=== PATIENT | male | born 1955 | race Caucasian/White ===

== ENCOUNTER 2018-10-27 16:39 | Observation (INO) | payer MEDICARE, MEDICAID ==
[~2018-10-27] VITALS: Ht 170.2 cm; Wt 85.4 kg
[~2018-10-27 16:39] MED LIST: AMLO10TA5 PO; AMLO25TA PO; AMLO5TAB6 PO; APRESOLINE PO; ASPI-1 PO; ASPI-222 PO; ASPI-286 PO; ASPI1TAB6 PO; ASPI325T PO; ASPI81TA24 PO; ASPI81TA85 PO; ATOR40TA75 PO; ATOR80TA59 PO; BABY81CH PO; BENZ-18 PO; CARD180C4 PO; CATA0.1D TD; CEPH2CAP OR; CLAR1CHW2 PO; COLA100C5 PO; COUM1TAB17 PO; COZA50TA PO; DEPA1TAB3 PO; DEPA500T PO; DEPA500T2 PO; DRIS50003 PO; FURO40TA2 PO; GABA-1171 PO; GABA-843 PO; GABA300C2 PO; GEMF600T5 PO; GLIP5TAB2 OR; HYDR-3911 PO; IMDU30TA PO; INSUH10VL SC; INSULADS SC; INSULANT SC; ISOS30TA4 PO; JANUVIA; LIPI1TAB2 OR; LIPI20TA PO; LOPI600T PO; LOPR1TAB6 PD; LOPR1TAB6 PO; LOPR50TA OR; LORA-243 PO; LOSA50TA88 PO; LOVE0.6I2 SC; MED REC COMPLETE; METO-346 PO; METO1TAB63 PO; METO50TA7 PO; NEUR300C PO; NEXI40CA PO; NICO14DI3 TD; NICO21DI3 TD; NORV2TAB OR; NORV5TAB PO; NOVO1INJ2 SC; NOVOINJ3 SC; NOVOLOG100 MG/ML SC; OMEP20CA3 PO; ONDA4TAB5 PO; ONDA8TAB7 SL; PANT40TA3 PO; PARO20TA3 PO; PAXI20TA29 PO; PHEN2SUP PO; PLAV1TAB2 PO; PLAV75TA2 PO; PROT1TAB2 PO; REGL10TA6 PO; SENO8.6T10 PO; SENO8.6T5 PO; TESS100C PO; VITA100T PO; VITA250T50 PO; norco PO
[2018-10-27] MEDS ORDERED: MONT10TA2 PO (16:57)
[2018-10-27] MEDS ORDERED: RANI150T14 PO (16:57)
[2018-10-27] MEDS ORDERED: LORA-437 PO (16:57)
[2018-10-27] MEDS ORDERED: BASA100I SC (16:57)
[2018-10-27] MEDS ORDERED: LISI-538 PO (16:57)
[2018-10-27] MEDS ORDERED: NS 1,000 ML IV ONE (17:45)
[2018-10-27] MEDS ORDERED: ONDANSETRON 4MG/2ML VIAL (J2405) IV ONE (17:45)
--- NOTE | 2018-10-27 18:11 | REP ---
CT Head without contrast HISTORY: Altered mental status COMPARISON: 04/15/2016 An area of decreased attenuation is present in the inferior right cerebellum. This represents an old infarction. Areas of decreased attenuation are present in the thalami , left basal ganglia and left centrum semiovale. These represent old lacunar infarctions. Areas of decreased attenuation are present in the periventricular white matter. This represents small-vessel ischemic disease. There is no intraparenchymal hemorrhage, acute infarct, mass or midline shift. The ventricular system and cortical sulci are dilated consistent with mild volume loss. There is no extra cerebral collection. There is no fracture. The visualized sinuses are clear. IMPRESSION: 1. Old right cerebellar infarction. 2. Old bilateral thalamic , left basal ganglia and left centrum semiovale lacunar infarctions. 3. Small vessel ischemic disease. 4. Mild volume loss. Electronically Signed by Lc Mackey MD 10/27/2018 06:02 P
[2018-10-27 18:19] LABS: BASO # 0.1 10^3/uL (0.0-0.2); BASO % 1.5 % (0.0-1.0); EOS # 0.2 10^3/uL (0.0-0.50); EOS % 3.1 % (0.0-3.0); HEMATOCRIT 42.1 % (42.0-52.0); HEMOGLOBIN 13.3 g/dl (13.5-17.5); LYMPH # 1.8 10^3/uL (1.5-4.5); LYMPH % 24.6 % (24.0-44.0); MEAN CORPUSCULAR HEMOGLOBIN 29.2 pg (27.0-33.0); MEAN CORPUSCULAR HGB CONC 31.6 g/dl (32.0-36.5); MEAN CORPUSCULAR VOLUME 92.5 fl (80.0-96.0); MONO # 0.6 10^3/uL (0.0-0.8); MONO % 8.2 % (0.0-5.0); NEUTROPHILS # 4.6 10^3/uL (1.8-7.7); NEUTROPHILS % 62.2 % (36.0-66.0); PLATELET COUNT, AUTOMATED 276 10^3/uL (150-450); RED BLOOD COUNT 4.55 10^6/uL (4.30-6.10); WHITE BLOOD COUNT 7.3 10^3/uL (4.0-10.0)
--- NOTE | 2018-10-27 18:25 | REP ---
ABDOMEN, FLAT UPRIGHT PA CHEST, THREE VIEWS: HISTORY: Abdominal pain. COMPARISON: 06/20/2014 A small amount of air is present in the intestine. There are no air fluid levels or dilated loops of intestine. There is no pneumoperitoneum. A stent is present in the region of the left common iliac artery. The lungs are clear. IMPRESSION:Nonspecific bowel gas pattern. Electronically Signed by Lc Mackey MD 10/27/2018 06:27 P
[2018-10-27 18:38] LABS: ALBUMIN 2.6 GM/DL (3.2-5.2); ALT/SGPT 14 U/L (12-78); BILIRUBIN,DIRECT < 0.1 MG/DL (0.0-0.2); BILIRUBIN,TOTAL 0.3 MG/DL (0.2-1.0); BLOOD UREA NITROGEN 32 MG/DL (7-18); CALCIUM LEVEL 8.5 MG/DL (8.8-10.2); CARBON DIOXIDE LEVEL 26 MEQ/L (21-32); CHLORIDE LEVEL 111 MEQ/L (98-107); CPK CREATINE PHOSPHOKINASE 124 U/L (39-308); CREATININE FOR GFR 2.49 MG/DL (0.70-1.30); GLOMERULAR FILTRATION RATE 28.2 (>49); GLUCOSE, FASTING 103 MG/DL (70-100); LIPASE 122 U/L (73-393); MB/CK RELATIVE INDEX 2.58 (< OR =4); SODIUM LEVEL 145 MEQ/L (136-145); TOTAL PROTEIN 6.5 GM/DL (6.4-8.2); TROPONIN I < 0.02 NG/ML (< 0.10)
[2018-10-27] MEDS: hydrALAZINE INJ 20 MG/ML VIAL IV PRN ×2 (19:38→19:44)
[2018-10-27] MEDS ORDERED: METOCLOPRAMIDE INJ 10MG/2ML VIAL (J2765) IV ONE (20:00)
[2018-10-27] MEDS ORDERED: MAALOX 30 ML SUSP *UDC PO PRN (20:00)
[2018-10-27] MEDS ORDERED: MOM 30ML SUSPENSION UDC PO PRN (20:00)
[2018-10-27] MEDS: D5W/0.45% SODIUM CHLORIDE 1,000 ML IV SCH (20:00)
[2018-10-27] MEDS ORDERED: ACETAMINOPHEN TAB 650MG DOSE (2X325MG) PO PRN (20:00)
--- NOTE | 2018-10-27 20:04 | HPEPDOC ---
General Date of Admission Chief Complaint The patient is a 63-year-old male admitted with a reason for visit of N/V. Source: Patient, RN/, Old records History of Present Illness Mr. Higgins is a 63 years old man with hx/o diabetic gastroparesis who was brought to Er with c/o nausea, vomiting and diarrhea. Pt is not a good historian. But he told me he vomited this morning, and has not vomited since, but has been nauseous. He was reportedly weaker than his baseline. Denies abdominal pain, fever, chills, chest pain, dizziness, syncope or urinary symptoms. In ER his BP was 217/93, which improved to 190/81 with medication. He was also given Zofran for nausea. Cr 2.49 seems around his baseline (1.97-2.56). Head CT showed old infarcts and chronic ischemic changes, but no acute findings. Home Medications Scheduled Amlodipine Besylate (Amlodipine Besylate) 10 Mg Tab, 5 MG PO DAILY, (Reported) Aspirin (Aspirin EC) 325 Mg Tab, 325 MG PO DAILY, (Reported) Atorvastatin Calcium (Atorvastatin Calcium) 80 Mg Tab, 80 MG PO QHS, (Reported) Clopidogrel Bisulfate (Plavix) 75 Mg Tab, 75 MG PO DAILY, (Reported) Cyanocobalamin (Vitamin B-12) (Vitamin B-12) 250 Mcg Tab, 250 MCG PO DAILY, (Reported) Ergocalciferol (Vitamin D2) (Drisdol) 50,000 Unit Cap, 50,000 UNIT PO QWEEK, (Reported) WEDNESDAY Gabapentin (Gabapentin) 100 Mg Cap, 100 MG PO BID, (Reported) Gemfibrozil (Gemfibrozil) 600 Mg Tab, 600 MG PO QHS, (Reported) Isosorbide Mononitrate (Isosorbide Mononitrate ER) 30 Mg Tab, 30 MG PO DAILY, (Reported) Metoprolol Tartrate (Metoprolol Tartrate) 12.5 Mg Halftab, 12.5 MG PO BID, (Reported) Paroxetine HCl (Paroxetine HCl) 20 Mg Tab, 10 MG PO QHS, (Reported) Scheduled PRN Metoclopramide HCl (Reglan) 10 Mg Tab, 10 MG PO AC PRN for HEARTBURN, (Reported) Miscellaneous Medications Insulin Glargine,Hum.rec.anlog (Jerson [place] U-100) 100 Unit/1 Ml Insuln.pen, (Reported) Lisinopril (Lisinopril) 20 Mg Tablet, (Reported) Loratadine (Loratadine) 10 Mg Tablet, (Reported) Montelukast Sodium (Montelukast Sodium) 10 Mg Tablet, (Reported) Ranitidine HCl (Ranitidine HCl) 150 Mg Tablet, (Reported) Allergies Coded Allergies: piperacillin (Verified Allergy, Intermediate, hives/swelling, 10/27/18) tazobactam (Verified Allergy, Intermediate, hives/swelling, 10/27/18) Past Medical History Medical History 1. 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 Hypertension. 3. History of coronary artery disease. 4. Myocardial infarction. 5. Ischemic stroke. 6. Depression. 7. Gastroesophageal reflux disease (GERD). 8. CKD 4 Surgical History Cardiac Stents Family History Significant Family History: No pertinent family hx Social History * Smoker: former Smoker Alcohol: Denies Drugs: denies A-FIB/CHADSVASC A-FIB History Current/History of A-Fib/PAF?: No Review of Systems Constitutional: Reports: Weakness, Fatigue; Denies: Chills, Fever Eyes: Denies: Pain ENT: Denies: Head Aches Skin: Denies: Rash, Lesions Pulmonary: Denies: Dyspnea Cardiovascular: Denies: Chest Pain, Edema Gastrointestinal: Reports: Nausea, Vomiting; Denies: Abdominal Pain Genitourinary: Denies: Dysuria Musculoskeletal: Denies: Neck Pain, Back Pain Neurological: Reports: Weakness; Denies: Numbness, Change in speech Psych: Reports: Mood Normal; Denies: Anxiety Physical Examination General Exam: Positive: Alert, Cooperative, No Acute Distress Eye Exam: Positive: PERRLA ENT Exam: Positive: Atraumatic Neck Exam: Positive: Supple; Negative: JVD Chest Exam: Positive: Clear to auscultation, Normal air movement Heart Exam: Positive: Rate Normal, Regular Rhythm Abdomen Exam: Positive: Normal bowel sounds, Soft; Negative: Tenderness Extremity Exam: Positive: Normal pulses; Negative: Edema Skin Exam: Positive: Nl turgor and temperature; Negative: Rash, Breakdown Neuro Exam: Positive: Normal Speech, Strength at 5/5 X4 ext, Normal Tone Psych Exam: Positive: Mental status NL, Mood NL Vital Signs Vital Signs Date Time Temp Pulse Resp B/P (MAP) Pulse Ox O2 Delivery O2 Flow Rate FiO2 10/27/18 19:44 190/81 10/27/18 19:30 76 18 98 Room Air 10/27/18 18:40 96.9 Laboratory Data Labs 24H Laboratory Tests 2 10/27/18 17:34: Immature Granulocyte % (Auto) 0.4, White Blood Count 7.3, Red Blood Count 4.55, Hemoglobin 13.3L, Hematocrit 42.1, Mean Corpuscular Volume 92.5, Mean Corpuscular Hemoglobin 29.2, Mean Corpuscular Hemoglobin Concent 31.6L, Red Cell Distribution Width 13.6, Platelet Count 276, Neutrophils (%) (Auto) 62.2, Lymphocytes (%) (Auto) 24.6, Monocytes (%) (Auto) 8.2H, Eosinophils (%) (Auto) 3.1H, Basophils (%) (Auto) 1.5H, Neutrophils # (Auto) 4.6, Lymphocytes # (Auto) 1.8, Monocytes # (Auto) 0.6, Eosinophils # (Auto) 0.2, Basophils # (Auto) 0.1, Nucleated Red Blood Cells % (auto) 0.0, Anion Gap 8, Glomerular Filtration Rate 28.2L, Calcium Level 8.5L, Aspartate Amino Transf (AST/SGOT) 20, Alanine Aminotransferase (ALT/SGPT) 14, Alkaline Phosphatase 182H, Total Bilirubin 0.3, Direct Bilirubin < 0.1, Total Creatine Kinase 124, Creatine Kinase MB 3.0, Creatine Kinase MB Relative Index 2.58, Troponin I < 0.02, Total Protein 6.5, Albumin 2.6L, Albumin/Globulin Ratio 0.67L, Lipase 122 10/27/18 18:07: POC Glucose (Misc Panel) 101, POC Sodium (Misc Panel) 146H, POC Potassium (Misc Panel) 4.0, POC Chloride (Misc Panel) 109, POC Total CO2 (Misc Panel) 25.0, POC Blood Urea Nitrogen (Misc Panel 29H, POC Ionized Calcium (Misc Panel) 4.7, POC Creatinine (Misc Panel) 2.4H, POC Hematocrit (Misc Panel) 41.0 CBC/BMP Laboratory Tests 10/27/18 17:34 Red Blood Count 4.55, Mean Corpuscular Volume 92.5, Mean Corpuscular Hemoglobin 29.2, Mean Corpuscular Hemoglobin Concent 31.6 L, Red Cell Distribution Width 13.6, Neutrophils (%) (Auto) 62.2, Lymphocytes (%) (Auto) 24.6, Monocytes (%) (Auto) 8.2 H, Eosinophils (%) (Auto) 3.1 H, Basophils (%) (Auto) 1.5 H, Neutrophils # (Auto) 4.6, Lymphocytes # (Auto) 1.8, Monocytes # (Auto) 0.6, Eosinophils # (Auto) 0.2, Basophils # (Auto) 0.1 Assessment/Plan Nausea, Vomiting, Diarrhea, CKD 4 - DD: Gastroenteritis +/- Gastroparesis - Keep in Observation; Sending GI panel - IV fluid, Reglan before meals - Monitor renal fx - PT, OT and manager transition consults for worsening weakness, possible need for home services. Elevated BP - Likely triggered by acute illness; may have missed regular meds - Continue home meds; monitor BP - No indication for aggressive BP management Plan / VTE VTE Prophylaxis Ordered?: No VTE Exclusion Mechanical Proph: Low Risk for VTE VTE Exclusion Pharmacological: At Low Risk for VTE Plan Anticipated Discharge: Home With Services DANIEL GUNN MD October 27, 2018 20:04
[2018-10-27] MEDS ORDERED: PATIENT COMMENT (20:18)
[2018-10-27] MEDS ORDERED: GABA-1171 PO (20:28)
[2018-10-27] MEDS ORDERED: AMLO5TAB6 PO (20:28)
[2018-10-27] MEDS ORDERED: METO1TAB87 PO (20:31)
[2018-10-27] MEDS ORDERED: PARO5TAB PO (20:31)
--- NOTE | 2018-10-27 23:22 | ECGEPIP ---
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 04/15/16 Electronically Signed On 10-27-2018 23:21:51 EDT by Newton Medeiros
[2018-10-28 06:00] VITALS: BP 180/58
[2018-10-28 06:38] LABS: HEMATOCRIT 35.7 % (42.0-52.0); HEMOGLOBIN 11.5 g/dl (13.5-17.5); MEAN CORPUSCULAR HEMOGLOBIN 29.9 pg (27.0-33.0); MEAN CORPUSCULAR HGB CONC 32.2 g/dl (32.0-36.5); MEAN CORPUSCULAR VOLUME 92.7 fl (80.0-96.0); PLATELET COUNT, AUTOMATED 216 10^3/uL (150-450); RED BLOOD COUNT 3.85 10^6/uL (4.30-6.10); WHITE BLOOD COUNT 5.5 10^3/uL (4.0-10.0)
[2018-10-28 06:55] LABS: ALBUMIN 2.1 GM/DL (3.2-5.2); BILIRUBIN,TOTAL 0.2 MG/DL (0.2-1.0); CALCIUM LEVEL 8.6 MG/DL (8.8-10.2); CREATININE FOR GFR 2.39 MG/DL (0.70-1.30); GLOMERULAR FILTRATION RATE 29.6 (>49); POTASSIUM SERUM 3.6 MEQ/L (3.5-5.1); TOTAL PROTEIN 5.4 GM/DL (6.4-8.2)
[2018-10-28] MEDS: METOCLOPRAMIDE 5 MG TAB PO SCH ×2 (07:53→11:13)
[2018-10-28] MEDS ORDERED: LORATADINE 10 MG TAB PO PRN (08:00)
[2018-10-28] MEDS: D5W/0.45% SODIUM CHLORIDE 1,000 ML IV SCH (08:26)
[2018-10-28 08:29] VITALS: BP 180/58
[2018-10-28] MEDS ORDERED: CLOPIDOGREL 75 MG TAB PO SCH (09:00)
[2018-10-28] MEDS ORDERED: LISINOPRIL 20 MG TAB PO SCH (09:00)
[2018-10-28] MEDS ORDERED: ASPIRIN ENTERIC 325 MG TAB PO SCH (09:00)
[2018-10-28] MEDS ORDERED: METOPROLOL TART 12.5 MG PER 1/2 TAB PO SCH (09:00)
[2018-10-28] MEDS ORDERED: amLODIPine 5 MG TAB PO SCH (09:00)
--- NOTE | 2018-10-28 10:53 | DS.PDOC ---
Discharge Summary General Date of Admission October 27, 2018 at 19:48 Date of Discharge 10/28/18 Attending Physician: SINGH REINOSO MD Discharge Summary PROCEDURES PERFORMED DURING STAY: [None]. ADMITTING DIAGNOSES: 1. Persistent nausea/vomiting likely 2/2 gastroparesis. 2. Diabetes mellitus. 3. Hypertension crisis 4. CKD 4 5. hx AR 6. hx CVA DISCHARGE DIAGNOSES: 1. Persistent nausea/vomiting likely 2/2 gastroparesis. 2. Diabetes mellitus. 3. Hypertension crisis 4. CKD 4 5. hx AR 6. hx CVA COMPLICATIONS/CHIEF COMPLAINT: Diabetic Gastroparesis. HISTORY OF PRESENT ILLNESS: "Mr. Higgins is a 63 years old man with hx/o diabetic gastroparesis who was brought to Er with c/o nausea, vomiting and diarrhea. Pt is not a good historian. But he told me he vomited this morning, and has not vomited since, but has been nauseous. He was reportedly weaker than his baseline. Denies abdomi nal pain, fever, chills, chest pain, dizziness, syncope or urinary symptoms. In ER his BP was 217/93, which improved to 190/81 with medication. He was also given Zofran for nausea. Cr 2.49 seems around his baseline (1.97-2.56). Head CT showed old infarcts and chronic ischemic changes, but no acute findings." HOSPITAL COURSE: Patient was admitted with persistent nausea and vomiting and had improved with supportive care overnight. Symptoms reportedly does occur from time to time as he does have history of gastroparesis. He stated that his nausea has completely resolved, reported no abdominal pain and ate all his breakfast this morning with out any difficulty. He states that he feels well and would like to go home today. We'll discharge patient home to follow up up with PMD. Admission H &P reported diarrhea but patient states he doesn't have any diarrhea, just the nausea and vomiting. Denies any symptoms at this time. GI appeared to have been ordered but not completed likely as he has not had a bowel movement last night. DISCHARGE MEDICATIONS: Please see below. ALLERGIES: Please see below. PHYSICAL EXAMINATION ON DISCHARGE: VITAL SIGNS: Please see below. General: No acute distress, Alert Eyes: Normal sclera, EOMI, BOB HENT: Atraumatic, neck supple, moist mucous membranes Cardiovascular: Normal rate, normal rhythm. No murmurs appreciated. Pulmonary: Clear to auscultation b/l, no wheezing GI: Soft, nontender, nondistended Skin: Warm and dry Neuro: CN grossly intact. No focal deficits. Strengths equal b/l. Psych: oriented x 3 LABORATORY DATA: Please see below. IMAGING: Abdominal XR- A small amount of air is present in the intestine. There are no air fluid levels or dilated loops of intestine. There is no pneumoperitoneum. A stent is present in the region of the left common iliac artery. The lungs are clear. IMPRESSION:Nonspecific bowel gas pattern. Head CT- IMPRESSION: 1. Old right cerebellar infarction. 2. Old bilateral thalamic , left basal ganglia and left centrum semiovale lacunar infarctions. 3. Small vessel ischemic disease. 4. Mild volume loss. ACTIVITY: [As tolerated]. DIET: Diabetic diet DISCHARGE PLAN: f/u with PCP within 1 week DISPOSITION: Home. DISCHARGE INSTRUCTIONS: f/u with PCP within 1 week ITEMS TO FOLLOWUP ON ON OUTPATIENT: 1. None DISCHARGE CONDITION: [Stable]. TIME SPENT ON DISCHARGE: Greater than 30 minutes. Vital Signs/I&Os Vital Signs Date Time Temp Pulse Resp B/P (MAP) Pulse Ox O2 Delivery O2 Flow Rate FiO2 10/28/18 08:29 180/58 10/28/18 06:00 97.2 68 20 96 10/27/18 20:40 Room Air I&O- Last 24 Hours up to 6 AM 10/28/18 06:00 Intake Total 1480 ml Output Total 500 ml Balance 980 ml Laboratory Data Labs 24H Laboratory Tests 2 10/27/18 17:34: Immature Granulocyte % (Auto) 0.4, White Blood Count 7.3, Red Blood Count 4.55, Hemoglobin 13.3L, Hematocrit 42.1, Mean Corpuscular Volume 92.5, Mean Corpuscular Hemoglobin 29.2, Mean Corpuscular Hemoglobin Concent 31.6L, Red Cell Distribution Width 13.6, Platelet Count 276, Neutrophils (%) (Auto) 62.2, Lymphocytes (%) (Auto) 24.6, Monocytes (%) (Auto) 8.2H, Eosinophils (%) (Auto) 3.1H, Basophils (%) (Auto) 1.5H, Neutrophils # (Auto) 4.6, Lymphocytes # (Auto) 1.8, Monocytes # (Auto) 0.6, Eosinophils # (Auto) 0.2, Basophils # (Auto) 0.1, Nucleated Red Blood Cells % (auto) 0.0, Anion Gap 8, Glomerular Filtration Rate 28.2L, Calcium Level 8.5L, Aspartate Amino Transf (AST/SGOT) 20, Alanine Aminotransferase (ALT/SGPT) 14, Alkaline Phosphatase 182H, Total Bilirubin 0.3, Direct Bilirubin < 0.1, Total Creatine Kinase 124, Creatine Kinase MB 3.0, Creatine Kinase MB Relative Index 2.58, Troponin I < 0.02, Total Protein 6.5, Albumin 2.6L, Albumin/Globulin Ratio 0.67L, Lipase 122 10/27/18 18:07: POC Glucose (Misc Panel) 101, POC Sodium (Misc Panel) 146H, POC Potassium (Misc Panel) 4.0, POC Chloride (Misc Panel) 109, POC Total CO2 (Misc Panel) 25.0, POC Blood Urea Nitrogen (Misc Panel 29H, POC Ionized Calcium (Misc Panel) 4.7, POC Creatinine (Misc Panel) 2.4H, POC Hematocrit (Misc Panel) 41.0 10/28/18 05:50: Nucleated Red Blood Cells % (auto) 0.0, Anion Gap 7L, Glomerular Filtration Rate 29.6L, Calcium Level 8.6L, Aspartate Amino Transf (AST/SGOT) 16, Alanine Aminotransferase (ALT/SGPT) 10L, Alkaline Phosphatase 125H, Total Bilirubin 0.2, Total Protein 5.4L, Albumin 2.1L, Albumin/Globulin Ratio 0.64L, Blood Urea Nitrogen 27H, Creatinine 2.39H, Sodium Level 145, Potassium Level 3.6, Chloride Level 113H, Carbon Dioxide Level 25 CBC/BMP Laboratory Tests 10/27/18 17:34 Red Blood Count 4.55, Mean Corpuscular Volume 92.5, Mean Corpuscular Hemoglobin 29.2, Mean Corpuscular Hemoglobin Concent 31.6 L, Red Cell Distribution Width 13.6, Neutrophils (%) (Auto) 62.2, Lymphocytes (%) (Auto) 24.6, Monocytes (%) (Auto) 8.2 H, Eosinophils (%) (Auto) 3.1 H, Basophils (%) (Auto) 1.5 H, Neutrop hils # (Auto) 4.6, Lymphocytes # (Auto) 1.8, Monocytes # (Auto) 0.6, Eosinophils # (Auto) 0.2, Basophils # (Auto) 0.1 10/28/18 05:50 Red Blood Count 3.85 L, Mean Corpuscular Volume 92.7, Mean Corpuscular Hemoglobin 29.9, Mean Corpuscular Hemoglobin Concent 32.2, Red Cell Distribution Width 13.6, Calcium Level 8.6 L, Aspartate Amino Transf (AST/SGOT) 16, Alanine Aminotransferase (ALT/SGPT) 10 L, Alkaline Phosphatase 125 H, Total Bilirubin 0.2, Total Protein 5.4 L, Albumin 2.1 L Discharge Medications Scheduled Amlodipine Besylate (Amlodipine Besylate) 5 Mg Tablet, 5 MG PO DAILY, (Reported) Aspirin (Aspirin EC) 325 Mg Tab, 325 MG PO DAILY, (Reported) Atorvastatin Calcium (Atorvastatin Calcium) 80 Mg Tab, 80 MG PO QHS, (Reported) Clopidogrel Bisulfate (Plavix) 75 Mg Tab, 75 MG PO DAILY, (Reported) Cyanocobalamin (Vitamin B-12) (Vitamin B-12) 250 Mcg Tab, 250 MCG PO DAILY, (Reported) Ergocalciferol (Vitamin D2) (Drisdol) 50,000 Unit Cap, 50,000 UNIT PO QWEEK, (Reported) WEDNESDAY Gabapentin (Gabapentin) 100 Mg Cap, 100 MG PO QAM, (Reported) Gabapentin (Gabapentin) 100 Mg Capsule, 200 MG PO QHS, (Reported) Gemfibrozil (Gemfibrozil) 600 Mg Tab, 600 MG PO QHS, (Reported) Insulin Glargine,Hum.rec.anlog (Basaglar Kwikpen U-100) 100 Unit/1 Ml Insuln.pen, 30 UNITS SC QHS, (Reported) Lisinopril (Lisinopril) 20 Mg Tablet, 20 MG PO DAILY, (Reported) Metoprolol Tartrate (Metoprolol Tartrate) 25 Mg Tablet, 12.5 MG PO BID, (Reported) Montelukast Sodium (Montelukast Sodium) 10 Mg Tablet, 10 MG PO QHS, (Reported) Paroxetine (Paroxetine HCl) 10 Mg Tablet, 10 MG PO DAILY, (Reported) Ranitidine HCl (Ranitidine HCl) 150 Mg Tablet, 150 MG PO BID, (Reported) Scheduled PRN Loratadine (Loratadine) 10 Mg Tablet, 5 MG PO BID PRN for ALLERGIES, (Reported) Metoclopramide HCl (Reglan) 10 Mg Tab, 10 MG PO AC PRN for HEARTBURN, (Reported) Miscellaneous Medications [Patient Comment] , (Reported) DISCUSSED MEDICATIONS OVER PHONE WITH SISTER Penny HOFFMAN Allergies Coded Allergies: piperacillin (Verified Allergy, Intermediate, hives/swelling, 10/27/18) tazobactam (Verified Allergy, Intermediate, hives/swelling, 10/27/18) SINGH REINOSO MD October 28, 2018 10:53
[2018-10-28 11:44] VITALS: BP 150/90
[2018-10-28] MEDS ORDERED: GEMFIBROZIL 600 MG TAB PO SCH (21:00)
[2018-10-28] MEDS ORDERED: GABAPENTIN 100 MG CAP PO SCH (21:00)
[2018-10-28] MEDS ORDERED: ATORVASTATIN 20 MG TAB PO SCH (21:00)
[2018-10-28] MEDS ORDERED: MONTELUKAST 10 MG TAB PO SCH (21:00)
== END 2018-10-28 12:45 | disposition home or self-care (01) ==
LOC: M ED 16:39 → EDBD 16:39 → M ED INP 19:48 → M MS5PR 20:50
PROVIDERS: ADMIT Internal Medicine; ATTEND Internal Medicine
DX: R11.2 Nausea with vomiting, unspecified (principal); Z87.19 Personal history of other diseases of the digestive system; E11.43 Type 2 diabetes mellitus with diabetic autonomic (poly)neuropathy; I16.9 Hypertensive crisis, unspecified; N18.4 Chronic kidney disease, stage 4 (severe); E11.22 Type 2 diabetes mellitus with diabetic chronic kidney disease; I25.2 Old myocardial infarction; Z86.73 Personal history of transient ischemic attack (TIA), and cerebral infarction without residual deficits; R53.1 Weakness; F32.9 Major depressive disorder, single episode, unspecified; K21.9 Gastro-esophageal reflux disease without esophagitis; I25.10 Atherosclerotic heart disease of native coronary artery without angina pectoris; Z79.899 Other long term (current) drug therapy; Z95.5 Presence of coronary angioplasty implant and graft; Z87.891 Personal history of nicotine dependence; Z79.82 Long term (current) use of aspirin; Z79.02 Long term (current) use of antithrombotics/antiplatelets; Z79.4 Long term (current) use of insulin; Z88.1 Allergy status to other antibiotic agents
CPT/HCPCS: 36415; 70450; 74021; 80047; 80048; 80053; 80076; 82550; 82553; 83690; 84484; 85025; 85027; 93005; 93041; 96361; 96374; 96375; 97161; 97530; 99285; G0378; J2405; J2765

== ENCOUNTER → 2019-03-17 | Outpatient (CLI) | payer MEDICARE, MEDICAID ==
[~2019-03-17] MED LIST changes: -ASPI-222 PO; +ASPI-527 PO; +BASA100I SC; +LISI-538 PO; +LORA-437 PO; +METO1TAB87 PO; +MONT10TA2 PO; +PARO5TAB PO; +PATIENT COMMENT; +RANI150T14 PO
--- NOTE | 2019-03-17 15:30 | REP ---
MRI brain without contrast: History: Lack of coordination. Comparison brain MRI study is from August 14, 2015. Technique: Axial and sagittal imaging planes are utilized for T1 and T2-weighted scans. Sequences include spin-echo, fast spin echo, FLAIR, and diffusion weighted sequences. MRI findings: The bony calvarium appears intact. Craniocervical junction and upper cervical cord are unremarkable. No intraorbital abnormality is seen. There is no MR evidence of significant paranasal sinus disease. There are old infarcts in the right inferior cerebellum, the left basal ganglia, and the periventricular white matter of the frontal lobes bilaterally. Diffusion weighted scans show no evidence of restricted diffusion to suggest an acute ischemia. There is no evidence of intracranial hemorrhage. Mild microvascular changes are seen in the periventricular white matter as before. No mass, extra-axial fluid collection or midline shift is seen. Impression: Old right cerebellar infarction and old periventricular white matter and left basal ganglia lacunar infarcts. Generalized volume loss and small vessel changes. No acute intracranial abnormality. Electronically Signed by Raul Moreno MD 03/17/2019 04:01 P
--- NOTE | 2019-03-17 15:37 | REP ---
MR angiography of the brain without contrast: History: Lack of coordination. Comparison study April 02, 2015. Technique: 3-D [id number] MR angiography of the brain is acquired in the usual fashion and maximal intensity projection images were generated in rotational format about the vertical and horizontal axes. In addition, source axial T1-weighted images are viewed in cine mode. MR angiographic findings: There is absence of flow signal in the right distal vertebral artery consistent with occlusion. This was previously observed. There is evidence of focal narrowing in the distal vertebral artery on the left, which it is unchanged from MRA angiography of the carotids dated September 16, 2014, approximately 75% narrowing. There is 50% focal narrowing in the basilar artery on today's MRI study. This appears to be new. Posterior cerebral and superior cerebellar vessels are unremarkable. The distal internal carotid arteries are essentially unremarkable. Anterior and middle cerebral arteries are intact. 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 High-grade focal stenosis in the distal vertebral artery on the left also chronic and interval development of a focal 50% narrowing of the basilar artery. Electronically Signed by Raul Moreno MD 03/17/2019 04:01 P
--- NOTE | 2019-03-17 16:10 | REP ---
MR angiography of the carotids without contrast: History: Lack of coordination. MR angiographic findings: There is no flow signal in the right vertebral artery consistent with its occlusion from its origin. The left vertebral artery is fairly large and widely patent. Great vessel origins are unremarkable. The common carotid arteries appear intact. There is no significant ICA stenosis on either side. There is mild plaquing of the proximal ICA on the left. Impression: Absence of flow signal consistent with occlusion of the right vertebral artery. Mild plaquing in the proximal ICA on the left. No high-grade stenosis in either carotid. Electronically Signed by Raul Moreno MD 03/17/2019 04:18 P
== END ==
LOC: M RAD 10:54
PROVIDERS: ATTEND Nurse Practitioner Family
DX: I66.01 Occlusion and stenosis of right middle cerebral artery (principal)

== ENCOUNTER 2020-01-23 21:50 | Inpatient (IN) | payer MEDICARE, MEDICAID ==
[~2020-01-23 21:50] MED LIST changes: -AMLO10TA5 PO; +AMLO1TAB24 PO; +AMLO1TAB25 PO; -AMLO5TAB6 PO; -ASPI81TA85 PO; +ASPI81TA86 PO; -MONT10TA2 PO; +MONT10TA4 PO; +ONDA-83 PO; -ONDA4TAB5 PO; +ONDA8TAB10 SL; -ONDA8TAB7 SL; +PANT40TA29 PO; -PANT40TA3 PO
[2020-01-24] MEDS ORDERED: LABETALOL 100MG/20ML VIAL As Ordered ONE ×2 (01:48→12:11)
[2020-01-24] MEDS ORDERED: FAMOTIDINE 20 MG TAB ONE (09:53)
[2020-01-24] MEDS ORDERED: HumaLOG INSULIN (NovoLOG) PER UNIT ONE (09:53)
[2020-01-24] MEDS ORDERED: MONTELUKAST 10 MG TAB ONE (09:53)
[2020-01-24] MEDS ORDERED: METOPROLOL TART 12.5 MG PER 1/2 TAB ONE ×2 (09:53→20:39)
[2020-01-24] MEDS ORDERED: amLODIPine 5 MG TAB ONE (09:53)
[2020-01-24] MEDS ORDERED: LEVEMIR (INSULIN DETEMIR) 1 UNITS/0.01ML ONE ×2 (09:53→20:39)
[2020-01-24] MEDS ORDERED: ASPIRIN 325 MG TAB ONE (09:53)
[2020-01-24] MEDS ORDERED: GABAPENTIN 100 MG CAP ONE (09:53)
[2020-01-24] MEDS ORDERED: FAMOTIDINE 20 MG TAB As Ordered ONE (09:53)
[2020-01-24] MEDS ORDERED: ASPIRIN 325 MG TAB As Ordered ONE (09:54)
[2020-01-24] MEDS ORDERED: MONTELUKAST 10 MG TAB As Ordered ONE (09:54)
[2020-01-24] MEDS ORDERED: GABAPENTIN 100 MG CAP As Ordered ONE (09:54)
[2020-01-24] MEDS ORDERED: amLODIPine 5 MG TAB As Ordered ONE (09:55)
[2020-01-24] MEDS ORDERED: METOPROLOL TART 12.5 MG PER 1/2 TAB As Ordered ONE ×2 (09:55→20:39)
[2020-01-24] MEDS ORDERED: HumaLOG INSULIN (NovoLOG) PER UNIT As Ordered ONE (09:55)
[2020-01-24] MEDS ORDERED: LEVEMIR (INSULIN DETEMIR) 1 UNITS/0.01ML As Ordered ONE ×2 (09:56→20:41)
[2020-01-24] MEDS ORDERED: LABETALOL 100MG/20ML VIAL ONE (12:11)
[2020-01-25] MEDS ORDERED: FAMOTIDINE 20 MG TAB As Ordered ONE (09:50)
[2020-01-25] MEDS ORDERED: GABAPENTIN 100 MG CAP As Ordered ONE (09:50)
[2020-01-25] MEDS ORDERED: FAMOTIDINE 20 MG TAB ONE (09:50)
[2020-01-25] MEDS ORDERED: ASPIRIN 325 MG TAB ONE (09:50)
[2020-01-25] MEDS ORDERED: GABAPENTIN 100 MG CAP ONE (09:50)
[2020-01-25] MEDS ORDERED: MONTELUKAST 10 MG TAB ONE (09:50)
[2020-01-25] MEDS ORDERED: amLODIPine 5 MG TAB ONE ×2 (09:51→12:55)
[2020-01-25] MEDS ORDERED: amLODIPine 5 MG TAB As Ordered ONE ×2 (09:51→12:56)
[2020-01-25] MEDS ORDERED: ASPIRIN 325 MG TAB As Ordered ONE (09:51)
[2020-01-25] MEDS ORDERED: METOPROLOL TART 12.5 MG PER 1/2 TAB ONE ×2 (09:51→12:55)
[2020-01-25] MEDS ORDERED: LEVEMIR (INSULIN DETEMIR) 1 UNITS/0.01ML ONE (09:51)
[2020-01-25] MEDS ORDERED: MONTELUKAST 10 MG TAB As Ordered ONE (09:51)
[2020-01-25] MEDS ORDERED: METOPROLOL TART 12.5 MG PER 1/2 TAB As Ordered ONE ×2 (09:51→12:56)
[2020-01-25] MEDS ORDERED: LEVEMIR (INSULIN DETEMIR) 1 UNITS/0.01ML As Ordered ONE (09:53)
[2020-01-25] MEDS ORDERED: HumaLOG INSULIN (NovoLOG) PER UNIT As Ordered ONE (12:55)
[2020-01-25] MEDS ORDERED: HumaLOG INSULIN (NovoLOG) PER UNIT ONE (12:55)
[2020-03-17 01:01] LABS: HEMATOCRIT 36.7 % (42.0-52.0); HEMOGLOBIN 11.7 g/dl (13.5-17.5); MEAN CORPUSCULAR HEMOGLOBIN 29.6 pg (27.0-33.0); MEAN CORPUSCULAR HGB CONC 31.9 g/dl (32.0-36.5); MEAN CORPUSCULAR VOLUME 92.9 fl (80.0-96.0); PLATELET COUNT, AUTOMATED 209 10^3/uL (150-450); RED BLOOD COUNT 3.95 10^6/uL (4.30-6.10); WHITE BLOOD COUNT 5.6 10^3/uL (4.0-10.0)
[2020-03-17 01:01] LABS: HEMATOCRIT 35.1 % (42.0-52.0); HEMOGLOBIN 11.1 g/dl (13.5-17.5); MEAN CORPUSCULAR HGB CONC 31.6 g/dl (32.0-36.5); MEAN CORPUSCULAR VOLUME 94.9 fl (80.0-96.0); PLATELET COUNT, AUTOMATED 180 10^3/uL (150-450); WHITE BLOOD COUNT 5.6 10^3/uL (4.0-10.0)
[2020-03-17 16:42] LABS: HEMATOCRIT 36.6 % (42.0-52.0); HEMOGLOBIN 11.8 g/dl (13.5-17.5); MEAN CORPUSCULAR HGB CONC 32.2 g/dl (32.0-36.5); MEAN CORPUSCULAR VOLUME 93.1 fl (80.0-96.0); PLATELET COUNT, AUTOMATED 209 10^3/uL (150-450); RED BLOOD COUNT 3.93 10^6/uL (4.30-6.10); WHITE BLOOD COUNT 6.1 10^3/uL (4.0-10.0)
[2020-04-17 09:49] LABS: CALCIUM LEVEL 8.7 MG/DL (8.8-10.2); CREATININE FOR GFR 3.59 MG/DL (0.70-1.30); GLOMERULAR FILTRATION RATE 18.4 (>49); POTASSIUM SERUM 4.5 MEQ/L (3.5-5.1)
[2020-04-17 09:54] LABS: CREATININE,RANDOM URINE 54.5 MG/DL
[2020-04-17 09:56] LABS: ALBUMIN 2.8 GM/DL (3.2-5.2); ALT/SGPT 7 U/L (12-78); BILIRUBIN,TOTAL 0.3 MG/DL (0.2-1.0); BLOOD UREA NITROGEN 35 MG/DL (7-18); CALCIUM LEVEL 8.8 MG/DL (8.8-10.2); CARBON DIOXIDE LEVEL 24 MEQ/L (21-32); CHLORIDE LEVEL 110 MEQ/L (98-107); GLOMERULAR FILTRATION RATE 18.3 (>49); GLUCOSE, FASTING 207 MG/DL (70-100); PHOSPHORUS LEVEL 4.4 MG/DL (2.5-4.9); POTASSIUM SERUM 4.6 MEQ/L (3.5-5.1); SODIUM LEVEL 142 MEQ/L (136-145); TOTAL PROTEIN 6.1 GM/DL (6.4-8.2); TROPONIN I < 0.02 NG/ML (< 0.10)
[2020-04-17 18:11] LABS: CALCIUM LEVEL 8.9 MG/DL (8.8-10.2); CREATININE FOR GFR 3.5 MG/DL (0.70-1.30); GLOMERULAR FILTRATION RATE 18.9 (>49); PHOSPHORUS LEVEL 4.4 MG/DL (2.5-4.9); POTASSIUM SERUM 4.3 MEQ/L (3.5-5.1)
== END 2020-01-25 17:40 | disposition home or self-care (01) | DRG 300 ==
LOC: M ED 21:50 → M PCU 21:51
PROVIDERS: ADMIT Internal Medicine; ATTEND Internal Medicine
DX: I71.4 Abdominal aortic aneurysm, without rupture (principal); N17.9 Acute kidney failure, unspecified; E11.51 Type 2 diabetes mellitus with diabetic peripheral angiopathy without gangrene; F17.200 Nicotine dependence, unspecified, uncomplicated; N18.9 Chronic kidney disease, unspecified; J45.909 Unspecified asthma, uncomplicated; I12.9 Hypertensive chronic kidney disease with stage 1 through stage 4 chronic kidney disease, or unspecified chronic kidney disease; Z79.82 Long term (current) use of aspirin; Z79.899 Other long term (current) drug therapy; Z79.4 Long term (current) use of insulin; Z88.8 Allergy status to other drugs, medicaments and biological substances; Z91.041 Radiographic dye allergy status

== ENCOUNTER 2020-07-29 10:35 | Inpatient (IN) | payer MEDICARE, MEDICAID ==
[~2020-07-29] VITALS: Ht 170.2 cm; Wt 82.6 kg
[~2020-07-29 10:35] MED LIST changes: +ASPIRIN ENTERIC 325 MG TAB PO SCH; +FAMOTIDINE 20 MG TAB PO SCH; +FUROSEMIDE 20 MG TAB PO SCH; +GABA-282 PO; -GABA-843 PO; +ISOS1TAB35 PO; -ISOS30TA4 PO; -LISI-538 PO; +LISI20TA33 PO; -LORA-437 PO; +LORA-931 PO; +MONT10TA10 PO; -MONT10TA4 PO; +gemfibroziL 600 MG TAB PO SCH
--- NOTE | 2020-07-29 11:14 | REP ---
INDICATION: trauma COMPARISON: 10/27/2018 TECHNIQUE: Axial noncontrast images from the skull base to the thoracic inlet with coronal reformations. This CT examination was performed using the following dose reduction techniques: Automated exposure control, adjustment of mA and/or kv according to the patient's size, and use of iterative reconstruction technique. FINDINGS: Atrophy with periventricular leukomalacia and microvascular ischemic changes are appreciated. Small lacunar infarcts and prior right cerebellar infarct again noted. The ventricles and sulci are symmetric. Moses-white differentiation is maintained. There is no evidence for acute intracranial hemorrhage, mass/mass effect, pathology or infarction. No extra-axial fluid collection. Calvarium is intact. Paranasal sinuses and mastoid air cells are clear. IMPRESSION: Atrophy and microvascular ischemic changes. Old right cerebellar infarct again noted. No acute intracranial hemorrhage, infarction, or trauma/injury. <Electronically signed by Arik Celis > 07/29/20 [id number]
--- NOTE | 2020-07-29 11:17 | REP ---
INDICATION: trauma COMPARISON: 04/15/2016 TECHNIQUE: Axial noncontrast images from the skull base to the thoracic inlet with coronal and sagittal re-formations This CT examination was performed using the following dose reduction techniques: Automated exposure control, adjustment of mA and/or kv according to the patient's size, and use of iterative reconstruction technique. FINDINGS: Advanced multilevel degenerative changes include osteophytosis, endplate sclerosis, disc space narrowing and facet arthropathy. There is no evidence for acute fracture/compression injury or subluxation. Spinal canal appears patent. Posterior elements and spinous processes appear intact. Paravertebral soft tissues are within normal limits. IMPRESSION: Advanced multilevel degenerative spondylosis. No evidence for acute pathology or trauma/injury. <Electronically signed by Arik Celis > 07/29/20 [id number]
--- NOTE | 2020-07-29 11:41 | REP ---
INDICATION: gen weakness. COMPARISON: October 27, 2018.. TECHNIQUE: AP semi-erect portable chest radiograph. FINDINGS: The lungs are well inflated and clear. The pleural angles are sharp. Heart size is normal. The aorta is calcific. Monitoring electrodes are seen. Pulmonary vasculature is not increased. No significant bony abnormality. IMPRESSION: No active cardiopulmonary disease. <Electronically signed by Guanakito Moreno > 07/29/20 [id number]
[2020-07-29 11:51] LABS: BASO # 0.1 10^3/uL (0.0-0.2); BASO % 1.7 % (0.0-1.0); EOS # 0.2 10^3/uL (0.0-0.5); EOS % 2.5 % (0.0-3.0); HEMATOCRIT 35.2 % (42.0-52.0); HEMOGLOBIN 11.4 g/dl (13.5-17.5); LYMPH # 1.1 10^3/uL (1.5-5.0); LYMPH % 17.3 % (24.0-44.0); MEAN CORPUSCULAR HEMOGLOBIN 29.5 pg (27.0-33.0); MEAN CORPUSCULAR HGB CONC 32.4 g/dl (32.0-36.5); MEAN CORPUSCULAR VOLUME 91.2 fl (80.0-96.0); MONO # 0.5 10^3/uL (0.0-0.8); MONO % 7.8 % (2.0-8.0); NEUTROPHILS # 4.5 10^3/uL (1.5-8.5); NEUTROPHILS % 70.4 % (36.0-66.0); PLATELET COUNT, AUTOMATED 196 10^3/uL (150-450); RED BLOOD COUNT 3.86 10^6/uL (4.30-6.10); WHITE BLOOD COUNT 6.4 10^3/uL (4.0-10.0)
[2020-07-29] MEDS ORDERED: FAMO40TA3 PO (12:00)
[2020-07-29] MEDS ORDERED: CIPR500S PO (12:00)
[2020-07-29] MEDS ORDERED: FURO20TA2 PO (12:00)
[2020-07-29] MEDS ORDERED: CALC1CAP31 PO (12:00)
[2020-07-29] MEDS ORDERED: DOXA1TAB41 PO (12:00)
[2020-07-29] MEDS ORDERED: METR-265 PO (12:00)
[2020-07-29] MEDS ORDERED: PANT40TA29 PO (12:00)
[2020-07-29] MEDS ORDERED: DEXI30CA2 PO (12:00)
[2020-07-29 12:10] LABS: ALBUMIN 2.6 GM/DL (3.2-5.2); ALT/SGPT 23 U/L (12-78); BILIRUBIN,DIRECT 0.1 MG/DL (0.0-0.2); BILIRUBIN,TOTAL 0.3 MG/DL (0.2-1.0); BLOOD UREA NITROGEN 30 MG/DL (7-18); CARBON DIOXIDE LEVEL 26 MEQ/L (21-32); CHLORIDE LEVEL 106 MEQ/L (98-107); CK-MB VALUE MASS 4.6 NG/ML (<3.6); CPK CREATINE PHOSPHOKINASE 692 U/L (39-308); GLOMERULAR FILTRATION RATE 16.7 (>49); GLUCOSE, FASTING 190 MG/DL (70-100); LIPASE 91 U/L (73-393); MB/CK RELATIVE INDEX 0.66 (< OR =4); POTASSIUM SERUM 3.6 MEQ/L (3.5-5.1); SODIUM LEVEL 141 MEQ/L (136-145); TOTAL PROTEIN 5.7 GM/DL (6.4-8.2); TROPONIN I < 0.02 NG/ML (< 0.10)
--- OUTSIDE RECORDS SUMMARY | 2020-07-29 12:28 | CCD ---
Full Chart - [facility] Created on: 07/27/2020 Agustin Higgins Jr External Reference #: [id number] : 1955 Sex: Male Author Author [facility] Organization [facility] Address [address] [place] [address] Phone Care Team Providers Care Name Plate Stamper Name Role Phone Yamilet ANDERSON, Alan Garcia Unavailable [phone] Jhonatan JOHNSTON, Armando Unavailable [phone] [place] Unavailable [phone] Evangelina JOHNSTON, Homar Unavailable [phone] [facility] Unavailable [phone] [facility] Unavailable [phone] [facility] Unavailable [phone] [facility] Unavailable [phone] Post DPM, Arik Unavailable [phone] [facility] Met[facility] Disease, Gloria [facility] Unavailable [phone] Jonathan JOHNSTON, Jalyn Unavailable [phone] Reason for Referral No Reason for Referral Recorded Problems Includes: Active, inactive, and resolved Problems All Visits Onset Date - Time Resolved Date - Time Provider Co ndition Status Fatty Liver 02/14/2020 - 12:00AM Veronika Malcolm RN Act del Note: Unstable - US 0, Abdominal aortic aneurysm, without rupture 01/25/2020 - 12:00AM Veronika Malcolm RN Active Note: Stable - Hosptial repo rt CT scan Cyst of spleen 01/24/2020 - 12:00AM Veronika Malcolm RN A ctive Note: Stable - As seen on MR I 01/24/2020 Other idiopathic peripheral autonomic neuropathy 11/15/2019 - 12 :00AM Veronika Malcolm RN Active Note: Stable - EMG05/26/2019 : very mild multi motor peripheral neuropathy of bilateral extremities. 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 follow up Dr. 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 10/20/2017 - 12:00AM Alan ANDERSON Active Note: stent placement st marcel s 10/20/2017 Cellulitis of right lower limb 10/20/2017 - 12:00AM Alie ANDERSON Active Note: 10/16/17- Crista perry MD Pain in right lower leg 10/19/2017 - 12:00AM Alan ANDERSON Active Note: [facility]- p atient sent to ED Chronic Cutaneous Ulcers Heel and Midfoot Right Limite d To Breakdown of Skin 09/20/2017 - 12:00AM Alan ANDERSON Active Note: per wound clinic repor t dated 09-10-17 Chronic Cutaneous Ulcers Ankle Right with Fat Layer Ex posed 09/20/2017 - 12:00AM Alan ANDERSON Active Note: per wound clinic repor t dated 09-10-17 Diabetes Mellitus Type 2 with Ulcer 09/20/2017 - 12:00AM Alan ANDERSON Active Note: none healing right ank le and heal per wound clinic report dated 09-10-17 Vitamin Deficiency 09/07/2017 - 12:00AM Alan ANDERSON Active Note: per nephrology--Vitami n D deficiency- continue supplement Coronary angioplasty status 09/11/2016 - 12:00AM Alan ANDERSON Active Note: 09/11/16 [place] [facility] ent[facility] asymptomatic, last stress test revealved mild ischemia w/ normal LV [id number] no change from above Peripheral Arterial Disease 02/13/2016 - 12:00AM Marianne Saul DO Active Note: 02/04/16- Dr Israel Thyroid Disorders 01/15/2016 - 12:00AM Alan ANDERSON Active Peripheral vascular disease, unspecified 09/05/2015 - 12:00AM Alan ANDERSON Active Note: 09/05/15 Dr Hutchinson wi th4 episodes of Claudication. followed by Dr Israel09/20/17 Dr. Jd Presley- vascular- Pt has right ankle ulceration measuring 2.5 x 1 x 0.5 cm. The ptient will follow up for a right lower extremity angiogram. The patient agrees with plan and has no further questions.10/01/17- M Adi Presley MDrecent Right lower extremity angioplasty Anemia 07/26/2015 - 12:00AM Alan ANDERSON A ctive Note: 08/2015 Neprho- stable as baseline Dr Hutchinson 09/05/15 Followed by Nephrology - unchanged Diabetic Retinopathy Prolif High Risk with Clinically Significant Macular Edema 04/05/2015 - 12:00AM Alan ANDERSON Active Note: Unchanged - 11/03/16--d iabetic eye exam Nicotine Dependence 01/10/2015 - 12:00AM Alan ANDERSON Active Note: Unchanged Osteoarthritis 10/25/2014 - 12:00AM Alan ANDERSON Active Note: 10/2014 Shoulder Xray- degenerative changes C5-6 Chronic Kidney Disease (Nkf Classification) 10/22/2014 - 12: 00AM Unknown - Unknown Alan ANDERSON Resolved Note: Unchanged Gastroparesis 10/12/2014 - 12:00AM Alan ANDERSON Active Note: 09/2014 GI - continue w ith reglan and monitor 05/2015 [facility] admission- ulcer Pure Hypercholesterolemia 05/17/2014 - 12:00AM Alan ANDERSON Active Ischemic Heart Disease 05/17/2014 - 12:00AM Alan ANDERSON Active Note: [place] [facility] 05/17/14ur[place] tly asymptomatic , last stress test revealed mild ischemia with normal LV function, Acute Dermatitis Due to Solar Radiation 12/20/2013 - 12:00AM Alan ANDERSON Active Note: 12/20/13 Dermatology- justin th looks like photo allergic, of medications that could cause the most recent addition is deneric depakote, or metoprolol or atorvastatin, but has been on these manager intermediate and this occured in spring, starting protopic ointment, sx's likely drug reaction or kidney disease from DM. Chronic Kidney Disease Stage 3 11/23/2013 - 12:00AM Jose M Malcolm RN Active Note: 11/22/13 Nephro - proba sue due to diabetic nephropathy, vasculitis work up has been negative per Rheum, renal Us also unremarkable, start lostartan potassium.05/08/14 [facility] ER admission-acute kidney injury superimposed on chronic kidney disease is resolved, back to baseline.08/2015 Nephro- stable at baseline, continue with current regimen09/05/15 Dr Hutchinson - Followed by Nephrology . Unchanged 09/07/17 [facility]- stable at baseline10/19/17 US renal- increasing creatinine--Right kidney measures 12.6 cm. there is a 1.7 cm exophyticc right lower pole cyst. there is no post void residual. Kidneys appear somewhat large. US 01/24/2020: Right kidney measures 12.1 x 5.6 x 5.9cm Simple cyst in lower pole measures 2.3cm Proteinuria 09/04/2013 - 12:00AM Alan ANDERSON A ctive Note: See labs dated 08/29/13 11/22/13 Nephro-moderate in severity and probably related to diabetic nephropathy08/2014 Urology-hematuria with proteinuria, creatinine 1.3, normal CT scan, likely nephritis, order UA C & S and schedule cystoscopy Classical Migraine Without Intractable Migraine 01/16/2013 - 12: 00AM Alan ANDERSON Active Note: Unchanged - 05/08/14 [facility] admission-dx by Dr Burk, depakote ER 500mg bid.07/21/14 CT brain-no acute intracranial abnormality, chronic right cerebellar infarct, small chronic left conde radiata white matter infarct. Coronary Artery Disease Left Main 01/16/2013 - 12:00AM [place] Nurse Active Note: Unchanged - see operat del reports general surgery dated 05/29/[address] Armando Israel. Preoperative dx severe disabling left legt claudication. Postoperative dx: Severe disabling left leg claudication. Procedures 1)aortogram with left leg angiogram. 2) left iliac stent times 2(7mm x 37mm, 7mm x 27mm express)11/16/13 [facility]- currently asymptomatic, last stress test revealed mild ischemia with normal LV function.07/19/14 Vascular- 1.8cm left iliac aneurysm and 1.6cm right iliac aneurysm, will monitor and return in 6 mths recheck US04/2015 [facility]- currently asymptomatic 09/05/15 Dr Hutchinson Unchanged. With HX of CVA . His recent study didn't indicate any lesions that require surgical intervention, he will continue to be monitored with serial studies . Followed by vascular09/05/15 Dr Hutchinson unchanged. Currently asynptomatic , last stress test revealed mild ischemia with normal LV function return in 1 wk 09/24/16- Homar RamirezTabitha portion was normal. hemodynamic response to stress test is normal. Angina with stress absent . Arrhythmias during stress absent. Perfusion study is abnormal ;as noted above , showing infarction . Wall motion study shows normal conrtactility . Gated PET rest LVEF calculated at 57% . gated post vasodialation /stress LVEF calculated at 58%. Study is considered abnormal . Estimated risk for cardiac event following this scan low . This is felt to be mildly abnormal terst. Study appears unchanged from prior examination. 03/10/18- Dr HutchinsonCurrently asymptomatic , last stress test revealed mild ischemia with normal LV function. Most recent showed no change from prior study , will continue medical therapy 06/02/18--no change see above.10/20/18 Dr. Hutchinson --no change Laryngopharyngeal Reflux 01/16/2013 - 12:00AM Alan ANDERSON Active Note: Unchanged Nicotine Dependence in Remission 01/16/2013 - 12:00AM Unknown - Unknown Alan ANDERSON Resolved Note: Unchanged Routine History and Physical 01/09/2013 - 12:00AM Unknown - Unkn own Alan ANDERSON Resolved Stroke - Ischemic 12/30/2011 - 12:00AM Alan ANDERSON Active Note: SEE 12/2011 HOSPITAL SIT-- OCCLUSION OF THE RIGHT CEREBRAL ARTERY refuses neurology referral, did see cardiology-- no residual symptoms-- on anticoagulation, plavix11/16/13 [facility] currently asymptomatic, did not follow with neuro, no neuro complaints12/2014 WAS USING PLAVIX AND ASPIRIN AND COUMADIN AFTER LAST HOSPITAL STAY, SO TAKEN OFF ALL BUT ASPIRIN AND MEDS RECONCILED AGAIN IN DETAIL-- MAY CONSIDER OFF COMPLETELY IF FALLS OR DOING MORE HARM THAN GOOD-- 04/2015 [facility]- acute lacunar infarct left cerebral pednuncle, plavix and aspirin and follw up with neuro08/2015 [facility] admission- MRI brain showed small right thalamic ischemic stroke09/05/15 Dr Hutchinson . Acute lacurna infarct of L cerebral Peduncle , now on plavix and aspirin - Followed by Neurology. Possible TIA August 2015 ALCOHOL ABUSE - CONTINUOUS 11/20/2010 - 12:00AM Alan ANDERSON Active Note: Improved - won't speci fy how much he drinks, states it is down to 2 or less episodes weekly, was nightly before-- in remission 12/2014 dependent Tobacco Use Disorder 11/20/2010 - 12:00AM Alie ANDERSON Inactive Note: Poorly-Controlled - MO NITOR RISKS, REFUSES QUIT OPTIONS, "DON'T WANT TO TALK ABOUT THAT" Developmental Reading Disorder Unspecified 11/20/2010 - 12:00AM Alan ANDERSON Active Note: Illiterate. Diabetes Mellitus Diabetic Peripheral Neuropathy 11/20/2010 - 12 :00AM Alan ANDERSON Active Note: Stable - gabapentin wa s effective but pt noncompliant and stopped on own-- advised optimal control of DM107/2014 [facility] admission08/2015 Nephro- need better control, new sliding scale provider09/05/15 Dr hutchinson unchanged. Currently basal insulin 09/07/17 [facility] -Insulin as per PCP Gerd 11/20/2010 - 12:00AM Alan ANDERSON A ctive Note: Well-Controlled - WATC H FOOD TRIGGERS, HEAD OF BED ELEVATED-- STOPPED OMEPRAZOLE ON HIS OWN, FELT HE DIDNT NEED IT-- Hyperlipidemia 11/20/2010 - 12:00AM lAan ANDERSON Active Note: LDL GOAL 70 OR LESS WI TH DM HX, ON 03/10/18 Dr Hutchinsonapproriately treated with statin Hypertension (Systemic) 11/20/2010 - 12:00AM Camille mckenzie Active Note: SEE [facility] VISIT 02/2012, 10/2012 HISTORY OF STENT / ANGIOPLASTY best he has felt with decrease in smoking 10/2012--sees cardiology every 6 months now--09/05/15BP well controlled on current regimen. No change at this time 09/07/17 Nephrology- bp high in office, family notes has been well controlled at other physician visits, does not monitor at home03/10/18- Dr Dorantes pressure well-controlled on current regime . No cahnge recommended .06/02/18 no change see above. Old Myocardial Infarction 11/20/2010 - 12:00AM Alan ANDERSON Active Note: 2000. Shortness of Breath 11/20/2010 - 12:00AM Unknown - Unknown Alan ANDERSON Resolved Note: Hx of. Unspecified Angina Pectoris Nec 11/20/2010 - 12:00AM Nabil ANDERSON Active Note: HAS NITRO ON HAND, FOL LOWS WITH [place]HEART Unspecified Hearing Loss 11/20/2010 - 12:00AM Alan ANDERSON Active Note: Left 03-14-12 audiolog y report-presence of conductive component and mixed hearing loss , evaluation with ENT recommended, candidate for hearing aids, hearing re-eval 3 months or soon if changes-was referred to ENT by audiology Open Wound of Lip Uncomplicated 07/17/2009 - 12:00AM Nabil ANDERSON Active Note: SEE VISIT 07/17/09--. Plan of Treatment Pending Tests Order Diagnosis Results Due Ordering Provi vivian Lab CLOSTRIDIUM DIFF AMPLIFICATION 12/15/19 Alan ANDERSON Lab H Pylori AG,Stool 12/15/19 Alan ANDERSON Lab OVA AND PARASITES 12/15/19 Alan ANDERSON Lab STOOL CULTURE 12/15/19 Alan ANDERSON Lab STOOL FOR WBC/LACTOFERRIN QUAL 12/15/19 Alan ANDERSON Lab VITAMIN B12 04/12/20 Alan ANDERSON Lab CBC w/ Auto Diff 04/12/20 Alan Mae Lab COMPREHENSIVE METABOLIC PANEL 04/12/20 Alan ANDERSON Lab IRON 04/12/20 Alan ANDERSON Lab FERRITIN 04/12/20 Alan ANDERSON Lab FOLATE 04/12/20 Alan ANDERSON Lab GLYCOSYLATED HGBA1C 04/12/20 Alan ANDERSON Lab IRON TIBC 04/12/20 Alan ANDERSON Lab LIPID PANEL 04/12/20 Alan ANDERSON Lab OCCULT BLOOD 04/12/20 Alan MMilad Woodard PA Lab RETICULOCYTE % (AUTO) 04/12/20 Alan Nabil Stinson Yamilet PA Lab TSH 04/12/20 Alan NabilMilad Woodard PA Lab AMYLASE 07/26/20 Yady Dale N P Lab BASIC METABOLIC PANEL 07/26/20 Yady Dale CABINET INST[employer]ER Lab CBC w/ Auto Diff 07/26/20 Yady cain CABINET INST[employer]ER Lab LIPASE 07/26/20 Yady Dale N P Lab H Pylori AG,Stool 07/26/20 Yady vinsone CABINET INSTALLER Lab OVA AND PARASITES 07/26/20 Yady Cain ebe CABINET INSTALLER Lab STOOL CULTURE 07/26/20 Yady Dale CABINET INST[employer]ER Lab STOOL FOR WBC/LACTOFERRIN QUAL 07/26/20 Yady Dale CABINET INST[employer]ER Referrals To Diagnosis Cardiology Hypertension Unspeci fied Essential Note: Addie appt for reeval, /US carot ids if we can here in staples-- hx stroke, DM Vascular Peripheral Vascular Disease Unspecified Note: Please schedule patient with PROVI VIVIAN, PT WOULD LIKE VASCULAR OF [facility] FOR VASCULAR OCCULSION SHOWED ON CT WHEN PT WAS HOSPITALIZED, PLEASE SEND HOSPITAL REPORT WITH REFERRAL, THANKS. TANGELA US Proteinuria Note: Please schedule patient for Renal US d/t proteinuria- see recent lab results. Thank you. Ophthalmology Dm Without Complicat ion Type II or Unspecified Type Not Stat Note: dr emery office today for right sided vision changes, hx diabetes, cellulitis both eyes last month Podiatry Dm Without Complicat ion Type II or Unspecified Type Not Stat Note: dr vieira for right foot sore, [facility]x [facility] PLEASE CALL SISTER SHANTAL WITH APPT [phone] Rheumatology Systemic Lupus Eryth ematosus Note: Please schedule patient with provi vivian due to acute lupus markers from dermatology consult, they are recommending him have further eval for these markers. thanks.KSLPN GI Note: poli GI for eval possible intest inal blockage, urgent appt please-- hospital notes labs imaging requested from [facility] -- pending-- can send with it-- US; MRI Note: bilateral lower leg swelling pain, doppler US to eval bilateral [place] or [place] please call sister shantal with appt [phone]//MRI same place and time for abdomen pelvis eval 8 weeks nausea, vomiting, elevated lipase thin slice through pancreas 3 hospital admission since thanks Urology Proteinuria Note: Please schedule patient with provi vivian for non specific infalmmation . [facility] [place] [facility] CT abdomen, pelvis , WITHOUT contrast for eval pancreatitis, chronic renal disease so unable to do with contrast see Cr under labs-- [place] please, pt will not tolerate MRI GI Acute Pancreatitis Note: Please schedule patient with provi vivian for pancreatitis and ongoing abd pain, thanks. Vascular Cerebral Artery Occl usion Unspecified With Cerebral Infarcti Note: Please schedule patient with Dr Diana vargas for re-ferred as pt hasnt been seen since 2012, for vacular occulsion, thanks MRI Referral Note: right upper ext and shoulder MRI t o eval weakness, lump humerus [place]-- please call sister at [phone] Ortho Unspecified Derangem ent of Joint of Shoulder Region Note: Please schedule patient with provi vivian for ongoing right shoulder and arm pain. 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 bmurphy [facility] Nephrology Chronic kidney disea se, stage 3 (moderate) Note: Please schedule patient with provi vivian back to dr swartz please for hematuria and CKD -- [place], please call bianka rep Shantal with appt, her # is on the form, TY Home Health Type 2 diabetes kayla itus with hyperglycemia Note: Please schedule patient with provi vivian Home Health Type 2 diabetes kayla itus with oth circulatory complications Note: Please schedule patient with provi derabsolutely! pt is homebound and in need of help for meds, diabetes, foot care, etc-- please do referral Vascular Type 2 diabetes kayla itus with other skin ulcer Note: Please schedule patient with provi vivian [facility] Dr Presley please-- eval for arterial insuff-- Nephrology Chronic kidney disea se, unspecified Note: Please schedule patient with provi vivian dr murphy for CKD< diabetes-- Podiatry Type 2 diabetes kayla itus with other skin ulcer Note: Please schedule patient with provi vivian dr vieira, right ankle ulcer-- with eschar-- SOONER APPT PLEASE-- pt diabetic--if far out please task me Physical Therapy Unspecified abnormal ities of gait and mobility Note: Please schedule patient with Nucen tia for strengthening and equipment eval Home Health Other abnormalities of gait and mobility Note: Please schedule patient with provi vivian- home health- SN and PT. thank you. amy kenny GI Iron deficiency anem ia, unspecified Note: Please schedule patient with provi vivian ? slow motility, seeing dr hardin for colonoscopy, EGD but then will need f.u after CT Referral Imaging [place] Acute peptic ulce r, site unsp, w/o hemorrhage or perforation Note: Please schedule patient for test C T abdomen, pelvis without contrast for eval abdominal pain, generalized,vomiting, diarrhea, dark stools UNABLE TO DO CONTRAST DUE TO RENAL FUNCTION< CKD General Surgery Min Tomlin Jr, MD Acute peptic ulcer, site unsp, w/o hemorrhage or perforation Note: Please schedule patient with provi vivian Dr Hardin last saw him 2015 -- hx peptic ulcer, now with dark tarry stools, and vomiting "darker" -- vertigo, with vomiting every morning --r/o GI bleed-- needs sooner appt Vascular Jd Presley Abdominal aortic ane urysm, without rupture Note: Please schedule patient with provi vivian- [facility]- Dr. Centeno- see CT report GI Cj Ceballos MD Diabetes due to unde rlying condition w ketoacidosis w/o coma Note: Please schedule patient with provi vivian [facility] please for [facility] f.u diabetes, gastroparesis nausea, abdominal pain please call daughter in law kelly with appt [phone] GI Diarrhea, unspecifie d Note: Please schedule patient with [facility] gastro for frequent vomiting and diarrhea Neurology Matilde Reyes Repeated falls Note: Please schedule patient with provi vivian for recurrent falls GI Unspecified abdomina l pain Note: Please schedule patient with provi vivian for continued abdominal discomfort- n/v Future Appointments Date Time Location Provider Telephonic Encounter 08/06/2020 1:30PM [facility] Alan ANDERSON Future Tests Order Diagnosis Results Due Ordering Provid er [id number] - *Revisit Acute Acute Follow-up Telehea lth Unspecified abdominal pain 07/26/20 Yady Dale CABINET INST[employer]ER Findings Encounter Date Ordered return to the clinic if condition worsens or n ew symptoms arise Acute L3 with Yady Dale NP 07/26/2020 Ordered Clinical summary transmitted to referring provider electronically or receiving provider electronically through [facility] with Alan ANDERSON 04/10/2020 Ordered Transition in care, clinical sum alan [facility] ANDERSON 04/10/2020 Ordered Clinical summary transmitted to referring provider electronically or receiving provider electronically through [facility] Acute Follow- up Telephonic with Alan ANDERSON 03/12/2020 Ordered Transition in care, clinical sum alan provided electronically through [facility] Acute Follow-up Telephonic with Alan ANDERSON 03/12/2020 Ordered Clinical summary transmitted to referring provider electronically or receiving provider electronically through [facility] Hospital Follow-up with Alan ANDERSON 02/07/2020 Ordered Transition in care, clinical sum alan provided electronically through [facility] Follow-up with Alan ANDERSON 02/07/2020 Ordered Clinical summary transmitted to referring provider electronically with reasonable certainty of receipt or receiving provider electronically through [facility] Telephonic Encounter with Alan ANDERSON 0 Ordered Transition in care, clinical sum alan provided [facility] Tele[facility]onic Encounter with Alan ANDERSON 0 Ordered Clinical summary transmitted to referring provider electronically with reasonable certainty of receipt or receiving provider electronically through [facility] Telephonic Encounter with Alan ANDERSON 0 Ordered Transition in care, clinical sum alan provided electronically through [facility] Telephonic Encounter with Alan ANDERSON 0 Ordered Clinical summary transmitted to referring provider electronically or receiving provider electronically through [facility] Chronic Disease Follow-up with Alan ANDERSON 04/25/2019 Ordered Transition in care, clinical sum alan provided electronically through [facility] Chronic Disease Follow-up with Alan ANDERSON 04/25/2019 Ordered Clinical summary transmitted to referring provider electronically or receiving provider electronically [facility] Chronic Disease Follow-up with Alan ANDERSON 01/02/2019 Ordered Transition in care, clinical sum alan provided electronically through [facility] Chronic Disease Follow-up with Alan ANDERSON 01/02/2019 Ordered Clinical summary transmitted to referring provider electronically or receiving provider electronically [facility] with Alan ANDERSON 11/21/2018 Ordered Transition in care, clinical sum alan provided electronically through [facility] with Alan ANDERSON 11/21/2018 Ordered Clinical summary transmitted to referring provider electronically or receiving provider electronically through [facility] Follow-up with Alan ANDERSON 11/14/2018 Ordered Transition in care, clinical sum alan provided electronically through [facility] Follow-up with Alan ANDERSON 11/14/2018 Ordered Clinical summary transmitted to referring provider electronically or receiving provider electronically through [facility] Chronic Disease Follow-up with Alan ANDERSON 09/12/2018 Ordered Transition in care, clinical sum alan provided [facility] Chronic Disease Follow-up with Alan ANDERSON 09/12/2018 Ordered Clinical summary transmitted to referring provider electronically or receiving [facility] FOLLOW UP RECHECK with Alan ANDERSON 07/14/2018 Ordered Transition in care, clinical sum [facility]an [facility] FOLLOW UP RECHECK with Alan ANDERSON 07/14/2018 Ordered Clinical summary transmitted to referring provider electronically or receiving provider [facility] RECHECK with Alan ANDERSON 05/27/2018 Ordered Transition in care, clinical sum alan [facility] RECHECK with Alan ANDERSON 05/27/2018 Ordered Clinical summary transmitted to referring provider electronically or receiving provider [facility] Chronic Disease Follow-up with Alan ANDERSON 04/27/2018 Ordered Transition in care, clinical sum alan [facility] Chronic Disease Follow-up with Alan ANDERSON 04/27/2018 Ordered Clinical summary transmitted to referring provider electronically or receiving provider electronically through [employer] RECHECK with Alan ANDERSON 12/22/2017 Ordered Transition in care, clinical sum alan provided electronically through [employer] RECHECK with Alan ANDERSON 12/22/2017 Ordered Clinical summary transmitted to referring provider electronically or receiving provider electronically through [employer] Chronic Disease Follow-up with Alan ANDERSON 11/23/2017 Ordered Transition in care, clinical sum alan provided electronically through [employer] Chronic Disease Follow-up with Alan ANDERSON 11/23/2017 Ordered Clinical summary transmitted to referring provider electronically or receiving provider electronically through [employer] Walk-In with Alan ANDERSON 11/09/2017 Ordered Transition in care, clinical sum alan provided electronically through [employer] Walk-In with Alan ANDERSON 11/09/2017 Instructions for patient Walk-In with Alan ANDERSON Ordered Clinical summary transmitted to referring provider electronically or receiving provider electronically through [employer] Walk-In with Alan ANDERSON 08/24/2017 Ordered follow-up visit HE HAS A RECHEC K HERE IN 6 WEEKS BUT HE WAS ALSO REFERRED TO WOUND CARE AND ADVISED IF WORSENING TO GET TO THE ER TO WHICH HE AND SISTER SHANTAL, HIS HEALTH CARE PROXY-- AGREE-COVERAGE WITH [employer] ORDERED Walk-In with Alan ANDERSON 08/24/2017 Ordered return to the clinic if condition worsens or n ew symptoms arise Walk-In with Alan ANDERSON 08/24/2017 Instructions for patient Walk-In with Jorgito Saul DO 07/29/2017 Ordered Clinical summary transmitted to referring provider electronically or receiving provider electronically through [employer] Walk-In with Jorgito Saul DO 07/29/2017 Ordered follow-up visit Walk-In with Jorgito Saul DO 07/29/2017 Ordered return to the clinic if condition worsens or n ew symptoms arise Walk-In with Jorgito Saul DO 07/29/2017 Ordered Clinical summary transmitted to referring provider electronically or receiving provider electronically through [employer] Chronic Disease Follow-up with Alan ANDERSON 07/20/2017 Ordered Transition in care, clinical sum alan provided electronically through [facility] Chronic Disease Follow-up with Alan ANDERSON 07/20/2017 Ordered Transition in care, sera phillips provided electronically through [facility] Chronic Disease Follow-up with Alan ANDERSON 02/03/2017 Ordered Transition in care, srea phillips provided electronically through [facility] Chronic Disease Follow-up with Alan ANDERSON 10/28/2016 Ordered disposition - Patient or careta berry was instructed in use of tylenol and/or motrin as needed for pain or fever, and mucinex if tolerated. Fluids, rest was advised. Also, the patient is to return or call for appointment if there is persistence of fever for more than 48 hours, pain or other new significant symptoms M Same Day with Alan ANDERSON 11/25/2015 Ordered return to the clinic if condition worsens or n ew symptoms arise M Same Day with Alan ANDERSON 11/25/2015 Ordered follow-up visit recheck one month, sooner if quest or problems Hospital Follow-up with Alan ANDERSON 08/26/2015 Ordered return to the clinic if condition worsens or n ew symptoms arise Hospital Follow-up with Alan ANDERSON 08/26/2015 Ordered disposition - tylenol and/or mo xiang as needed for pain or fever, and warm salt water gargles if tolerated. Change toothbrush in 2-3 days. Finish all antibiotics as ordered to prevent complications of strep. Also, the patient is to return or call for appointment if there is persistence of fever for more than 48 hours, pain or other new significant symptoms Pre Op with Alan ANDERSON 08/13/2015 Ordered fluids Pre Op with Alan ANDERSON 6 Ordered follow-up visit Pre Op with Alan ANDERSON 08/12 Ordered return to the clinic if condition worsens or n ew symptoms arise Pre Op with Alan ANDERSON 08/13/2015 Ordered soft diet Pre Op with Alan ANDERSON 6 Ordered follow-up visit 6-8 weeks, sooner if quest or problems Chronic Disease Follow-up with Alan ANDERSON 07/09/2015 Ordered return to the clinic if condition worsens or n ew symptoms arise Chronic Disease Follow-up with Alan ANDERSON 07/09/2015 Ordered follow-up visit 2-3 months, sooner if quest o r problems Chronic Disease Follow-up with Alan ANDERSON 05/15/2015 Ordered return to the clinic if condition worsens or n ew symptoms arise Chronic Disease Follow-up with Alan ANDERSON 05/15/2015 Ordered follow-up visit 2-3 months, sooner if quest o r problems Hospital Follow-up with Alan ANDERSON 04/08/2015 Ordered return to the clinic if condition worsens or n ew symptoms arise Hospital Follow-up with Alan ANDERSON 04/08/2015 Ordered follow-up visit 2-3 months, sooner if quest o r problems Chronic Disease Follow-up with Alan ANDERSON 02/22/2015 Ordered return to the clinic if condition worsens or n ew symptoms arise Chronic Disease Follow-up with Alan ANDERSON 02/22/2015 Ordered follow-up visit sept, sooner if quest or prob lems Medication Follow-up with Alan ANDERSON 01/10/2015 Ordered return to the clinic if condition worsens or n ew symptoms arise Medication Follow-up with Alan ANDERSON 01/10/2015 Ordered Clinical summary provided to patient Walk-In with Alie ANDERSON 01/04/2015 Ordered follow-up visit one week, with cardiology and nephrology as ordered-- please call sooner if quest or problems Walk-In with Alan ANDERSON 01/04/2015 Ordered return to the clinic if condition worsens or n ew symptoms arise Walk-In with Alan ANDERSON 01/04/2015 Ordered follow-up visit 3 months chroni c review, with cardiology and nephrology as ordered-- please call sooner if quest or problems Chronic Disease Follow-up with Alan ANDERSON 12/05/2014 Ordered return to the clinic if condition worsens or n ew symptoms arise Chronic Disease Follow-up with Alan ANDERSON 12/05/2014 Ordered follow-up visit 3 months chroni c review, with cardiology and nephrology as ordered-- please call sooner if quest or problems FOLLOW UP RECHECK with Alan ANDERSON 10/19/2014 Ordered return to the clinic if condition worsens or n ew symptoms arise FOLLOW UP RECHECK with Alan ANDERSON 10/19/2014 Ordered go to the emergency room if condition worsens Hospital Follow-up with Alan ANDERSON 09/25/2014 Ordered return to the clinic if condition worsens or n ew symptoms arise Hospital Follow-up with Alan ANDERSON 09/25/2014 Ordered disposition - tylenol and/or mo xiang as needed for pain or fever, and warm salt water gargles if tolerated. Also, the patient is to return or call for appointment if there is persistence of fever for more than 48 hours, pain or other new significant symptoms FOLLOW UP RECHECK with Alan ANDERSON 09/07/2014 Ordered fluids FOLLOW UP RECHECK with Alan Ramos 09/07/2014 Ordered go to the emergency room if condition worsens FOLLOW UP RECHECK with Alan ANDERSON 09/07/2014 Ordered return to the clinic if condition worsens or n ew symptoms arise FOLLOW UP RECHECK with Alan ANDERSON 09/07/2014 Ordered soft diet FOLLOW UP RECHECK with Alan Ramos 09/07/2014 Ordered Clinical summary provided to patient Hospital Follow-up with Alan ANDERSON 08/10/2014 Ordered disposition - F/U SCHEDULED- - CALL IF QUEST OR PROBLEMS BEFORE NEXT APPT, to the ER if worse-- pt and sister agree-- will call with sugars this week Hospital Follow-up with Alan ANDERSON 08/10/2014 Ordered follow-up visit 3-4 weeks, sooner if needed H ospital Follow-up with Alan ANDERSON 08/10/2014 Ordered return to the clinic if condition worsens or n ew symptoms arise Hospital Follow-up with Alan ANDERSON 08/10/2014 Ordered soft diet Hospital Follow-up with Alan ANDERSON 08/10/2014 Ordered a urine culture Walk-In with Alan ANDERSON 06/14 Ordered Clinical summary provided to patient Walk-In with Alie ANDERSON 06/29/2014 Ordered disposition - TYLENOL NEEDED TODAY AND TOMORROW Finish all antibiotics. Also, the patient is to return or call for appointment if there is persistence of fever for more than 48 hours, pain or other new significant symptoms. F/U SCHEDULED-- CALL IF QUEST OR PROBLEMS BEFORE NEXT APPT Walk-In with Alan ANDERSON 06/29/2014 Ordered fluids Walk-In with Alan ANDERSON 06/29/19 15 Ordered return to the clinic if condition worsens or n ew symptoms arise Walk-In with Alan ANDERSON 06/29/2014 Ordered soft diet Walk-In with Alan ANDERSON 06/29/19 15 Ordered a urine culture Hospital Follow-up with Alan ANDERSON 06/26/2014 Ordered Clinical summary provided to patient Hospital Follow-up with Alan ANDERSON 06/26/2014 Ordered disposition - TYLENOL NEEDED TODAY AND TOMORROW Finish all antibiotics. Also, the patient is to return or call for appointment if there is persistence of fever for more than 48 hours, pain or other new significant symptoms. F/U SCHEDULED-- CALL IF QUEST OR PROBLEMS BEFORE NEXT APPT Hospital Follow-up with Alan ANDERSON 06/26/2014 Ordered fluids Hospital Follow-up with Alan ANDERSON 06/26/2014 Ordered return to the clinic if condition worsens or n ew symptoms arise Hospital Follow-up with Alan ANDERSON 06/26/2014 Ordered soft diet Hospital Follow-up with Alan ANDERSON 06/26/2014 Ordered follow-up visit 3 months, sooner if recurrent symptoms or problems Diabetes Follow-up with Alan ANDERSON 04/18/2014 Ordered return to the clinic if condition worsens or n ew symptoms arise Diabetes Follow-up with Alan ANDERSON 04/18/2014 Ordered a urine culture Walk-In with Alan ANDERSON 08/2013 Ordered follow-up visit Walk-In with Alan ANDERSON 08/2013 Ordered return to the clinic if condition worsens or n ew symptoms arise Walk-In with Alan ANDERSON 03/16/2014 Ordered follow-up visit 3-4 months, sooner if recurre nt symptoms or problems Diabetes Follow-up with Alan ANDERSON 02/20/2014 Ordered return to the clinic if condition worsens or n ew symptoms arise Diabetes Follow-up with Alan ANDERSON 02/20/2014 Ordered follow-up visit 3-4 months, sooner if recurre nt symptoms or problems AHR with Alan ANDERSON 01/10/2014 Ordered return to the clinic if condition worsens or n ew symptoms arise AHR with Alan ANDERSON 01/10/2014 Ordered follow-up visit Diabetes Follow-up with Alan ANDERSON 10/10/2013 Ordered follow-up visit AHR December , advi sed to call sooner if questions or problems and please do labs this week Diabetes Follow-up with Alan ANDERSON 10/10/2013 Ordered return to the clinic if condition worsens or n ew symptoms arise Diabetes Follow-up with Alan ANDERSON 10/10/2013 Ordered follow-up visit has chronic rec heck scheduled for next month, advised to call sooner if questions or problems and please do labs this week Hospital Follow-up with Alan ANDERSON 08/30/2013 Ordered return to the clinic if condition worsens or n ew symptoms arise Hospital Follow-up with Alan ANDERSON 08/30/2013 Ordered follow-up visit 3 months DM and chronic review patient agrees and will let us know Diabetes Follow-up with Aaln ANDERSON 07/12/2013 Ordered return to the clinic if condition worsens or n ew symptoms arise Diabetes Follow-up with Alan ANDERSON 07/12/2013 Ordered follow-up visit [facility],, patient agrees and will let us know Diabetes Follow-up with Alan ANDERSON 04/11/2013 Ordered return to the clinic if condition worsens or n ew symptoms arise Diabetes Follow-up with Alan ANDERSON 04/11/2013 Ordered follow-up visit three months, D M review, sooner if questions or problems Diabetes Follow-up with Alan ANDERSON 01/09/2013 Ordered return to the clinic if condition worsens or n ew symptoms arise Diabetes Follow-up with Alan ANDERSON 01/09/2013 Continue current medication except where otherwise no ellis Diabetes Follow-up with Alan ANEDRSON 10/10/2012 Medical regimen review Diabetes Follow-up with Alan ANDERSON 10/10/2012 Ordered follow-up visit three months, sooner if quest or problems Diabetes Follow-up with Alan ANDERSON 10/10/2012 Ordered return to the clinic if condition worsens or n ew symptoms arise Diabetes Follow-up with Alan ANDERSON 10/10/2012 Patient education about pain management as appropriat e Diabetes Follow-up with Alan ANDERSON 10/10/2012 Ordered diabetic diet M 20 Minutes with Alan ANDERSON 0 06/20/2012 Ordered insulin preparations M 20 Minutes with Alan ANDERSON 06/20/2012 Ordered follow-up visit 6-8 weeks with myself and with our perioperative educator as scheduled-- sooner if quest or problems M 20 Minutes with Alan ANDERSON 02/24/2012 Ordered return to the clinic if condition worsens or n ew symptoms arise M 20 Minutes with Alan ANDERSON 02/24/2012 Ordered follow-up visit 6-8 weeks, sooner if quest or problems 30 minutes with Alan ANDERSON 12/30/2011 Ordered return to the clinic if condition worsens or n ew symptoms arise 30 minutes with Alan ANDERSON 12/30/2011 Ordered follow-up visit in 6 weeks [facility] if quest orproblems flu shot next visit consider colonoscopy referral 30 minutes with Alan ANDERSON 12/08/2010 Ordered return to the clinic if condition worsens or n ew symptoms arise 30 minutes with Alan ANDERSON 12/08/2010 Requested consultation with a specialist CONTINUE WITH CARDIOLOGY, [facility] ORDERED 30 minutes with Alan ANDERSON 12/08/2010 Ordered elevation of extremity M Acute with Alan ANDERSON 07/19/2009 Ordered follow-up visit with pcp on [facility] home for suture removal and shoulder care-- pt agrees M Acute with Alan ANDERSON 07/19/2009 Ordered heat therapy M Acute with Alan ANDERSON 010 Ordered ice M Acute with Alan ANDERSON 07/19/19 10 Ordered physical therapy if cont -- M Acute with Alan ANDERSON 07/19/2009 Ordered reduced physical activity M Acute with Alan ANDERSON 07/19/2009 Ordered return to the clinic if conditio n worsens or new symptoms arise s/s infection discussed- - M Acute with Alan ANDERSON 07/19/2009 Assessments Includes: Assessments for all patient encounters Findings Encounter Date Abdominal pain Acute L3 with Yady Dale NP 1 Nicotine dependence Acute L3 with Yady Dale NP 1 Allergic rhinitis AHR with Alan ANDERSON 04/10/2020 Anemia hx, no active bleeding or bruisi ng, refuses further workup but did has seen vascular and cardio this year immz reviewed, flu andpneumo ordered 45 minutes face to face time with pt and sister >50% counseling, coordination of care aware of risks and options for cessation-- AHR with Alan ANDERSON 04/10/2020 Blood in the stool none since last visit, follows nia hardin AHR with Alan ANDERSON 04/10/2020 Chronic kidney disease, stage 3 AHR with Alan ANDERSON 04/10/2020 Chronic kidney disease, stage 3 requested recent labs from ortho AHR with Alan ANDERSON 04/10/2020 Diabetes mellitus AHR with Alan ANDERSON 04/10/2020 Diabetes mellitus sister now lives acro ss the [place] in [place], ALAN who was here last visitmeds reviewed, doing much better with calcitriol not vomiting in am and checking sugars with talking meter-- taking meds daily with pill packs from [employer]-- reviewed-- AHR with Alan ANDERSON 04/10/2020 Diabetes mellitus with foot ulcer right foot resolved, feet are calloused today, refuses podiatry AHR with Alan ANEDRSON 04/10/2020 Diabetic peripheral neuropathy AHR with Alan ANDERSON 1 Hypertension goal <140/80-- continue cu rrent meds per cardiology with DM, history and risk factors-- meds UTD with pt and daughter in law, refills needed reviewed AHR with Alan ANDERSON 04/10/2020 Ischemic stroke continue to follow with neuro-- currently on aspirin and plavix for anticoagulation-- was removed off plavix from ER then had another stroke - within a week-- - imperative as long as anticoagulation is tolerated that he takes daily-MAY NEED TO HOLD PLAVIX IF BLEEDING HE DENIES BRBPR STATES DARKER STOOLS speech and weakness has improved, declines any further therapy at this poiont AHR with Alan ANDERSON 04/10/2020 Left main coronary artery disease AHR with Alan Ramos 04/10/2020 Lumbago hydrocodone dosing, risks discussed, take spa ringly-- AHR with Alan ANDERSON 04/10/2020 Nicotine dependence 1/2 ppd, aware of r isks, educated on this and options for cessation today, 5 min counseling not ready to quit -- AHR with Alan ANDERSON 04/10/2020 Allergic rhinitis Acute Follow-up Telephonic with Alan ANDERSON 03/12/2020 Anemia hx, no active bleeding or bruisi ng, AGREED TO NEPHRO FINALLY-- LABS REQUESTED-- 43 minutes TELEPHONE TIME >50% counseling, coordination of care aware of risks and options for cessation-- Acute Follow-up Telephonic with Alan ANDERSON 03/12/2020 Blood in the stool none per pt this vis it, 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 SO NEEDS TO NOT BINGE AND EAT SMALLER MEALS TO HELP DIGESTION BUT WAS FOUND TO NEED CALCITRIOL SINCE LAST VISIT AT NEPHRO AND RESOLVED NAUSEA-- Acute Follow-up Telephonic with Alan ANDERSON 03/12/2020 Chronic kidney disease, stage 3 Acute Follow-up Teleph onic with Alan ANDERSON 03/12/2020 Diabetes mellitus has been from house t o house, SHANTAL sister, to SON's now with his cosme SONIDO who is also his radio personality and her mom ALAN who was here last visit-- this visit is his daughter and states sonido is asking for CT and Labs for his medical record-- -- he is skipping meals again and then binging at night-- nelly was eating a lot of cheese then couldn't because it was making him sick--was doing pedialyte pops in am which were helpful for a bit now not again so using GOGURT which he likes but he ate them all and ran out-- watching hypoglycemia -and will do his pill minders as daughter in law robin does his meds-- long discussion on residential risks and that he cannot be on insulin if he is not checking his sugars--has new meter but not trying-- would like tania but if just got bmeter can't get new one -- no humalog as it was prescribed by nephro despite him not eating and he was having lows in the 50's-- he states he was doing well until about a week or two ago when nausea, vomiting and cough started--importance of taking meds as ordered Acute Follow-up Telephonic with Alan ANDERSON 03/12/2020 Diabetes mellitus with foot ulcer right foot resolved, feet are calloused today, refuses podiatry Acute Follow-up Telephonic with Alan ANDERSON 03/12/2020 Diabetic peripheral neuropathy Acute Follow-up Telepho john with Alan ANDERSON 03/12/2020 Disturbance of gait will watch since ju st before hospital visit we had to lower metoprolol-- Acute Follow-up Telephonic with Alan ANDERSON Hypertension goal <140/80-- continue cu rrent meds per cardiology with DM, history and risk factors-- meds UTD with pt and daughter in law, refills needed reviewed Acute Follow-up Telephonic with Alan ANDERSON Hypothyroidism Acute Follow-up Telephonic with Alan ANDERSON 03/12/2020 Ischemic stroke continue to follow with neuro-- currently on aspirin and plavix for anticoagulation-- was removed off plavix from ER then had another stroke - within a week-- - imperative as long as anticoagulation is tolerated that he takes daily-MAY NEED TO HOLD PLAVIX IF BLEEDING HE DENIES BRBPR STATES DARKER STOOLS NOW speech and weakness has improved, declines any further therapy at this poiont Acute Follow-up Telephonic with Alan ANDERSON Left main coronary artery disease Acute Follow-up Tele phonic with Alan ANDERSON 03/12/2020 Lumbago hydrocodone dosing, risks discussed, take spa ringly-- Acute Follow-up Telephonic with Alan ANDERSON 03/12/2020 Nausea Acute Follow-up Telephonic with Alan ANDERSON 03/12/2020 Nicotine dependence 1/2 ppd, aware of r isks, educated on this and options for cessation today, 5 min counseling not ready to quit -- quit for 3 months last visit but then restarted Acute Follow-up Telephonic with Alan ANDERSON 03/12/2020 Allergic rhinitis Hospital Follow-up with Alan ANDERSON 02/07/2020 Anemia hx, no active bleeding or bruisi ng, refuses further workup but did has seen vascular and cardio this year I would like him to see nephro-- he has upcoming appt-- will monitor-- 45 minutes face to face time with pt and daughter in law >50% counseling, coordination of care aware of risks and options for cessation-- Hospital Follow-up with Alan ANDERSON 02/07/2020 Blood in the stool none per pt this vis it, 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 SO NEEDS TO NOT BINGE AND EAT SMALLER MEALS TO HELP DIGESTION Hospital Follow-up with Alan ANDERSON 02/07/2020 Chronic kidney disease, stage 3 Hospital Follow-up with Alan ANDERSON 02/07/2020 Diabetes mellitus has been from house t o house, SHANTAL sister, to SON's now with his cosme HEAD who is also his radio personality and her mom ALAN who was here last visit-- this visit is his daughter and states sonido is asking for CT and Labs for his medical record-- -- he is skipping meals again and then binging at night-- nelly was eating a lot of cheese then couldn't because it was making him sick--was doing pedialyte pops in am which were helpful for a bit now not again so using GOGURT which he likes but he ate them all and ran out-- watching hypoglycemia -and will do his pill minders as daughter in law crystal does his meds-- long discussion on manager intermediate risks and that he cannot be on insulin if he is not checking his sugars--has new meter but not trying-- would like tania but if just got bmeter can't get new one -- no humalog as it was prescribed by nephro despite him not eating and he was having lows in the 50's-- he states he was doing well until about a week or two ago when nausea, vomiting and cough started--importance of taking meds as ordered Hospital Follow-up with Alan ANDERSON 02/07/2020 Diabetes mellitus with foot ulcer right foot resolved, feet are calloused today, refuses podiatry Hospital Follow-up with Alan ANDERSON 02/07/2020 Diabetic peripheral neuropathy Hospital Follow-up with Alan ANDERSON 02/07/2020 Disturbance of gait will watch since st before hospital visit we had to lower metoprolol-- Hospital Follow-up with Alan ANDERSON 02/07/2020 Hypertension goal <140/80-- continue cu rrent meds per cardiology with DM, history and risk factors-- meds UTD with pt and daughter in law, refills needed reviewed Hospital Follow-up with Alan ANDERSON 02/07/2020 Hypothyroidism Hospital Follow-up with Alan ANDERSON 02/07/2020 Ischemic stroke continue to follow with neuro-- currently on aspirin and plavix for anticoagulation-- was removed off plavix from ER then had another stroke - within a week-- - imperative as long as anticoagulation is tolerated that he takes daily-MAY NEED TO HOLD PLAVIX IF BLEEDING HE DENIES BRBPR STATES DARKER STOOLS NOW AND SINGH WITH VOMIT< WILL CHECK OCCULT-- BEFORE HOLDING THIS OR ASPIRIN- speech and weakness has improved, declines any further therapy at this [facility] Follow-up with Alan ANDERSON 02/07/2020 Left main coronary artery disease Hospital Follow-up with Alie ANDERSON 02/07/2020 Lumbago hydrocodone dosing, risks discussed, take spa ringly-- Hospital Follow- up with Alan ANDERSON 02/07/2020 Nicotine dependence 1/2 ppd, aware of r isks, educated on this and options for cessation today, 5 min counseling not ready to quit -- quit for 3 months last visit but then restarted Hospital Follow-up with Alan ANDERSON 02/07/2020 Allergic rhinitis Telephonic Encounter with Alan ANDERSON 01/09/2020 Anemia hx, no active bleeding or bruisi ng, refuses further workup but did has seen vascular and cardio this year I would like him to see nephro-- he has upcoming appt-- will monitor-- 45 minutes face to face time with pt and daughter in law >50% counseling, coordination of care aware of risks and options for cessation-- Telephonic Encounter with Alan ANDERSON 0 Blood in the stool no vomiting since la st visit but still needs fu with GI due to intermittent nausea-- BUT ALSO HAS A 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 SO NEEDS TO NOT BINGE AND EAT SMALLER MEALS TO HELP DIGESTION Telephonic Encounter with Alan ANDERSON 01/09/2020 Chronic kidney disease, stage 3 requested recent labs from ortho Telephonic Encounter with Alan ANDERSON 01/09/2020 Diabetes mellitus has been from house t o house, SHANTAL sister, to SON's now with his [employer] who is also his radio personality and her mom ALAN who was here last visit-- doing better not missing meals-- less nausea - watching hypoglycemia -and will do his pill minders-- long discussion on manager intermediate risks and that he cannot be on insulin if he is not checking his sugars--he will get help from sister-- Telephonic Encounter with Alan ANDERSON 0 Diabetes mellitus with foot ulcer right foot resolved, feet are calloused today, refuses podiatry Telephonic Encounter with Alan ANDERSON 0 Disturbance of gait will watch since st before hospital visit we had to lower metoprolol-- Telephonic Encounter with Alan ANDERSON 0 Fatigue improved per pt, feeling well today -- Teleph onic Encounter with Alan ANDERSON 01/09/2020 Hypertension goal <140/80-- continue cu rrent meds per cardiology with DM, history and risk factors-- meds UTD with pt refills needed reviewed Telephonic Encounter with Alan ANDERSON 01/09/2020 Ischemic stroke continue to follow with neuro-- currently on aspirin and plavix for anticoagulation-- was removed off plavix from ER then had another stroke - within a week-- - imperative as long as anticoagulation is tolerated that he takes daily-MAY NEED TO HOLD PLAVIX IF BLEEDING HE DENIES BRBPR STATES DARKER STOOLS NOW AND SINGH WITH VOMIT< WILL CHECK OCCULT-- BEFORE HOLDING THIS OR ASPIRIN- speech and weakness has improved, declines any further therapy at this poiont encouraged caling his GI doc as well famotidine called in -- Telephonic Encounter with Alan ANDERSON 01/09/2020 Left main coronary artery disease Telephonic Encounter with Alan ANDERSON 01/09/2020 Lumbago hydrocodone dosing, risks discussed, take spa ringly-- Telephonic Encounter with Alan ANDERSON 01/09/2020 Nicotine dependence 1/2 ppd, aware of r isks, educated on this and options for cessation today, 5 min counseling not ready to quit -- actually quit for a month then started again-- Telephonic Encounter with Alan ANDERSON 0 Allergic rhinitis Telephonic Encounter with Alan ANDERSON 09/29/2019 Anemia hx, no active bleeding or bruisi ng, refuses further workup but did has seen vascular and cardio this year I would like him to see nephro-- he has upcoming appt-- will monitor-- 45 minutes face to face time with pt and daughter in law >50% counseling, coordination of care aware of risks and options for cessation-- Telephonic Encounter with Alan ANDERSON 0 Blood in the stool no vomiting since st visit but still needs fu with GI due to intermittent nausea-- BUT ALSO HAS A 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 SO NEEDS TO NOT BINGE AND EAT SMALLER MEALS TO HELP DIGESTION Telephonic Encounter with Alan ANDERSON 09/29/2019 Chronic kidney disease, stage 3 requested recent labs from ortho Telephonic Encounter with Alan ANDERSON 09/29/2019 Diabetes mellitus has been from [facility], SHANTAL sister, to SON's now with his cosme HEAD who is also his radio personality and her mom ALAN who was here last visit-- doing better not missing meals-- less nausea - watching hypoglycemia -and will do his pill minders as daughter in law crystal does his meds-- long discussion on manager intermediate risks and that he cannot be on insulin if he is not checking his sugars--he will get help from sister-- Telephonic Encounter with Alan ANDERSON 09/29/2019 Diabetes mellitus with foot ulcer right foot resolved, feet are calloused today, refuses podiatry Telephonic Encounter with Alan ANDERSON 0 Disturbance of gait will watch since before hospital visit we had to lower metoprolol-- Telephonic Encounter with Alan ANDERSON 0 Fatigue improved per pt, feeling well today -- Teleph onic Encounter with Alan ANDERSON 09/29/2019 Hypertension goal <140/80-- continue cu rrent meds per cardiology with DM, history and risk factors-- meds UTD with pt refills needed reviewed Telephonic Encounter with Alan ANDERSON 09/29/2019 Ischemic stroke continue to follow with neuro-- currently on aspirin and plavix for anticoagulation-- was removed off plavix from ER then had another stroke - within a week-- - imperative as long as anticoagulation is tolerated that he takes daily-MAY NEED TO HOLD PLAVIX IF BLEEDING HE DENIES BRBPR STATES DARKER STOOLS NOW AND SINGH WITH VOMIT< WILL CHECK OCCULT-- BEFORE HOLDING THIS OR ASPIRIN- speech and weakness has improved, declines any further therapy at this poiont Telephonic Encounter with Alan ANDERSON 0 Left main coronary artery disease Telephonic Encounter with Alan ANDERSON 09/29/2019 Lumbago hydrocodone dosing, risks discussed, take spa ringly-- Telephonic Encounter with Alan ANDERSON 09/29/2019 Nicotine dependence 1/2 ppd, aware of r isks, educated on this and options for cessation today, 5 min counseling not ready to quit -- actually quit for a month then started again-- Telephonic Encounter with Alan ANDERSON 0 Allergic rhinitis Chronic Disease Follow-up with Alan ANDERSON 04/25/2019 Anemia hx, no active bleeding or bruisi ng, refuses further workup but did has seen vascular and cardio this year I would like him to see nephro-- he has upcoming appt-- will monitor-- 45 minutes face to face time with pt and daughter in law >50% counseling, coordination of care aware of risks and options for cessation-- Chronic Disease Follow-up with Alan ANDERSON 04/14 Blood in the stool ? with DARK TARRY ST OOLS AND VOMITING POSSIBLY COFFEE GROUND EMESIS__last visit-- NEEDS TO GO BACK TO HIS SCOPE SURGEON DR HARDIN< ?? REFERRAL SENT LAST WEEK WILL RESEND< CHECK ON _not sure on that appt, he has dr ceballos for january 10-- _ TO THE ER IF WORSE BEFORE< REFUSES TODAY ADVISED COULD BE ULCER< BLEED BUT ALSO HAS A HISTORY OF LOW 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 DUE TO LONG TE RM DM SO NEEDS TO NOT BINGE AND EAT SMALLER MEALS TO HELP DIGESTION Chronic Disease Follow-up with Alan ANDERSON 04/25/2019 Chronic kidney disease, stage 3 requested recent labs from [facility] Chronic Disease Follow-up with Alan ANDERSON 04/25/2019 Diabetes mellitus has been from house t o house, SHANTAL sister, to SON's now with his [employer] SONIDO who is also his radio personality and her mom ALAN who was here last visit-- this visit is his daughter and states sonido is asking for CT and Labs for his medical record-- -- he is skipping meals again and then binging at night-- nelly was eating a lot of cheese then couldn't because it was making him sick--was doing pedialyte pops in am which were helpful for a bit now not again so using GOGURT which he likes but he ate them all and ran out-- watching hypoglycemia -and will do his pill minders as daughter in law robin does his meds-- long discussion on manager intermediate risks and that he cannot be on insulin if he is not checking his sugars--has new meter but not trying-- would like tania but if just got bmeter can't get new one -- no humalog as it was prescribed by nephro despite him not eating and he was having lows in the 50's-- he states he was doing well until about a week or two ago when nausea, vomiting and cough started-- Chronic Disease Follow-up with Alan ANDERSON 04/14 Diabetes mellitus with foot ulcer right foot resolved, feet are calloused today, refuses podiatry Chronic Disease Follow-up with Alan ANDERSON 04/25/2019 Disturbance of gait will watch since ju st before hospital visit we had to lower metoprolol-- Chronic Disease Follow-up with Alan ANDERSON 04/14 Fatigue improved from last visit per pt and sister John brian Disease Follow-up with Alan ANDERSON 04/25/2019 Hypertension goal <140/80-- continue cu rrent meds per cardiology with DM, history and risk factors-- meds UTD with pt and daughter in law, refills needed reviewed Chronic Disease Follow-up with Alan ANDERSON 04/14 Ischemic stroke continue to follow with neuro-- currently on aspirin and plavix for anticoagulation-- was removed off plavix from ER then had another stroke - within a week-- - imperative as long as anticoagulation is tolerated that he takes daily-MAY NEED TO HOLD PLAVIX IF BLEEDING HE DENIES BRBPR STATES DARKER STOOLS NOW AND SINGH WITH VOMIT< WILL CHECK OCCULT-- BEFORE HOLDING THIS OR ASPIRIN- speech and weakness has improved, declines any further therapy at this poiont Chronic Disease Follow-up with Alan ANDERSON 04/14 Left main coronary artery disease Chronic Disease Foll ow-up with Alan ANDERSON 04/25/2019 Lumbago hydrocodone dosing, risks discussed, take spa ringly-- Chronic Disease Follow-up with Alan ANDERSON 04/25/2019 Nicotine dependence 1/2 ppd, aware of r isks, educated on this and options for cessation today, 5 min counseling not ready to quit -- Chronic Disease Follow-up with Alan ANDERSON 04/25/2019 Pneumonia Chronic Disease Follow-up with Alan ANDERSON 04/25/2019 Allergic rhinitis Chronic Disease Follow-up with Alan ANDERSON 01/02/2019 Anemia hx, no active bleeding or bruisi ng, refuses further workup but did has seen vascular and cardio this year I would like him to see nephro-- he has upcoming appt-- will monitor-- 47 minutes face to face time with pt and sister >50% counseling, coordination of care aware of risks and options for cessation-- Chronic Disease Follow-up with Alan ANDERSON 12/13 Blood in the stool ? with DARK TARRY ST OOLS AND VOMITING POSSIBLY COFFEE GROUND EMESIS__last visit-- NEEDS TO GO BACK TO HIS SCOPE SURGEON DR HARDIN< ?? REFERRAL SENT LAST WEEK WILL RESEND< CHECK ON _not sure on that appt, he has dr ceballos for january 10-- _ TO THE ER IF WORSE BEFORE< REFUSES TODAY ADVISED COULD BE ULCER< BLEED BUT ALSO HAS A HISTORY OF LOW 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 DUE TO LONG TE RM DM SO NEEDS TO NOT BINGE AND EAT SMALLER MEALS TO HELP DIGESTION Chronic Disease Follow-up with Alan ANDERSON 01/02/2019 Chronic kidney disease, stage 3 requested recent labs from ortho Chronic Disease Follow-up with Alan ANDERSON 01/02/2019 Diabetes mellitus has been from house t o house, SHANTAL sister, to SON's now with his cosme [employer] who is also his radio personality and her mom ALAN who was here last visit-- this visit is his daughter and states sonido is asking for CT and Labs for his medical record-- -- he is skipping meals again and then binging at night-- picky was eating a lot of cheese then couldn't because it was making him sick--was doing pedialyte pops in am which were helpful for a bit now not again so using GOGURT which he likes but he ate them all and ran out-- watching hypoglycemia -and will do his pill minders as daughter in law robin does his meds-- long discussion on residential risks and that he cannot be on insulin if he is not checking his sugars--has new meter but not trying-- would like tania but if just got bmeter can't get new one -- no humalog as it was prescribed by nephro despite him not eating and he was having lows in the 50's Chronic Disease Follow-up with Alan ANDERSON 01/02/2019 Diabetes mellitus with foot ulcer right foot resolved, feet are calloused today, refuses podiatry Chronic Disease Follow-up with Alan ANDERSON 01/02/2019 Disturbance of gait will watch since ju st before hospital visit we had to lower metoprolol-- Chronic Disease Follow-up with Alan ANDERSON 12/13 Fatigue improved from last visit per pt and sister John brian Disease Follow-up with Alan ANDERSON 01/02/2019 Hypertension goal <140/80-- continue cu rrent meds per cardiology with DM, history and risk factors-- meds UTD Chronic Disease Follow-up with Alan ANDERSON 01/02/2019 Ischemic stroke continue to follow with neuro-- currently on aspirin and plavix for anticoagulation-- was removed off plavix from ER then had another stroke - within a week-- - imperative as long as anticoagulation is tolerated that he takes daily-MAY NEED TO HOLD PLAVIX IF BLEEDING HE DENIES BRBPR STATES DARKER STOOLS NOW AND SINGH WITH VOMIT< WILL CHECK OCCULT-- BEFORE HOLDING THIS OR ASPIRIN- speech and weakness has improved, declines any further therapy at this poiont Chronic Disease Follow-up with Alan ANDERSON 12/13 Left main coronary artery disease Chronic Disease Foll ow-up with Alan ANDERSON 01/02/2019 Lumbago hydrocodone dosing, risks discu ssed, take sparingly-- istop requested from nurse Cinthia Stone lPn- Chronic Disease Follow-up with Alan ANDERSON 01/02/2019 Nicotine dependence 1/2 ppd, aware of r isks, educated on this and options for cessation today, 5 min counseling not ready to quit -- yaya with aneurysm Chronic Disease Follow-up with Alan ANDERSON 01/02/2019 Allergic rhinitis AHR with Alan ANDERSON 11/21/2018 Anemia hx, no active bleeding or bruisi ng, refuses further workup but did has seen vascular and cardio this year I would like him to see nephro-- he has upcoming appt-- will monitor-- 50 minutes face to face time with pt and sister >50% counseling, coordination of care aware of risks and options for cessation-- AHR with Alan ANDERSON 11/21/2018 Blood in the stool ? 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 SO NEEDS TO NOT BINGE AND EAT SMALLER MEALS TO HELP DIGESTION AHR with Alan ANDERSON 11/21/2018 Chronic kidney disease, stage 3 requested recent labs from ortho AHR with Alan ANDERSON 11/21/2018 Diabetes mellitus has been from house t o house, SHANTAL sister, to SON's now with his cosme SONIDO who is also his radio personality and her mom ALAN is here with him today at appt-- he is skipping meals again and then binging at night-- picky was eating a lot of cheese then couldn't because it was making him sick--was doing pedialyte pops in am which were helpful for a bit now not again so using GOGURT which he likes but also new so maybe he has lactose intolerance? -- ALAN THINKS DAUGHTER IN LAW CRYTAL WILL BRING HIM TO APPTS BUT AT LAST VISIT SHE WAS WORKING AND SAID SHE COULDNT AFTER THIS watching hypoglycemia -and will do his pill minders as daughter in law crystal does his meds-- long discussion on manager intermediate risks and that he cannot be on insulin if he is not checking his sugars--FINALLY AGREES TO TRYING A TALKING METER DUE TO SIGHT LOW VISION AND ILLITERACY he also saw Veronika Malcolm RN today, our perioperative educator, career development engineer, who discussed plan of care and will f.u with sugars -- no humalog as it was prescribed by nephro despite him not eating and he was having lows in the 50's AHR with Alan ANDERSON 11/21/2018 Diabetes mellitus with foot ulcer right foot resolved, feet are calloused today, refuses podiatry AHR with Alan ANDERSON 11/21/2018 Disturbance of gait will watch since ju st before hospital visit we had to lower metoprolol-- AHR with Alan ANDERSON 11/21/2018 Fatigue improved from last visit per pt and sister AHR with Alan ANDERSON 11/21/2018 Hypertension goal <140/80-- continue cu rrent meds per cardiology with DM, history and risk factors-- meds UTD AHR with Alan ANDERSON 11/21/2018 Ischemic stroke continue to follow with neuro-- currently on aspirin and plavix for anticoagulation-- was removed off plavix from ER then had another stroke - within a week-- - imperative as long as anticoagulation is tolerated that he takes daily-MAY NEED TO HOLD PLAVIX IF BLEEDING HE DENIES BRBPR STATES DARKER STOOLS NOW AND SINGH WITH VOMIT< WILL CHECK OCCULT-- BEFORE HOLDING THIS OR ASPIRIN- speech and weakness has improved, declines any further therapy at this poiont AHR with Alan ANDERSON 11/21/2018 Left main coronary artery disease AHR with Alan Ramos 11/21/2018 Lumbago hydrocodone dosing, risks discu ssed, take sparingly-- istop requested from nurse Cinthia Stone lPn- AHR with Alan ANDERSON 11/21/2018 Nicotine dependence 1/2 ppd, aware of r isks, educated on this and options for cessation today, 7 min counseling not ready to quit -- son will help with this AHR with Alan ANDERSON 11/21/2018 Allergic rhinitis Hospital Follow-up with Alan ANDERSON 11/14/2018 Anemia hx, no active bleeding or bruisi ng, refuses further workup but did has seen vascular and cardio this year I would like him to see nephro-- he has upcoming appt-- will monitor-- 50 minutes face to face time with pt and sister >50% counseling, coordination of care aware of risks and options for cessation-- Hospital Follow-up with Alan ANDERSON 11/14/2018 Chronic kidney disease, stage 3 requested recent labs from ortho Hospital Follow-up with Alan ANDERSON 11/14/2018 Diabetes mellitus Hospital Follow-up with Alan ANDERSON 11/14/2018 Diabetes mellitus taking his lantus and improved when he lived with Shantal and she made him eat, but now living with sister alan who now understands that he is skipping meals and she will monitor-- pedialyte helps with breakfast and he is eating much more-- -- sister Joellen make sure he makes specialist appts and takes meds as prescribed much improved but watching hypoglycemia -and will do his pill minders as daughter in law robin does his meds-- long discussion on residential risks and that he cannot be on insulin if he is not checking his sugars-- he also saw Veronika Malcolm RN today, our perioperative educator, career development engineer, who discussed plan of care and will f.u with sugars -- no humalog as it was prescribed by nephro despite him not eating and he was having lows in the 50's Hospital Follow-up with Alan ANDERSON 11/14/2018 Diabetes mellitus with foot ulcer right foot resolved, feet are calloused today, refuses podiatry Hospital Follow-up with Alan ANDERSON 11/14/2018 Disturbance of gait will watch since before hospital visit we had to lower metoprolol-- Hospital Follow-up with Alan ANDERSON 11/14/2018 Fatigue improved from last visit per pt and sister Uriah adamson Follow-up with Alan ANDERSON 11/14/2018 Hypertension goal <140/80-- continue cu rrent meds per cardiology with DM, history and risk factors-- meds [facility] [[email or web address] Hospital Follow-up with Alan ANDERSON 11/14/2018 Ischemic stroke continue to follow with neuro-- currently on aspirin and plavix for anticoagulation-- was removed off plavix from ER then had another stroke - within a week-- - imperative as long as anticoagulation is tolerated that he takes daily-- speech and weakness has improved, declines any further therapy at this [facility] Follow-up with Alan ANDERSON 11/14/2018 Left main coronary artery disease Hospital Follow-up with Alie ANDERSON 11/14/2018 Lumbago hydrocodone dosing, risks discu ssed, take sparingly-- istop requested from nurse Cinthia Stone lPn- Hospital Follow-up with Alan ANDERSON 11/14/2018 Nicotine dependence 1/2 ppd, aware of r isks, educated on this and options for cessation today, 7 min counseling not ready to quit -- son will help with this Hospital Follow-up with Alan ANDERSON 11/14/2018 Allergic rhinitis Chronic Disease Follow-up with Alan ANDERSON 09/12/2018 Anemia hx, no active bleeding or bruisi ng, refuses further workup but did has seen vascular and cardio this year I would like him to see nephro-- he has upcoming appt-- will monitor-- 50 minutes face to face time with pt and sister >50% counseling, coordination of care aware of risks and options for cessation-- Chronic Disease Follow-up with Alan ANDERSON 06/2018 Chronic kidney disease, stage 3 requested recent labs from ortho Chronic Disease Follow-up with Alan ANDERSON 09/12/2018 Diabetes mellitus taking his lantus and improved when he lived with Shantal and she made him eat, but now living with sister alan who now understands that he is skipping meals and she will monitor-- pedialyte helps with breakfast and he is eating much more-- -- sister Joellen make sure he makes specialist appts and takes meds as prescribed much improved but watching hypoglycemia -and will do his pill minders as daughter in law robin does his meds-- long discussion on residential risks and that he cannot be on insulin if he is not checking his sugars-- he also saw Veronika Malcolm RN today, our perioperative educator, career development engineer, who discussed plan of care and will f.u with sugars -- no humalog as it was prescribed by nephro despite him not eating and he was having lows in the 50's Chronic Disease Follow-up with Alan ANDERSON 09/12/2018 Diabetes mellitus with foot ulcer right foot resolved, feet are calloused today, refuses podiatry Chronic Disease Follow-up with Alan ANDERSON 09/12/2018 Disturbance of gait will watch since ju st before hospital visit we had to lower metoprolol-- Chronic Disease Follow-up with Alan ANDERSON 06/2018 Fatigue improved from last visit per pt and sister Ch ronic Disease Follow-up with Alan ANDERSON 09/12/2018 Hypertension goal <140/80-- continue cu rrent meds per cardiology with DM, history and risk factors-- meds UTD Chronic Disease Follow-up with Alan ANDERSON 09/12/2018 Ischemic stroke continue to follow with neuro-- currently on aspirin and plavix for anticoagulation-- was removed off plavix from ER then had another stroke - within a week-- - imperative as long as anticoagulation is tolerated that he takes daily-- speech and weakness has improved, declines any further therapy at this poiont Chronic Disease Follow-up with Alan ANDERSON 06/2018 Left main coronary artery disease Chronic Disease Foll ow-up with Alan ANDERSON 09/12/2018 Lumbago hydrocodone dosing, risks discu ssed, take sparingly-- istop requested from nurse Cinthia Stone lPn- Chronic Disease Follow-up with Alan ANDERSON 09/12/2018 Nicotine dependence 1/2 ppd, aware of r isks, educated on this and options for cessation today, 7 min counseling not ready to quit -- son will help with this Chronic Disease Follow-up with Alan ANDERSON 09/12/2018 Allergic rhinitis FOLLOW UP RECHECK with Alan Ramos 07/14/2018 Anemia hx, no active bleeding or bruisi ng, refuses further workup but did has seen vascular and cardio this year I would like him to see nephro-- he has upcoming appt-- will monitor-- 48 minutes face to face time with pt and sister >50% counseling, coordination of care aware of risks and options for cessation-- FOLLOW UP RECHECK with Alan ANDERSON 07/14/2018 Chronic kidney disease, stage 3 requested recent labs from ortho FOLLOW UP RECHECK with Alan ANDERSON 07/14/2018 Diabetes mellitus taking his lantus and improved when he lived with Shantal and she made him eat, but now living with sister alan who now understands that he is skipping meals and she will monitor-- pedialyte helps with breakfast and he is eating much more-- -- sister Joellen make sure he makes specialist appts and takes meds as prescribed much improved but watching hypoglycemia -and will do his pill minders but he will be moving back in with his son and son's girlfriend robin temporarily-- long discussion on manager intermediate risks and that he cannot be on insulin if he is not checking his sugars-- he also saw Veronika Malcolm RN today, our perioperative educator, career development engineer, who discussed plan of care and will f.u with sugars -- no humalog until he calls her with log next week since he is having lows in the 50's this was prescribed by dr swartz-- FOLLOW UP RECHECK with Alan ANDERSON 07/14/2018 Diabetes mellitus with foot ulcer right foot resolved, feet are calloused today, refuses podiatry FOLLOW UP RECHECK with Alan ANDERSON 07/14/2018 Disturbance of gait will watch since st before hospital visit we had to lower metoprolol-- FOLLOW UP RECHECK with Alan ANDERSON 07/14/2018 Fatigue improved from last visit per pt and sister FO LLOW UP RECHECK with Alan ANDERSON 07/14/2018 Hypertension goal <140/80-- continue cu rrent meds per cardiology with DM, history and risk factors-- meds UTD FOLLOW UP RECHECK with Alan ANDERSON 07/14/2018 Ischemic stroke continue to follow with neuro-- currently on aspirin and plavix for anticoagulation-- was removed off plavix from ER then had another stroke - within a week-- - imperative as long as anticoagulation is tolerated that he takes daily-- speech and weakness has improved, declines any further therapy at this poiont FOLLOW UP RECHECK with Alan ANDERSON 07/14/2018 Left main coronary artery disease FOLLOW UP RECHECK with Cesar ANDERSON 07/14/2018 Lumbago hydrocodone dosing, risks discu ssed, take sparingly-- istop requested from nurse Cinthia Stone lPn- FOLLOW UP RECHECK with Alan ANDERSON 07/14/2018 Nicotine dependence 1/2 ppd, aware of r isks, educated on this and options for cessation today, 7 min counseling FOLLOW UP RECHECK with Alan ANDERSON 07/14/2018 Allergic rhinitis RECHECK with Alan ANDERSON 05/27/20 18 Anemia hx, no active bleeding or bruisi ng, refuses further workup but did has seen vascular and cardio this year I would like him to see nephro-- he has upcoming appt-- will monitor-- 48 minutes face to face time with pt and sister >50% counseling, coordination of care aware of risks and options for cessation-- RECHECK with Alan ANDERSON 05/27/2018 Chronic kidney disease, stage 3 requested recent labs from ortho RECHECK with Alan ANDERSON 05/27/2018 Diabetes mellitus taking his lantus and improved when he lived with Shantal and she made him eat, but now living with sister alan who now understands that he is skipping meals and she will monitor-- pedialyte helps with breakfast and he is eating much more-- -- sister Joellen make sure he makes specialist appts and takes meds as prescribed much improved but watching hypoglycemia -and will do his pill minders but he will be moving back in with his son and son's girlfriend robin temporarily-- long discussion on residential risks and that he cannot be on insulin if he is not checking his sugars-- he also saw Vernoika Malcolm RN today, our perioperative educator, career development engineer, who discussed plan of care and will f.u with sugars in a couple of weeks-- RECHECK with Alan ANDERSON 05/27/2018 Diabetes mellitus with foot ulcer right foot wound vac off now-- please have f.u ortho notessent here-- RECHECK with Alan ANDERSON 05/27/2018 Disturbance of gait will watch since ju st before hospital visit we had to lower metoprolol-- RECHECK with Alan ANDERSON 05/27/2018 Fatigue improved from last visit per pt and sister RE CHECK with Alan ANDERSON 05/27/2018 Hypertension goal <140/80-- continue cu rrent meds per cardiology with DM, history and risk factors-- meds UTD RECHECK with Alan ANDERSON 05/27/2018 Ischemic stroke continue to follow with neuro-- currently on aspirin and plavix for anticoagulation-- was removed off plavix from ER then had another stroke - within a week-- - imperative as long as anticoagulation is tolerated that he takes daily-- speech and weakness has improved, declines any further therapy at this poiont RECHECK with Alan ANDERSON 05/27/2018 Left main coronary artery disease RECHECK with Alan ANDERSON 05/27/2018 Lumbago hydrocodone dosing, risks discu ssed, take sparingly-- istop requested from nurse Cinthia Stone lPn- RECHECK with Alan ANDERSON 05/27/2018 Nicotine dependence 1/2 ppd, aware of r isks, educated on this and options for cessation today, 10 min counseling RECHECK with Alan ANDERSON 05/27/2018 Allergic rhinitis Chronic Disease Follow-up with Alan ANDERSON 04/27/2018 Anemia hx, no active bleeding or bruisi ng, refuses further workup but did has seen vascular and cardio this year I would like him to see nephro-- he has upcoming appt-- will monitor-- 50 minutes face to face time with pt and sister >50% counseling, coordination of care aware of risks and options for cessation-- Chronic Disease Follow-up with Alan ANDERSON 04/14 Chronic kidney disease, stage 3 requested recent labs from ortho Chronic Disease Follow-up with Alan ANDERSON 04/27/2018 Diabetes mellitus taking his lantus and improved when he lived with Shantal and she made him eat, but now living with sister alan who now understands that he is skipping meals and she will monitor-- -- sister Joellen make sure he makes specialist appts and takes meds as prescribed much improved but watching hypoglycemia -- long discussion on residential risks and that he cannot be on insulin if he is not checking his sugars-- he also saw Veronika Malcolm RN today, our perioperative educator, career development engineer, who discussed plan of care and will f.u with sugars in a couple of weeks-- Chronic Disease Follow-up with Alan ANDERSON 04/27/2018 Diabetes mellitus with foot ulcer right foot wound vac off now-- please have f.u ortho notessent here-- Chronic Disease Follow-up with Alan ANDERSON 04/27/2018 Disturbance of gait will watch since ju st before hospital visit we had to lower metoprolol-- Chronic Disease Follow-up with Alan ANDERSON 04/14 Fatigue improved from last visit per pt and sister John cisnerosic Disease Follow-up with Alan ANDERSON 04/27/2018 Hypertension goal <140/80-- continue cu rrent meds per cardiology with DM, history and risk factors-- meds UTD Chronic Disease Follow-up with Alna ANDERSON 04/27/2018 Ischemic stroke continue to follow with neuro-- currently on aspirin and plavix for anticoagulation-- was removed off plavix from ER then had another stroke - within a week-- - imperative as long as anticoagulation is tolerated that he takes daily-- speech and weakness has improved, declines any further therapy at this poiont Chronic Disease Follow-up with Alan ANDERSON 04/14 Left main coronary artery disease Chronic Disease Foll ow-up with Alan ANDERSON 04/27/2018 Lumbago hydrocodone dosing, risks discu ssed, take sparingly-- istop requested from nurse Cinthia Stone lPn- Chronic Disease Follow-up with Alan ANDERSON 04/27/2018 Nicotine dependence 1/2 ppd, aware of r isks, educated on this and options for cessation today, 10 min counseling Chronic Disease Follow-up with Alan ANDERSON 04/27/2018 Allergic rhinitis RECHECK with Alan ANDERSON 12/23/19 18 Anemia hx, no active bleeding or bruisi ng, refuses further workup but did has seen vascular and cardio this year I would like him to see nephro-- he has upcoming appt-- will monitor-- 47 minutes face to face time with pt and sister >50% counseling, coordination of care aware of risks and options for cessation-- RECHECK with Alan ANDERSON 12/22/2017 Chronic kidney disease, stage 3 requested recent labs from ortho RECHECK with Alan ANDERSON 12/22/2017 Diabetes mellitus taking his lantus and improved so will monitor a1c now that he is getting meds back -- sister Shantal and Joellen make sure he makes specialist appts and takes meds as prescribed much improved but watching hypoglycemia and making sure he gets meals long discussion on treatment of hypoglycemia today RECHECK with Alan ANDERSON 12/22/2017 Diabetes mellitus with foot ulcer right foot wound vac off now-- please have f.u ortho notessent here-- RECHECK with Alan ANDERSON 12/22/2017 Disturbance of gait will watch since ju st before hospital visit we had to lower metoprolol-- RECHECK with Alan ANDERSON 12/22/2017 Fatigue improved from last visit per pt and sister RE CHECK with Alan ANDERSON 12/22/2017 Hypertension goal <140/80-- continue cu rrent meds per cardiology with DM, history and risk factors-- meds UTD RECHECK with Alan ANDERSON 12/22/2017 Ischemic stroke continue to follow with neuro-- currently on aspirin and plavix for anticoagulation-- was removed off plavix from ER then had another stroke - within a week-- - imperative as long as anticoagulation is tolerated that he takes daily-- speech and weakness has improved, declines any further therapy at this poiont RECHECK with Alan ANDERSON 12/22/2017 Left main coronary artery disease RECHECK with Alan ANDERSON 12/22/2017 Nicotine dependence 1/2 ppd, aware of r isks, educated on this and options for cessation today, 10 min counseling RECHECK with Alan ANDERSON 12/22/2017 Sinusitis RECHECK with Alan ANDERSON 12/23/19 18 Allergic rhinitis Chronic Disease Follow-up with Alan ANDERSON 11/23/2017 Anemia hx, no active bleeding or bruisi ng, refuses further workup but did has seen vascular and cardio this year I would like him to see nephro-- he has upcoming appt-- will monitor-- 44 minutes face to face time with pt and sister >50% counseling, coordination of care aware of risks and options for cessation-- Chronic Disease Follow-up with Alan ANDERSON 11/12 Chronic kidney disease, stage 3 requested recent labs from ortho Chronic Disease Follow-up with lAan ANDERSON 11/23/2017 Diabetes mellitus taking his lantus and improved so will monitor a1c now that he is getting meds back -- sister Shantal and Joellen make sure he makes specialist appts and takes meds as prescribed much improved but watching hypoglycemia and making sure he gets meals Chronic Disease Follow-up with Alan ANDERSON 11/23/2017 Diabetes mellitus with foot ulcer right foot wound vac off now-- please have f.u ortho notessent here-- Chronic Disease Follow-up with Alan ANDERSON 11/23/2017 Disturbance of gait will watch since st before hospital visit we had to lower metoprolol-- Chronic Disease Follow-up with Alan ANDERSON 11/12 Fatigue improved from last visit per pt and sister John ronic Disease Follow-up with Alan ANDERSON 11/23/2017 Hypertension goal <140/80-- continue cu rrent meds per cardiology with DM, history and risk factors-- meds UTD Chronic Disease Follow-up with Alan ANDERSON 11/23/2017 Ischemic stroke continue to follow with neuro-- currently on aspirin and plavix for anticoagulation-- was removed off plavix from ER then had another stroke - within a week-- - imperative as long as anticoagulation is tolerated that he takes daily-- speech and weakness has improved, declines any further therapy at this poiont Chronic Disease Follow-up with Alan ANDERSON 11/12 Left main coronary artery disease Chronic Disease Foll ow-up with Alan ANDERSON 11/23/2017 Nicotine dependence 1/2 ppd, aware of r isks, educated on this and options for cessation today, 10 min counseling Chronic Disease Follow-up with Alan ANDERSON 11/23/2017 Allergic rhinitis Walk-In with Alan ANDERSON 11/10/19 18 Anemia hx, no active bleeding or bruisi ng, refuses further workup but did has seen vascular and cardio this year I would like him to see nephro-- he has upcoming appt-- will monitor-- 50 minutes face to face time with pt and sister >50% counseling, coordination of care aware of risks and options for cessation-- Walk-In with Alan ANDERSON 11/09/2017 Chronic kidney disease, stage 3 Walk-In with Alan ANDRESON 11/09/2017 Diabetes mellitus taking his lantus and improved so will monitor a1c now that he is getting meds back -- sister Shantal and Joellen make sure he makes specialist appts and takes meds as prescribed Walk-In with Alan ANDERSON 11/09/2017 Diabetes mellitus with foot ulcer right foot Walk-In with Nabil ANDERSON 11/09/2017 Disturbance of gait will watch since ju st before hospital visit we had to lower metoprolol-- Walk-In with Alan ANDERSON 11/09/2017 Fatigue his sister notes that with anti biotic change he has been yaya tired-- last labs from ID reviewed today from wednesday, see scanned, and improving-- she will call there if continues this week-- he did not tolerate clarithromycin-- Walk-In with Alan ANDERSON 11/09/2017 Hypertension goal <140/80-- continue cu rrent meds per cardiology with DM, history and risk factors-- meds UTD Walk-In with Alan ANDERSON 11/09/2017 Ischemic stroke continue to follow with neuro-- currently on aspirin and plavix for anticoagulation-- was removed off plavix from ER then had another stroke - within a week-- - imperative as long as anticoagulation is tolerated that he takes daily-- speech and weakness has improved, declines any further therapy at this poiont Walk-In with Alan ANDERSON 11/09/2017 Left main coronary artery disease Walk-In with Alan ANDERSON 11/09/2017 Nicotine dependence 1/2 ppd, aware of r isks, educated on this and options for cessation today, 10 min counseling Walk-In with Alan ANDERSON 11/09/2017 Chest pain RESOLVED FROM JUL-- Walk-In with Alan ANDERSON 08/24/2017 Chronic kidney disease (NKF classification) Walk-In with Eduarda maldonado Radha ANDERSON 08/24/2017 Coronary artery disease Walk-In with Alan ANDERSON 08/12 Depression improved, no suicidal ideati on-- asking for refills of paroxetine if due 48 minutes face to face time spent with pt and sister >50% counseling, coordination of care Walk-In with Alan ANDERSON 08/24/2017 Nicotine dependence 10 minutes spent on education, options for cessation and risks-of continued smoking- pt will consider for next visit Walk-In with Alan ANDERSON 08/24/2017 Sprained ribs RESOLVED Walk-In with Alan ANDERSON 08/12 Type 2 diabetes mellitus with ulcer rig ht lateral ankle THE PATIENT HAS A MOBILITY LIMITATION THAT SIGNIFICANTLY IMPAIRS HIS/HER ABILITY TO PARTICIPATE IN ONE OR MORE MOBILITY RELATED ACTIVITIES OF DAILY LIVING IN THE HOME ie toileting, feeding dressing, grooming, bathingA MOBILITY LIMITATION IS ONE THAT :PREVENTS THE BENEFICIARY FROM ACCOMPLISHING THE MOBILITY RELATED ADL OR PLACES THE PATIENT AT INCREASED RISK OF MORBIDITY OR MORTALITY SECONDARY TO ATTEMPTS TO PERFORM THE MOBILITY RELATED ADL PREVENTS THE PATIENT FROM COMPLETING THE MOBILITY RELATED ADL WITH IN A REASONABLE AMOUNT OF TIME AND THE PT IS ABLE TO SAFELY USE THE WALKER ANDTHE FUNCTIONAL MOBILITY DEFICIT CAN BE SUFFICIENTLY RESOLVED WITH THE USE OF A WALKERIF ALL THE CRITERIA ARE NOT MET THE WALKER WILL BE DENIED NOT REASONABLE AND NECESSARY Walk-In with Alan ANDERSON 08/24/2017 Acute bronchitis Walk-In with Jorgito Saul DO 07/15 Chest pain Walk-In with Jorgito Saul DO 07/15 Sprained ribs Walk-In with Jorgito Saul DO 07/15 Allergic rhinitis Chronic Disease Follow-up with Alan ANDERSON 07/20/2017 Anemia hx, no active bleeding or bruisi ng, refuses further workup but did has seen vascular and cardio this year 47 minutes face to face time with pt and sister >50% counseling, coordination of care Chronic Disease Follow-up with Alan ANDERSON 07/20/2017 Chronic kidney disease (NKF classification) Chronic Di sease Follow-up with Alan ANDERSON 07/20/2017 Diabetes mellitus taking his lantus and improved so will monitor a1c now that he is getting meds back -- sister Shantal will make sure he makes specialist appts and takes meds as prescribed Chronic Disease Follow-up with Alan ANDERSON 07/20/2017 Disturbance of gait likely orthostatic, improved since metoprolol was lower last visit until the past week or two, now symptoms again, labs ordered Chronic Disease Follow-up with Alan ANDERSON 07/20/2017 Hypertension goal <140/90-- continue cu rrent meds per cardiology with DM, history and risk factors-- meds UTD Chronic Disease Follow-up with Alan ANDERSON 07/20/2017 Ischemic stroke continue to follow with neuro-- currently on aspirin and plavix for anticoagulation-- was removed off plavix from ER then had another stroke - within a week-- - imperative as long as anticoagulation is tolerated that he takes daily-- speech and weakness has improved, declines any further therapy at this poiont Chronic Disease Follow-up with Alan ANDERSON 11/2017 Left main coronary artery disease Chronic Disease Foll ow-up with Alan ANDERSON 07/20/2017 Nicotine dependence 1/2 ppd, aware of r isks, educated on this and options for cessation today, 10 min counseling Chronic Disease Follow-up with Alan ANDERSON 07/20/2017 Stroke syndrome on aspirin, plavix and statin-- does better now that help with meds, s/s reviewed-- weakness and speech have actually improved-- Chronic Disease Follow-up with Alan ANDERSON 07/20/2017 Allergic rhinitis Chronic Disease Follow-up with Alan ANDERSON 02/03/2017 Anemia hx, no active bleeding or bruisi ng, refuses further workup but did has seen vascular and cardio this year 47 minutes face to face time with pt and sister >50% counseling, coordination of care Chronic Disease Follow-up with Alan ANDERSON 02/03/2017 Chronic kidney disease (NKF classification) Chronic Di sease Follow-up with Alan ANDERSON 02/03/2017 Diabetes mellitus taking his lantus and improved so will monitor a1c now that he is getting meds back -- sister Shantal will make sure he makes specialist appts and takes meds as prescribed Chronic Disease Follow-up with Alan ANDERSON 02/03/2017 Disturbance of gait likely orthostatic, improved since metoprolol was lower last visit until the past week or two, now symptoms again, labs ordered Chronic Disease Follow-up with Alan ANDERSON 02/03/2017 Hypertension goal <140/90-- continue cu rrent meds per cardiology with DM, history and risk factors-- meds UTD Chronic Disease Follow-up with Alan ANDERSON 02/03/2017 Ischemic stroke continue to follow with neuro-- currently on aspirin and plavix for anticoagulation-- was removed off plavix from ER then had another stroke - within a week-- - imperative as long as anticoagulation is tolerated that he takes daily-- speech and weakness has improved, declines any further therapy at this poiont Chronic Disease Follow-up with Alan ANDERSON 01/13 Left main coronary artery disease Chronic Disease Foll ow-up with Alan ANDERSON 02/03/2017 Nicotine dependence 1/2 ppd, aware of r isks, educated on this and options for cessation today, 10 min counseling Chronic Disease Follow-up with Alan ANDERSON 02/03/2017 Stroke syndrome on aspirin, plavix and statin-- does better now that help with meds, s/s reviewed-- weakness and speech have actually improved-- Chronic Disease Follow-up with Alan ANDERSON 02/03/2017 Chronic kidney disease, stage 3 Medication Order with Alan ANDERSON 11/06/2016 Allergic rhinitis Chronic Disease Follow-up with Alan ANDERSON 10/28/2016 Anemia hx, no active bleeding or bruisi ng, refuses further workup but did has seen vascular and cardio this year 47 minutes face to face time with pt and sister >50% counseling, coordination of care Chronic Disease Follow-up with Alan ANDERSON 10/28/2016 Chronic kidney disease (NKF classification) Chronic Di sease Follow-up with Alan ANDERSON 10/28/2016 Diabetes mellitus taking his lantus and improved so will monitor a1c now that he is getting meds back -- sister Shantal will make sure he makes specialist appts and takes meds as prescribed Chronic Disease Follow-up with Alan ANDERSON 10/28/2016 Disturbance of gait likely orthostatic, improved since metoprolol was lower last visit until the past week or two, now symptoms again, labs ordered Chronic Disease Follow-up with Alan ANDERSON 10/28/2016 Hypertension goal <140/90-- continue cu rrent meds per cardiology with DM, history and risk factors-- meds UTD Chronic Disease Follow-up with Alan ANDERSON 10/28/2016 Ischemic stroke continue to follow with neuro-- currently on aspirin and plavix for anticoagulation-- was removed off plavix from ER then had another stroke - within a week-- - imperative as long as anticoagulation is tolerated that he takes daily-- speech and weakness has improved, declines any further therapy at this poiont Chronic Disease Follow-up with Alan ANDERSON 10/12 Left main coronary artery disease Chronic Disease Foll ow-up with Alan ANDERSON 10/28/2016 Nicotine dependence 1/2 ppd, aware of r isks, educated on this and options for cessation today, 10 min counseling Chronic Disease Follow-up with Alan ANDERSON 10/28/2016 Stroke syndrome on aspirin, plavix and statin-- does better now that help with meds, s/s reviewed-- weakness and speech have actually improved-- Chronic Disease Follow-up with Alan ANDERSON 10/28/2016 Anemia hx, no active bleeding or bruisi ng, refuses further workup but did has seen vascular and cardio this year 47 min time spent with pt >50% counseling, coordination of care Chronic Disease Follow-up with Alan ANDERSON 05/26/2016 Chronic kidney disease (NKF classification) Chronic Di sease Follow-up with Alan ANDERSON 05/26/2016 Diabetes mellitus taking his lantus but not slide and not checking sugars like he should-- he agrees to restart after discussing risks and robin will check on him more often-- Chronic Disease Follow-up with Alan ANDERSON 05/14 Disturbance of gait likely orthostatic, improved since metoprolol was lower last visit until the past week or two, now symptoms again, labs ordered Chronic Disease Follow-up with Alan ANDERSON 05/26/2016 Hypertension goal <140/90-- continue current meds per cardiology Chronic Disease Follow-up with Alan ANDERSON 05/26/2016 Ischemic stroke continue to follow with neuro-- currently on aspirin and plavix for anticoagulation-- was removed off plavix from ER then had another stroke - within a week-- - imperative as long as anticoagulation is tolerated that he takes daily-- Chronic Disease Follow-up with Alan ANDERSON 05/14 Left main coronary artery disease Chronic Disease Foll ow-up with Alan ANDERSON 05/26/2016 Nicotine dependence refuses smoking cris sation, 5 min on education, risks-- pt is aware and refuses quit options Chronic Disease Follow-up with Alan ANDERSON 05/26/2016 Stroke syndrome on aspirin, plavix and statin-- does better now that help with meds, s/s reviewed-- weakness and speech have actually improved-- Chronic Disease Follow-up with Alan ANDERSON 05/26/2016 Anemia saw hematology october 27 but they said they rescheduled so now pt declines appt AHR with Alan ANDERSON 01/14/2016 Chronic kidney disease (NKF classification) AHR with Alan ANDERSON 01/14/2016 Diabetes mellitus Robin, his daughter in law, states sugars have improved and are under 200-- and even to 110 AHR with Alan ANDERSON 01/14/2016 Disturbance of gait likely orthostatic, improved since metoprolol was lower last visit until the past week or two, now symptoms again, labs ordered AHR with Alan ANDERSON 01/14/2016 Hypertension goal <140/90-- continue current meds per cardiology AHR with Alan ANDERSON 01/14/2016 Ischemic stroke continue to follow with neuro-- currently on aspirin and plavix for anticoagulation-- was removed off plavix from ER then had another stroke - within a week-- - imperative as long as anticoagulation is tolerated that he takes daily-- AHR with Alan ANDERSON 01/14/2016 Left main coronary artery disease risk factors as well as medicaitons reviewed-- she does not remember updated echo at hospital and Ihave not yet recieved one-- advised importance of keeping upcomingappt with cardiology-- AHR with Alan ANDERSON 01/14/2016 Nicotine dependence refuses smoking cris sation, 5 min on education, risks-- pt is aware and refuses quit options AHR with Alan ANDERSON 01/14/2016 Normal routine history and physical AHR with Alan ANDERSON 01/14/2016 Stroke syndrome AHR with Alan ANDERSON 01/14/2016 Chronic kidney disease, stage 3 med dosing reviewed M Same Day with Alan ANDERSON 11/25/2015 Diabetic peripheral neuropathy diabetes type II insulin dept, dosing reviewed and treatment of hypoglycemia goal a1c less than 8% M Same Day with Alan ANDERSON 11/25/2015 Left main coronary artery disease M Same Day with Alan ANDERSON 11/25/2015 Pneumonia M Same Day with Alan ANDERSON 11/24 Anemia seeing hematology october 27 Chronic Disease Fol low-up with Alan ANDERSON 10/08/2015 Chronic kidney disease (NKF classification) Chronic Di sease Follow-up with Alan ANDERSON 10/08/2015 Diabetes mellitus Robin, his daughter in law, states sugars have improved and are under 200-- and even to 110-120-- except for a 3 days spell of 1=[phone] Chronic Disease Follow-up with Alan ANDERSON 10/08/2015 Disturbance of gait likely orthostatic, improved since metoprolol was lower last visit Chronic Disease Follow-up with Alan ANDERSON 09/13 Hypertension goal <140/90-- continue current meds per cardiology Chronic Disease Follow-up with Alan ANDERSON 10/08/2015 Ischemic stroke continue to follow with neuro-- currently on aspirin and plavix for anticoagulation-- was removed off plavix from ER then had another stroke - within a week-- - imperative as long as anticoagulation is tolerated that he takes daily-- Chronic Disease Follow-up with Alan ANDERSON 09/13 Left main coronary artery disease risk factors as well as medicaitons reviewed-- she does not remember updated echo at hospital and Ihave not yet recieved one-- advised importance of keeping upcomingappt with cardiology-- Chronic Disease Follow-up with Alan ANDERSON 10/08/2015 Nicotine dependence refuses smoking cris satiramirez, 5 min on education, risks-- pt is aware and refuses quit options Chronic Disease Follow-up with Alan ANDERSON 10/08/2015 Stroke syndrome Chronic Disease Follow-up with Alan ANDERSON 10/08/2015 Anemia s.s reviewed, will check with ne xt labs 48 minutes face to face time today >50% counseling, coordination of care Hospital Follow-up with Alan ANDERSON 08/26/2015 Chronic kidney disease (NKF classification) [facility] ollow-up with Alan ANDERSON 08/26/2015 Diabetes mellitus Robin, his daughter in law, states sugars have improved and are under 200-- medications from discharge have been reviewed in detail with pt and daughter in law-- Hospital Follow-up with Alan ANDERSON 08/26/2015 Disturbance of gait likely orthostatic, improved since metoprolol was lower last visit Hospital Follow-up with Alan ANDERSON 08/26/2015 Hypertension goal <140/90-- continue current meds per cardiology Hospital Follow-up with Alan ANDERSON 08/26/2015 Ischemic stroke continue to follow with neuro-- currently on aspirin and plavix for anticoagulation-- was removed off plavix from ER then had another stroke - within a week-- - imperative as long as anticoagulation is tolerated that he takes daily-- Hospital Follow-up with Alan ANDERSON 08/26/2015 Left main coronary artery disease risk factors as well as medicaitons reviewed-- she does not remember updated echo at hospital and Ihave not yet recieved one-- advised importance of keeping upcomingappt with cardiology-- Hospital Follow-up with Alan ANDERSON 08/26/2015 Nicotine dependence refuses smoking cris marcyramirez, 5 min on education, risks-- pt is aware Hospital Follow-up with Alan ANDERSON 08/26/2015 Stroke syndrome Hospital Follow-up with Alan ANDERSON 08/26/2015 Anemia with acute weakness during visit , pt is supposed to be cleared for EGD today and possible colonoscopy to r/o bleeding causing anemia, but I cannot do this as he is having sudden onset of weakness and slurred speech and needs to be evaluated for possible stroke, 911 was called and he was sent to the ER today-- labs below on hold after sudden change in mental status here he also states he was not taken plavix, but I am not seeing who took him off of this or why as he has not had any bleeding-- risk vs benefit discussed with caregiver and importance of finding out plan of care on ER discharge-- Pre Op with Alan ANDERSON 08/13/2015 Chronic kidney disease (NKF classification) Pre Op with Alan ANDERSON 08/13/2015 Diabetes mellitus Pre Op with Alan ANDERSON 6 Disturbance of gait Pre Op with Alan ANDERSON 6 Hypertension Pre Op with Alan ANDERSON 6 Ischemic stroke Pre Op with Alan ANDERSON 6 Left main coronary artery disease no CP or dizziness-- med list, PL sent with pt -- HPI-- also advised to call here upon discharge, caregiver agrees-- Pre Op with Alan ANDERSON 08/13/2015 Mental status change Pre Op with Alan ANDERSON 08/13/19 16 Nicotine dependence Pre Op with Alan ANDERSON 6 Stroke syndrome Pre Op with Alan ANDERSON 6 Urinary tract infection Pre Op with Alan ANDERSON 08/12 Chronic kidney disease, stage 3 lab recheck will have PHN do at home next week Chronic Disease Follow-up with Alan ANDERSON 07/09/2015 Diabetes mellitus states his sugars hav e been running less than 150 INSULIN DEPT>a1c stable-but sugars have improved so will monitor Chronic Disease Follow- up with Alan ANDERSON 07/09/2015 Hypertension well controlled Chronic Disease Follow-up with Alan ANDERSON 07/09/2015 Ischemic stroke on plavix and ASA for a nticoagulation-- did not understand coumadin dosing and was taking all 3 at one point, so off this-- and just taking aspirin Chronic Disease Follow-up with Alan ANDERSON 06/15 Left main coronary artery disease manag e risk factors, asa 325 mg only due to overuse with coumadin and plavix too but then stroke so plavix added back Chronic Disease Follow-up with Alan ANDERSON 07/09/2015 Limb pain right arm pain, PT started to help, then 3 weeks without it 47 minutes with pt and Crystal, his health care proxy on eval, plan of care >50% counseling, coordination-- Chronic Disease Follow-up with Alan ANDERSON 07/09/2015 Nicotine dependence smoking / ppd stopped almost a month now Chronic Disease Follow-up with Alan ANDERSON 07/09/2015 Bronchitis Chronic Disease Follow-up with Alan ANDERSON 05/15/2015 Chronic kidney disease, stage 3 reviewe d labs in detail with pt and sister-- recheck today-- Chronic Disease Follow-up with Alan ANDERSON 07/2014 Conjunctivitis Chronic Disease Follow-up with Alan ANDERSON 05/15/2015 Diabetes mellitus states his sugars hav e been running less than 150 INSULIN DEPT> Chronic Disease Follow-up with Alan ANDERSON 07/2014 Hypertension Chronic Disease Follow-up with Alan ANDERSON 05/15/2015 Ischemic stroke on plavix and ASA for a nticoagulation-- did not understand coumadin dosing and was taking all 3 at one point, so off this-- PT< OT, nursing for home ordered-- -- and risk factors for stroke in detail-- f/u with neurology next week-- follows with dr low cardiology appt is August Chronic Disease Follow-up with Alan ANDERSON 05/15/2015 Left main coronary artery disease manag e risk factors, asa 325 mg only due to overuse with coumadin and plavix too but then stroke so plavix added back Chronic Disease Follow-up with Alan ANDERSON 05/15/2015 Limb pain right arm pain-- doing PT at home for shoulder-- will start meds for pain 49 minutes with pt and sister on eval,plan of care today Chronic Disease Follow-up with Alan ANDERSON 05/15/2015 Nicotine dependence smoking 1/2 ppd refuses quit opti ons, aware of risks Chronic Disease Follow-up with Alan ANDERSON 05/15/2015 Chronic kidney disease, stage 3 reviewe d labs in detail with pt and sister-- recheck today-- tx for infection still on cipro-- Hospital Follow-up with Alan ANDERSON 04/08/2015 Diabetes mellitus states his sugars have been running 150 INSULIN DEPT> Hospital Follow-up with Alan ANDERSON 04/08/2015 Hypertension Hospital Follow-up with Alan ANDERSON 04/08/2015 Ischemic stroke on plavix and ASA for a nticoagulation-- did not understand coumadin dosing and was taking all 3 at one point, so off this-- PT< OT, nursing for home ordered-- discussed gentle exercises for lip and speech-- and risk factors for stroke in detail-- f/u with neurology next week-- DR low Hospital Follow-up with Alan ANDERSON 04/08/2015 Left main coronary artery disease manag e risk factors, asa 325 mg only due to overuse with coumadin and plavix too Hospital Follow-up with Alan ANDERSON 04/08/2015 Limb pain right arm pain-- no complaint s today 49 min time spent with pt, sister Hsantal on eval, plan of care >50% counseling and coordination Hospital Follow-up with Alan ANDERSON 04/08/2015 Nicotine dependence smoking 1/2 ppd ref uses quit options but has cut down since recent stroke admission Hospital Follow-up with Alan ANDERSON 04/08/2015 Proliferative diabetic retinopathy - hig h risk with clinically significant macular edema Medication Refill with Alan ANDERSON 04/03/2015 Chronic kidney disease, stage 3 reviewe d labs in detail with pt and sister-- recheck today-- tx for infection still on cipro-- Chronic Disease Follow-up with Alan ANDERSON 02/22/2015 Diabetes mellitus states his sugars hav e been running 150 INSULIN dept-- meds reviewed in detail today-- trying to avoid any hypoglycemia with stroke hx so will keep meds the same-- advised once he is feeling better he really needs a dilated eye exam Chronic Disease Follow-up with Alan ANDERSON 02/12 Hypertension Chronic Disease Follow-up with Alan ANDERSON 02/22/2015 Ischemic stroke Chronic Disease Follow-up with Alan ANDERSON 02/22/2015 Left main coronary artery disease manag e risk factors, asa 325 mg only due to overuse with coumadin and plavix too Chronic Disease Follow-up with Alan ANDERSON 02/22/2015 Limb pain right arm pain on and off, se ems worse at times when waking up, will monitor 49 minutes face to face time with pt, sister on eval, and follow with nay questions to sister as pt cannot read-- plan of care >50% counseling-- Chronic Disease Follow-up with Alan ANEDRSON 02/22/2015 Nicotine dependence smoking 1/2 ppd ref uses quit options 5 min spent on education and options for cessation-- Chronic Disease Follow-up with Alan ANDERSON 02/22/2015 Chronic kidney disease, stage 3 reviewe d labs in detail with pt and sister-- recheck today-- tx for infection still on cipro-- Medication Follow-up with Alan ANDERSON 01/10/2015 Diabetes mellitus sugar was good past t wo days before pt skipped breaskfast per pt-- advised importance of meals, taking meds daily s/s hypo and hyperglycemia reviewed-- Medication Follow-up with Alan ANDERSON 5 Hypertension Medication Follow-up with Alan ANDERSON 01/10/2015 Ischemic stroke Medication Follow-up with Alan ANDERSON 01/10/2015 Left main coronary artery disease manag e risk factors, asa 325 mg only due to overuse with coumadin and plavix too Medication Follow-up with Alan ANDERSON 01/10/2015 Nicotine dependence smoking 1/2 ppd "un til I am in my grave" see scanned lab tab from last week all reviewed-- will repeat today since he is off blood thinners-- will call sister alan tomorrow with new results Medication Follow- up with Alan ANDERSON 01/10/2015 Anemia monitoring closely due to overus e of blood thinners-- s.s discussed and when to go to ER-- dizziness, sob, increased bleeding before recheck-- Walk-In with Alan ANDERSON 01/04/2015 Chronic kidney disease (NKF classificati on) stable, check labs as ordered Cr 1.6, last GFR 44 -- no NSAID use-- follows with nephro upcoming, may improve once hematuria resolved Walk-In with Alan ANDERSON 01/04/2015 Diabetes mellitus improved, check a1c w ith next labs improved from 8.9 to 8.2 and now 8 on 11/30 without s.s hypoglycemia, advised to check feet daily, keep active Walk-In with Alan ANDERSON 01/04/2015 Diabetic peripheral neuropathy Walk-In with Alan ANDERSON 01/04/2015 Gastroparesis reglan most beneficial, h as kept him out of hospital, weight is stable Walk-In with Alan ANDERSON 01/04/2015 GERD well controlled Walk-In with Alan ANDERSON 2014 Hyperlipidemia goal for ldld with DM is 70 or less Wa lk-In with Alan ANDERSON 01/04/2015 Hypertension Walk-In with Alan ANDERSON 01/05/20 15 Ischemic heart disease risk factor management isnecou raged Walk-In with Alan ANDERSON 01/04/2015 Ischemic stroke stable, no new weakness or symptoms--taking off plavix and coumadin immediately-- will keep aspirin for now, but if anemia or blood continues past the next 2-3 days will stop this as well for now, risk of bleeding higher at this point-- advised to watch fall risk, using knife, objects etc-- his sister will help monitor-- long discussion on medication use and reconciled med list today Walk-In with Alan ANDERSON 01/04/2015 Nicotine dependence smoking back to 2 to one ppd, not willing to quit, aware of risks Walk-In with Alan ANDERSON 01/04/2015 Symptoms referable to a joint of the kareem ulder region pain, muscle with tendonitis-- improved since last visit-- 45 min face to face time with pt >50% counseling and coordination of care with pt and sister-- Walk-In with Alan ANDERSON 01/04/2015 Stroke syndrome Coumadin with [facility] 12/12/2014 Thrombophlebitis of deep vessels of the lower extremit y Coumadin with [facility] 12/12/2014 Anemia H/H 09/07-- will review wit h nephrology if worsening, pt denies fatigue or symptoms Chronic Disease Follow-up with Alan ANDERSON 11/13 Chronic kidney disease (NKF classificati on) stable, check labs as ordered Cr 1.6, last GFR 44 -- no NSAID use-- upcoming nephrology appt pending Chronic Disease Follow-up with Alan ANDERSON 12/05/2014 Chronic kidney disease, stage 3 Chronic Disease Follow -up with Alan ANDERSON 12/05/2014 Diabetes mellitus improved, check a1c w ith next labs improved from 8.9 to 8.2 and now 8 on 11/30 without s.s hypoglycemia, advised to check feet daily, keep active Chronic Disease Follow-up with Alan ANDERSON 11/13 Gastroparesis reglan most beneficial, h as kept him out of hospital, weight is stable Chronic Disease Follow-up with Alan ANDERSON 11/13 GERD well controlled Chronic Disease Follow-up with Alan ANDERSON 12/05/2014 Hyperlipidemia goal for ldld with DM is 70 or less Ch ronic Disease Follow-up with Alan ANDERSON 12/05/2014 Hypertension Chronic Disease Follow-up with Alan ANDERSON 12/05/2014 Ischemic heart disease Chronic Disease Follow-up with Alan ANDERSON 12/05/2014 Ischemic stroke stable, no new weakness or symptoms-- Chronic Disease Follow-up with Alan ANDERSON 12/05/2014 Nicotine dependence not smoking, aware of risks, will monitor Chronic Disease Follow-up with Alan ANDERSON 12/05/2014 Stroke syndrome weakness improved-- the se change look old, --on full aspirin and coumadin as ordered Chronic Disease Follow-up with Alan ANDERSON 12/05/2014 Symptoms referable to a joint of the kareem ulder region pain, muscle with tendonitis-- will monitor, 45 min face to face time with pt >50% counseling and coordination of care Chronic Disease Follow-up with Alan ANDERSON 12/05/2014 Stroke syndrome Coumadin with [facility] 12/05/2014 Thrombophlebitis of deep vessels of the lower extremit y Coumadin with [facility] 12/05/2014 Stroke syndrome Coumadin with [facility] 11/27/2014 Thrombophlebitis of deep vessels of the lower extremit y Coumadin with [facility] 11/27/2014 Stroke syndrome Coumadin with [facility] 11/14/2014 Thrombophlebitis of deep vessels of the lower extremit y Coumadin with [facility] 11/14/2014 Stroke syndrome Coumadin with [facility] 11/07/2014 Thrombophlebitis of deep vessels of the lower extremit y Coumadin with [facility] 11/07/2014 Stroke syndrome Coumadin with [facility] 10/31/2014 Thrombophlebitis of deep vessels of the lower extremit y Coumadin with [facility] 10/31/2014 Stroke syndrome Coumadin with [facility] 10/24/2014 Thrombophlebitis of deep vessels of the lower extremit y Coumadin with [facility] 10/24/2014 Abrasion of knee silvadene ordered, sis ter will do wound care twice a day-- s.s infection reviewed-- will call for sooner appt if needed FOLLOW UP RECHECK with Alan ANDERSON 10/19/2014 Anemia H/H 09/07-- will review wit h nephrology if worsening, pt denies fatigue or symptoms FOLLOW UP RECHECK with Alan ANDERSON 10/19/2014 Chronic kidney disease (NKF classificati on) stable, check labs as ordered Cr 1.6, last GFR 44 -- no NSAID use-- pt agrees-- will monitor with nephrology's help, sister states he does have upcoming appt scheduled FOLLOW UP RECHECK with Alan ANDERSON 10/19/2014 Diabetes mellitus improved, check a1c w ith next labs improved from 8.9 to 8.2 this visit-- sister states she has him back on a strict diet and he has been more active, no med changes this visit-- importance of watching for s/s hypogylcemia reviewed FOLLOW UP RECHECK with Alan ANDERSON 10/19/2014 Stroke syndrome weakness improved-- the se change look old, --on full aspirin and coumadin as ordered FOLLOW UP RECHECK with Alan ANDERSON 10/19/2014 Symptoms referable to a joint of the kareem ulder region pain, muscle with tendonitis-- will monitor, 47 min face to face time with pt >50% counseling and coordination of care FOLLOW UP RECHECK with Alan ANDERSON 10/19/2014 Thrombophlebitis of deep vessels of the lower extremit y Coumadin with [facility] 09/27/2014 Adjustment disorder with grief and anxi ety-- will start med for ongoing symptoms, lost 2 friends, very close this year-- and has had a lot of health issues-- advised good sleep hygeine, doing well with meds one hour time spent with sister and patient on eval, plan of care review of this year's health hx-- >50% counseling and coordination of chronic diseases-- Hospital Follow-up with Alan ANDERSON 09/25/2014 Arthralgia check labs, neuro wnl at vis it-- discussed s.s with sister and pt they have resolved, if they return go to ER for further eval, he agrees-- Hospital Follow-up with Alan ANDERSON 09/25/2014 Chronic kidney disease (NKF classification) stable, n o nsaids, will monitor Hospital Follow-up with Alan ANDERSON 09/25/2014 Diabetes mellitus check sugars at home, call with list this week-- yaya if hypo or >200 persistently-- meds reviewed-- Hospital Follow-up with Alan ANDERSON 09/25/2014 Diabetic peripheral neuropathy no complaints, meds re viewed, check feet daily Hospital Follow-up with Alan ANDERSON 09/25/2014 Edema improved, watch salt, elevate-- Hospital Follow -up with Alan ANDERSON 09/25/2014 Gastroparesis Hospital Follow-up with Alan ANDERSON 09/25/2014 Ischemic heart disease cardiology upcom ing, will make sure they received hospital reports-- Hospital Follow-up with Alan ANDERSON 09/25/2014 Nausea with vomiting recurrent pancreat itis at the ER will check labs-- reglan helpful, importance of hydration reviewed-- GI upcoming Hospital Follow-up with Alan ANDERSON 09/25/2014 Nicotine dependence risks discussed, no t willing to quit, educations on risk factors and wuit options-- 6 min time spent-- Hospital Follow-up with Alan ANDERSON 09/25/2014 Stroke syndrome weakness improved some per pt-- will monitor for s/p s/s Hospital Follow-up with Alan ANDERSON 09/25/2014 Adjustment disorder with grief and anxi ety-- will start med for ongoing symptoms, lost 2 friends, very close this year-- and has had a lot of health issues-- advised good sleep hygeine, will start SSRI FOLLOW UP RECHECK with Alan ANDERSON 09/07/2014 Arthralgia check labs, neuro wnl at vis it-- discussed s.s with sister and pt they have resolved, if they return go to ER for further eval, he agrees-- FOLLOW UP RECHECK with Alan ANDERSON 09/07/2014 Diabetes mellitus check sugars at home, call with list this week-- yaya if hypo or >200 persistently-- meds reviewed-- FOLLOW UP RECHECK with Alan Ramos 09/07/2014 Nausea with vomiting recurrent pancreat itis at the ER will check labs-- keep hydrated today-- will call with lab results-- FOLLOW UP RECHECK with Alan ANDERSON 09/07/2014 Coronary artery disease S/S REVIEWED, CONTINUE TO FOL LOW WITH CARDIOLOGY Hospital Follow-up with Alan ANDERSON 08/10/2014 Diabetes mellitus asked sister Alan who is here to keep a log and call me-- watch for s/s hypogycemia, she is helping with dietary changes Hospital Follow- up with Alan ANDERSON 08/10/2014 Fatigue improved some, monitor Hospital Follow-up with Alan ANDERSON 08/10/2014 Gastritis zantac in addition to PPI and call Dr Peterson today for f.u -- sister Alan Will call Hospital Follow-up with Alan ANDERSON 08/10/2014 Ischemic stroke ANY WEAKNESS OR WORSE, GO TO THE ER H ospital Follow-up with Alan ANDERSON 08/10/2014 Nicotine dependence IMPORTANCE OF SMOKI NG CESSATION ADVISED, RISKS DISCUSSED 44 MIN FACE TO FACE TIME WITH SISTER AND PATIENT TODAY ON EVAL, PLAN OF CARE Hospital Follow-up with Alan ANDERSON 08/10/2014 Pancreatitis DIARRHEA RECENT, WAS JUST DISCHARGED, SEVERAL HOSPITAL VISITS THIS YEAR, ADVISED IMPORTANCE OF GI APPT AND F.U-- WATCH FATTY FOODS-- NOT CURRENTLY USING ALCOHOL--resolved during last hospital stay Hospital Follow-up with Alan ANDERSON 08/10/2014 Coronary artery disease S/S REVIEWED, CONTINUE TO FOL LOW WITH CARDIOLOGY Walk- In with Alan ANDERSON 06/29/2014 Diabetes mellitus HIGH THIS WEEK DUE TO POSSIBLE INFECTION, ABOUT 240'S MOSTLY-- ONE HYPOGLYCEMIC EPISODE SINCE THEN S/S AND TREATMENT DISCUSSED-- Walk- In with Alan ANDERSON 06/29/2014 Fatigue WORKUP IN PROGRESS Walk-In with Alan ANDERSON 06/29/2014 Ischemic stroke ANY WEAKNESS OR WORSE, GO TO THE ER W alk-In with Alan ANDERSON 06/29/2014 Nicotine dependence IMPORTANCE OF SMOKI NG CESSATION ADVISED, RISKS DISCUSSED 46 MIN FACE TO FACE TIME WITH SISTER AND PATIENT TODAY ON EVAL, PLAN OF CARE Walk-In with Alan ANDERSON 06/29/2014 Pancreatitis DIARRHEA RECENT, WAS JUST DISCHARGED, SEVERAL HOSPITAL VISITS THIS YEAR, ADVISED IMPORTANCE OF GI APPT AND F.U-- WATCH FATTY FOODS-- NOT CURRENTLY USING ALCOHOL-- Walk-In with Alan ANDERSON 06/29/2014 Pneumonia WILL COVER CLINICALLY-- NEB A S ORDERED, MYRTLE FOR THIS AND UTI SYMPTOMS Walk-In with Alan ANDERSON 06/29/2014 Urinary tract infection Walk-In with Alan ANDERSON 06/14 Coronary artery disease S/S REVIEWED, CONTINUE TO FOL LOW WITH CARDIOLOGY Hospital Follow-up with Alan ANDERSON 06/26/2014 Diabetes mellitus HIGH THIS WEEK DUE TO POSSIBLE INFECTION, ABOUT 240'S MOSTLY-- ONE HYPOGLYCEMIC EPISODE SINCE THEN S/S AND TREATMENT DISCUSSED-- Hospital Follow-up with Alan ANDERSON 06/26/2014 Fatigue WORKUP IN PROGRESS Hospital Follow-up with Alan ANDERSON 06/26/2014 Hypertension Hospital Follow-up with Alan ANDERSON 06/26/2014 Ischemic stroke Hospital Follow-up with Alan ANDERSON 06/26/2014 Ischemic stroke ANY WEAKNESS OR WORSE, GO TO THE ER H ospital Follow-up with Alan ANDERSON 06/26/2014 Left main coronary artery disease Hospital Follow-up with Alie ANDERSON 06/26/2014 Nicotine dependence IMPORTANCE OF SMOKI NG CESSATION ADVISED, RISKS DISCUSSED 46 MIN FACE TO FACE TIME WITH SISTER AND PATIENT TODAY ON EVAL, PLAN OF CARE Hospital Follow-up with Alan ANDERSON 06/26/2014 Pancreatitis DIARRHEA RECENT, WAS JUST DISCHARGED, SEVERAL HOSPITAL VISITS THIS YEAR, ADVISED IMPORTANCE OF GI APPT AND F.U-- WATCH FATTY FOODS-- NOT CURRENTLY USING ALCOHOL-- Hospital Follow-up with Alan ANDERSON 06/26/2014 Pneumonia WILL COVER CLINICALLY-- NEB A S ORDERED, CIPRO FOR THIS AND UTI SYMPTOMS Hospital Follow-up with Alan ANDERSON 06/26/2014 Urinary tract infection Hospital Follow-up with Alan ANDERSON 06/26/2014 Cerebral artery occlusion previousl watch risk factor s, neuro eval Hospital Follow-up with Alan ANDERSON 05/17/2014 Chronic kidney disease (NKF classificati on) discussed, no nsaids-- will review labs as soon as hospital notes received Hospital Follow-up with Alan ANDERSON 05/17/2014 Diabetes mellitus watch yaya for s/s hyp oglycemia-- keep log for next appt-- watch risk factors Hospital Follow-up with Alan ANDERSON 05/17/2014 Esophageal reflux nexium as ordered Hospital Follow-up with Alan ANDERSON 05/17/2014 Hypertension Hospital Follow-up with Alan ANDERSON 05/17/2014 Chronic kidney disease, stage 3 Diabetes Follow-up with Alan ANDERSON 04/18/2014 Coronary artery disease no cp or sob Diabetes Follow- up with Alan ANDERSON 04/18/2014 Diabetes mellitus meds refilled, monito r sugars-- well controlled,pt aware of s/s hypoglycemia --- he only takes 6 units or less of fast acting insulin as "I feel bad" if I take more proper med dosing discussed eye swelling and symptoms ? allergy, improved, monitor 46 min time spent with sister and pt on eval, plan of care >50% counseling Diabetes Follow-up with Alan ANDERSON 04/18/2014 GERD Diabetes Follow-up with Alan ANDERSON 04/18/2014 Glaucoma follow with opthamology Diabetes Follow-up with Alie ANDERSON 04/18/2014 Hyperlipidemia Diabetes Follow-up with Alan ANDERSON 04/18/2014 Hypertension meds reviewed, check BPs at home, call i f reoccurs Diabetes Follow-up with Alan ANDERSON 04/18/2014 Pancreatitis /constipation, follows wit h GI-- improved, colonoscopy pending spring Diabetes Follow-up with Alan ANDERSON 04/18/2014 Coronary artery disease Walk-In with Alan ANDERSON 08/2013 Diabetes mellitus Walk-In with Alan ANDERSON 03/16/20 14 Feeling weak Walk-In with Alan ANDERSON 03/16/20 14 Hypertension Walk-In with Alan ANDERSON 03/16/20 14 Malaise pt does not want to go by ambul ance to ER-- I got a hold of his sister who picked him up-- and will take him-- f/u after-- have all notes sent here-- Walk-In with Alan ANDERSON 03/16/2014 Urinary tract infection Walk-In with Alan ANDERSON 08/2013 Chronic kidney disease, stage 3 Diabetes Follow-up with Alan ANDERSON 02/20/2014 Coronary artery disease Diabetes Follow-up with Alan ANDERSON 02/20/2014 Diabetes mellitus meds refilled, monito r sugars-- well controlled, s/s hypoglycemia reviewed-- call if recurrent symptoms from the hospital-- he only takes 6 units or less of fast acting insulin as "I feel bad" if I take more-- he did have one hypoglycemic episode last week, was taken home, had a sandwhich, symptoms resolved Diabetes Follow-up with Alan ANDERSON 02/20/2014 GERD Diabetes Follow-up with Alan ANDERSON 02/20/2014 Glaucoma follow with opthamology Diabetes Follow-up with Alie ANDERSON 02/20/2014 Hyperlipidemia Diabetes Follow-up with Alan ANDERSON 02/20/2014 Hypertension meds reviewed, check BPs at home, call i f reoccurs Diabetes Follow-up with Alan ANDERSON 02/20/2014 Pancreatitis follow with GI as ordered will check enzymes today, to the ER if worse again Diabetes Follow-up with Alan ANDERSON 02/20/2014 Chronic kidney disease, stage 3 AHR with Alan ANDERSON 01/10/2014 Diabetes mellitus meds refilled, monito r sugars-- well controlled, s/s hypoglycemia reviewed-- call if recurrent symptoms from the hospital-- he only takes 6 units or less of fast acting insulin as "I feel bad" if I take more-- he did have one hypoglycemic episode last week, was taken home, had a sandwhich, symptoms resolved AHR with Alan ANDERSON 01/10/2014 GERD AHR with Alan ANDERSON 01/10/2014 Hyperlipidemia AHR with Alan ANDERSON 01/10/2014 Hypertension we reviewed meds with pt charles encinas detail and updated his list today-- amlodipine was added due to increased BP but he has not taken yet because it was new and not sure if he should-- we can hold this-- he ran out of losartan from nephrology and will restart this instead-- sister will help monitor BP before next appt-- f.u with nephrology and cardiology as ordered, pt is refusing sooner cardiology appt AHR with Alan ANDERSON 01/10/2014 Left main coronary artery disease AHR with Alan Ramos 01/10/2014 Normal routine history and physical see updated problem list above for impression and plan of any problems addressed today. see admission, dx report, ct scan, ekg, labs from 01/06 which were reviewed today AHR with Alan ANDERSON 01/10/2014 Cellulitis treated last month in ER uri at eye cellulitis-- still some vision changes, pain, sent stat to eye doctor today-- Diabetes Follow-up with Alan ANDERSON 10/10/2013 Diabetes mellitus down from 9.7% a few month ago-- meds reviewed, continue current insulin dosing, has a small ulcer on the bottom of right foot so will get him to podiatry as well Post Diabetes Follow-up with Alan ANDERSON 10/10/2013 Esophageal reflux watch triggers, felecia dye problems with pantopraozole fill at pharmacy, now covered-- Diabetes Follow-up with Alan ANDERSON 10/10/2013 Hypertension bp up due to anxiety eye symptoms, will monitor Diabetes Follow-up with Alan ANDERSON 10/10/2013 Proteinuria advised importance of takin g meds daily and monitoring sugars to control DM-- NO NSAIDS, consider renal specialist if continues-- Diabetes Follow-up with Alan ANDERSON 10/10/2013 Cellulitis stillsome swelling below the eyes, redness is almost completely resolved, will refill meds UC notes reviewed, labs ordered Hospital Follow-up with Alan ANDERSON 08/30/2013 Diabetes mellitus Hospital Follow-up with Alan ANDERSON 08/30/2013 Esophageal reflux watch triggers, did h ave problems with pantopraozole fill at pharmacy, now covered-- Hospital Follow-up with Alan ANDERSON 08/30/2013 Hypertension Hospital Follow-up with Alan ANDERSON 08/30/2013 Proteinuria per hospital will recheck a nd look for infection, consider renal specialist if continues-- Hospital Follow-up with Alan ANDERSON 08/30/2013 Abdominal pain a lot better per pt-- Diabetes Follow- up with Alan ANDERSON 07/12/2013 Diabetes mellitus pt is checking sugars at home, will check nonfasting and a1c today--did have 1 or 2 300's because he hadn't eaten all day--is 213 here in the office, much more compliant than he used to be-- pt is aware a1c is up-- will monitor with sisters help-- lives alone so eating is off--- try to stick to good diet, will be more active in the spring, continue current insulin dosing Diabetes Follow-up with Alan ANDERSON 07/12/2013 Hypertension goal <130/80, continue meds Diabetes Fol low-up with Alan ANDERSON 07/12/2013 Ischemic stroke per hx, pt is aware of uncontrolled D M Diabetes Follow-up with Alan ANDERSON 07/12/2013 Laryngopharyngeal reflux Diabetes Follow-up with Alan Mae 07/12/2013 Nicotine dependence smoking again, refu ses quit options-- pt is aware of risks-- GF and best friend this year so lots of stressors-- call if you are ready to quit Diabetes Follow-up with Alan ANDERSON 07/12/2013 Abdominal pain Diabetes Follow-up with Alan ANDERSON 04/11/2013 Dehydration (Na, H2O) patient referral to ER for dehydration, hx DM, vomiting, abdominal pain -- sister ishere and will drive him, stable vitals, refuses ambulance--will have notes, etc sent here for f.u Diabetes Follow-up with Alan ANDERSON 04/11/2013 Diabetes mellitus Diabetes Follow-up with Alan ANDERSON 04/11/2013 Hypertension goal <130/80, continue meds Diabetes Fol low-up with Alan ANDERSON 04/11/2013 Ischemic stroke per hx, pt is aware of uncontrolled D M Diabetes Follow-up with Alan ANDERSON 04/11/2013 Laryngopharyngeal reflux Diabetes Follow-up with Alan Mae 04/11/2013 Nausea Diabetes Follow-up with Alan ANDERSON 04/11/2013 Nicotine dependence - in remission Diabetes Follow-up with Nabil ANDERSON 04/11/2013 Diabetes mellitus Diabetes Follow-up with Alan ANDERSON 01/09/2013 Hypertension goal <130/80, continue meds Diabetes Fol low-up with Alan ANDERSON 01/09/2013 Ischemic stroke per hx, pt is aware of uncontrolled DM-- can start novolog at 5 units per meal if not controlled with lantus, or start to increase lantus first one point if sugars are under 150 daily-- to get to 150 or less-- keep log for next appt Diabetes Follow-up with Alan ANDERSON 01/09/2013 Laryngopharyngeal reflux Diabetes Follow-up with Alan Mae 01/09/2013 Nicotine dependence - in remission Diabetes Follow-up with Nabil ANDERSON 01/09/2013 Normal routine history and physical s ee updated problem list above for impression and plan of any problems addressed today. Diabetes Follow-up with Alan ANDERSON 01/09/2013 Diabetes mellitus 45 min spent with pt on eval, >50% counseling he is doing great adjusting his insulin coverage on his own based on sugars-- and knows how to treat his hypoglycemia now-- his A1C is 8.5%, the lowest it has been in over a year-- continue to check feet daily-- meds as ordered, healthy diabetic diet and exericise encouraged--covering peripheral neuropathy, feet pain with gabapentin, and will schedule with dr vieira for foot care-- Diabetes Follow-up with Alan ANDERSON 10/10/2012 Esophageal reflux head of bed elevated, watch spicy f oods and triggers-- Diabetes Follow-up with Alan ANDERSON 10/10/2012 Hyperlipidemia low chol diet LDL is 70 or less-- Diab etes Follow-up with Alan ANDERSON 10/10/2012 Hypertension goal <130/80, watch salt, continue curre nt regimen Diabetes Follow-up with Alan ANDERSON 10/10/2012 Nicotine dependence 5 min spent on eval , plan, risks-- patient is requesting to try Chantix, there has been some ill family, friends and he is aware of the importance of quitting, we discussed taking at mealtime and with water to prevent nausea, call if not tolerating-- Diabetes Follow-up with Alan ANDERSON 10/10/2012 Diabetes mellitus plan is to increase l antus by one unit daily until <150-- call if > 50 units daily-- refuses dental exam, daily foot checks encouraged, meds reviewed-- M 20 Minutes with Alan ANDERSON 06/20/2012 Esophageal reflux watch spicy food, tri ggers-- head of bed elevated-- pt states he hasnt been taking omeprazole and doesn't need it-- M 20 Minutes with Alan ANDERSON 06/20/2012 Hyperlipidemia low chol diet, goal for ldl is 70 or less-- patient is aware he is due for labs, which were ordered today-- M 20 Minutes with Alan ANDERSON 06/20/2012 Hypertension goal with DM is <130/80-- continue current meds-- has help from a family friend and his sister with meds as pt reads very little-- M 20 Minutes with Alan ANDERSON 06/20/2012 Ischemic stroke on anticoagulation, brittany vix-- smoking cessation advised--no s/s since last visit, no residual symptoms from previous infarct 45 MIN SPENT WITH PT ON EVAL AND PLAN OF CARE M 20 Minutes with Alan ANDERSON 06/20/2012 Alcohol abuse - continuous none since l ast visit per pt-- did drink daily 6-12 for the past 30 years-- monitor-- M 20 Minutes with Alan ANDERSON 02/24/2012 Diabetes mellitus eye appt needed, will let sister know-- appt made with our perioperative educator Nabil Vieyra RN for diet discussion and insulin management-- states one episode of low sugar since last visit because he didnt eat- does admit to snacking M 20 Minutes with Alan ANDERSON 02/24/2012 Esophageal reflux PPI as needed, head o f bed elevated at night, watch food triggers-- M 20 Minutes with Alan ANDERSON 02/24/2012 Hearing loss has audiology consult appt pending M 20 Minutes with Alan ANDESRON 02/24/2012 Hyperlipidemia low chol diet encouraged M 20 Minutes with Nabil ANDERSON 02/24/2012 Hypertension goal <130/80 discussed-- ann-marie adal has hx of noncompliance with meds, admits to this-- monitor M 20 Minutes with Alan ANDERSON 02/24/2012 Nicotine dependence 6 min on discussion and options for quitting, pt declines, is aware of risks M 20 Minutes with Alan ANDERSON 02/24/2012 Prior myocardial infarction M 20 Minutes with Alan ANDERSON 02/24/2012 Diabetes mellitus pt discussed insulin sliding scale and diet with our perioperative educator Nabil Vieyra-- RN-- sister here to help, will call if quest or problems-- 30 minutes with Alan ANDERSON 12/30/2011 Hyperlipidemia due for check after hosp ital stay-- will see if done at cardiology- pt refuses labs today-- 30 minutes with Alan ANDERSON 12/30/2011 Hypertension goal <130/80, follow with cardiology-- 3 0 minutes with Alan ANDERSON 12/30/2011 Ischemic stroke 46 min spent with pt on eval and coor dination of care-- 30 minutes with Alan ANDERSON 12/30/2011 Nicotine dependence refuses quit options, states awar e of risks-- 30 minutes with Alan ANDERSON 12/30/2011 Coronary artery disease 30 minutes with Alan ANDERSON 0 12/08/2010 Diabetes mellitus will keep food and sugar journal f or next appt 30 minutes with Alan ANDERSON 12/08/2010 Hyperlipidemia 30 minutes with Alan ANDERSON 12/08 Normal routine history and physical 30 minutes with Alan ANDERSON 12/08/2010 Open wound RIGHT UPPER LIP 30 minutes with Alan ANDERSON 07/23/2009 Tendonitis RIGHT SHOULDER, RADIATES TO UPPER ARM-- 30 minutes with Alan ANDERSON 07/23/2009 Open wound M Acute with Alan ANDERSON 07/19/19 10 Tendonitis calcific per xray last visit of right elizabeth lder-- M Acute with Alan ANDERSON 07/19/2009 Open wound LIP M Office Visit - Short with Alan ANDERSON 07/17/2009 Instructions Instructions not supported for this document typeNo Instructions Recorded Medical Equipment - Implanted Devices Includes: Current and historical DevicesNo Medical Equipment Recorded Medications Includes: Current and historical Medications Current Medications (continue as prescribed) Flagyl 500 MG Oral Tablet 07/26/2020 Provider: Yady Dale NP Diagnosis: Unspecified abdomina l pain 1 tablet every 8 hours for 7 days Cipro 500 MG Oral Tablet 07/26/2020 Provider: Yady Dale NP Diagnosis: Unspecified abdomina l pain once a day for 7 days Famotidine 40 MG Oral Tablet 07/26/2020 Provider: Yady Dale NP Diagnosis: Gastro-esophageal re flux disease with esophagitis once a day Gabapentin 100 MG Oral Capsule 07/24/2020 - 11/21/2020 Provi vivian: Alan ANDERSON Diagnosis: Autonomic neuropathy in diseases classified elsewhere TAKE ONE CAPSULE BY MOUTH AM, TWO PM Aspirin 325 MG Oral Tablet 07/24/2020 - 01/20/2021 Provider: Alan ANDERSON Diagnosis: Cerebellar stroke sy ndrome once a day Metoprolol Tartrate 25 MG Oral Tablet 07/24/2020 - Provider: Alan ANDERSON Diagnosis: Essential (primary) hypertension 1 tab twice a day dose increase Atorvastatin Calcium 80 MG Oral Tablet 05/24/2020 - 11/21/19 21 Provider: Alan ANDERSON Diagnosis: Hyperlipidemia, unsp ecified once a day Montelukast Sodium 10 MG Oral Tablet 05/24/2020 - 11/20/2020 Provider: Alan ANDERSON Diagnosis: Other allergic rhini tis 1 every bedtime Gemfibrozil 600 MG Oral Tablet 05/24/2020 - 11/20/2020 Provi vivian: Alan ANDERSON 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 TAKE ONE TABLET BY MOUTH EVERY DAY Basaglar KwikPen 100 UNIT/ML Subcutaneous Solution Pen -injector 05/24/2020 - 11/20/2020 Provider: Alan ANDERSON Diagnosis: Type 2 diabetes kayla itus with other skin ulcer once a day inject 30 units at bedtime. Replaces Lantus PARoxetine HCl 10 MG Oral Tablet 05/24/2020 - 11/20/2020 Pro vider: Alan ANDERSON Diagnosis: Major depressive dis order, recurrent, moderate TAKE ONE TABLET BY MOUTH AT BEDTIME Plavix 75 MG Oral Tablet 05/24/2020 - 11/20/2020 Provider: Alan ANDERSON Diagnosis: once a day take one tablet PO QD Pantoprazole Sodium 40 MG Oral Tablet Delayed Release 2019 - 11/20/2020 Provider: Alan ANDERSON Diagnosis: Gastro-esophageal re flux disease with esophagitis once a day pt cannot tolerate being off med due to vomiting Calcitriol 0.25 MCG Oral Capsule 04/10/2020 Provide r: Diagnosis: 3 pills Q Wednesday Per Nephology Colace 100 MG Oral Capsule 04/10/2020 Provider: Diagnosis: Dexilant 30 MG Oral Capsule Delayed Release 04/10/2020 Provider: Diagnosis: per Nephology Vitamin B12 1000 MCG Oral Tablet Extended Release 04/10/2020 Provider: Alan ANDERSON Diagnosis: Chronic kidney disea se, stage 3 (moderate) once a day Vitamin D3 1.25 MG (32487 UT) Oral Capsule 04/10/2020 Provider: Alan ANDERSON Diagnosis: Vitamin D deficiency , unspecified once weekly First - Metoprolol 10 MG/ML Oral Solution 03/12/2020 Provider: Diagnosis: Metoclopramide HCl 10 MG Oral Tablet 03/12/2020 Pro vider: Diagnosis: Reglan 10 MG Oral Tablet 02/28/2020 - 08/26/2020 Provider: Alan ANDERSON Diagnosis: Disease of stomach a nd duodenum, unspecified max 12 per week, up to one tablet three times daily if neede d amLODIPine Besylate 10 MG Oral Tablet 02/14/2020 - Provider: Alan ANDERSON Diagnosis: once a day 1 tab daily FreeStyle Lite Test In Vitro Strip 02/07/2020 Provi vivian: Alan ANDERSON Diagnosis: three times a day with meter fluctuating sugars type II dm insulin dept check sugars 3 times daily Accu-Chek Softclix Lancets Miscellaneous 02/07/2020 Provider: Alan ANDERSON Diagnosis: three times a day Accu-Chek Softclix Lancet Dev Kit 02/07/2020 Provid er: Alan ANDERSON Diagnosis: as directed Ventolin HFA 108 (90 Base) MCG/ACT Inhalation Aerosol Soluti on 01/09/2020 Provider: Alan ANDERSON Diagnosis: Shortness of breath as directed 2 puffs QID PRN SOB or cough Breo Ellipta 200-25 MCG/INH Inhalation Aerosol Powder Breath Activated 01/09/2020 Provider: Alan ANDERSON Diagnosis: 1 puff in am rinse after please call medline [phone] if not covered Aspirin 325 MG Oral Tablet 12/01/2019 Provider: Alan ANDERSON Diagnosis: Cerebellar stroke sy ndrome once a day BD Pen Needle Rohini U/F 32G X 4 MM Miscellaneous 12/01/2019 Provider: Alan ANDERSON Diagnosis: Other specified diab etes mellitus without complications as directed use with lantus and novolog up to QID Past Medications on file Gabapentin 100 MG Oral Capsule 04/01/2020 - 07/24/2020 Provi vivian: Alan ANDERSON Diagnosis: Autonomic neuropathy in diseases classified elsewhere TAKE ONE CAPSULE BY MOUTH AM, TWO PM Aspirin 325 MG OR TABS 02/14/2020 - 02/27/2020 Provider: Diagnosis: Cerebellar stroke sy ndrome once a day Metoprolol Tartrate 25 MG Oral Tablet 02/14/2020 - Provider: Alan ANDERSON Diagnosis: Essential (primary) hypertension 1 tab twice a day dose increase Aspirin 325 MG Oral Tablet 02/14/2020 - 07/24/2020 Provider: Alan ANDERSON Diagnosis: Cerebellar stroke sy ndrome once a day Metoprolol Tartrate 25 MG OR TABS 02/14/2020 - 03/12/2020 Pr ovider: Diagnosis: Essential (primary) hypertension 1 tab twice a day dose increase Calcitriol 0.25 MCG Oral Capsule 02/14/2020 - 04/10/2020 Pro vider: Diagnosis: 3 pills Q Wednesday Per Nephology Dexilant 30 MG Oral Capsule Delayed Release 02/14/2020 - Provider: Diagnosis: per Nephology amLODIPine Besylate 10 MG OR TABS 02/14/2020 - 04/10/2020 Pr ovider: Diagnosis: 1 tab daily amLODIPine Besylate 10 MG Oral Tablet 02/07/2020 - 0 Provider: Diagnosis: once a day Metoclopramide HCl 10 MG Oral Tablet 02/07/2020 - 02/28/2020 Provider: Diagnosis: TID FreeStyle Lite Device 02/07/2020 - 04/10/2020 Provider: Alan ANDERSON Diagnosis: as directed please biggest numbers if po ssible and talking if you can due to illiteracy type II dm insulin dept check sugars 3 times daily Famotidine 40 MG Oral Tablet 01/09/2020 - 07/26/2020 Provide r: Alan ANDERSON Diagnosis: Gastro-esophageal re flux disease with esophagitis once a day Metoprolol Tartrate 25 MG Oral Tablet 12/11/2019 - 0 Provider: Diagnosis: 1 tab twice a day FreeStyle Lite Device 12/05/2019 - 06/02/2020 Provider: Alan ANDERSON Diagnosis: Type 2 diabetes kayla itus with oth circulatory complications as directed Test GB 2-3 times per day FreeStyle Lancets Miscellaneous 12/05/2019 - 06/02/2020 Prov ider: Alan ANDERSON Diagnosis: Type 2 diabetes kayla itus with oth circulatory complications as directed dispense what insurance will cover FreeStyle Lite Test In Vitro Strip 12/05/2019 - 06/02/2020 P rovider: Alan ANDERSON Diagnosis: Type 2 diabetes kayla itus with oth circulatory complications as directed: use to test BG 2-3 times per day Dx E11.59 Montelukast Sodium 10 MG Oral Tablet 12/01/2019 - 05/24/2020 Provider: Alan ANDERSON Diagnosis: Other allergic rhini tis 1 every bedtime Gemfibrozil 600 MG Oral Tablet 12/01/2019 - 05/24/2020 Provi vivian: Alan ANDERSON 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 TAKE ONE TABLET BY MOUTH EVERY DAY Reglan 10 MG Oral Tablet 12/01/2019 - 02/28/2020 Provider: Alan ANDERSON Diagnosis: Disease of stomach a nd duodenum, unspecified max 12 per week, up to one tablet three times daily if neede d Ventolin HFA 108 (90 Base) MCG/ACT Inhalation Aerosol Solution 12/01/2019 - 01/09/2020 Provider: Alan ANDERSON Diagnosis: Shortness of breath as directed 2 puffs QID PRN SOB or cough Ventolin HFA 108 (90 Base) MCG/ACT IN AERS 12/01/2019 - 11/13 Provider: Diagnosis: Shortness of breath 2 puffs QID PRN SOB or cough Metoprolol Tartrate 25 MG Oral Tablet 12/01/2019 - 0 Provider: Alan ANDERSON Diagnosis: Benign intracranial hypertension as directed take one half tablet (12.5mg) twice per day amLODIPine Besylate 5 MG Oral Tablet 12/01/2019 - 02/07/2020 Provider: Alan ANDERSON Diagnosis: once a day Pantoprazole Sodium 40 MG Oral Tablet Delayed Release 2019 - 05/24/2020 Provider: Alan ANDERSON Diagnosis: Gastro-esophageal re flux disease with esophagitis once a day pt cannot tolerate being off med due to vomiting Loratadine 10 MG Oral Tablet 12/01/2019 - 02/07/2020 Provide r: Alan ANDERSON Diagnosis: Other allergic rhini tis 1/2 tablet daily as needed for allergies--PLEASE CUT FOR PAT IENT PARoxetine HCl 10 MG Oral Tablet 12/01/2019 - 05/24/2020 Pro vider: Alan ANDERSON Diagnosis: Major depressive dis order, recurrent, moderate TAKE ONE TABLET BY MOUTH AT BEDTIME Plavix 75 MG Oral Tablet 12/01/2019 - 05/24/2020 Provider: Alan ANDERSON Diagnosis: once a day take one tablet PO QD Lisinopril 20 MG Oral Tablet 12/01/2019 - 02/07/2020 Provide r: Alan ANDERSON Diagnosis: Essential (primary) hypertension once a day Gabapentin 100 MG Oral Capsule 12/01/2019 - 04/01/2020 Provi vivian: Alan ANDERSON Diagnosis: Autonomic neuropathy in diseases classified elsewhere TAKE ONE CAPSULE BY MOUTH AM, TWO PM Atorvastatin Calcium 80 MG Oral Tablet 12/01/2019 - 05/24/20 20 Provider: Alan ANDERSON Diagnosis: Hyperlipidemia, unsp ecified once a day Basaglar KwikPen 100 UNIT/ML Subcutaneous Solution Pen -injector 12/01/2019 - 05/24/2020 Provider: Alan ANDERSON Diagnosis: Type 2 diabetes kayla itus with other skin ulcer once a day inject 30 units at bedtime. Replaces Lantus Basaglar KwikPen 100 UNIT/ML Subcutaneous Solution Pen -injector 11/16/2019 - 12/01/2019 Provider: Alan ANDERSON Diagnosis: Type 2 diabetes kayla itus with other skin ulcer once a day inject 30 units at bedtime. Replaces Lantus FreeStyle Precision [place] Test In Vitro Strip 10/30/2019 - Provider: Alan ANDERSON Diagnosis: Type 2 diabetes kayla itus without complications as directed Test blood sugars when can not get reading from tania sensor FreeStyle [place] 14 Day [place] JOAQUIN 10/30/2019 - 12/01/2019 P rovider: Diagnosis: Type 2 diabetes kayla itus without complications Check blood sugar three times per day FreeStyle Tania 14 Day Sensor Miscellaneous 10/30/2019 - Provider: Alan ANDERSON Diagnosis: Type 2 diabetes kayla itus without complications as directed Check blood sugar three times per day FreeStyle Tania 14 Day [place] Device 10/30/2019 - 12/05/2019 Provider: Alan ANDERSON Diagnosis: Type 2 diabetes kayla itus without complications as directed Check blood sugar three times per day FreeStyle Precision [place] Test STRP 10/30/2019 - 12/01/2019 Provider: Diagnosis: Type 2 diabetes kayla itus without complications Test blood sugars when can not get reading from tnaia sensor FreeStyle Tania 14 Day Sensor MISC 10/30/2019 - 12/01/2019 P rovider: Diagnosis: Type 2 diabetes kayla itus without complications Check blood sugar three times per day FreeStyle Tania 14 Day [place] Device 10/27/2019 - 10/30/2019 Provider: Alan ANDERSON Diagnosis: 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 Test blood sugar 2-3 times per day FreeStyle Precision [place] Test In Vitro Strip 10/27/2019 - Provider: Alan ANDERSON Diagnosis: 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 Test blood sugars when can not get reading on tania FreeStyle Tania 14 Day Sensor Miscellaneous 10/27/2019 - Provider: Alan ANDERSON Diagnosis: 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 Check blood sugar 2-3 times daily Atorvastatin Calcium 80 MG Oral Tablet 10/18/2019 - 12/01/19 20 Provider: Alan ANDERSON Diagnosis: Hyperlipidemia, unsp ecified once a day Aspirin 325 MG Oral Tablet 10/09/2019 - 12/01/2019 Provider: Alan ANDERSON Diagnosis: Cerebellar stroke sy ndrome once a day Cyanocobalamin 2500 MCG Sublingual Tablet Sublingual 020 - 02/07/2020 Provider: Diagnosis: Colace 100 MG Oral Capsule 09/29/2019 - 04/10/2020 Provider: Diagnosis: Gemfibrozil 600 MG Oral Tablet 09/19/2019 - 12/01/2019 Provi vivian: Alan ANDERSON 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 TAKE ONE TABLET BY MOUTH EVERY DAY Montelukast Sodium 10 MG Oral Tablet 09/19/2019 - 12/01/2019 Provider: Alan ANDERSON Diagnosis: Other allergic rhini tis 1 every bedtime FreeStyle Lite JOAQUIN 08/18/2019 - 08/18/2019 Provider: Diagnosis: Type 2 diabetes kayla itus with oth circulatory complications Test GB 2-3 times per day FreeStyle Lite Device 08/18/2019 - 12/05/2019 Provider: Alan ANDERSON Diagnosis: Type 2 diabetes kayla itus with oth circulatory complications as directed Test GB 2-3 times per day FreeStyle Lancets Miscellaneous 08/18/2019 - 12/05/2019 Prov ider: Alan ANDERSON Diagnosis: Type 2 diabetes kayla itus with oth circulatory complications as directed dispense what insurance will cover FreeStyle Lite Test In Vitro Strip 08/18/2019 - 12/05/2019 P rovider: Alan ANDERSON Diagnosis: Type 2 diabetes kayla itus with oth circulatory complications as directed: use to test BG 2-3 times per day Dx E11.59 Gabapentin 100 MG Oral Capsule 08/16/2019 - 12/01/2019 Provi vivian: Alan Nguyen NP Diagnosis: Autonomic neuropathy in diseases classified elsewhere TAKE ONE CAPSULE BY MOUTH AM, TWO PM Lisinopril 20 MG Oral Tablet 07/24/2019 - 12/01/2019 Provide r: Alan ANDERSON Diagnosis: Essential (primary) hypertension once a day Plavix 75 MG Oral Tablet 07/24/2019 - 12/01/2019 Provider: Alan ANDERSON Diagnosis: once a day take one tablet PO QD PARoxetine HCl 10 MG Oral Tablet 07/21/2019 - 12/01/2019 Pro vider: Alan ANDERSON Diagnosis: Major depressive dis order, recurrent, moderate TAKE ONE TABLET BY MOUTH AT BEDTIME Loratadine 10 MG Oral Tablet 06/26/2019 - 12/01/2019 Provide r: Alan ANDERSON Diagnosis: Other allergic rhini tis 1/2 tablet daily as needed for allergies--PLEASE CUT FOR PAT IENT Pantoprazole Sodium 40 MG Oral Tablet Delayed Release 2019 - 12/01/2019 Provider: Alan ANDERSON Diagnosis: Gastro-esophageal re flux disease with esophagitis once a day pt cannot tolerate being off med due to vomiting Metoprolol Tartrate 25 MG Oral Tablet 05/22/2019 - 0 Provider: Alan ANDERSON Diagnosis: Benign intracranial hypertension as directed take one half tablet (12.5mg) twice per day amLODIPine Besylate 5 MG Oral Tablet 05/19/2019 - 12/01/2019 Provider: Alan ANDERSON Diagnosis: once a day Tessalon Perles 100 MG Oral Capsule 04/25/2019 - 05/05/2019 Provider: Alan ANDERSON Diagnosis: as directed use 1 cap- up to three times a day - only as nee ded Doxycycline Hyclate 100 MG Oral Capsule 04/25/2019 - 019 Provider: Alan ANDERSON Diagnosis: Unspecified bacteria l pneumonia twice a day Albuterol Sulfate (2.5 MG/3ML) 0.083% Inhalation Nebul ization solution 04/25/2019 - 01/09/2020 Provider: Alan ANDERSON Diagnosis: as directed 1 via nebulizer qid prn for wheeze raNITIdine HCl 150 MG Oral Tablet 04/03/2019 - 06/20/2019 Pr ovider: Alan ANDERSON Diagnosis: Gastro-esophageal re flux disease without esophagitis twice a day Atorvastatin Calcium 80 MG Oral Tablet 04/03/2019 - 10/18/19 20 Provider: Alan ANDERSON Diagnosis: Hyperlipidemia, unsp ecified once a day Gemfibrozil 600MG Oral Tablet 03/06/2019 - 09/19/2019 Provid er: Alan ANDERSON 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 TAKE ONE TABLET BY MOUTH EVERY DAY Gabapentin 100MG Oral Capsule 02/03/2019 - 08/16/2019 Provid er: Alan ANDERSON Diagnosis: Autonomic neuropathy in diseases classified elsewhere TAKE ONE CAPSULE BY MOUTH AM, TWO PM-- this is an increase i n dosing Lisinopril 20MG Oral Tablet 02/03/2019 - 07/24/2019 Provider : Alan ANDERSON Diagnosis: Essential (primary) hypertension once a day Montelukast Sodium 10MG Oral Tablet 02/03/2019 - 09/19/2019 Provider: Alan ANDERSON Diagnosis: Other allergic rhini tis 1 every bedtime FreeStyle Tania Sensor System Miscellaneous 01/10/2019 - 11/2019 Provider: Alan ANDERSON Diagnosis: 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 as directed use to test BG 2-3 times per day E13.351 Plavix 75MG Oral Tablet 01/10/2019 - 07/24/2019 Provider: Alan ANDERSON Diagnosis: once a day take one tablet PO QD FreeStyle Tania 14 Day [place] Device 01/10/2019 - 08/18/2019 Provider: Alan ANDERSON Diagnosis: 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 as directed Please dispence one meter use to test BG 2 -3 times per day E13.351 Plavix 75 MG OR TABS 01/09/2019 - 03/06/2019 Provider: Diagnosis: take one tablet PO QD FreeStyle Tania Sensor System MISC 01/09/2019 - 03/06/2019 P rovider: Diagnosis: 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 use to test BG 2-3 times per day E13.351 FreeStyle Tania 14 Day [place] JOAQUIN 01/09/2019 - 03/06/2019 P rovider: Diagnosis: 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 Please dispence one meter use to test BG 2-3 times per day E 13.351 Loratadine 10MG Oral Tablet 12/14/2018 - 06/26/2019 Provider : Alan ANDERSON Diagnosis: Other allergic rhini tis 1/2 tablet daily as needed for allergies--PLEASE CUT FOR PAT IENT HYDROcodone-Acetaminophen 5-325MG Oral Tablet 11/24/2018 - 0 12/30/2018 Provider: Kati Link NP Diagnosis: Lumbago with sciatic a, unspecified side twice a day 1/2 tablet BID PRN MDD=2 tablets Zofran 4MG Oral Tablet 11/24/2018 - 01/09/2020 Provider: Alan ANDERSON Diagnosis: three times a day prn nausea Reglan 10MG Oral Tablet 11/22/2018 - 12/01/2019 Provider: Alan ANDERSON Diagnosis: Disease of stomach a nd duodenum, unspecified max 12 per week, up to one tablet three times daily if neede d Clopidogrel Bisulfate 75MG Oral Tablet 11/21/2018 - 09/29/19 Provider: Diagnosis: Colace 100MG Oral Capsule 11/21/2018 - 09/29/2019 Provider: Diagnosis: Aspirin 325MG Oral Tablet 11/18/2018 - 10/09/2019 Provider: Alan ANDERSON Diagnosis: Cerebellar stroke sy ndrome once a day Cyanocobalamin 2500MCG Sublingual Tablet Sublingual 11/15/19 19 - 09/29/2019 Provider: Diagnosis: Basaglar KwikPen 100UNIT/ML Subcutaneous Solution Pen- injector 10/24/2018 - 11/16/2019 Provider: Alan ANDERSON Diagnosis: Type 2 diabetes kayla itus with other skin ulcer once a day inject 30 units at bedtime. Replaces Lantus amLODIPine Besylate 5MG Oral Tablet 10/20/2018 - 05/19/2019 Provider: Alan ANDERSON Diagnosis: once a day PARoxetine HCl 10MG Oral Tablet 10/07/2018 - 07/21/2019 Prov ider: Jorigto Saul DO Diagnosis: Major depressive dis order, recurrent, moderate TAKE ONE TABLET BY MOUTH AT BEDTIME Pantoprazole Sodium 40MG Oral Tablet Delayed Release 019 - 06/20/2019 Provider: Alan ANDERSON Diagnosis: Gastro-esophageal re flux disease with esophagitis once a day pt cannot tolerate being off med due to vomiting Metoprolol Tartrate 25MG Oral Tablet 09/21/2018 - 05/22/2019 Provider: Alan ANDERSON Diagnosis: Benign intracranial hypertension as directed take one half tablet (12.5mg) twice per day raNITIdine HCl 150MG Oral Tablet 08/22/2018 - 04/03/2019 Pro vider: Alan ANDERSON Diagnosis: Gastro-esophageal re flux disease without esophagitis twice a day Vitamin D3 [id number] Oral Capsule, conventional 08/02/2018 - 04/10/2020 Provider: Alan ANDERSON Diagnosis: Vitamin D deficiency , unspecified once weekly x 12 weeks then once monthly Pantoprazole Sodium 40MG Oral Tablet, enteric coated 019 - 09/27/2018 Provider: Alan ANDERSON Diagnosis: Gastro-esophageal re flux disease without esophagitis once a day Gabapentin 100MG Oral Capsule, conventional 07/26/2018 - Provider: Alan ANDERSON Diagnosis: Autonomic neuropathy in diseases classified elsewhere TAKE ONE CAPSULE BY MOUTH AM, TWO PM-- this is an increase i n dosing Lisinopril 20MG Oral Tablet 07/20/2018 - 02/03/2019 Provider : Alan ANDERSON Diagnosis: Essential (primary) hypertension once a day Hydrocodone-Acetaminophen 5-325MG Oral Tablet 07/14/2018 - 0 11/24/2018 Provider: Alan ANDERSON Diagnosis: Lumbago with sciatic a, unspecified side twice a day 1/2 tablet BID PRN MDD=2 tablets Montelukast Sodium 10MG Oral Tablet 06/03/2018 - 02/03/2019 Provider: Kati Link [employer] Diagnosis: Other allergic rhini tis 1 every bedtime Atorvastatin Calcium 80MG Oral Tablet 06/03/2018 - 9 Provider: Kati Link [employer] Diagnosis: Hyperlipidemia, unsp ecified once a day Reglan 10MG Oral Tablet 05/27/2018 - 11/22/2018 Provider: Alan ANDERSON Diagnosis: Disease of stomach a nd duodenum, unspecified max 12 per week, up to one tablet three times daily if neede d Pantoprazole Sodium 40MG Oral Tablet Delayed Release 018 - 07/26/2018 Provider: Kati Link [employer] Diagnosis: Gastro-esophageal re flux disease without esophagitis once a day BD Pen Needle Rohini U/F 32G X 4 MM Miscellaneous 05/12/2018 - 12/01/2019 Provider: Kati Link NP Diagnosis: Other specified diab etes mellitus without complications as directed use with lantus and novolog up to QID Loratadine 10MG Oral Tablet 05/12/2018 - 12/14/2018 Provider : Kati Link NP Diagnosis: Other allergic rhini tis 1/2 tablet daily as needed for allergies--PLEASE CUT FOR PAT IENT FreeStyle Lite Test In Vitro Strip 05/10/2018 - 08/18/2019 Ann-Marie pruett: Alan ANDERSON Diagnosis: Type 2 diabetes kayla itus with oth circulatory complications as directed: use to test BG 2-3 times per day Dx E11.59 FreeStyle Lancets Miscellaneous 05/10/2018 - 08/18/2019 Prov ider: Alan ANDERSON Diagnosis: Type 2 diabetes kayla itus with oth circulatory complications as directed dispense what insurance will cover Clindamycin Phosphate 600MG/4ML Injection Solution 8 - 04/27/2018 Provider: Diagnosis: 7 am, 11 am and 3 pm dose Hydrocodone-Acetaminophen 5-325MG Oral Tablet 04/27/2018 - 0 07/14/2018 Provider: Alan ANDERSON Diagnosis: Lumbago with sciatic a, unspecified side twice a day 1/2 tablet BID PRN MDD=2 Tessalon Perles 100MG Oral Capsule 04/27/2018 - 11/21/2018 Ann-Marie pruett: Diagnosis: PARoxetine HCl 10MG Oral Tablet 04/08/2018 - 10/07/2018 Prov ider: Alan ANDERSON Diagnosis: Major depressive dis order, recurrent, moderate TAKE ONE TABLET BY MOUTH AT BEDTIME AmLODIPine Besylate 5MG Oral Tablet 04/01/2018 - 10/20/2018 Provider: Alan ANDERSON Diagnosis: once a day Aspirin 325MG Oral Tablet 04/01/2018 - 11/18/2018 Provider: Alan ANDERSON Diagnosis: Cerebellar stroke sy ndrome once a day Colace 100MG Oral Capsule 02/22/2018 - 11/21/2018 Provider: Alan ANDERSON Diagnosis: Constipation, unspec ified twice a day Clopidogrel Bisulfate 75MG Oral Tablet 02/07/2018 - 11/22/19 Provider: Alan ANDERSON Diagnosis: Cerebellar stroke sy ndrome once a day Reglan 10MG Oral Tablet 02/07/2018 - 05/27/2018 Provider: Alan ANDERSON Diagnosis: Disease of stomach a nd duodenum, unspecified max 12 per week, up to one tablet three times daily if neede d Gemfibrozil 600MG Oral Tablet 02/07/2018 - 03/06/2019 Provid er: Alan ANDERSON 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 TAKE ONE TABLET BY MOUTH EVERY DAY Pantoprazole Sodium 40 MG OR TBEC 01/21/2018 - 02/22/2018 Pr ovider: Diagnosis: Gastro-esophageal re flux disease without esophagitis Pantoprazole Sodium 40MG Oral Tablet Delayed Release 018 - 05/12/2018 Provider: Jorgito Saul DO Diagnosis: Gastro-esophageal re flux disease without esophagitis once a day Gabapentin 100MG Oral Capsule 12/22/2017 - 07/26/2018 Provid er: Alan ANDERSON Diagnosis: Autonomic neuropathy in diseases classified elsewhere TAKE ONE CAPSULE BY MOUTH AM, TWO PM-- this is an increase i n dosing Symbicort 160-4.5MCG/ACT Inhalation Aerosol 12/22/2017 - Provider: Alan ANDERSON Diagnosis: Chronic obstructive pulmonary disease, unspecified 2 puffs twice daily rinse after RaNITidine HCl 150MG Oral Tablet 12/22/2017 - 08/22/2018 Pro vider: Alan ANDERSON Diagnosis: Gastro-esophageal re flux disease without esophagitis twice a day Doxycycline Hyclate 100MG Oral Capsule 12/22/2017 - 04/27/20 18 Provider: Alan ANDERSON Diagnosis: Other acute sinusiti s twice a day Atorvastatin Calcium 80MG Oral Tablet 12/13/2017 - 8 Provider: Alan ANDERSON Diagnosis: Hyperlipidemia, unsp ecified once a day Metoprolol Tartrate 25MG Oral Tablet 12/07/2017 - 09/21/2018 Provider: Alan ANDERSON Diagnosis: Benign intracranial hypertension as directed take one half tablet (12.5mg) twice per day Lisinopril 20 MG OR TABS 12/01/2017 - 12/07/2017 Provider: Diagnosis: Essential (primary) hypertension Lisinopril 20MG Oral Tablet 12/01/2017 - 07/20/2018 Provider : Alan ANDERSON Diagnosis: Essential (primary) hypertension once a day Clindamycin Phosphate 600MG/4ML Injection Solution 8 - 04/27/2018 Provider: Diagnosis: 7 am, 11 am and 3 pm dose Ventolin HFA 108 (90 Base)MCG/ACT Inhalation Aerosol S olution 11/17/2017 - 09/29/2019 Provider: Alan ANDERSON Diagnosis: Shortness of breath as directed 2 PUFFS QID PRN SOB or cough Montelukast Sodium 10MG Oral Tablet 11/09/2017 - 06/03/2018 Provider: Alan ANDERSON Diagnosis: Other allergic rhini tis 1 every bedtime Hydrocodone-Acetaminophen 5-325MG Oral Tablet 11/09/2017 - 1 06/27/2017 Provider: Alan ANDERSON Diagnosis: Other allergic rhini tis twice a day 1/2 tablet BID PRN MDD=2 Reglan 10MG Oral Tablet 11/05/2017 - 02/07/2018 Provider: Alan ANDERSON Diagnosis: Disease of stomach a nd duodenum, unspecified max 12 per week, up to one tablet three times daily if neede d Lisinopril 20MG Oral Tablet 11/02/2017 - 12/01/2017 Provider : Diagnosis: 1 tab po daily Cubicin 500MG Intravenous Solution Reconstituted 11/02/2017 - 04/27/2018 Provider: Diagnosis: 10 ml IV daily Ventolin HFA 108 (90 Base)MCG/ACT Inhalation Aerosol S olution 10/13/2017 - 11/17/2017 Provider: Alan ANDERSON Diagnosis: Shortness of breath as directed 2 PUFFS QID PRN SOB or cough PARoxetine HCl 10MG Oral Tablet 10/08/2017 - 04/08/2018 Prov ider: Alan ANDERSON Diagnosis: Major depressive dis order, recurrent, moderate TAKE ONE TABLET BY MOUTH AT BEDTIME Tessalon Perles 100MG Oral Capsule 09/15/2017 - 04/27/2018 P rovider: Diagnosis: Losartan Potassium 25MG Oral Tablet 09/14/2017 - 11/09/2017 Provider: Diagnosis: per dr murphy office note 09/07/17 esrrn Basaglmauri KwikPen 100 UNIT/ML SC SOPN 09/06/2017 - 10/11/2017 Provider: Diagnosis: Type 2 diabetes kayla itus with other skin ulcer inject 30 units at bedtime. Replaces Lantus Basaglar KwikPen 100UNIT/ML Subcutaneous Solution Pen- injector 09/06/2017 - 10/24/2018 Provider: Alan ANDERSON Diagnosis: Type 2 diabetes kayla itus with other skin ulcer once a day inject 30 units at bedtime. Replaces Lantus Ventolin HFA 108 (90 Base)MCG/ACT Inhalation Aerosol S olution 08/27/2017 - 10/13/2017 Provider: Alan ANDERSON Diagnosis: Shortness of breath as directed 2 PUFFS QID PRN SOB or cough Cephalexin 500MG Oral Capsule 08/24/2017 - 11/09/2017 Provid er: Alan ANDERSON Diagnosis: three times a day Aspirin 325MG Oral Tablet 08/23/2017 - 04/01/2018 Provider: Alan ANDERSON Diagnosis: Cerebellar stroke sy ndrome once a day Vitamin D3 [id number] Oral Capsule 08/23/2017 - 08/02/2018 Pr ovider: Alan ANDERSON Diagnosis: Vitamin D deficiency , unspecified once weekly x 12 weeks then once monthly Reglan 10MG Oral Tablet 08/13/2017 - 11/05/2017 Provider: Jorgito Saul DO Diagnosis: Disease of stomach a nd duodenum, unspecified max 12 per week, up to one tablet three times daily if neede d Roller Walker Miscellaneous 08/11/2017 - 04/27/2018 Provider : Alan ANDERSON Diagnosis: Unspecified abnormal ities of gait and mobility as directed. Please dispense one 4 whell walker with seat. 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 TAKE ONE TABLET BY MOUTH EVERY DAY Atorvastatin Calcium 80MG Oral Tablet 08/06/2017 - 8 Provider: Alan ANDERSON Diagnosis: Hyperlipidemia, unsp ecified once a day AmLODIPine Besylate 5MG Oral Tablet 08/06/2017 - 04/01/2018 Provider: Alan ANDERSON Diagnosis: once a day Loratadine 10MG Oral Tablet 08/02/2017 - 05/12/2018 Provider : Alan ANDERSON Diagnosis: Other allergic rhini tis 1/2 tablet daily as needed for allergies--PLEASE CUT FOR LADARIUS Laiolin HFA 108 (90 Base)MCG/ACT Inhalation Aerosol S olution 07/29/2017 - 08/27/2017 Provider: Jorgito Saul DO Diagnosis: Shortness of breath as directed 2 PUFFS QID PRN SOB or cough HYDROcodone-Acetaminophen 2.5-325 MG OR TABS 07/23/2017 - Provider: Diagnosis: 2 PO BID PRN MDD=4 Hydrocodone-Acetaminophen 5-325MG Oral Tablet 07/23/2017 - 0 11/09/2017 Provider: Alan ANDERSON Diagnosis: twice a day 1/2 tablet BID PRN MDD=2 HYDROcodone-Acetaminophen 5-325 MG OR TABS 07/23/2017 - 07/15 Provider: Diagnosis: 1/2-1 tablet BID PRN MDD=2 Hydrocodone-Acetaminophen 2.5-325MG Oral Tablet 07/23/2017 - 07/23/2017 Provider: Alan ANDERSON Diagnosis: 2 twice a day 2 PO BID PRN MDD=4 tablets Colace 100MG Oral Capsule 07/20/2017 - 02/22/2018 Provider: Alan ANDERSON Diagnosis: Constipation, unspec ified twice a day NovoLOG FlexPen 100UNIT/ML Subcutaneous Solution Pen-i njector 02/03/2017 - 04/27/2018 Provider: Alan ANDERSON Diagnosis: Type 2 diabetes kayla itus with diabetic neuropathy, unsp up to 6 units per meal BD Pen Needle Rohini U/F 32G X 4 MM Miscellaneous 02/03/2017 - 05/12/2018 Provider: Alan ANDERSON Diagnosis: Other specified diab etes mellitus without complications as directed use with lantus and novolog up to QID Clopidogrel Bisulfate 75MG Oral Tablet 02/03/2017 - 08/06/19 18 Provider: Alan ANDERSON Diagnosis: Cerebellar stroke sy ndrome once a day Atorvastatin Calcium 80MG Oral Tablet 02/03/2017 - 8 Provider: Alan ANDERSON Diagnosis: Hyperlipidemia, unsp ecified once a day FreeStyle Lite Test In Vitro Strip 02/03/2017 - 05/10/2018 Ann-Marie pruett: Alan ANDERSON Diagnosis: Type 2 diabetes kayla itus with oth circulatory complications as directed: use to test BG 2-3 times per day Dx E11.59 Vitamin D3 [id number] Oral Capsule 02/03/2017 - 08/23/2017 Pr ovider: Alan ANDERSON Diagnosis: Vitamin D deficiency , unspecified once weekly x 12 weeks then once monthly Metoprolol Tartrate 25MG Oral Tablet 02/03/2017 - 12/07/2017 Provider: Alan ANDERSON Diagnosis: Benign intracranial hypertension as directed take one half tablet (12.5mg) twice per day Symbicort 160-4.5MCG/ACT Inhalation Aerosol 02/03/2017 - 04/2018 Provider: Alan ANDERSON Diagnosis: Chronic obstructive pulmonary disease, unspecified 2 puffs twice daily rinse after Reglan 10MG Oral Tablet 02/03/2017 - 08/13/2017 Provider: Alan ANDERSON Diagnosis: Disease of stomach a nd duodenum, unspecified max 12 per week, up to one tablet three times daily if neede d AmLODIPine Besylate 5MG Oral Tablet 02/03/2017 - 08/06/2017 Provider: Alan ANDERSON Diagnosis: once a day NexIUM 40MG Oral Capsule Delayed Release 02/03/2017 - 2017 Provider: Alan ANDERSON Diagnosis: Gastro-esophageal re flux disease without esophagitis TAKE ONE CAPSULE BY MOUTH EVERY DAY PARoxetine HCl 10MG Oral Tablet 02/03/2017 - 10/08/2017 Prov ider: Alan ANDERSON Diagnosis: Major depressive dis order, recurrent, moderate TAKE ONE TABLET BY MOUTH AT BEDTIME Lantus SoloStar 100UNIT/ML Subcutaneous Solution Pen-i njector 02/03/2017 - 04/27/2018 Provider: Alan ANDERSON Diagnosis: 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, unsp INJECT 30 UNITS UNDER THE SKIN AT BEDTIME Aspirin 325MG Oral Tablet 02/03/2017 - 08/23/2017 Provider: Alan ANDERSON Diagnosis: Cerebellar stroke sy ndrome once a day FreeStyle Lancets Miscellaneous 02/03/2017 - 05/10/2018 Prov ider: Alan ANDERSON Diagnosis: Type 2 diabetes kayla itus with oth circulatory complications as directed dispense what insurance will cover Loratadine 10MG Oral Tablet 02/03/2017 - 08/02/2017 Provider : Alan ANDERSON Diagnosis: Other allergic rhini tis 1/2 tablet daily as needed for allergies--PLEASE CUT FOR PAT IENT Gemfibrozil 600MG Oral Tablet 02/03/2017 - 08/06/2017 Provid er: Alan ANDERSON 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 TAKE ONE TABLET BY MOUTH EVERY DAY Gabapentin 100MG Oral Capsule 02/03/2017 - 12/22/2017 Provid er: Alan ANDERSON Diagnosis: Autonomic neuropathy in diseases classified elsewhere TAKE ONE CAPSULE BY MOUTH AM, TWO PM-- this is an increase i n dosing RaNITidine HCl 150MG Oral Tablet 02/03/2017 - 12/22/2017 Pro vider: Alan ANDERSON Diagnosis: Gastro-esophageal re flux disease without esophagitis twice a day Symbicort 160-4.5MCG/ACT Inhalation Aerosol 02/03/2017 - Provider: Alan ANDERSON Diagnosis: Chronic obstructive pulmonary disease, unspecified 2 puffs twice daily rinse after Gemfibrozil 600MG Oral Tablet 01/18/2017 - 02/03/2017 Provid er: Alan ANDERSON 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 TAKE ONE TABLET BY MOUTH EVERY DAY Lantus SoloStar 100UNIT/ML Subcutaneous Solution Pen-i njector 12/18/2016 - 02/03/2017 Provider: Alan ANDERSON Diagnosis: 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, unsp INJECT 30 UNITS UNDER THE SKIN AT BEDTIME PARoxetine HCl 10MG Oral Tablet 12/18/2016 - 02/03/2017 Prov ider: Alan ANDERSON Diagnosis: Major depressive dis order, recurrent, moderate TAKE ONE TABLET BY MOUTH AT BEDTIME Gabapentin 100MG Oral Capsule 12/18/2016 - 02/03/2017 Provid er: Alan ANDERSON Diagnosis: Autonomic neuropathy in diseases classified elsewhere TAKE ONE CAPSULE BY MOUTH TWICE A DAY NexIUM 40MG Oral Capsule Delayed Release 12/16/2016 - 2016 Provider: Alan ANDERSON Diagnosis: Gastro-esophageal re flux disease without esophagitis TAKE ONE CAPSULE BY MOUTH EVERY DAY Reglan 10MG Oral Tablet 12/04/2016 - 02/03/2017 Provider: Alan ANDERSON Diagnosis: Disease of stomach a nd duodenum, unspecified max 12 per week, up to one tablet three times daily if neede d Cipro 250MG Oral Tablet 11/06/2016 - 02/03/2017 Provider: Alan ANDERSON Diagnosis: twice a day Loratadine 10MG Oral Tablet 10/28/2016 - 02/03/2017 Provider : Alan ANDERSON Diagnosis: Other allergic rhini tis 1/2 tablet daily as needed for allergies--PLEASE CUT FOR PAT IENT RaNITidine HCl 150MG Oral Tablet 10/13/2016 - 02/03/2017 Pro vider: Alan ANDERSON Diagnosis: Gastro-esophageal re flux disease without esophagitis twice a day FreeStyle Lancets Miscellaneous 09/16/2016 - 12/16/2016 Prov ider: Diagnosis: Type 2 diabetes kayla itus with oth circulatory complications dispense what insurance will cover FreeStyle Lancets Miscellaneous 09/16/2016 - 02/03/2017 Prov ider: Alan ANDERSON Diagnosis: Type 2 diabetes kayla itus with oth circulatory complications as directed dispense what insurance will cover FreeStyle [place] Lite w/Device KIT 09/15/2016 - 12/16/2016 Provider: Diagnosis: Type 2 diabetes kayla itus with oth circulatory complications as directed: use to test BG 2-3x per day Dx E11.59 FreeStyle [place] Lite w/Device Kit 09/15/2016 - 02/03/2017 Provider: Alan ANDERSON Diagnosis: Type 2 diabetes kayla itus with oth circulatory complications as directed: use to test BG 2-3x per day Dx E11.59 FreeStyle Lite Test In Vitro Strip 09/15/2016 - 02/03/2017 P rosukhwinderder: Alan ANDERSON Diagnosis: Type 2 diabetes kayla itus with oth circulatory complications as directed: use to test BG 2-3 times per day Dx E11.59 FreeStyle Lite Test STRP 09/15/2016 - 12/16/2016 Provider : Diagnosis: Type 2 diabetes kayla itus with oth circulatory complications as directed: use to test BG 2-3 times per day Dx E11.59 FreeStyle Lite Test STRP 09/15/2016 - 12/16/2016 Provider : Diagnosis: Type 2 diabetes kayla itus with oth circulatory complications as directed: use to test BG 2-3 times per day Dx E11.59 Reglan 10MG Oral Tablet 09/10/2016 - 12/04/2016 Provider: Jorgito Saul DO Diagnosis: Disease of stomach a nd duodenum, unspecified max 12 per week, up to one tablet three times daily if neede d Atorvastatin Calcium 80MG Oral Tablet 08/21/2016 - 7 Provider: Alan ANDERSON Diagnosis: Hyperlipidemia, unsp ecified once a day Vitamin D3 [id number] Oral Capsule 08/21/2016 - 02/03/2017 Pr ovider: Alan ANDERSON Diagnosis: Vitamin D deficiency , unspecified once weekly x 12 weeks then once monthly Clopidogrel Bisulfate 75MG Oral Tablet 08/21/2016 - 02/04/20 17 Provider: Alan ANDERSON Diagnosis: once a day 1 tab daily AmLODIPine Besylate 5MG Oral Tablet 08/21/2016 - 02/03/2017 Provider: Alan ANDERSON Diagnosis: once a day amLODIPine Besylate 5 MG OR TABS 08/20/2016 - 10/28/2016 Pro vider: Diagnosis: Isosorbide Mononitrate ER 30MG Oral Tablet Extended Re lease 24 Hour 07/28/2016 - 02/03/2017 Provider: Alan ANDERSON Diagnosis: TAKE ONE TABLET BY MOUTH EVERY DAY Gemfibrozil 600 MG Tablet 07/13/2016 - 01/18/2017 Provider: Alan ANDERSON 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 TAKE ONE TABLET BY MOUTH EVERY DAY Metoprolol Tartrate 25 MG Tablet 07/07/2016 - 02/03/2017 Pro vider: Alan ANDERSON Diagnosis: Benign intracranial hypertension as directed take one half tablet (12.5mg) twice per day Senokot S 8.6-50 MG Tablet 07/06/2016 - 02/03/2017 Provider: Alan ANDERSON Diagnosis: TAKE ONE TABLET BY MOUTH TWICE A DAY NexIUM 40 MG Capsule Delayed Release 06/19/2016 - 12/16/2016 Provider: Alan ANDERSON Diagnosis: Gastro-esophageal re flux disease without esophagitis TAKE ONE CAPSULE BY MOUTH EVERY DAY AmLODIPine Besylate 5 MG Tablet 05/26/2016 - 10/28/2016 Prov ider: Diagnosis: 1 tab daily Mucinex 600 MG Tablet Extended Release 12 Hour 05/26/2016 - 02/03/2017 Provider: Alan ANDERSON Diagnosis: twice a day when needed for congestion Symbicort 160-4.5 MCG/ACT Aerosol 05/26/2016 - 02/03/2017 Pr ovider: Alan ANDERSON Diagnosis: Chronic obstructive pulmonary disease, unspecified 2 puffs twice daily rinse after Lantus SoloStar 100 UNIT/ML Solution Pen-injector 05/10/2016 - 12/18/2016 Provider: Alan ANDERSON Diagnosis: 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, unsp INJECT 30 UNITS UNDER THE SKIN AT BEDTIME PARoxetine HCl 10 MG Tablet 04/14/2016 - 12/18/2016 Provider : Jorgito Saul DO Diagnosis: Major depressive dis order, recurrent, moderate TAKE ONE TABLET BY MOUTH AT BEDTIME Gabapentin 100 MG Capsule 04/14/2016 - 12/18/2016 Provider: Jorgito Saul DO Diagnosis: Autonomic neuropathy in diseases classified elsewhere TAKE ONE CAPSULE BY MOUTH TWICE A DAY Atorvastatin Calcium 80 MG Tablet 03/19/2016 - 08/21/2016 Pr ovider: Kim ANDERSON Diagnosis: Hyperlipidemia, unsp ecified once a day Metoprolol Tartrate 25 MG OR TABS 03/16/2016 - 05/26/2016 Pr ovider: Diagnosis: take one half tablet (12.5mg) twice per day Metoprolol Tartrate 25 MG Tablet 03/16/2016 - 07/07/2016 Pro vider: Jorgito Saul DO Diagnosis: as directed take one half tablet (12.5mg) twice per day Metoprolol Tartrate 25 MG Tablet 02/20/2016 - 03/16/2016 Pro vider: Kim ANDERSON Diagnosis: Essential (primary) hypertension as directed take one half of tablet (12.5mg) twice a day Clopidogrel Bisulfate 75 MG Tablet 01/27/2016 - 08/21/2016 Ann-Marie pruett: Luis Delarosa MD Diagnosis: once a day 1 tab daily Metoprolol Tartrate 25 MG Tablet 01/23/2016 - 02/20/2016 Pro vider: Kim Coronado DO Diagnosis: Essential (primary) hypertension as directed take one half of tablet (12.5mg) twice a day Metoprolol Tartrate 25 MG Tablet 01/22/2016 - 05/26/2016 Pro vider: Diagnosis: Essential (primary) hypertension take one half of tablet (12.5mg) twice a day Gemfibrozil 600 MG Tablet 01/17/2016 - 07/13/2016 Provider: Alan ANDERSON 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 TAKE ONE TABLET BY MOUTH EVERY DAY Isosorbide Mononitrate ER 30 MG Tablet, extended-relea se 24 hour 01/17/2016 - 07/28/2016 Provider: Alan ANDERSON Diagnosis: TAKE ONE TABLET BY MOUTH EVERY DAY PARoxetine HCl 10 MG Tablet 01/14/2016 - 05/26/2016 Provider : Diagnosis: Ranitidine HCl 150 MG Tablet 01/14/2016 - 10/13/2016 Provide r: Alan ANDERSON Diagnosis: Gastro-esophageal re flux disease without esophagitis twice a day Metoprolol Tartrate 25 MG Tablet 01/14/2016 - 01/22/2016 Pro vider: Diagnosis: 12.5 BID [facility] Vitamin B-12 250 MCG Tablet 01/14/2016 - 05/26/2016 Prov ider: Diagnosis: 1 tab daily [facility] Vitamin B-12 250 MCG Tablet 01/14/2016 - 02/03/2017 Prov ider: Diagnosis: Clopidogrel Bisulfate 75 MG Tablet 01/14/2016 - 05/26/2016 P rovider: Diagnosis: 1 tab daily Aspirin 325 MG Tablet 01/14/2016 - 05/26/2016 Provider: Diagnosis: AmLODIPine Besylate 5 MG Tablet 01/14/2016 - 05/26/2016 Prov ider: Diagnosis: 1 tab daily NexIUM 40 MG Capsule Delayed Release 12/23/2015 - 06/19/2016 Provider: Alan ANDERSON Diagnosis: Gastro-esophageal re flux disease without esophagitis TAKE ONE CAPSULE BY MOUTH EVERY DAY Vitamin D3 31615 UNIT Capsule 12/23/2015 - 08/21/2016 Provid er: Alan ANDERSON Diagnosis: Vitamin D deficiency , unspecified once weekly x 12 weeks then once monthly Ceftin 250 MG Tablet 11/25/2015 - 01/14/2016 Provider: Alan ANDERSON Diagnosis: Unspecified bacteria l pneumonia twice a day Mucinex 600 MG Tablet Extended Release 12 Hour 11/25/2015 - 01/14/2016 Provider: Alan ANDERSON Diagnosis: 1-2 times daily as needed for congestion Albuterol Sulfate (2.5 MG/3ML) 0.083% Nebulization jonatan ution 11/25/2015 - 02/03/2017 Provider: Alan ANDERSON Diagnosis: Unspecified bacteria l pneumonia one vial via nebulizer every 4 hours as needed for [place] shortness of breath Compressor Nebulizer Miscellaneous 11/25/2015 - 02/03/2017 P rovider: Alan ANDERSON Diagnosis: Unspecified bacteria l pneumonia as directed Reglan 10 MG Tablet 10/30/2015 - 09/10/2016 Provider: Alan ANDERSON Diagnosis: Disease of stomach a nd duodenum, unspecified max 12 per week, up to one tablet three times daily if neede d Senokot S 8.6-50 MG Tablet 10/30/2015 - 07/06/2016 Provider: Alan ANDERSON Diagnosis: twice a day Senokot S 8.6-50 MG Tablet 10/30/2015 - 11/25/2015 Provider: Diagnosis: AmLODIPine Besylate 5 MG Tablet 10/08/2015 - 01/14/2016 Prov ider: Diagnosis: 1 tab daily Senokot S 8.6-50 MG Tablet 10/08/2015 - 10/30/2015 Provider: Diagnosis: 1 tab daily PARoxetine HCl 10 MG Tablet 10/08/2015 - 01/14/2016 Provider : Diagnosis: Metoprolol Tartrate 25 MG Tablet 10/08/2015 - 01/14/2016 Pro vider: Diagnosis: 12.5 BID [facility] Vitamin B-12 250 MCG Tablet 10/08/2015 - 01/14/2016 Prov ider: Diagnosis: [facility] Vitamin B-12 250 MCG Tablet 10/08/2015 - 01/14/2016 Prov ider: Diagnosis: 1 tab daily Clopidogrel Bisulfate 75 MG Tablet 10/08/2015 - 01/14/2016 P rovider: Diagnosis: 1 tab daily Benzonatate 100 MG Capsule 10/08/2015 - 01/14/2016 Provider: Diagnosis: 1 tab TID daily as needed Aspirin 325 MG Tablet 10/08/2015 - 01/14/2016 Provider: Diagnosis: Gabapentin 100 MG OR CAPS 10/02/2015 - 10/08/2015 Provider: Diagnosis: Autonomic neuropathy in diseases classified elsewhere Gabapentin 100 MG Capsule 10/02/2015 - 04/14/2016 Provider: Alan ANDERSON Diagnosis: Autonomic neuropathy in diseases classified elsewhere twice a day Gabapentin 300 MG OR CAPS 09/20/2015 - 10/08/2015 Provider: Diagnosis: Gabapentin 300 MG Capsule 09/20/2015 - 10/02/2015 Provider: Alan ANDERSON Diagnosis: Autonomic neuropathy in diseases classified elsewhere twice a day PARoxetine HCl 10 MG Tablet 09/20/2015 - 04/14/2016 Provider : Alan ANDERSON Diagnosis: Major depressive dis order, recurrent, moderate 1 every bedtime Aspirin 325 MG Tablet 09/20/2015 - 02/03/2017 Provider: Alan ANDERSON Diagnosis: Cerebellar stroke sy ndrome once a day Aspirin 325 MG OR TABS 09/20/2015 - 10/08/2015 Provider: Diagnosis: PARoxetine HCl 10 MG OR TABS 09/20/2015 - 10/08/2015 Provide r: Diagnosis: Lantus SoloStar 100 UNIT/ML Solution Pen-injector 09/18/2015 - 05/10/2016 Provider: Alan ANDERSON Diagnosis: 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, unsp as directed 30 units QHS Atorvastatin Calcium 80 MG Tablet 09/18/2015 - 03/19/2016 Pr ovider: Alan ANDERSON Diagnosis: Hyperlipidemia, unsp ecified once a day Lantus SoloStar 100 UNIT/ML Solution Pen-injector 09/18/2015 - 09/20/2015 Provider: Diagnosis: 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, unsp as directed 30 units QHS Senokot S 8.6-50 MG Tablet 08/26/2015 - 10/08/2015 Provider: Diagnosis: 1 tab daily Gabapentin 100 MG Capsule 08/26/2015 - 09/20/2015 Provider: Diagnosis: 1 tab BID Metoprolol Tartrate 25 MG Tablet 08/26/2015 - 10/08/2015 Pro vider: Diagnosis: 12.5 BID PARoxetine HCl 10 MG Tablet 08/26/2015 - 09/20/2015 Provider : Diagnosis: 1 tab at HS CVS Vitamin B-12 250 MCG Tablet 08/26/2015 - 10/08/2015 Prov ider: Diagnosis: 1 tab daily Clopidogrel Bisulfate 75 MG Tablet 08/26/2015 - 10/08/2015 P rovider: Diagnosis: 1 tab daily Benzonatate 100 MG Capsule 08/26/2015 - 10/08/2015 Provider: Diagnosis: 1 tab TID daily as needed AmLODIPine Besylate 5 MG Tablet 08/26/2015 - 10/08/2015 Prov ider: Diagnosis: 1 tab daily Aspirin 325 MG Tablet 08/22/2015 - 09/20/2015 Provider: Diagnosis: AmLODIPine Besylate 10 MG Tablet 08/07/2015 - 08/26/2015 Pro vider: Alan ANDERSON Diagnosis: once a day Bactrim DS 800-160 MG Tablet 08/05/2015 - 08/13/2015 Provide r: Alan ANDERSON Diagnosis: Urinary tract infect ion, site not specified twice a day Metoprolol Tartrate 25 MG Tablet 08/01/2015 - 08/26/2015 Pro vider: Jackie Martin NP Diagnosis: 1 1/2 tabs PO every 6 hours Isosorbide Mononitrate ER 30 MG Tablet Extended Releas e 24 Hour 07/24/2015 - 01/17/2016 Provider: Alan ANDERSON Diagnosis: once a day Isosorbide Mononitrate ER 30 MG Tablet Extended Releas e 24 Hour 07/24/2015 - 08/22/2015 Provider: Diagnosis: Gemfibrozil 600 MG Tablet 07/19/2015 - 01/17/2016 Provider: Alan ANDERSON 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 once a day Isosorbide Dinitrate 30 MG Tablet 07/16/2015 - 07/24/2015 Pr ovider: Alan ANDERSON 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 once a day Loratadine 10 MG Tablet 07/16/2015 - 10/28/2016 Provider: Alan ANDERSON Diagnosis: Other allergic rhini tis 1/2 tablet daily as needed for allergies--PLEASE CUT FOR PAT IENT NexIUM 40 MG Capsule Delayed Release 07/16/2015 - 12/23/2015 Provider: Alan ANDERSON Diagnosis: Gastro-esophageal re flux disease without esophagitis once a day Reglan 10 MG Tablet 07/16/2015 - 10/30/2015 Provider: Alan ANDERSON Diagnosis: Disease of stomach a nd duodenum, unspecified max 12 per week, up to one tablet three times daily if neede d AmLODIPine Besylate 10 MG Tablet 07/09/2015 - 08/22/2015 Pro vider: Diagnosis: Isosorbide Dinitrate 30 MG Tablet 07/09/2015 - 07/24/2015 Pr ovider: Diagnosis: [facility] Vitamin B-12 250 MCG Tablet 07/09/2015 - 10/08/2015 Prov ider: Diagnosis: AmLODIPine Besylate 10 MG Tablet 06/04/2015 - 07/09/2015 Pro vider: Diagnosis: Vitamin D3 52111 UNIT Capsule 05/17/2015 - 12/23/2015 Provid er: Alan ANDERSON Diagnosis: Vitamin D deficiency , unspecified once weekly x 12 weeks then once monthly Ceftin 500 MG Tablet 05/15/2015 - 07/09/2015 Provider: Alan ANDERSON Diagnosis: Bronchitis, not spec ified as acute or chronic twice a day Tobramycin 0.3 % Solution 05/15/2015 - 07/09/2015 Provider: Alan ANDERSON Diagnosis: Unspecified conjunct ivitis 3 drops three times daily x 7 days Hydrocodone-Ibuprofen 2.5-200 MG Tablet 05/15/2015 - 017 Provider: Alan ANDERSON Diagnosis: one tab twice daily as needed for pain mdd: two tab Metoprolol Tartrate 50 MG Tablet 05/10/2015 - 08/01/2015 Pro vider: Alan ANDERSON Diagnosis: twice a day [facility] admission Aspirin 81 MG Tablet 05/10/2015 - 08/22/2015 Provider: Alan ANDERSON Diagnosis: once a day [facility] admission Loratadine 10 MG Tablet 05/01/2015 - 07/16/2015 Provider: Alan ANDERSON Diagnosis: Other allergic rhini tis 1/2 tablet daily as needed for allergies--PLEASE CUT FOR PAT IENT Reglan 10 MG Tablet 05/01/2015 - 07/16/2015 Provider: Alan ANDERSON Diagnosis: Disease of stomach a nd duodenum, unspecified max 12 per week, up to one tablet three times daily if neede d Plavix 75 MG Tablet 05/01/2015 - 08/13/2015 Provider: Alan ANDERSON Diagnosis: once a day [facility] admission Misc. Devices Miscellaneous (not specified) 04/23/2015 - Provider: Alan ANDERSON Diagnosis: Cerebral infarction, unspecified Shower chair DX: I63.9 Benzonatate 100 MG Capsule 04/17/2015 - 05/01/2015 Provider: Diagnosis: TID one capsule PRN for cough Metoprolol Tartrate 50 MG Tablet 04/08/2015 - 08/01/2015 Pro vider: Diagnosis: [facility] admission Plavix 75 MG Tablet 04/08/2015 - 07/09/2015 Provider: Diagnosis: [facility] admission Aspirin 81 MG Tablet 04/08/2015 - 07/16/2015 Provider: Diagnosis: [facility] admission Reglan 10 MG Tablet 04/03/2015 - 05/01/2015 Provider: Alan ANDERSON Diagnosis: Disease of stomach a nd duodenum, unspecified max 12 per week, up to one tablet three times daily if neede d Tennis Elbow Neoprene Brace Miscellaneous 02/22/2015 - 08/21 Provider: Alan ADNERSON Diagnosis: as directed AmLODIPine Besylate 5 MG Tablet 01/18/2015 - 06/04/2015 Prov ider: Alan ANDERSON Diagnosis: Hypertension Unspeci fied Essential once a day Loratadine 10 MG Tablet 01/10/2015 - 05/01/2015 Provider: Alan ANDERSON Diagnosis: Allergic Rhinitis Du e to Other Allergen 1/2 tablet daily as needed for allergies--PLEASE CUT FOR PAT IENT Aspirin 325 MG Tablet 01/10/2015 - 04/08/2015 Provider: Diagnosis: [facility] AmLODIPine Besylate 5 MG Tablet 01/10/2015 - 01/18/2015 Prov ider: Diagnosis: Cipro 500 MG Tablet 01/04/2015 - 02/22/2015 Provider: Alna ANDERSON Diagnosis: GROSS HEMATURIA twice a day PredniSONE 20 MG Tablet 12/05/2014 - 02/22/2015 Provider: Alan ANDERSON Diagnosis: Unspecified Derangem ent of Joint of Shoulder Region once a day with food Misc. Devices Miscellaneous (not specified) 12/05/2014 - Provider: Alan ANDERSON Diagnosis: Vitamin B12 Deficien cy Anemia Nec cyanocobalamine b12 1000 u daily Fish Oil 1200 MG Capsule, conventional 12/05/2014 - 05/01/20 15 Provider: Alan ANDERSON Diagnosis: Unspecified Hyperlip idemia Nec once a day Imdur 30 MG Tablet, extended-release 24 hour 12/05/2014 - Provider: Alan ANDERSON Diagnosis: Congestive Heart Jose lure once a day Furosemide 20 MG Tablet 12/05/2014 - 02/03/2017 Provider: Alan ANDERSON Diagnosis: Edema once a day NexIUM 40 MG Capsule, delayed-release 12/05/2014 - 6 Provider: Alan ANDERSON Diagnosis: Esophageal Reflux once a day Silvadene 1 % Cream 12/05/2014 - 04/08/2015 Provider: Alan ANDERSON Diagnosis: aaa left leg 10-14 days Lantus SoloStar 100 UNIT/ML Solution 12/05/2014 - 09/18/2015 Provider: Alan ANDERSON Diagnosis: as directed 30 units QHS Tessalon Perles 100 MG Capsule, conventional 12/05/2014 - Provider: Alan ANDERSON Diagnosis: as directed use 1 cap- up to three times a day - only as nee ded NovoLOG FlexPen 100 UNIT/ML Solution Pen-injector 12/05/2014 - 02/03/2017 Provider: Alan ANDERSON Diagnosis: Diabetes Mellitus Wi th Neurological Manifestations Type Ii O up to 6 units per meal BD Pen Needle Rohini U/F 32G X 4 MM Miscellaneous (not s pecified) 12/05/2014 - 02/03/2017 Provider: Alan ANDERSON Diagnosis: Dm Without Complicat ion Type II or Unspecified Type Not Stat as directed use with lantus and novolog up to QID Coumadin 5 MG Tablet 12/05/2014 - 01/04/2015 Provider: Alan ANDERSON Diagnosis: twice a day- based on protocol, this is an increased dosing Reglan 10 MG Tablet 12/05/2014 - 04/03/2015 Provider: Alan ANDERSON Diagnosis: DIABETIC GASTROPATHY TYPE 2 max 12 per week, up to one tablet three times daily if neede d Gemfibrozil 600 MG Tablet 12/05/2014 - 07/19/2015 Provider: Alan ANDERSON Diagnosis: 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 once a day Gabapentin 300 MG Capsule, conventional 12/05/2014 - 016 Provider: Alan ANDERSON Diagnosis: DIABETES MELLITUS DI ABETIC PERIPHERAL NEUROPATHY one po bid Metoprolol Tartrate 50 MG Tablet 12/05/2014 - 04/08/2015 Pro vider: Alan ANDERSON Diagnosis: Benign Essential Hyp ertension once a day PARoxetine HCl 20 MG Tablet 12/05/2014 - 08/26/2015 Provider : Alan ANDERSON Diagnosis: Major Depressive Aff ective Disorder Single Episode Moderate once a day Atorvastatin Calcium 80 MG Tablet 12/05/2014 - 09/18/2015 Pr ovider: Alan ANDERSON Diagnosis: Unspecified Hyperlip idemia Nec once a day OneTouch Ultra Blue Strip 12/05/2014 - 02/03/2017 Provider: Alan ANDERSON Diagnosis: Dm Without Complicat ion Type II or Unspecified Type Not Stat as directed test 2-3 times per day Aspirin 325 MG Tablet 12/05/2014 - 01/10/2015 Provider: Diagnosis: [facility] AmLODIPine Besylate 5 MG Tablet 12/05/2014 - 01/10/2015 Prov ider: Diagnosis: Reglan 10 MG Tablet 11/14/2014 - 12/05/2014 Provider: Alan ANDERSON Diagnosis: DIABETIC GASTROPATHY TYPE 2 max 12 per week, up to one tablet three times daily if neede d Reglan 10 MG Tablet 11/07/2014 - 12/05/2014 Provider: Alan ANDERSON Diagnosis: Nausea Alone four times a day Coumadin 5 MG Tablet 10/25/2014 - 12/05/2014 Provider: Alan ANDERSON Diagnosis: twice a day- based on protocol, this is an increased dosing Lantus SoloStar 100 UNIT/ML Solution 10/23/2014 - 12/05/2014 Provider: Alan ANDERSON Diagnosis: as directed 30 units QHS Coumadin 5 MG Tablet 10/19/2014 - 10/23/2014 Provider: Alan ANDERSON Diagnosis: twice a day- based on protocol, this is an increased dosing Silvadene 1 % Cream 10/19/2014 - 12/05/2014 Provider: Alan ANDERSON Diagnosis: aaa left leg 10-14 days Lantus SoloStar 100 UNIT/ML Solution 09/28/2014 - 10/23/2014 Provider: Diagnosis: 30 units QHS Aspirin 325 MG Tablet 09/28/2014 - 12/05/2014 Provider: Diagnosis: [facility] AmLODIPine Besylate 5 MG Tablet 09/28/2014 - 12/05/2014 Prov ider: Diagnosis: HydrALAZINE HCl 50 MG Tablet 09/28/2014 - 12/05/2014 Provide r: Diagnosis: Coumadin 5 MG Tablet 09/28/2014 - 10/19/2014 Provider: Alan ANDERSON Diagnosis: once a day Reglan 10 MG Tablet 09/25/2014 - 11/07/2014 Provider: Alan ANDERSON Diagnosis: Nausea Alone four times a day Furosemide 20 MG Tablet 09/25/2014 - 12/05/2014 Provider: Alan ANDERSON Diagnosis: Edema once a day Coumadin 5 MG Tablet 09/25/2014 - 09/28/2014 Provider: Diagnosis: qd Imdur 30 MG Tablet, extended-release 24 hour 09/25/2014 - Provider: Diagnosis: Lantus SoloStar 100 UNIT/ML Solution 09/25/2014 - 09/28/2014 Provider: Diagnosis: 30 units QHS HydrALAZINE HCl 50 MG Tablet 09/25/2014 - 09/28/2014 Provide r: Diagnosis: NexIUM 40 MG Capsule, delayed-release 09/25/2014 - 5 Provider: Diagnosis: Reglan 10 MG Tablet 09/25/2014 - 12/05/2014 Provider: Diagnosis: Aspirin 325 MG Tablet 09/25/2014 - 09/28/2014 Provider: Diagnosis: [facility] AmLODIPine Besylate 5 MG Tablet 09/25/2014 - 09/28/2014 Prov ider: Diagnosis: Furosemide 40 MG Tablet 09/07/2014 - 09/25/2014 Provider: Diagnosis: Nephro PARoxetine HCl 20 MG Tablet 09/07/2014 - 12/05/2014 Provider : Alan ANDERSON Diagnosis: Major Depressive Aff ective Disorder Single Episode Moderate 1/2 tab nightly x 7 days then increase to one tablet n ightly if well tolerated Promethazine HCl 25 MG Tablet 09/07/2014 - 09/25/2014 Provid er: Diagnosis: every 4 hrs as needed Metoclopramide HCl 10 MG Tablet 09/07/2014 - 09/25/2014 Prov ider: Diagnosis: every 8 hrs as needed Lantus SoloStar 100 UNIT/ML Solution Pen-injector 09/07/2014 - 09/25/2014 Provider: Diagnosis: Inject SQ 30 units hs Benzonatate 200 MG Capsule, conventional 09/07/2014 - 2014 Provider: Diagnosis: 1 cap every 8 hrs Aspirin 325 MG Tablet 09/07/2014 - 09/25/2014 Provider: Diagnosis: [facility] Zantac 75 75 MG Tablet 08/10/2014 - 09/25/2014 Provider: Alan ANDERSON Diagnosis: Other Specified Levi ritis (without Hemorrhage) once a day as needed Metoclopramide HCl 10 MG Tablet 08/10/2014 - 09/07/2014 Prov ider: Diagnosis: every 8 hrs as needed Benzonatate 200 MG Capsule, conventional 08/10/2014 - 2014 Provider: Diagnosis: 1 cap every 8 hrs Promethazine HCl 25 MG Tablet 08/10/2014 - 09/07/2014 Provid er: Diagnosis: every 4 hrs as needed Ondansetron HCl 40 MG/20ML Solution 08/10/2014 - 09/25/2014 Provider: Diagnosis: as needed every 6-8 hrs Cipro 500 MG OR TABS 06/29/2014 - 09/04/2014 Provider: Alan ANDERSON Diagnosis: Urinary Tract Infect ion Site Not Specified Compressor/Nebulizer MISC 06/29/2014 - 09/25/2014 Provider: Alan ANDERSON Diagnosis: Bacterial Pneumonia Unspecified kit use with albuterol Albuterol Sulfate (2.5 MG/3ML) 0.083% IN [facility] 06/29/2014 - 0 09/25/2014 Provider: Alan ANDERSON Diagnosis: Bacterial Pneumonia Unspecified one viall via inhalation q4h prn sob, wheeze dx:482.9 Lantus SoloStar 100 UNIT/ML SC SOPN 06/29/2014 - 09/07/2014 Provider: Diagnosis: Inject SQ 30 units hs Protopic 0.1% EX OINT 06/26/2014 - 06/29/2014 Provider: Diagnosis: Derm- 1 application to affected area bid Depakote ER 500 MG OR TB24 06/26/2014 - 06/29/2014 Provider: Diagnosis: bid per neuro Aspirin 325 MG OR TABS 06/26/2014 - 09/07/2014 Provider: Diagnosis: [facility] Depakote ER 500 MG OR TB24 06/22/2014 - 06/26/2014 Provider: Diagnosis: bid per neuro Atorvastatin Calcium 80 MG OR TABS 06/12/2014 - 12/05/2014 Ann-Marie pruett: Alan ANDERSON Diagnosis: Metoprolol Tartrate 50 MG OR TABS 06/12/2014 - 12/05/2014 Pr ovider: Alan ANDERSON Diagnosis: Benign Essential Hyp ertension NexIUM 40 MG OR CPDR 05/17/2014 - 09/25/2014 Provider: Alan ANDERSON Diagnosis: Esophageal Reflux Norvasc 5 MG OR TABS 05/17/2014 - 06/29/2014 Provider: Diagnosis: Take one tab QD Depakote 500 MG OR TBEC 05/17/2014 - 06/22/2014 Provider: Diagnosis: Atorvastatin Calcium 80 MG OR TABS 05/17/2014 - 06/06/2014 P jarrodvider: Diagnosis: OneTouch Ultra Blue STRP 04/18/2014 - 12/05/2014 Provider : Alan ANDERSON Diagnosis: Dm Without Complicat ion Type II or Unspecified Type Not Stat test 2-3 times per day Nitrostat 0.4 MG SL SUBL 04/18/2014 - 09/25/2014 Provider: Alan ANDERSON Diagnosis: 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 take one with cp, wait five minutes, [place] another tablet and call 911 if CP persists last filled 10/2013 BD Pen Needle Rohini U/F 32G X 4 MM MISC 04/18/2014 - 12/06/19 15 Provider: Alan ANDERSON Diagnosis: Dm Without Complicat ion Type II or Unspecified Type Not Stat use with lantus and novolog up to QID Protopic 0.1% EX OINT 04/18/2014 - 06/26/2014 Provider: Diagnosis: Derm- 1 application to affected area bid Pantoprazole Sodium 40 MG OR TBEC 04/18/2014 - 05/17/2014 Pr ovider: Alan ANDERSON Diagnosis: Esophageal Reflux Plavix 75 MG OR TABS 04/18/2014 - 09/25/2014 Provider: Alan ANDERSON Diagnosis: 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 NovoLOG FlexPen 100 UNIT/ML SC SOPN 04/18/2014 - 12/05/2014 Provider: Alan ANDERSON Diagnosis: Diabetes Mellitus Wi th Neurological Manifestations Type Ii O up to 6 units per meal Lantus SoloStar 100 UNIT/ML SC SOPN 04/18/2014 - 06/29/2014 Provider: Alan ANDERSON Diagnosis: Diabetes Mellitus Wi th Neurological Manifestations Type Ii O 27 units at 9 pm nightly Metoprolol Tartrate 50 MG OR TABS 04/18/2014 - 06/06/2014 Pr ovider: Alan ANDERSON Diagnosis: Benign Essential Hyp ertension Losartan Potassium 50 MG OR TABS 04/18/2014 - 09/25/2014 Pro vider: Alan ANDERSON Diagnosis: Benign Essential Hyp ertension Gemfibrozil 600 MG OR TABS 04/18/2014 - 12/05/2014 Provider: Alan NADERSON Diagnosis: 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 Gabapentin 300 MG OR CAPS 04/18/2014 - 12/05/2014 Provider: Alan ANDERSON Diagnosis: DIABETES MELLITUS DI ABETIC PERIPHERAL NEUROPATHY one po bid Atorvastatin Calcium 40 MG OR TABS 04/18/2014 - 05/17/2014 P rovider: Alan ANDERSON Diagnosis: Unspecified Hyperlip idemia Nec Aspirin 325 MG OR TABS 04/18/2014 - 06/26/2014 Provider: Diagnosis: [facility] Cipro 500 MG OR TABS 03/16/2014 - 04/18/2014 Provider: Alan ANDERSON Diagnosis: Urinary Tract Infect ion Site Not Specified Cipro 500 MG OR TABS 03/16/2014 - 03/16/2014 Provider: Alan ANDERSON Diagnosis: Urinary Tract Infect ion Site Not Specified Tobramycin 0.3% OP SOLN 02/20/2014 - 04/18/2014 Provider: Alan ANDERSON Diagnosis: 4 drops tid x 7 days Atorvastatin Calcium 40 MG OR TABS 01/10/2014 - 04/18/2014 P rovider: Alan ANDERSON Diagnosis: Unspecified Hyperlip idemia Nec Metoprolol Tartrate 50 MG OR TABS 01/10/2014 - 04/18/2014 Pr ovider: Alan ANDERSON Diagnosis: Benign Essential Hyp ertension NovoLOG FlexPen 100 UNIT/ML SC SOPN 01/10/2014 - 04/18/2014 Provider: Alan ANDERSON Diagnosis: Diabetes Mellitus Wi th Neurological Manifestations Type Ii O up to 6 units per meal Aspirin 325 MG OR TABS 01/10/2014 - 04/18/2014 Provider: Diagnosis: [facility] Plavix 75 MG OR TABS 01/10/2014 - 04/18/2014 Provider: Alan ANDERSON Diagnosis: 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 Lantus SoloStar 100 UNIT/ML SC SOPN 01/10/2014 - 04/18/2014 Provider: Alan ANDERSON Diagnosis: Diabetes Mellitus Wi th Neurological Manifestations Type Ii O 27 units at 9 pm nightly Gemfibrozil 600 MG OR TABS 01/10/2014 - 04/18/2014 Provider: Alan ANDERSON Diagnosis: 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 Losartan Potassium 50 MG OR TABS 01/10/2014 - 04/18/2014 Pro vider: Alan ANDERSON Diagnosis: Benign Essential Hyp ertension Gabapentin 300 MG OR CAPS 01/10/2014 - 04/18/2014 Provider: Alan ANDERSON Diagnosis: DIABETES MELLITUS DI ABETIC PERIPHERAL NEUROPATHY one po bid Pantoprazole Sodium 40 MG OR TBEC 01/10/2014 - 04/18/2014 Pr ovider: Alan ANDERSON Diagnosis: Esophageal Reflux Protopic 0.1% EX OINT 12/20/2013 - 04/18/2014 Provider: Diagnosis: Derm- 1 application to affected area bid Losartan Potassium 50 MG OR TABS 11/23/2013 - 01/10/2014 Pro vider: Diagnosis: Nephro Aspirin 325 MG OR TABS 11/17/2013 - 01/10/2014 Provider: Diagnosis: [facility] OneTouch Ultra Blue STRP 11/01/2013 - 04/18/2014 Provider : Alan ANDERSON Diagnosis: Dm Without Complicat ion Type II or Unspecified Type Not Stat test 2-3 times per day Plavix 75 MG OR TABS 11/01/2013 - 01/10/2014 Provider: Alan ANDERSON Diagnosis: 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 Pantoprazole Sodium 40 MG OR TBEC 11/01/2013 - 01/10/2014 Pr ovider: Alan ANDERSON Diagnosis: Esophageal Reflux omeprazole and nexium not effective OneTouch Ultra Blue STRP 11/01/2013 - 10/31/2013 Provider : Alan ANDERSON Diagnosis: Dm Without Complicat ion Type II or Unspecified Type Not Stat test 2-3 times per day NovoLOG FlexPen 100 UNIT/ML SC SOLN 11/01/2013 - 04/18/2014 Provider: Alan ANDERSON Diagnosis: Diabetes Mellitus Wi thout Complication Type Ii or Unspecifie per slide, up to8 units per meal Nitrostat 0.4 MG SL SUBL 11/01/2013 - 04/18/2014 Provider: Alan ANDERSON Diagnosis: 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 take one with cp, wait five minutes, lakeshia e another tablet and call 911 if CP persists Lantus SoloStar 100 UNIT/ML SC SOLN 11/01/2013 - 04/18/2014 Provider: Alan ANDERSON Diagnosis: Diabetes Mellitus Wi thout Complication Type Ii or Unspecifie 27 units qhs Gemfibrozil 600 MG OR TABS 11/01/2013 - 01/10/2014 Provider: Alan ANDERSON Diagnosis: 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 Gabapentin 300 MG OR CAPS 11/01/2013 - 01/10/2014 Provider: Alan ANDERSON Diagnosis: DIABETES MELLITUS DI ABETIC PERIPHERAL NEUROPATHY one po bid Depakote 500 MG OR TBEC 11/01/2013 - 01/10/2014 Provider: Alan ANDERSON Diagnosis: Classical Migraine W ithout Intractable Migraine one tab at hs BD Pen Needle Rohini U/F 32G X 4 MM MISC 11/01/2013 - 04/18/20 14 Provider: Alan ANDERSON Diagnosis: Dm Without Complicat ion Type II or Unspecified Type Not Stat use with lantus and novolog up to QID Atorvastatin Calcium 40 MG OR TABS 11/01/2013 - 01/10/2014 P rovider: Alan ANDERSON Diagnosis: Unspecified Hyperlip idemia Nec Adult Aspirin EC Low Strength 81 MG OR TBEC 11/01/2013 - 11/2013 Provider: Alan ANDERSON Diagnosis: STROKE - ISCHEMIC BD Pen Needle Rohini U/F 32G X 4 MM MISC 11/01/2013 - 11/01/19 14 Provider: Alan ANDERSON Diagnosis: Dm Without Complicat ion Type II or Unspecified Type Not Stat use with lantus and novolog up to QID Atorvastatin Calcium 40 MG OR TABS 11/01/2013 - 10/31/2013 Ann-Marie pruett: Alan ANDERSON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 Diabetes Mellitus with Foot Ulcer Lab Order Alan ANDERSON 12/15/2019 04/25/2019 11:12AM 0 09/29/2019 11:59PM Chart Update Veronika Malcolm RN 11/15/2019 04/25/2019 1:57PM 0 09/29/2019 11:59PM Medication Order Alan ANDERSON 10/27/2019 04/25/2019 8:19AM 09/29/2019 11:59PM Telephonic Encounter Alan ANDERSON [facility] 09/29/2019 04/25/2019 9:20AM 9:33AM Anemia, Diabetes Mellitus, A llergic Rhinitis, Nicotine Dependence, Hypertension (Systemic), Lumbago, Diabetes Mellitus with Foot Ulcer, Stroke - Ischemic, Fatigue, Chronic Kidney Disease Stage 3, Disturbance of Gait, Coronary Artery Disease Left Main, Blood in the Stool Insurance Includes: Active Insurance Policies Plan Name Member ID Group # Subscriber Relationship Effective Da axel 1 - [employer] [id number] Agustin Higgins Jr Self 02/12/2002 - Unknown 2 - Medicaid-[employer] [id number] Agustin ramirez Jr Self 12/30/2005 - Unknown Advance Directives Includes: Current Advance Directives Directive Pat Aware Third Constitution Party Effective Date Reviewed Status Health Care Proxy Yes 10/30/2016 Current and Verified Ebola Screening Performed Yes 02/07/2020 Current and Verified Note: Within the last month, have you traveled outside of the [place]? - NO packet given Pt Bill of Rights, Priv Prac, Ad Dir Yes 04/10/2020 Current and Verified Note: Pt declined AD packet Health Concerns Includes: Active Health ConcernsNo Active Health Concerns Recorded Goals Includes: Active GoalsNo Active Goals Recorded Interventions Includes: Interventions for active GoalsNo Interventions Recorded Evaluations & Outcomes Includes: Evaluations & Outcomes for active GoalsNo Outcomes Recorded
--- OUTSIDE RECORDS SUMMARY | 2020-07-29 12:30 | CCD ---
Full Chart - [facility] Created on: 07/27/2020 Agustin Higgins Jr External Reference #: [id number] : 1955 Sex: Male Author Author [facility] Address [address] [place] [address] Phone Care Team Providers Care Assembly Worker Name Role Phone Yamilet ANDERSON, Alan Garcia Unavailable [phone] Jhonatan JOHNSTON, Armando Unavailable [phone] [place] Unavailable [phone] Evangelina JOHNSTON, Homar Unavailable [phone] [facility] Unavailable [phone] [facility] Unavailable [phone] [facility] Unavailable [phone] [facility] Radiology, [facility] Unavailable [phone] Post DPM, Arik Unavailable [phone] [facility] Gastroenterology and Metabolic Disease, Gloria [facility] ([place], [place]) Unavailable [phone] Jonathan JOHNSTON, Jalyn Unavailable [phone] Reason for Referral No Reason for Referral [...] 10/19/2017 - 12:00AM Alan ANDERSON Active Note: [facility]- p atient sent to ED [...] test revealved mild ischemia w/ normal LV [id number] no change from above Peripheral Arterial Disease [...] continue w ith reglan and monitor 05/2015 [facility] admission- ulcer Pure Hypercholesterolemia 05/17/2014 - 12:00AM [...] or atorvastatin, but has been on these long term care administrator and this occured in spring, starting protopic ointment, sx's likely drug reaction or kidney disease from DM. Chronic Kidney Disease Stage 3 11/23/2013 - 12:00AM Jose M Malcolm RN Active Note: 11/22/13 Nephro - proba sue due to diabetic nephropathy, vasculitis work up has been negative per Rheum, renal Us also unremarkable, start lostartan potassium.05/08/14 [facility] ER admission-acute kidney injury superimposed on chronic kidney disease is resolved, back to baseline.08/2015 Nephro- stable at baseline, continue with current regimen09/05/15 Dr Hutchinson - Followed by Nephrology . Unchanged 09/07/17 [facility] [place]- stable at baseline10/19/17 US renal- increasing creatinine--Right [...] Artery Disease Left Main 01/16/2013 - 12:00AM [place] Nurse Active Note: Unchanged - see operat del reports general surgery dated 05/29/[address] Armando Israel. Preoperative dx severe disabling left legt claudication. Postoperative dx: Severe disabling left leg claudication. Procedures 1)aortogram with left leg angiogram. 2) left iliac stent times 2(7mm x 37mm, 7mm x 27mm express)11/16/13 [facility]- currently asymptomatic, last stress test revealed mild ischemia with normal LV function.07/19/14 Vascular- 1.8cm left iliac aneurysm and 1.6cm right iliac aneurysm, will monitor and return in 6 mths recheck US04/2015 [facility]- currently asymptomatic 09/05/15 Dr Hutchinson Unchanged. With [...] cardiology-- no residual symptoms-- on anticoagulation, plavix11/16/13 [facility] currently asymptomatic, did not follow with neuro, no neuro complaints12/2014 WAS USING PLAVIX AND ASPIRIN AND COUMADIN AFTER LAST HOSPITAL STAY, SO TAKEN OFF ALL BUT ASPIRIN AND MEDS RECONCILED AGAIN IN DETAIL-- MAY CONSIDER OFF COMPLETELY IF FALLS OR DOING MORE HARM THAN GOOD-- 04/2015 [facility]- acute lacunar infarct left cerebral pednuncle, plavix and aspirin and follw up with neuro08/2015 [place] admission- MRI brain showed small right thalamic [...] unchanged. Currently basal insulin 09/07/17 [facility] [place] -Insulin as per PCP Gerd 11/20/2010 - 12:00AM Alan ANDERSON A ctive Note: Well-Controlled - WATC H FOOD TRIGGERS, HEAD OF BED ELEVATED-- STOPPED OMEPRAZOLE ON HIS OWN, FELT HE DIDNT NEED IT-- Hyperlipidemia 11/20/2010 - 12:00AM Alan ANDERSON Active Note: LDL GOAL 70 OR LESS WI TH DM HX, ON 03/10/18 Dr Hutchinsonapproriately treated with statin Hypertension (Systemic) 11/20/2010 - 12:00AM Camille mckenzie Active Note: SEE [facility] VISIT 02/2012, 10/2012 HISTORY OF STENT / [...] Lab BASIC METABOLIC PANEL 07/26/20 Yady Dale SHOP REPAIRER Lab CBC w/ Auto Diff 07/26/20 Yady cain SHOP REPAIRER Lab LIPASE 07/26/20 Yady Dale N P Lab H Pylori AG,Stool 07/26/20 Yady vinsone SHOP REPAIRER Lab OVA AND PARASITES 07/26/20 Yady Cain ebe SHOP REPAIRER Lab STOOL CULTURE 07/26/20 Yady Dale SHOP REPAIRER Lab STOOL FOR WBC/LACTOFERRIN QUAL 07/26/20 Yady Dale SHOP REPAIRER Referrals To Diagnosis Cardiology Hypertension Unspeci fied Essential Note: Addie appt for reeval, /US carot ids if we can here in [place]-- hx stroke, DM Vascular Peripheral Vascular Disease Unspecified Note: Please schedule patient with PROVI VIVIAN, PT WOULD LIKE VASCULAR OF [facility] FOR VASCULAR OCCULSION SHOWED ON CT [...] vieira for right foot sore, hx DM [facility] PLEASE CALL SISTER SHANTAL WITH APPT [phone] Rheumatology Systemic Lupus Eryth ematosus Note: Please schedule patient with provi vivian due to acute lupus markers from dermatology consult, they are recommending him have further eval for these markers. thanks.[facility] GI Note: [facility] GI for eval possible intest inal blockage, urgent appt please-- hospital notes labs imaging requested from [facility] -- pending-- can send with it-- US; MRI Note: bilateral lower leg swelling pain, doppler US to eval bilateral [place] please call sister shantal with appt [phone]//MRI same place and time for abdomen pelvis eval 8 weeks nausea, vomiting, elevated lipase thin slice through pancreas 3 hospital admission since thanks Urology Proteinuria Note: Please schedule patient with provi vivian for non specific infalmmation . Please schedule in the [place] [facility] urgent CT abdomen, pelvis [...] lump humerus [place]-- please call sister at [phone] Ortho Unspecified Derangem ent of Joint of Shoulder Region Note: Please schedule patient with provi vivian for ongoing right shoulder and arm pain. thanks Other Note: 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 Chronic kidney disea se, stage 3 [...] will need f.u after CT Referral Imaging [place] Acute peptic ulce r, site unsp, w/o [...] patient with provi vivian- V[facility] surgeons of [facility]- Dr. Centeno- see CT report GI Cj Ceballos MD Diabetes due to unde rlying condition w ketoacidosis w/o coma Note: Please schedule patient with provi vivian [address] please for [facility] f.u diabetes, gastroparesis nausea, abdominal pain please call daughter in law kelly with appt [phone] GI Diarrhea, unspecifie d Note: Please schedule patient with [facility] [place] [place] gastro for frequent vomiting and diarrhea Neurology Matilde Reyes Repeated falls Note: Please schedule patient with provi vivian for recurrent falls GI Unspecified abdomina l pain Note: Please schedule patient with provi vivian for continued abdominal discomfort- n/v Future Appointments Date Time Location Provider Telephonic Encounter 08/06/2020 1:30PM [facility] Alan ANDERSON Future Tests Order Diagnosis Results Due Ordering Provid er [id number] - *Revisit Acute Acute Follow-up Telehea lth Unspecified abdominal pain 07/26/20 Yady Dale SHOP REPAIRER Findings Encounter Date Ordered return to the clinic if condition worsens or n ew symptoms arise Acute L3 with Yady Dale NP 07/26/2020 Ordered Clinical summary transmitted to referring provider electronically or receiving provider electronically through [facility] AHR with Alan ANDERSON 04/10/2020 Ordered Transition in care, clinical sum alan provided electronically through [facility] AHR with Alan ANDERSON 04/10/2020 Ordered Clinical summary transmitted to referring provider electronically or receiving provider electronically through [facility] Acute Follow- up Telephonic with Alan ANDERSON 03/12/2020 Ordered Transition in care, clinical sum alan provided electronically through [facility] Acute Follow-up Telephonic with Alan ANDERSON 03/12/2020 Ordered Clinical summary transmitted to referring provider electronically or receiving provider electronically through [facility] Hospital Follow-up with Alan ANDERSON 02/07/2020 Ordered Transition in care, clinical sum alan provided electronically through [facility] Follow-up with Alan ANDERSON 02/07/2020 Ordered Clinical summary transmitted to referring provider electronically with reasonable certainty of receipt or receiving provider electronically through [facility] Telephonic Encounter with Alan ANDERSON 0 Ordered Transition in care, clinical sum alan provided electronically through [facility] Telephonic Encounter with Alan ANDERSON 0 Ordered Clinical summary transmitted to referring provider electronically with reasonable certainty of receipt or receiving provider electronically through [facility] Telephonic Encounter with Alan ANDERSON 0 Ordered Transition in care, clinical sum alan provided electronically through [facility] Telephonic Encounter with Alan ANDERSON 0 Ordered Clinical summary transmitted to referring provider electronically or receiving provider electronically through [facility] Chronic Disease Follow-up with Alan ANDERSON 04/25/2019 Ordered Transition in care, clinical sum alan provided electronically through [facility] Chronic Disease Follow-up with Alan ANDERSON 04/25/2019 Ordered Clinical summary transmitted to referring provider electronically or receiving provider electronically through [facility] [employer] [facility] Chronic Disease Follow-up with Alan ANDERSON 01/02/2019 Ordered Transition in care, clinical sum alan provided electronically through [facility] Chronic Disease Follow-up with Alan ANDERSON 01/02/2019 Ordered Clinical summary transmitted to referring provider electronically or receiving provider electronically through [facility] [facility] AHR with Alan ANDERSON 11/21/2018 Ordered Transition in care, clinical sum alan provided electronically through [facility] [employer] [facility] AHR with Alan ANDERSON 11/21/2018 Ordered Clinical summary transmitted to referring provider electronically or receiving provider electronically through [facility] Follow-up with Alan ANDERSON 11/14/2018 Ordered Transition in care, clinical sum alan provided electronically through [facility] Follow-up with Alan ANDERSON 11/14/2018 Ordered Clinical summary transmitted to referring provider electronically or receiving provider electronically through [facility] Chronic Disease Follow-up with Alan ANDERSON 09/12/2018 Ordered Transition in care, clinical sum alan provided electronically through [facility] [employer] [facility] Chronic Disease Follow-up with Alan ANDERSON 09/12/2018 Ordered Clinical summary transmitted to referring provider electronically or receiving provider electronically through [facility] [employer] [facility] FOLLOW UP RECHECK with Alan ANDERSON 07/14/2018 Ordered Transition in care, clinical sum alan provided electronically through [facility] [employer] [facility] FOLLOW UP RECHECK with Alan ANDERSON 07/14/2018 Ordered Clinical summary transmitted to referring provider electronically or receiving provider electronically through [facility] [employer] [facility] RECHECK with Alan ANDERSON 05/27/2018 Ordered Transition in care, clinical sum alan provided electronically through [facility] [employer] [facility] RECHECK with Alan ANDERSON 05/27/2018 Ordered Clinical summary transmitted to referring provider electronically or receiving provider electronically through [facility] [employer] [facility] Chronic Disease Follow-up with Alan ANDERSON 04/27/2018 Ordered Transition in care, clinical sum alan provided electronically through [facility] [facility] Chronic Disease Follow-up with Alan ANDERSON 04/27/2018 Ordered Clinical summary transmitted to referring provider electronically or receiving provider electronically through [employer] RECHECK with Alan ANDERSON 12/22/2017 Ordered Transition in care, clinical sum alan provided electronically through [employer] RECHECK with Alan ANDERSON 12/22/2017 Ordered Clinical summary transmitted to referring provider electronically or receiving provider electronically through [employer] Chronic Disease Follow-up with Alan ANDERSON 11/23/2017 Ordered Transition in care, clinical sum alan provided electronically through [employer] Chronic Disease Follow-up with Alan ANDERSON 11/23/2017 Ordered Clinical summary transmitted to referring provider electronically or receiving provider electronically through [employer] Walk-In with Alan ANDERSON 11/09/2017 Ordered Transition in care, clinical sum alan provided electronically through [employer] Walk-In with Alan ANDERSON 11/09/2017 Instructions for patient Walk-In with Aaln ANDERSON Ordered Clinical summary transmitted to referring provider electronically or receiving provider electronically through [employer] Walk-In with Alan ANDERSON 08/24/2017 Ordered follow-up [...] provider electronically or receiving provider electronically through [employer] Walk-In with Jorgito Saul DO 07/29/2017 Ordered follow-up visit Walk-In with Jorgito Saul DO 07/29/2017 Ordered return to the clinic if condition worsens or n ew symptoms arise Walk-In with Jorgito Saul DO 07/29/2017 Ordered Clinical summary transmitted to referring provider electronically or receiving provider electronically through [employer] Chronic Disease Follow-up with Alan ANDERSON 07/20/2017 Ordered Transition in care, clinical sum alan provided electronically through [facility] Chronic Disease Follow-up with Alan ANDERSON 07/20/2017 Ordered Transition in care, sera phillips provided electronically through [facility] Chronic Disease Follow-up with Alan ANDERSON 02/03/2017 Ordered Transition in care, sera phillips provided electronically through [facility] Chronic Disease Follow-up with Alan ANDERSON [...] 09/07/2014 Ordered fluids FOLLOW UP RECHECK with Alna Ramos 09/07/2014 Ordered go to the emergency [...] us know Diabetes Follow-up with Alan ANDERSON 07/12/2013 Ordered return to the clinic if condition worsens or n ew symptoms arise Diabetes Follow-up with Alan ANDERSON 07/12/2013 Ordered follow-up visit [facility] af ter dx,, patient agrees and [...] otherwise no ellis Diabetes Follow-up with Alan ANDERSON 10/10/2012 Medical regimen review Diabetes Follow-up with [...] 6-8 weeks with myself and with our rn picu as scheduled-- sooner if quest or problems [...] consultation with a specialist CONTINUE WITH CARDIOLOGY, [facility] ORDERED 30 minutes with Alan ANDERSON 12/08/2010 [...] now lives acro ss the [place]ay in [place], ALAN who was here last visitmeds reviewed, doing much better with calcitriol not vomiting in am and checking sugars with talking meter-- taking meds daily with pill packs from [employer]-- reviewed-- AHR with Alan ANDERSON 04/10/2020 Diabetes mellitus with foot ulcer right foot resolved, feet are calloused today, refuses podiatry AHR with Alan ANDERSON 04/10/2020 Diabetic peripheral neuropathy AHR with Alan [...] it, 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 DM SO NEEDS TO NOT BINGE AND [...] his cosme SONIDO who is also his environmental service aide and her mom ALAN who was here [...] robin does his meds-- long discussion on snf risks and that he cannot be on [...] it, 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 DM SO NEEDS TO NOT BINGE AND EAT SMALLER MEALS TO HELP DIGESTION Hospital Follow-up with Alan ANDERSON 02/07/2020 Chronic kidney disease, stage 3 Hospital Follow-up with Alan ANDERSON 02/07/2020 Diabetes mellitus has been from house t o house, SHANTAL sister, to SON's now with his cosme HEAD who is also his environmental service aide and her mom ALAN who was here [...] crystal does his meds-- long discussion on long term care administrator risks and that he cannot be on [...] improved, declines any further therapy at this [facility] Follow-up with Alan ANDERSON 02/07/2020 Left [...] A 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 OF LOW 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 DM SO NEEDS TO NOT BINGE AND EAT SMALLER MEALS TO HELP DIGESTION Telephonic Encounter with Alan ANDERSON 01/09/2020 Chronic kidney disease, stage 3 requested recent labs from ortho Telephonic Encounter with Alan ANDERSON 01/09/2020 Diabetes mellitus has been from house t o house, SHANTAL sister, to SON's now with his Aprimo who is also his environmental service aide and her mom ALAN who was here last visit-- doing better not missing meals-- less nausea - watching hypoglycemia -and will do his pill minders-- long discussion on long term care administrator risks and that he cannot be on [...] A 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 DM SO NEEDS TO NOT BINGE AND EAT SMALLER MEALS TO HELP DIGESTION Telephonic Encounter with Alan ANDERSON 09/29/2019 Chronic kidney disease, stage 3 requested recent labs from ortho Telephonic Encounter with Alan ANDERSON 09/29/2019 Diabetes mellitus has been from [facility], SHANTAL sister, to SON's now with his cosme HEAD who is also his environmental service aide and her mom ALAN who was here last visit-- doing better not missing meals-- less nausea - watching hypoglycemia -and will do his pill minders as daughter in law crystal does his meds-- long discussion on long term care administrator risks and that he cannot be on [...] disease, stage 3 requested recent labs from [facility] Chronic Disease Follow-up with Alan ANDERSON 04/25/2019 Diabetes mellitus has been from house t o house, SHANTAL sister, to SON's now with his [employer] SONIDO who is also his environmental service aide and her mom ALAN who was here [...] robin does his meds-- long discussion on long term care administrator risks and that he cannot be on [...] his cosme LEDBETTERITY who is also his environmental service aide and her mom ALAN who was here [...] robin does his meds-- long discussion on snf risks and that he cannot be on [...] A 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 DM SO NEEDS TO NOT BINGE AND EAT SMALLER MEALS TO HELP DIGESTION AHR with Alan ANDERSON 11/21/2018 Chronic kidney disease, stage 3 requested recent labs from ortho AHR with Alan ANDERSON 11/21/2018 Diabetes mellitus has been from house t o house, SHANTAL sister, to SON's now with his cosme SONIDO who is also his environmental service aide and her mom ALAN is here with [...] crystal does his meds-- long discussion on long term care administrator risks and that he cannot be on insulin if he is not checking his sugars--FINALLY AGREES TO TRYING A TALKING METER DUE TO SIGHT LOW VISION AND ILLITERACY he also saw Veronika Malcolm RN today, our rn picu, health care sanitary technician, who discussed plan of care and will [...] visit per pt and sister AHR with lAan ANDERSON 11/21/2018 Hypertension goal <140/80-- continue cu [...] robin does his meds-- long discussion on snf risks and that he cannot be on insulin if he is not checking his sugars-- he also saw Veronika Malcolm RN today, our rn picu, health care sanitary technician, who discussed plan of care and will f.u with sugars -- no humalog as it was prescribed by nephro despite him not eating and he was having lows in the 50's Hospital Follow-up with Alan ANDERSON 11/14/2018 Diabetes mellitus with foot ulcer right foot resolved, feet are calloused today, refuses podiatry Hospital Follow-up with Aaln ANDERSON 11/14/2018 Disturbance of gait will watch since before hospital visit we had to lower metoprolol-- Hospital Follow-up with Alan ANDERSON 11/14/2018 Fatigue improved from last visit per pt and sister Uriah adamson Follow-up with Alan ANDERSON 11/14/2018 Hypertension goal <140/80-- continue cu rrent meds per cardiology with DM, history and risk factors-- meds [facility] Hospital Follow-up with Alan ANDERSON 11/14/2018 Ischemic stroke continue to follow with neuro-- currently on aspirin and plavix for anticoagulation-- was removed off plavix from ER then had another stroke - within a week-- - imperative as long as anticoagulation is tolerated that he takes daily-- speech and weakness has improved, declines any further therapy at this [facility] Follow-up with Alan ANDERSON 11/14/2018 Left [...] robin does his meds-- long discussion on snf risks and that he cannot be on insulin if he is not checking his sugars-- he also saw Veronika Malcolm RN today, our rn picu, health care sanitary technician, who discussed plan of care and will [...] son's girlfriend robin temporarily-- long discussion on long term care administrator risks and that he cannot be on insulin if he is not checking his sugars-- he also saw Veronika Malcolm RN today, our rn picu, health care sanitary technician, who discussed plan of care and will [...] son's girlfriend robin temporarily-- long discussion on snf risks and that he cannot be on insulin if he is not checking his sugars-- he also saw Veronika Malcolm RN today, our rn picu, health care sanitary technician, who discussed plan of care and will [...] but watching hypoglycemia -- long discussion on snf risks and that he cannot be on insulin if he is not checking his sugars-- he also saw Veronika Malcolm RN today, our rn picu, health care sanitary technician, who discussed plan of care and will f.u with sugars in a couple of weeks-- Chronic Disease Follow-up with Alan ANEDRSON 04/27/2018 Diabetes mellitus with foot ulcer right [...] UTD Chronic Disease Follow-up with Alan ANDERSON 04/27/2018 Ischemic stroke continue to follow [...] ortho Chronic Disease Follow-up with Alan ANDERSON 11/23/2017 Diabetes mellitus taking his lantus [...] kidney disease, stage 3 Walk-In with Alan ANDERSON 11/09/2017 Diabetes mellitus taking his lantus and [...] except for a 3 days spell of [phone] Chronic Disease Follow-up with Alan ANDERSON 10/08/2015 [...] ANDERSON 08/26/2015 Chronic kidney disease (NKF classification) [facility] ollow-up with Alan ANEDRSON 08/26/2015 Diabetes mellitus Robin, his daughter in [...] 49 min time spent with pt, sister Shantal on eval, plan of care >50% counseling [...] >50% counseling-- Chronic Disease Follow-up with Alan ANDERSON 02/22/2015 Nicotine dependence smoking 1/2 ppd ref [...] Alan ANDERSON 01/04/2015 Stroke syndrome Coumadin with [place] Nurse 12/12/2014 Thrombophlebitis of deep vessels of the lower extremit y Coumadin with [place] Nurse 12/12/2014 Anemia H/H 09/07-- will review [...] Alan ANDERSON 12/05/2014 Stroke syndrome Coumadin with [place] Nurse 12/05/2014 Thrombophlebitis of deep vessels of the lower extremit y Coumadin with [place] Nurse 12/05/2014 Stroke syndrome Coumadin with [place] Nurse 11/27/2014 Thrombophlebitis of deep vessels of the lower extremit y Coumadin with [place] Nurse 11/27/2014 Stroke syndrome Coumadin with [place] Nurse 11/14/2014 Thrombophlebitis of deep vessels of the lower extremit y Coumadin with [place] Nurse 11/14/2014 Stroke syndrome Coumadin with [place] Nurse 11/07/2014 Thrombophlebitis of deep vessels of the lower extremit y Coumadin with [place] Nurse 11/07/2014 Stroke syndrome Coumadin with [place] Nurse 10/31/2014 Thrombophlebitis of deep vessels of the lower extremit y Coumadin with [place] Nurse 10/31/2014 Stroke syndrome Coumadin with [place] Nurse 10/24/2014 Thrombophlebitis of deep vessels of the lower extremit y Coumadin with [place] Nurse 10/24/2014 Abrasion of knee silvadene ordered, [...] of the lower extremit y Coumadin with [place] Nurse 09/27/2014 Adjustment disorder with grief and [...] let sister know-- appt made with our rn picu Nabil Vieyra RN for diet discussion and [...] appt pending M 20 Minutes with Alan ANDERSON 02/24/2012 Hyperlipidemia low chol diet encouraged M [...] insulin sliding scale and diet with our rn picu Nabil Vieyra-- RN-- sister here to help, [...] Alan ANDERSON 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 TAKE ONE [...] once a day Vitamin D3 1.25 MG (99273 UT) Oral Capsule 04/10/2020 Provider: Alan ANDERSON [...] Aerosol Powder Breath Activated 01/09/2020 Provider: Alan ANEDRSON Diagnosis: 1 puff in am rinse after please call medline [phone] if not covered Aspirin 325 MG Oral [...] Alan ANDERSON 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 TAKE ONE [...] Oral Tablet 12/01/2019 - 05/24/2020 Pro vider: Aaln ANDERSON Diagnosis: Major depressive dis order, recurrent, [...] from tania sensor FreeStyle [place]ania 14 Day [place] JOAQUIN 10/30/2019 - 12/01/2019 P rovider: Diagnosis: Type 2 diabetes kayla itus without complications Check blood sugar three times per day FreeStyle [place]ania 14 Day Sensor Miscellaneous 10/30/2019 - Provider: Alan ANDERSON Diagnosis: Type 2 diabetes kayla itus without complications as directed Check blood sugar three times per day FreeStyle Tania 14 Day [place] Device 10/30/2019 - 12/05/2019 Provider: Alan ANDERSON Diagnosis: Type 2 diabetes kayla itus without complications as directed Check blood sugar three times per day FreeStyle Precision [place] Test STRP 10/30/2019 - 12/01/2019 Provider: Diagnosis: Type 2 diabetes kayla itus without complications Test blood sugars when can not get reading from tania sensor FreeStyle Tania 14 Day Sensor MISC 10/30/2019 - 12/01/2019 P rovider: Diagnosis: Type 2 diabetes kayla itus without complications Check blood sugar three times per day FreeStyle Tania 14 Day [place] Device 10/27/2019 - 10/30/2019 Provider: Alan ANDERSON [...] Alan ANDERSON 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 TAKE ONE [...] Alan ANDERSON 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 TAKE ONE [...] tablet PO QD FreeStyle Tania 14 Day [place] Device 01/10/2019 - 08/18/2019 Provider: Alan ANDERSON [...] per day E13.351 FreeStyle Tania 14 Day [place] JOAQUIN 01/09/2019 - 03/06/2019 P rovider: Diagnosis: [...] Oral Tablet 10/07/2018 - 07/21/2019 Prov ider: Jorgito Saul DO Diagnosis: Major depressive dis [...] without esophagitis twice a day Vitamin D3 [id number] Oral Capsule, conventional 08/02/2018 - 04/10/2020 Provider: [...] Oral Tablet 07/14/2018 - 0 11/24/2018 Provider: Alna ANDERSON Diagnosis: Lumbago with sciatic a, unspecified side twice a day 1/2 tablet BID PRN MDD=2 tablets Montelukast Sodium 10MG Oral Tablet 06/03/2018 - 02/03/2019 Provider: Kati Link SHOP REPAIRER Diagnosis: Other allergic rhini tis 1 every bedtime Atorvastatin Calcium 80MG Oral Tablet 06/03/2018 - 9 Provider: Kati Link SHOP REPAIRER Diagnosis: Hyperlipidemia, unsp ecified once a day Reglan 10MG Oral Tablet 05/27/2018 - 11/22/2018 Provider: Alan ANDERSON Diagnosis: Disease of stomach a nd duodenum, unspecified max 12 per week, up to one tablet three times daily if neede d Pantoprazole Sodium 40MG Oral Tablet Delayed Release 018 - 07/26/2018 Provider: Kati Link SHOP REPAIRER Diagnosis: Gastro-esophageal re flux disease without esophagitis [...] Alan ANDERSON 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 TAKE ONE [...] sy ndrome once a day Vitamin D3 [id number] Oral Capsule 08/23/2017 - 08/02/2018 Pr ovider: [...] Alan ANDERSON 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 TAKE ONE [...] pruett: Alan ANDERSON Diagnosis: Type 2 diabetes akyla itus with oth circulatory complications as directed: use to test BG 2-3 times per day Dx E11.59 Vitamin D3 98369MRNQ Oral Capsule 02/03/2017 - 08/23/2017 Pr ovider: [...] Alan ANDERSON 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 TAKE ONE [...] Alan ANDERSON 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 TAKE ONE [...] directed dispense what insurance will cover FreeStyle [place] Lite w/Device KIT 09/15/2016 - 12/16/2016 Provider: Diagnosis: Type 2 diabetes kayla itus with oth circulatory complications as directed: use to test BG 2-3x per day Dx E11.59 FreeStyle [place] Lite w/Device Kit 09/15/2016 - 02/03/2017 Provider: [...] unsp ecified once a day Vitamin D3 [id number] Oral Capsule 08/21/2016 - 02/03/2017 Pr ovider: [...] Alan ANDERSON 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 TAKE ONE [...] Alan ANDERSON 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 TAKE ONE [...] CAPSULE BY MOUTH EVERY DAY Vitamin D3 34068 UNIT Capsule 12/23/2015 - 08/21/2016 Provid er: [...] Alan ANDERSON 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 Devices Miscellaneous (not specified) 04/23/2015 - Provider: Alan ANDERSON Diagnosis: Cerebral infarction, unspecified Shower chair DX: I63.9 Benzonatate 100 MG Capsule 04/17/2015 - 05/01/2015 Provider: Diagnosis: TID one capsule PRN for cough Metoprolol Tartrate 50 MG Tablet 04/08/2015 - 08/01/2015 Pro vider: Diagnosis: [facility] admission Plavix 75 MG Tablet 04/08/2015 - 07/09/2015 Provider: Diagnosis: [facility] admission Aspirin 81 MG Tablet 04/08/2015 - 07/16/2015 Provider: Diagnosis: [facility] admission Reglan 10 MG Tablet 04/03/2015 - 05/01/2015 Provider: Alan ANDERSON Diagnosis: Disease of stomach a nd duodenum, unspecified max 12 per week, up to one tablet three times daily if neede d Tennis Elbow Neoprene Brace Miscellaneous 02/22/2015 - 08/21 Provider: Alan ANDERSON Diagnosis: as directed AmLODIPine Besylate 5 MG Tablet 01/18/2015 - 06/04/2015 Prov ider: Alan ANDERSON Diagnosis: Hypertension Unspeci fied Essential once a day Loratadine 10 MG Tablet 01/10/2015 - 05/01/2015 Provider: Alan ANDERSON Diagnosis: Allergic Rhinitis Du e to Other Allergen 1/2 tablet daily as needed for allergies--PLEASE CUT FOR PAT IENT Aspirin 325 MG Tablet 01/10/2015 - 04/08/2015 Provider: Diagnosis: [facility] AmLODIPine Besylate 5 MG Tablet 01/10/2015 - 01/18/2015 Prov ider: Diagnosis: Cipro 500 MG Tablet 01/04/2015 - 02/22/2015 Provider: Alan ANDERSON Diagnosis: GROSS HEMATURIA twice a day [...] Alan ANDERSON Diagnosis: 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 once a day Gabapentin 300 [...] MG Tablet 12/05/2014 - 01/10/2015 Provider: Diagnosis: [facility] AmLODIPine Besylate 5 MG Tablet 12/05/2014 - [...] MG Tablet 09/28/2014 - 12/05/2014 Provider: Diagnosis: [facility] AmLODIPine Besylate 5 MG Tablet 09/28/2014 - [...] MG Tablet 09/25/2014 - 09/28/2014 Provider: Diagnosis: [facility] AmLODIPine Besylate 5 MG Tablet 09/25/2014 - [...] MG Tablet 09/07/2014 - 09/25/2014 Provider: Diagnosis: [facility] Zantac 75 75 MG Tablet 08/10/2014 - [...] albuterol Albuterol Sulfate (2.5 MG/3ML) 0.083% IN 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 Gabapentin 300 MG OR CAPS 04/18/2014 - 12/05/2014 Provider: Alan ANDERSON Diagnosis: DIABETES MELLITUS DI ABETIC PERIPHERAL NEUROPATHY one po bid Atorvastatin Calcium 40 MG OR TABS 04/18/2014 - 05/17/2014 P rovider: Alan ANDERSON Diagnosis: Unspecified Hyperlip idemia Nec Aspirin 325 MG OR TABS 04/18/2014 - 06/26/2014 Provider: Diagnosis: [facility] Cipro 500 MG OR TABS 03/16/2014 - [...] OR TABS 01/10/2014 - 04/18/2014 Provider: Diagnosis: [facility] Plavix 75 MG OR TABS 01/10/2014 - 04/18/2014 Provider: Alan ANDEROSN Diagnosis: 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 Lantus SoloStar 100 UNIT/ML SC SOPN 01/10/2014 - 04/18/2014 Provider: Alan ANDERSON Diagnosis: Diabetes Mellitus Wi th Neurological Manifestations Type Ii O 27 units at 9 pm nightly Gemfibrozil 600 MG OR TABS 01/10/2014 - 04/18/2014 Provider: Alan ANDERSON Diagnosis: 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 Losartan Potassium 50 MG OR [...] OR TABS 11/17/2013 - 01/10/2014 Provider: Diagnosis: [facility] OneTouch Ultra Blue STRP 11/01/2013 - 04/18/2014 Provider : Alan ANDERSON Diagnosis: Dm Without Complicat ion Type II or Unspecified Type Not Stat test 2-3 times per day Plavix 75 MG OR TABS 11/01/2013 - 01/10/2014 Provider: Alan ANDERSON Diagnosis: 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 Pantoprazole Sodium 40 MG OR [...] Alan ANDERSON Diagnosis: 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 take one with cp, wait five minutes, lakeshia e another tablet and call 911 if CP persists Lantus SoloStar 100 UNIT/ML SC SOLN 11/01/2013 - 04/18/2014 Provider: Alan ANDERSON Diagnosis: Diabetes Mellitus Wi thout Complication Type Ii or Unspecifie 27 units qhs Gemfibrozil 600 MG OR TABS 11/01/2013 - 01/10/2014 Provider: Alan ANDERSON Diagnosis: 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 Gabapentin 300 MG OR CAPS [...] Alan ANDERSON Diagnosis: 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 OneTouch Ultra Blue STRP 07/12/2013 [...] Alan ANDERSON Diagnosis: 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 Gabapentin 300 MG OR CAPS [...] Alan ANDERSON Diagnosis: 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 Metoprolol Tartrate 50 MG OR [...] Alan ANDERSON Diagnosis: 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 Gemfibrozil 600 MG OR TABS 01/09/2013 - 07/12/2013 Provider: Alan ANDERSON Diagnosis: 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 Omeprazole 20 MG OR CPDR [...] Alan ANDERSON Diagnosis: 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 Lantus SoloStar 100 UNIT/ML SC [...] Alan ANDERSON Diagnosis: 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 Metoprolol Tartrate 50 MG OR TABS 06/20/2012 - 01/09/2013 Pr ovider: Alan ANDERSON Diagnosis: Benign Essential Hyp ertension Adult Aspirin EC Low Strength 81 MG OR TBEC 06/20/2012 - Provider: Alan ANDERSON Diagnosis: 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 OneTouch Ultra Blue STRP 06/20/2012 [...] Alan ANDERSON Diagnosis: 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 Lantus SoloStar 100 UNIT/ML SC SOLN 02/24/2012 - 06/20/2012 Provider: Alan ANDERSON Diagnosis: Diabetes Mellitus Wi thout Complication Type Ii or Unspecifie 25 units qhs Metoprolol Tartrate 50 MG OR TABS 02/24/2012 - 06/20/2012 Pr ovider: Alan ANDERSON Diagnosis: Benign Essential Hyp ertension Nitrostat 0.4 MG SL SUBL 02/24/2012 - 10/31/2013 Provider: Alan ANDERSON Diagnosis: 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 take one with cp, wait five minutes, lakeshia e another tablet and call 911 if CP persists Plavix 75 MG OR TABS 02/24/2012 - 06/20/2012 Provider: Alan ANDERSON Diagnosis: 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 Atorvastatin Calcium 40 MG OR TABS 02/24/2012 - 06/20/2012 P rovider: Alan ANDERSON Diagnosis: Unspecified Hyperlip idemia Nec Adult Aspirin EC Low Strength 81 MG OR TBEC 02/24/2012 - 12/2012 Provider: Alan ANDERSON Diagnosis: 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 NovoLOG FlexPen 100 UNIT/ML SC [...] Diagnosis: one tab daily per hospital report Echo 5-325 MG OR TABS 12/30/2011 - 02/24/2012 [...] 12/30/2011 - 12/30/2011 Provider: Diagnosis: per hospital report/[facility] Atorvastatin Calcium 40 MG OR TABS 12/30/2011 [...] 12/08/2010 - 12/30/2011 Provider: Alan ANDERSON Diagnosis: [facility] FILLS THIS Ranexa 1000 MG OR TB12 12/08/2010 - 12/30/2011 Provider: Diagnosis: BY [facility] Plavix 75 MG OR TABS 12/08/2010 - 12/30/2011 Provider: Diagnosis: PER [facility] Metoprolol Tartrate 100 MG OR TABS 12/08/2010 - 12/30/2011 P rovider: Diagnosis: PER [facility] Nitrostat 0.4 MG SL SUBL 12/08/2010 - 02/24/2012 Provider: Diagnosis: BY [facility] Omeprazole 40 MG OR CPDR 12/08/2010 - [...] Provider: Alan ANDERSON Diagnosis: Left at the front office specialist per [facility]MB. 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 Illiterate 01/11/2014 Life circumstance event 2 CHILDREN, MAR RIED 25 YEARS, -- GFRIEND HAS STAGE 4 CANCER 01/11/2014 Educational level 8th grade 01/10/2014 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 020 Medicare Pneumococcal polysaccharide vaccine, 23-valent, duong 78050 Encounter for immunization Alan ANDERSON [facility] 04/10/2020 Medicare Influenza vaccine, preservative free, 6 months & up 00636 Encounter for immunization Alan ANDERSON [facility] 04/10/2020 [facility] code for distant site telehealt h services (Synchronous telemedicine service rendered via real-time interactive audio and video telecommunication system) G2025 Iron deficiency anemia, unsp ecified, Oth diabetes mellitus with diabetic neuropathy, unspecified, Cerebral infarction, unspecified, Essential (primary) hypertension Alan ANDERSON [facility] 03/12/2020 [facility] Visit, established patient G0467 Chronic kidney disease, stage 3 (moderate), Hypothyroidism, unspecified, Oth diabetes mellitus with diabetic neuropathy, unspecified, Other allergic rhinitis Alan ANDERSON [facility] 02/07/2020 [facility] code for distant site telehealt h services (Synchronous telemedicine service rendered via real-time interactive audio and video telecommunication system) G2025 Gastro-esophageal reflux dis ease with esophagitis, Shortness of breath, Cerebral infarction, unspecified, Type 2 diabetes mellitus with oth circulatory complications Alan Aguilerachristi ANDERSON [facility] 01/09/2020 [facility] Visit, established patient (Synchro nous telemedicine service rendered via real-time interactive audio and video telecommunication system) G0467 Type 2 diabetes mellitus with oth circulatory complications, Chronic kidney disease, stage 3 (moderate), Cerebral infarction, unspecified, Iron deficiency anemia, unspecified Alan Woodard JUSTIN [facility] 09/29/2019 [facility] code for distant site telehealt h services (Synchronous telemedicine service rendered via real-time interactive audio and video telecommunication system) G2025 Type 2 diabetes mellitus wit h oth circulatory complications, Chronic kidney disease, stage 3 (moderate), Cerebral infarction, unspecified, Iron deficiency anemia, unspecified Alan Woodard [facility] 09/29/2019 Surgical History Last Updated Surgical / [...] eyeu 04/05/2015 No previous emergency room visit [facility] 01/10/2015 No fall 11/09/2014 No trauma to [...] PLAN: You may call the clinic or [phone] ( ) when you are ready to quit 07/12/2013 Family History Includes: Family History in patient's chart Description Last Updated Family history of cancer MOTHER CA 61YO UNKNOWN TYPE ~FATHER MO 46YO 01/11/2014 Family history of early deaths [...] Time D iagnosis Acute L3 Yady Dale SHOP REPAIRER [facility] 07/26/2020 6:24PM 8:01PM Abdominal Pain, Nicotine Dependence Chart Update Veronika Malcolm RN 04/16/2020 04/10/2020 7:38AM 1 11:59PM AHR Alan ANDERSON [facility] 04/10/2020 11:04AM 12:4 3PM Chronic Kidney Disease Stage 3, Diabetes Mellitus Diabetic Peripheral Neuropathy, Diabetes Mellitus, Anemia, Diabetes Mellitus, Allergic Rhinitis, Nicotine Dependence, Hypertension (Systemic), Lumbago, Diabetes Mellitus with Foot Ulcer, Stroke - Ischemic, Chronic Kidney Disease Stage 3, Coronary Artery Disease Left Main, Blood in the Stool Acute Follow-up Telephonic Alan ANDERSON [facility] 03/1202/07/2020 3:50PM 3:38PM Nausea, Anemia, Diabetes Kristina litus, Diabetes Mellitus Diabetic Peripheral Neuropathy, Hypothyroidism, Allergic Rhinitis, Nicotine Dependence, Hypertension (Systemic), Lumbago, Diabetes Mellitus with Foot Ulcer, Stroke - Ischemic, Chronic Kidney Disease Stage 3, Disturbance of Gait, Coronary Artery Disease Left Main, Blood in the Stool Chart Update Veronika Malcolm RN 02/14/2020 02/07/2020 1:32PM 0 02/07/2020 11:59PM Hospital Follow-up Alan ANDERSON [facility] 02/07/2020 10:0 2AM 11:12AM Chronic Kidney Disease Stage 3, Diabetes Mellitus Diabetic Peripheral Neuropathy, Hypothyroidism, Anemia, Diabetes Mellitus, Allergic Rhinitis, Nicotine Dependence, Hypertension (Systemic), Lumbago, Diabetes Mellitus with Foot Ulcer, Stroke - Ischemic, Disturbance of Gait, Coronary Artery Disease Left Main, Blood in the Stool Chart Update Veronika Malcolm RN 02/02/2020 04/25/2019 5:29PM 0 01/09/2020 11:59PM Telephonic Encounter Alan ANDERSON [facility] 01/09/2020 04/25/2019 11:00AM 12:25PM Stroke - Ischemic, [...] 8:19AM 09/29/2019 11:59PM Telephonic Encounter Alan ANDERSON [facility] 09/29/2019 04/25/2019 9:20AM 9:33AM Anemia, Diabetes Mellitus, A llergic Rhinitis, Nicotine Dependence, Hypertension (Systemic), Lumbago, Diabetes Mellitus with Foot Ulcer, Stroke - Ischemic, Fatigue, Chronic Kidney Disease Stage 3, Disturbance of Gait, Coronary Artery Disease Left Main, Blood in the Stool Insurance Includes: Active Insurance Policies Plan Name Member ID Group # Subscriber Relationship Effective Da axel 1 - [employer] [id number] Agustin Higgins Jr Self 02/12/2002 - Unknown 2 - Medicaid-[employer] [id number] Agustin ramirez Jr Self 12/30/2005 - Unknown Advance Directives Includes: Current Advance Directives Directive Pat Aware Third Green Party Effective Date Reviewed Status Health Care [...]
--- OUTSIDE RECORDS SUMMARY | 2020-07-29 12:32 | CCD ---
Author Author [facility] Organization [facility] Address Unknown Phone Unavailable Support Name Relationship Address Phone RET Next Of Kin RETIRED Unknown Unavailable Dez Tamez Next Of Kin [address] [address] DAWN ANTON Next Of Kin [address] [place] [address] Peg Omer Next Of Kin [address] [address] SONIDO ANTON Next Of Kin Unknown JORGE OMER Next Of Kin [address] [address] Melinda Wilcox Next Of Kin [address] [address] JEFF MELINDA Next Of Kin [address] [place] [address] MAHNAZ OMER Next Of Kin [address] [address] DEZ QUIJANO Next Of Kin [address] [place] [address] AJ QUIJANO Next Of Kin [address] [place] [address] NYDIA ANTON JR Next Of Kin [address] [place] [address] PIERRE WESTON Next Of Kin [address] [address] JEAN LIU Next Of Kin [address] [place] [address] DISABILITY Next Of Kin - -, - - UN Next Of Kin Unknown Unavailable DISABLED Next Of Kin Unknown Unavailable LASHAWN SPEAR Next Of Kin [address] [place] [address] UE Next Of Kin Unknown Unavailable CASTOR, BUSHRA Next Of Kin [address] [place] [address] Chase Quijano ECON [address] [place] [address] Rachel Spear ECON [address] [place] [address] [phone] Care Team Providers Care Plug 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 Operator Name Role Phone Evangelina, Ann-Marie Graf MD, [facility] Unavailable Unavailable Gabris, Ann-Marie Graf MD, [facility] Unavailable Unavailable Gabris, Ann-Marie Graf MD, [facility] Unavailable Unavailable Gabris, Ann-Marie Graf MD, [facility] Unavailable Unavailable Gabris, Ann-Marie Graf MD, [facility] Unavailable Unavailable Gabris, Ann-Marie Graf MD, [facility] Unavailable Unavailable Gabris, Ann-Marie Graf MD, [facility] Unavailable Unavailable Gabris, Ann-Marie Graf MD, [facility] Unavailable Unavailable Gabris, Ann-Marie Graf MD, [facility] Unavailable Unavailable Gabris, Ann-Marie Graf MD, [facility] Unavailable Unavailable Gabris, Ann-Marie Graf MD, [facility] Unavailable Unavailable Gabris, Ann-Marie Graf MD, [facility] Unavailable Unavailable Gabris, Ann-Marie Graf MD, [facility] Unavailable Unavailable Gabris, Ann-Marie Graf MD, [facility] Unavailable Unavailable Gabris, Ann-Marie Graf MD, [facility] Unavailable Unavailable Gabris, Ann-Marie Graf MD, [facility] Unavailable Unavailable Gabris, Ann-Marie Graf MD, [facility] Unavailable Unavailable Gabris, Ann-Marie Graf MD, [facility] Unavailable Unavailable Gabris, Ann-Marie Graf MD, [facility] Unavailable Unavailable Gabris, Ann-Marie Graf MD, [facility] Unavailable Unavailable Gabris, Ann-Marie Graf MD, [facility] Unavailable Unavailable Gabris, Ann-Marie Graf MD, [facility] Unavailable Unavailable Gabris, Ann-Marie Graf MD, [facility] Unavailable Unavailable Gabris, Ann-Marie Graf MD, [facility] Unavailable Unavailable Gabris, Ann-Marie Graf MD, [facility] Unavailable Unavailable Gabris, Ann-Marie Graf MD, [facility] Unavailable Unavailable Gabris, Ann-Marie Graf MD, [facility] Unavailable Unavailable Gabris, Ann-Marie Graf MD, [facility] Unavailable Unavailable Gabris, Ann-Marie Graf MD, [facility] Unavailable Unavailable Gabris, Ann-Marie Graf MD, [facility] Unavailable Unavailable Gabris, Ann-Marie Graf MD, [facility] Unavailable Unavailable Gabris, Ann-Marie Graf MD, [facility] Unavailable Unavailable Gabris, Ann-Marie Graf MD, [facility] Unavailable Unavailable Gabris, Ann-Marie Graf MD, [facility] Unavailable Unavailable Gabris, Ann-Marie Graf MD, [facility] Unavailable Unavailable Gabris, Ann-Marie Graf MD, [facility] Unavailable Unavailable Gabris, Ann-Marie Graf MD, [facility] Unavailable Unavailable Gabris, Ann-Marie Graf MD, FAC Unavailable Unavailable Gabris, Ann-Marie Graf MD, FAC Unavailable Unavailable Gabris, Ann-Marie Graf MD, [facility] Unavailable Unavailable Gabris, Ann-Marie Graf MD, [facility] Unavailable Unavailable Gabris, Ann-Marie Graf MD, [facility] Unavailable Unavailable Gabris, Ann-Marie Graf MD, [facility] Unavailable Unavailable Gabris, Ann-Marie Graf MD, [facility] Unavailable Unavailable Gabris, Ann-Marie Graf MD, [facility] Unavailable Unavailable Gabris, Ann-Marie Graf MD, [facility] Unavailable Unavailable Gabris, Ann-Marie Graf MD, [facility] Unavailable Unavailable Gabris, Ann-Marie Graf MD, [facility] Unavailable Unavailable Gabris, Ann-Marie Graf MD, [facility] Unavailable Unavailable Gabris, Ann-Marie Graf MD, [facility] Unavailable Unavailable Gabris, Ann-Marie Graf MD, [facility] Unavailable Unavailable Gabris, Ann-Marie Graf MD, [facility] Unavailable Unavailable Gabris, Ann-Marie Graf MD, [facility] Unavailable Unavailable Gabris, Ann-Marie Graf MD, [facility] Unavailable Unavailable Gabris, Ann-Marie rGaf MD, [facility] Unavailable Unavailable Gabris, Ann-Marie Graf MD, [facility] Unavailable Unavailable Gabris, Ann-Marie Graf MD, [facility] Unavailable Unavailable Gabris, Ann-Marie Graf MD, [facility] Unavailable Unavailable Gabris, Ann-Marie Graf MD, [facility] Unavailable Unavailable Gabris, Ann-Marie Graf MD, [facility] Unavailable Unavailable Gabris, Ann-Marie Graf MD, [facility] Unavailable Unavailable Gabris, Ann-Marie Graf MD, [facility] Unavailable Unavailable Gabris, Ann-Marie Graf MD, [facility] Unavailable Unavailable Gabris, Ann-Marie Graf MD, [facility] Unavailable Unavailable Gabris, Ann-Marie Graf MD, [facility] Unavailable Unavailable Gabris, Ann-Marie Graf MD, [facility] Unavailable Unavailable Gabris, Ann-Marie Graf MD, [facility] Unavailable Unavailable Gabris, Ann-Marie Graf MD, [facility] Unavailable Unavailable Onelia Cohen RN Unavailable Unavailable Onelia Cohen RN Unavailable Unavailable Onelia Cohen RN Unavailable Unavailable Onelia Cohen RN Unavailable Unavailable Onelia Cohen RN Unavailable Unavailable Onelia Cohen RN Unavailable Unavailable Onelia Cohen RN Unavailable Unavailable Onelia Cohen RN Unavailable Unavailable Onelia Cohen RN Unavailable Unavailable Onelia Cohen RN Unavailable Unavailable Onelia Cohen RN Unavailable Unavailable Onelia Cohen RN Unavailable Unavailable Onelia Cohen RN Unavailable Unavailable Onelia Cohen RN Unavailable Unavailable Onelia Cohen RN Unavailable Unavailable Onelia Cohen RN Unavailable Unavailable Onelia Cohen RN Unavailable Unavailable NON, PHYSICIAN STAFF Unavailable Unavailable You, J Jeromy PA-C Unavailable Unavailable You, J Jeromy PA-C Unavailable Unavailable You, J Jeromy PA-C Unavailable Unavailable You, J Jeromy PA-C Unavailable Unavailable You, J Jeromy PA-C Unavailable Unavailable You, J Jeromy PA-C Unavailable Unavailable You, J Jeromy PA-C Unavailable Unavailable You, J Jeromy PA-C Unavailable Unavailable You, J Jeromy PA-C Unavailable Unavailable You, J Jeromy PA-C Unavailable Unavailable You, J Jeromy PA-C Unavailable Unavailable DHRUV, M LASHAWN PA Unavailable Unavailable DHRUV, M LASHAWN PA Unavailable Unavailable DHRUV, M LASHAWN PA Unavailable Unavailable DHRUV, M LASHAWN PA Unavailable Unavailable DHRUV, M LASHAWN PA Unavailable Unavailable DHRUV, M LASHAWN PA Unavailable Unavailable DHRUV, M LASHAWN PA Unavailable Unavailable DHRUV, M LASHAWN PA Unavailable Unavailable DHRUV, M LASHAWN PA Unavailable Unavailable DHRUV, M LASHAWN PA Unavailable Unavailable DHRUV, M LASHAWN PA Unavailable Unavailable DHRUV, M LASHAWN PA Unavailable Unavailable DHRUV, M LASHAWN PA Unavailable Unavailable DHRUV, M LASHAWN PA Unavailable Unavailable DHRUV, M LASHAWN PA Unavailable Unavailable DHRUV, M LASHAWN PA Unavailable Unavailable DHRUV, M LASHAWN PA Unavailable Unavailable DHRUV, M LASHAWN PA Unavailable Unavailable DHRUV, M LASHAWN PA Unavailable Unavailable DHRUV, M LASHAWN PA Unavailable Unavailable DHRUV, M LASHAWN PA Unavailable Unavailable DHRUV, M LASHAWN PA Unavailable Unavailable DHRUV, M LASHAWN PA Unavailable Unavailable DHRUV, M LASHAWN PA Unavailable Unavailable DHRUV, M LASHAWN PA Unavailable Unavailable DHRUV, M LASHAWN PA Unavailable Unavailable DHRUV, M LASHAWN PA Unavailable Unavailable DHRUV, M LASHAWN PA Unavailable Unavailable DHRUV, M LASHAWN PA Unavailable Unavailable DHRUV, M LASHAWN PA Unavailable Unavailable DHRUV, M LASHAWN PA Unavailable Unavailable DHRUV, M LASHAWN PA Unavailable Unavailable DHRUV, M LASHAWN PA Unavailable Unavailable DHRUV, M LASHAWN PA Unavailable Unavailable DHRUV, M LASHAWN PA Unavailable Unavailable DHRUV, M LASHAWN PA Unavailable Unavailable DHRUV, M LASHAWN PA Unavailable Unavailable DHRUV, M LASHAWN PA Unavailable Unavailable DHRUV, M LASHAWN PA Unavailable Unavailable DHRUV, M LASHAWN PA Unavailable Unavailable DHRUV, M LASHAWN PA Unavailable Unavailable DHRUV, M LASHAWN PA Unavailable Unavailable DHRUV, M LASHAWN PA Unavailable Unavailable DHRUV, M LASHAWN PA Unavailable Unavailable DHRUV, M LASHAWN PA Unavailable Unavailable DHRUV, M LASHAWN PA Unavailable Unavailable DHRUV, M LASHAWN PA Unavailable Unavailable DHRUV, M LASHAWN PA Unavailable Unavailable DHRUV, M LASHAWN PA Unavailable Unavailable DHRUV, M LASHAWN PA Unavailable Unavailable DHRUV, M LASHAWN PA Unavailable Unavailable DHRUV, M LASHAWN PA Unavailable Unavailable DHRUV, M LASHAWN PA Unavailable Unavailable DHRUV, M LASHAWN PA Unavailable Unavailable DHRUV, M LASHAWN PA Unavailable Unavailable DHRUV, M LASHAWN PA Unavailable Unavailable DHRUV, M LASHAWN PA Unavailable Unavailable DHRUV, M LASHAWN PA Unavailable Unavailable DHRUV, M LASHAWN PA Unavailable Unavailable DHRUV, M LASHAWN PA Unavailable Unavailable DHRUV, M LASHAWN PA Unavailable Unavailable DHRUV, M LASHAWN PA Unavailable Unavailable DHRUV, M LASHAWN PA Unavailable Unavailable DHRUV, M LASHAWN PA Unavailable Unavailable DHRUV, M LASHAWN PA Unavailable Unavailable DHRUV, M LASHAWN PA Unavailable Unavailable DHRUV, M LASHAWN PA Unavailable Unavailable DHRUV, M LASHAWN PA Unavailable Unavailable DHRUV, M LASHAWN PA Unavailable Unavailable DHRUV, M LASHAWN PA Unavailable Unavailable DHRUV, M LASHAWN PA Unavailable Unavailable DHRUV, M LASHAWN PA Unavailable Unavailable Suyapa, Yady CAN HANDLER Unavailable Unavailable Suyapa, Yady CAN HANDLER Unavailable Unavailable Suyapa, Yady CAN HANDLER Unavailable Unavailable Suyapa, Yady CAN HANDLER Unavailable Unavailable Suyapa, Yady CAN HANDLER Unavailable Unavailable Herrick, Yady CAN HANDLER Unavailable Unavailable Suyapa, Yady CAN HANDLER Unavailable Unavailable Suyapa, Yady CAN HANDLER Unavailable Unavailable Herrick, Yady CAN HANDLER Unavailable Unavailable Suyapa, Yady CAN HANDLER Unavailable Unavailable EMILY Malcolm, Veronika Unavailable Re-disclosure Warning The records that you are about to access may contain information from federally-assisted alcohol or drug abuse programs. If such information is present, then the following federally mandated warning applies: This information has been disclosed to you from records protected by federal confidentiality rules (42 CFR part 2). The federal rules prohibit you from making any further disclosure of this information unless further disclosure is expressly permitted by the written consent of the person to whom it pertains or as otherwise permitted by 42 CFR part 2. A general authorization for the release of medical or other information is NOT sufficient for this purpose. The Federal rules restrict any use of the information to criminally investigate or prosecute any alcohol or drug abuse patient.The records that you are about to access may contain highly sensitive health information, the redisclosure of which is protected by Article 27-F of the [facility] Public Health law. If you continue you may have access to information: Regarding HIV / AIDS; Provided by facilities licensed or operated by the [facility] Office of Mental Health; or Provided by the [facility] Office for People With Developmental Disabilities. If such information is present, then the following [facility] mandated warning applies: This information has been disclosed to you from confidential records which are protected by state law. State law prohibits you from making any further disclosure of this information without the specific written consent of the person to whom it pertains, or as otherwise permitted by law. Any unauthorized further disclosure in violation of state law may result in a fine or skilled nursing sentence or both. A general authorization for the release of medical or other information is NOT sufficient authorization for further disc losure. Advance Directives Directive Description Room Clerk Ash Worker Status Observation Descr iption Data Source(s) packet given Pt Bill of Rights, Priv Prac, Ad Dir completed packet given Pt Bill of Rights, Priv Prac, Ad Dir [facility] Note: Pt declined AD packet Ebola Screening Performed completed Ebol a Screening Performed [facility] ([facility] Note: Within the last month, have you tr aveled outside of the [place]? -NO Allergies and Adverse Reactions Type Description Substance Reaction Status Data Source(s ) Drug allergy Zofran Zofran Skin Rashes Resolved LUIS FERNANDO ( [facility]) Drug allergy Zofran Zofran Skin Rashes Resolved [facility]ER[facility]NDO ( [facility]) Drug allergy Zofran 4 MG Oral Tablet Zofran 4 MG Oral Tablet Skin R ashes Active [facility]IS FERNANDO ([facility]) Drug allergy Zofran 4 MG Oral Tablet Zofran 4 MG Oral Tablet Skin R ashes Active LUIS FERNANDO ([facility]) Drug allergy Zofran 4 MG Oral Tablet Zofran 4 MG Oral Tablet Skin R ashes Active [facility]IS FERNANDO ([facility]) Drug allergy Zofran 4 MG Oral Tablet Zofran 4 MG Oral Tablet Skin R ashes Active LUIS FERNANDO ([facility]) Drug allergy Zofran 4 MG Oral Tablet Zofran 4 MG Oral Tablet Skin R ashes Active [facility]ER[facility]ND[facility] ([facility]) Family History Family Member Name Family Member Gender Family Member Status Date o f Status Description Data Source(s) Unknown Female Problem [facility] ([facility]) Encounters Encounter Providers Location Date Indications Data Source(s ) Outpatient<td ID="encounterTypeDescripti onID0">Acute L3</td><td>Yady Dale CAN HANDLER</td><td>[facility]</td><td>07/26/2020</td><td>6:24PM</td><td>8:01PM</td><td><content ID="encounterDiagnosisID0-0">Abdominal Pain</content>, <content ID="encounterDiagnosisID0-1">Nicotine Dependence</content></td> Attender: Yady Dale NP [facility] 07/26/2020 06:24:00 PM EST - 07/26/2020 08:01:30 PM EST Abdominal PainAbdominal PainNicotine DependenceNicotin e Dependence [facility] ([facility]) Abdominal Pain Abdominal Pain Nicotine Dependence Nicotine Dependence Unknown<td ID="encounterTypeDescriptionI D1">Chart Update</td><td>Veronika Malcolm RN</td><td></td><td>04/16/2020</td><td>04/10/2020 7:38AM</td><td>04/10/2020 11:59PM</td><td></td> Attender: Veronika Malcolm RN 04/16/2020 07:38:00 AM EST - 04/10/2020 11:59:00 PM EDT [facility] ([facility]) Outpatient<td ID="encounterTypeDescripti onID2">AHR</td><td>Lashawn ANDERSON</td><td>[facility]</td><td>04/10/2020</td><td>11:04AM</td><td>12:43PM</td><td><content ID="encounterDiagnosisID2-0">Chronic Kidney Disease Stage 3</content>, <content ID="encounterDiagnosisID2-1">Diabetes Mellitus Diabetic Peripheral Neuropathy</content>, <content ID="encounterDiagnosisID2-2">Diabetes Mellitus</content>, <content ID="encounterDiagnosisID2-3">Anemia</content>, <content ID="encounterDiagnosisID2-4">Diabetes Mellitus</content>, <content ID="encounterDiagnosisID2-5">Allergic Rhinitis</content>, <content ID="encounterDiagnosisID2-6">Nicotine Dependence</content>, <content ID="encounterDiagnosisID2-7">Hypertension (Systemic)</content>, <content ID="encounterDiagnosisID2-8">Lumbago</content>, <content ID="encounterDiagnosisID2-9">Diabetes Mellitus with Foot Ulcer</content>, <content ID="encounterDiagnosisID2-10">Stroke - Ischemic</content>, <content ID="encounterDiagnosisID2-11">Chronic Kidney Disease Stage 3</content>, <content ID="encounterDiagnosisID2-12">Coronary Artery Disease Left Main</content>, <content ID="encounterDiagnosisID2-13">Blood in the Stool</content></td> Attender: LASHAWN ANDERSON [facility] 04/10/2020 11:04:00 AM EDT - 04/10/2020 12:43:18 PM EDT Blood in the StoolLumbagoAllergic Rhinit isDiabetes MellitusBlood in the StoolLumbagoAllergic RhinitisDiabetes MellitusBlood in the StoolLumbagoAllergic RhinitisDiabetes MellitusBlood in the StoolLumbagoAllergic RhinitisDiabetes MellitusDiabetes Mellitus with Foot UlcerDiabetes Mellitus with Foot UlcerDiabetes Mellitus with Foot UlcerDiabetes Mellitus with Foot UlcerDiabetes MellitusDiabetes MellitusDiabetes MellitusDiabetes Mellitus AnemiaAnemiaAnemiaAnemiaNicotine DependenceNicotine DependenceNicotine DependenceNicotine DependenceChronic Kidney Disease Stage 3Chronic Kidney Disease Stage 3Chronic Kidney Disease Stage 3Chronic Kidney Disease Stage 3Chronic Kidney Disease Stage 3Chronic Kidney Disease Stage 3Chronic Kidney Disease Stage 3Chronic Kidney Disease Stage 3Coronary Artery Disease Left MainCoronary Artery Disease Left MainCoronary Artery Disease Left MainCoronary Artery Disease Left MainStroke - IschemicStroke - IschemicStroke - Ischemic Stroke - IschemicHypertension (Systemic)Diabetes Mellitus Diabetic Peripheral NeuropathyHypertension (Systemic)Diabetes Mellitus Diabetic Peripheral NeuropathyHypertension (systemic)Diabetes Mellitus Diabetic Peripheral NeuropathyHypertension (systemic)Diabetes Mellitus Diabetic Peripheral Neuropathy [facility]ERNAND[facility] ([facility]) Blood in the Stool Lumbago Allergic Rhinitis Diabetes Mellitus Blood in the Stool Lumbago Allergic Rhinitis Diabetes Mellitus Blood in the Stool Lumbago Allergic Rhinitis Diabetes Mellitus Blood in the Stool Lumbago Allergic Rhinitis Diabetes Mellitus Diabetes Mellitus with Foot Ulcer Diabetes Mellitus with Foot Ulcer Diabetes Mellitus with Foot Ulcer Diabetes Mellitus with Foot Ulcer Diabetes Mellitus Diabetes Mellitus Diabetes Mellitus Diabetes Mellitus Anemia Anemia Anemia Anemia Nicotine Dependence Nicotine Dependence Nicotine Dependence Nicotine Dependence Chronic Kidney Disease Stage 3 Chronic Kidney Disease Stage 3 Chronic Kidney Disease Stage 3 Chronic Kidney Disease Stage 3 Chronic Kidney Disease Stage 3 Chronic Kidney Disease Stage 3 Chronic Kidney Disease Stage 3 Chronic Kidney Disease Stage 3 Coronary Artery Disease Left Main Coronary Artery Disease Left Main Coronary Artery Disease Left Main Coronary Artery Disease Left Main Stroke - Ischemic Stroke - Ischemic Stroke - Ischemic Stroke - Ischemic Hypertension (Systemic) Diabetes Mellitus Diabetic Peripheral Ne uropathy Hypertension (Systemic) Diabetes Mellitus Diabetic Peripheral Ne uropathy Hypertension (systemic) Diabetes Mellitus Diabetic Peripheral Ne uropathy Hypertension (systemic) Diabetes Mellitus Diabetic Peripheral Ne uropathy Outpatient Attender: Onelia Cohen RNAttender: Homar Hutchinson MD, [email or web address] 04/04/2020 12:00:00 AM EDT - 04/04/2020 03:30:28 PM EDT [facility] Outpatient<td ID="encounterTypeDescripti onID3">Acute Follow-up Telephonic</td><td>Lashawn ANDERSON</td><td>[facility]</td><td>03/12/2020</td><td>02/07/2020 3:50PM</td><td>3:38PM</td><td> <content ID="encounterDiagnosisID3-0">Nausea</content>, <content ID="encounterDiagnosisID3-1">Anemia</content>, <content ID="encounterDiagnosisID3-2">Diabetes Mellitus</content>, <content ID="encounterDiagnosisID3-3">Diabetes Mellitus Diabetic Peripheral Neuropathy</content>, <content ID="encounterDiagnosisID3-4">Hypothyroidism</content>, <content ID="encounterDiagnosisID3-5">Allergic Rhinitis</content>, <content ID="encounterDiagnosisID3-6">Nicotine Dependence</content>, <content ID="encounterDiagnosisID3-7">Hypertension (Systemic)</content>, <content ID="encounterDiagnosisID3-8">Lumbago</content>, <content ID="encounterDiagnosisID3-9">Diabetes Mellitus with Foot Ulcer</content>, <content ID="encounterDiagnosisID3-10">Stroke - Ischemic</content>, <content ID="encounterDiagnosisID3-11">Chronic Kidney Disease Stage 3</content>, <content ID="encounterDiagnosisID3-12">Disturbance of Gait</content>, <content ID="encounterDiagnosisID3-13">Coronary Artery Disease Left Main</content>, <content ID="encounterDiagnosisID3-14">Blood in the Stool</content></td> Attender: LASHAWN ANDEROSN [facility] 03/12/2020 03:50:00 PM EDT - 03/12/2020 03:38:07 PM EDT Blood in the StoolDisturbance of GaitLum bagoAllergic RhinitisHypothyroidismDiabetes MellitusNauseaBlood in the StoolDisturbance of GaitLumbagoAllergic RhinitisHypothyroidismDiabetes MellitusNauseaBlood in the StoolDisturbance of GaitLumbagoAllergic RhinitisHypothyroidismDiabetes MellitusNauseaBlood in the StoolDisturbance of GaitLumbagoAllergic RhinitisHypothyroidismDiabetes MellitusNauseaBlood in the StoolDisturbance of GaitLumbagoAllergic RhinitisHypothyroidismDiabetes MellitusNauseaDiabetes Mellitus with Foot UlcerDiabetes Mellitus with Foot UlcerDiabetes Mellitus with Foot UlcerDiabetes Mellitus with Foot UlcerDiabetes Mellitus with Foot UlcerAnemiaAnemiaAnemiaAnemiaAnemiaNicotine DependenceNicotine Dependence Nicotine DependenceNicotine DependenceNicotine DependenceChronic Kidney Disease Stage 3Chronic Kidney Disease Stage 3Chronic Kidney Disease Stage 3Chronic Kidney Disease Stage 3Chronic Kidney Disease Stage 3Coronary Artery Disease Left MainCoronary Artery Disease Left MainCoronary Artery Disease Left MainCoronary Artery Disease Left MainCoronary Artery Disease Left MainStroke - IschemicStroke - IschemicStroke - IschemicStroke - IschemicStroke - IschemicHypertension (Systemic)Diabetes Mellitus Diabetic Peripheral NeuropathyHypertension (Systemic)Diabetes Mellitus Diabetic Peripheral NeuropathyHypertension (systemic)Diabetes Mellitus Diabetic Peripheral NeuropathyHypertension (systemic)Diabetes Mellitus Diabetic Peripheral NeuropathyHypertension (systemic)Diabetes Mellitus Diabetic Peripheral Neuropathy [facility] Blood in the Stool Disturbance of Gait Lumbago Allergic Rhinitis Hypothyroidism Diabetes Mellitus Nausea Blood in the Stool Disturbance of Gait Lumbago Allergic Rhinitis Hypothyroidism Diabetes Mellitus Nausea Blood in the Stool Disturbance of Gait Lumbago Allergic Rhinitis Hypothyroidism Diabetes Mellitus Nausea Blood in the Stool Disturbance of Gait Lumbago Allergic Rhinitis Hypothyroidism Diabetes Mellitus Nausea Blood in the Stool Disturbance of Gait Lumbago Allergic Rhinitis Hypothyroidism Diabetes Mellitus Nausea Diabetes Mellitus with Foot Ulcer Diabetes Mellitus with Foot Ulcer Diabetes Mellitus with Foot Ulcer Diabetes Mellitus with Foot Ulcer Diabetes Mellitus with Foot Ulcer Anemia Anemia Anemia Anemia Anemia Nicotine Dependence Nicotine Dependence Nicotine Dependence Nicotine Dependence Nicotine Dependence Chronic Kidney Disease Stage 3 Chronic Kidney Disease Stage 3 Chronic Kidney Disease Stage 3 Chronic Kidney Disease Stage 3 Chronic Kidney Disease Stage 3 Coronary Artery Disease Left Main Coronary Artery Disease Left Main Coronary Artery Disease Left Main Coronary Artery Disease Left Main Coronary Artery Disease Left Main Stroke - Ischemic Stroke - Ischemic Stroke - Ischemic Stroke - Ischemic Stroke - Ischemic Hypertension (Systemic) Diabetes Mellitus Diabetic Peripheral Ne uropathy Hypertension (Systemic) Diabetes Mellitus Diabetic Peripheral Ne uropathy Hypertension (systemic) Diabetes Mellitus Diabetic Peripheral Ne uropathy Hypertension (systemic) Diabetes Mellitus Diabetic Peripheral Ne uropathy Hypertension (systemic) Diabetes Mellitus Diabetic Peripheral Ne uropathy Unknown<td ID="encounterTypeDescriptionI D4">Chart Update</td><td>Veronika Malcolm RN</td><td></td><td>02/14/2020</td><td>02/07/2020 1:32PM</td><td>02/07/2020 11:59PM</td><td></td> Attender: Veronika Malcolm RN 02/14/2020 01:32:00 PM EDT - 02/07/2020 11:59:00 PM EDT [facility] ([facility]) Outpatient<td ID="encounterTypeDescripti onID5">Hospital Follow-up</td><td>Lashawn ANDERSON</td><td>[facility]</td><td>02/07/2020</td><td>10:02AM</td><td>11:12AM</td><td><content ID="encounterDiagnosisID5-0">Chronic Kidney Disease Stage 3</content>, <content ID="encounterDiagnosisID5-1">Diabetes Mellitus Diabetic Peripheral Neuropathy</content>, <content ID="encounterDiagnosisID5- 2">Hypothyroidism</content>, <content ID="encounterDiagnosisID5- 3">Anemia</content>, <content ID="encounterDiagnosisID5-4">Diabetes Mellitus</content>, <content ID="encounterDiagnosisID5-5">Allergic Rhinitis</content>, <content ID="encounterDiagnosisID5-6">Nicotine Dependence</content>, <content ID="encounterDiagnosisID5-7">Hypertension (Systemic)</content>, <content ID="encounterDiagnosisID5-8">Lumbago</content>, <content ID="encounterDiagnosisID5-9">Diabetes Mellitus with Foot Ulcer</content>, <content ID="encounterDiagnosisID5-10">Stroke - Ischemic</content>, <content ID="encounterDiagnosisID5-11">Disturbance of Gait</content>, <content ID="encounterDiagnosisID5-12">Coronary Artery Disease Left Main</content>, <content ID="encounterDiagnosisID5-13">Blood in the Stool</content></td> Attender: LASHAWN ANDERSON [facility] 02/07/2020 10:02:00 AM EDT - 02/07/2020 11:12:18 AM EDT Blood in the StoolDisturbance of GaitLumbagoAllergic RhinitisDiabetes MellitusHypothyroidismBlood in the StoolDisturbance of GaitLumbagoAllergic RhinitisDiabetes MellitusHypothyroidismBlood in the StoolDisturbance of GaitLumbagoAllergic RhinitisDiabetes MellitusHypothyroidismBlood in the StoolDisturbance of GaitLumbagoAllergic RhinitisDiabetes MellitusHypothyroidismBlood in the StoolDisturbance of GaitLumbagoAllergic RhinitisDiabetes Mellitu sHypothyroidismBlood in the StoolDisturbance of GaitLumbagoAllergic RhinitisDiabetes MellitusHypothyroidismDiabetes Mellitus with Foot UlcerDiabetes Mellitus with Foot UlcerDiabetes Mellitus with Foot UlcerDiabetes Mellitus with Foot UlcerDiabetes Mellitus with Foot UlcerDiabetes Mellitus with Foot UlcerAnemiaAnemiaAnemiaAnemiaAnemiaAnemiaNicotine DependenceNicotine DependenceNicotine DependenceNicotine DependenceNicotine DependenceNicotine DependenceChronic Kidney Disease Stage 3Chronic Kidney Disease Stage 3Chronic Kidney Disease Stage 3Chronic Kidney Disease Stage 3Chronic Kidney Disease Stage 3Chronic Kidney Disease Stage 3Coronary Artery Disease Left MainCoronary Artery Disease Left MainCoronary Artery Disease Left MainCoronary Artery Disease Left MainCoronary Artery Disease Left MainCoronary Artery Disease Left MainStroke - IschemicStroke - IschemicStroke - IschemicStroke - IschemicStroke - IschemicStroke - IschemicHypertension (Systemic)Diabetes Mellitus Diabetic Peripheral NeuropathyHypertension (Systemic)Diabetes Mellitus Diabetic Peripheral NeuropathyHypertension (systemic)Diabetes Mellitus Diabetic Peripheral NeuropathyHypertension (systemic)Diabetes Mellitus Diabetic Peripheral NeuropathyHypertension (systemic)Diabetes Mellitus Diabetic Peripheral NeuropathyHypertension (systemic)Diabetes Mellitus Diabetic Peripheral Neuropathy [facility] ([facility]) Blood in the Stool Disturbance of Gait Lumbago Allergic Rhinitis Diabetes Mellitus Hypothyroidism Blood in the Stool Disturbance of Gait Lumbago Allergic Rhinitis Diabetes Mellitus Hypothyroidism Blood in the Stool Disturbance of Gait Lumbago Allergic Rhinitis Diabetes Mellitus Hypothyroidism Blood in the Stool Disturbance of Gait Lumbago Allergic Rhinitis Diabetes Mellitus Hypothyroidism Blood in the Stool Disturbance of Gait Lumbago Allergic Rhinitis Diabetes Mellitus Hypothyroidism Blood in the Stool Disturbance of Gait Lumbago Allergic Rhinitis Diabetes Mellitus Hypothyroidism Diabetes Mellitus with Foot Ulcer Diabetes Mellitus with Foot Ulcer Diabetes Mellitus with Foot Ulcer Diabetes Mellitus with Foot Ulcer Diabetes Mellitus with Foot Ulcer Diabetes Mellitus with Foot Ulcer Anemia Anemia Anemia Anemia Anemia Anemia Nicotine Dependence Nicotine Dependence Nicotine Dependence Nicotine Dependence Nicotine Dependence Nicotine Dependence Chronic Kidney Disease Stage 3 Chronic Kidney Disease Stage 3 Chronic Kidney Disease Stage 3 Chronic Kidney Disease Stage 3 Chronic Kidney Disease Stage 3 Chronic Kidney Disease Stage 3 Coronary Artery Disease Left Main Coronary Artery Disease Left Main Coronary Artery Disease Left Main Coronary Artery Disease Left Main Coronary Artery Disease Left Main Coronary Artery Disease Left Main Stroke - Ischemic Stroke - Ischemic Stroke - Ischemic Stroke - Ischemic Stroke - Ischemic Stroke - Ischemic Hypertension (Systemic) Diabetes Mellitus Diabetic Peripheral Ne uropathy Hypertension (Systemic) Diabetes Mellitus Diabetic Peripheral Ne uropathy Hypertension (systemic) Diabetes Mellitus Diabetic Peripheral Ne uropathy Hypertension (systemic) Diabetes Mellitus Diabetic Peripheral Ne uropathy Hypertension (systemic) Diabetes Mellitus Diabetic Peripheral Ne uropathy Hypertension (systemic) Diabetes Mellitus Diabetic Peripheral Ne uropathy Unknown<td ID="encounterTypeDescriptionI D6">Chart Update</td><td>Veronika Malcolm RN</td><td></td><td>02/02/2020</td><td>04/25/2019 5:29PM</td><td>01/09/2020 11:59PM</td><td></td> Attender: Veronika Malcolm RN 02/02/2020 05:29:00 PM EDT - 01/09/2020 11:59:00 PM EDT [facility]) Outpatient 01/23/2020 03:20:00 PM EDT [facility] Emergency Attender: Jeromy ANDERSON-CConsultant: STAFF NO N 01/23/2020 02:13:00 PM EDT - 01/23/2020 09:21:00 PM EDT [facility] Patient discharged. Outpatient<td ID="encounterTypeDescripti onID7">Telephonic Encounter</td><td>Lashawn ANDERSON</td><td>[facility]</td><td>01/09/2020</td><td>04/25/2019 11:00AM</td><td>12:25PM</td><td><content ID="encounterDiagnosisID7-0">Stroke - Ischemic</content>, <content ID="encounterDiagnosisID7-1">Fatigue</content>, <content ID="encounterDiagnosisID7-2">Chronic Kidney Disease Stage 3</content>, <content ID="encounterDiagnosisID7-3">Disturbance of Gait</content>, <content ID="encounterDiagnosisID7-4">Coronary Artery Disease Left Main</content>, <content ID="encounterDiagnosisID7-5">Blood in the Stool</content>, <content ID="encounterDiagnosisID7-6">Anemia</content>, <content ID="encounterDiagnosisID7-7">Diabetes Mellitus</content>, <content ID="encounterDiagnosisID7-8">Allergic Rhinitis</content>, <content ID="encounterDiagnosisID7-9">Nicotine Dependence</content>, <content ID="encounterDiagnosisID7-10">Hypertension (Systemic)</content>, <content ID="encounterDiagnosisID7-11">Lumbago</content>, <content ID="encounterDiagnosisID7-12">Diabetes Mellitus with Foot Ulcer</content></td> Attender: LASHAWN ANDERSON [facility] 01/09/2020 11:00:00 AM EDT - 01/09/2020 12:25:32 PM EDT LumbagoAllergic RhinitisDiabetes Mellitu sBlood in the StoolDisturbance of GaitFatigueLumbagoAllergic RhinitisDiabetes MellitusBlood in the StoolDisturbance of GaitFatigueLumbagoAllergic RhinitisDiabetes MellitusBlood in the StoolDisturbance of GaitFatigueLumbagoAllergic RhinitisDiabetes MellitusBlood in the StoolDisturbance of GaitFatigueLumbagoAllergic RhinitisDiabetes MellitusBlood in the StoolDisturbance of GaitFatigueLumbagoAllergic RhinitisDiabetes MellitusBlood in the StoolDisturbance of GaitFatigueLumbagoAllergic RhinitisDiabetes MellitusBlood in the StoolDisturbance of GaitFatigueDiabetes Mellitus with Foot UlcerDiabetes Mellitus with Foot UlcerDiabetes Mellitus with Foot UlcerDiabetes Mellitus with Foot UlcerDiabetes Mellitus with Foot UlcerDiabetes Mellitus with Foot UlcerDiabetes Mellitus with Foot UlcerAnemiaAnemiaAnemiaAnemiaAnemiaAnemiaAnemiaNicotine DependenceNicotine DependenceNicotine DependenceNicotine DependenceNicotine DependenceNicotine DependenceNicotine DependenceChronic Kidney Disease Stage 3Chronic Kidney Disease Stage 3Chronic Kidney Disease Stage 3Chronic Kidney Disease Stage 3Chro john Kidney Disease Stage 3Chronic Kidney Disease Stage 3Chronic Kidney Disease Stage 3Coronary Artery Disease Left MainCoronary Artery Disease Left MainCoronary Artery Disease Left MainCoronary Artery Disease Left MainCoronary Artery Disease Left MainCoronary Artery Disease Left MainCoronary Artery Disease Left MainStroke - IschemicStroke - IschemicStroke - IschemicStroke - IschemicStroke - IschemicStroke - IschemicStroke - IschemicHypertension (S ystemic)Hypertension (Systemic)Hypertension (systemic)Hypertension (systemic)Hypertension (systemic)Hypertension (systemic)Hypertension (systemic) [facility] ([facility]) Lumbago Allergic Rhinitis Diabetes Mellitus Blood in the Stool Disturbance of Gait Fatigue Lumbago Allergic Rhinitis Diabetes Mellitus Blood in the Stool Disturbance of Gait Fatigue Lumbago Allergic Rhinitis Diabetes Mellitus Blood in the Stool Disturbance of Gait Fatigue Lumbago Allergic Rhinitis Diabetes Mellitus Blood in the Stool Disturbance of Gait Fatigue Lumbago Allergic Rhinitis Diabetes Mellitus Blood in the Stool Disturbance of Gait Fatigue Lumbago Allergic Rhinitis Diabetes Mellitus Blood in the Stool Disturbance of Gait Fatigue Lumbago Allergic Rhinitis Diabetes Mellitus Blood in the Stool Disturbance of Gait Fatigue Diabetes Mellitus with Foot Ulcer Diabetes Mellitus with Foot Ulcer Diabetes Mellitus with Foot Ulcer Diabetes Mellitus with Foot Ulcer Diabetes Mellitus with Foot Ulcer Diabetes Mellitus with Foot Ulcer Diabetes Mellitus with Foot Ulcer Anemia Anemia Anemia Anemia Anemia Anemia Anemia Nicotine Dependence Nicotine Dependence Nicotine Dependence Nicotine Dependence Nicotine Dependence Nicotine Dependence Nicotine Dependence Chronic Kidney Disease Stage 3 Chronic Kidney Disease Stage 3 Chronic Kidney Disease Stage 3 Chronic Kidney Disease Stage 3 Chronic Kidney Disease Stage 3 Chronic Kidney Disease Stage 3 Chronic Kidney Disease Stage 3 Coronary Artery Disease Left Main Coronary Artery Disease Left Main Coronary Artery Disease Left Main Coronary Artery Disease Left Main Coronary Artery Disease Left Main Coronary Artery Disease Left Main Coronary Artery Disease Left Main Stroke - Ischemic Stroke - Ischemic Stroke - Ischemic Stroke - Ischemic Stroke - Ischemic Stroke - Ischemic Stroke - Ischemic Hypertension (Systemic) Hypertension (Systemic) Hypertension (systemic) Hypertension (systemic) Hypertension (systemic) Hypertension (systemic) Hypertension (systemic) Obstetrics<td ID="encounterTypeDescripti onID8">Lab Order</td><td>Lashawn ANDERSON</td><td></td><td>12/15/2019</td><td>04/25/2019 11:12AM</td><td>09/29/2019 11:59PM</td><td></td> Attender: LASHAWN ANDERSON 12/15/2019 1 1:12:00 AM EDT - 09/29/2019 11:59:00 PM EDT [facility] ([facility]) Unknown<td ID="encounterTypeDescriptionI D9">Chart Update</td><td>Veronika Malcolm RN</td><td></td><td>11/15/2019</td><td>04/25/2019 1:57PM</td><td>09/29/2019 11:59PM</td><td></td> Attender: Veronika Malcolm RN 11/15/2019 01:57:00 PM EDT - 09/29/2019 11:59:00 PM EDT [facility] ([facility]) Outpatient<td ID="encounterTypeDescripti onID10">Medication Order</td><td>Lasahwn ANDERSON</td><td></td><td>10/27/2019</td><td>04/25/2019 8:19AM</td><td>09/29/2019 11:59PM</td><td></td> Attender: LASHAWN ANDERSON 10/27/2019 08:19:00 AM EDT - 09/29/2019 11:59:00 PM EDT [facility] ([facility]) Outpatient<td ID="encounterTypeDescripti onID11">Telephonic Encounter</td><td>Lashawn ANDERSON</td><td>[facility]</td><td>09/29/2019</td><td>04/25/2019 9:20AM</td><td>9:33AM</td><td> <content ID="rwevzxdshGdhzagyjiQX05-2">Anemia</content>, <content ID="ywyckqqyiNjkzmbpxoWD70-4">Diabetes Mellitus</content>, <content ID="qchpeymzhArpmvptlaDA87-5">Allergic Rhinitis</content>, <content ID="okodngilwDbhdcfbtmKY34-6">Nicotine Dependence</content>, <content ID="ycsqvyqxcUormqpfrbUF83-3">Hypertension (Systemic)</content>, <content ID="wdsfygouoJitnuascrJN83-9">Lumbago</content>, <content ID="xivjezzggKyncojrapHP50-0">Diabetes Mellitus with Foot Ulcer</content>, <content ID="ngwixzjzrZewcqrwbsGX65-4">Stroke - Ischemic</content>, <content ID="zwngdptplXsxhsndmsKB39-6">Fatigue</content>, <content ID="beznyyyhoZhzjledznLV61-4">Chronic Kidney Disease Stage 3</content>, <content ID="ycuzvtaotItxpsbgldKP95-18">Disturbance of Gait</content>, <content ID="knyqgxkiiCdruyyzwaWR23-62">Coronary Artery Disease Left Main</content>, <content ID="yvxwahmsoRaywvzbgnBJ38-73">Blood in the Stool</content></td> Attender: LASHAWN ANDERSON [facility] 09/29/2019 09:20:00 AM EDT - 09/29/2019 09:33:14 AM EDT Blood in the StoolDisturbance of GaitFatigueLumbagoAllergic RhinitisDiabetes MellitusBlood in the StoolDisturbance of GaitFatigueLumbagoAllergic RhinitisDiabetes MellitusBlood in the StoolDisturbance of GaitFatigueLumbagoAllergic RhinitisDiabetes MellitusBlood in the StoolDisturbance of GaitFatigueLumbagoAllergic RhinitisDiabetes MellitusBlood in the StoolDisturbance of GaitFatigueLumbagoAllergic RhinitisDiabetes MellitusBlood in the StoolDisturbance of GaitFatigueLumbagoAllergic RhinitisDiabetes MellitusBlood in the StoolDisturbance of GaitFatigueLumbagoAllergic RhinitisDiabetes MellitusBlood in the StoolDisturbance of GaitFatigueLumbagoAllergic RhinitisDiabetes MellitusDiabetes Mellitus with Foot UlcerDiabetes Mellitus with Foot UlcerDiabetes Mellitus with Foot UlcerDiabetes Mellitus with Foot UlcerDiabetes Mellitus with Foot UlcerDiabetes Mellitus with Foot UlcerDiabetes Mellitus with Foot UlcerDiabetes Mellitus with Foot UlcerAnemiaAnemia AnemiaAnemiaAnemiaAnemiaAnemiaAnemiaNicotine DependenceNicotine DependenceNicotine DependenceNicotine DependenceNicotine DependenceNicotine DependenceNicotine DependenceNicotine DependenceChronic Kidney Disease Stage 3 Chronic Kidney Disease Stage 3Chronic Kidney Disease Stage 3Chronic Kidney Disease Stage 3Chronic Kidney Disease Stage 3Chronic Kidney Disease Stage 3Chronic Kidney Disease Stage 3Chronic Kidney Disease Stage 3Coronary Artery Disease Left MainCoronary Artery Disease Left MainCoronary Artery Disease Left MainCoronary Artery Disease Left MainCoronary Artery Disease Left MainCoronary Artery Disease Left MainCoronary Artery Disease Left MainCoronary Artery Disease Left MainStroke - IschemicStroke - IschemicStroke - IschemicStroke - IschemicStroke - IschemicStroke - IschemicStroke - IschemicStroke - IschemicHypertension (Systemic)Hypertension (Systemic)Hypertension (syst emic)Hypertension (systemic)Hypertension (systemic)Hypertension (systemic)Hypertension (systemic)Hypertension (systemic) [facility] ([facility]) Blood in the Stool Disturbance of Gait Fatigue Lumbago Allergic Rhinitis Diabetes Mellitus Blood in the Stool Disturbance of Gait Fatigue Lumbago Allergic Rhinitis Diabetes Mellitus Blood in the Stool Disturbance of Gait Fatigue Lumbago Allergic Rhinitis Diabetes Mellitus Blood in the Stool Disturbance of Gait Fatigue Lumbago Allergic Rhinitis Diabetes Mellitus Blood in the Stool Disturbance of Gait Fatigue Lumbago Allergic Rhinitis Diabetes Mellitus Blood in the Stool Disturbance of Gait Fatigue Lumbago Allergic Rhinitis Diabetes Mellitus Blood in the Stool Disturbance of Gait Fatigue Lumbago Allergic Rhinitis Diabetes Mellitus Blood in the Stool Disturbance of Gait Fatigue Lumbago Allergic Rhinitis Diabetes Mellitus Diabetes Mellitus with Foot Ulcer Diabetes Mellitus with Foot Ulcer Diabetes Mellitus with Foot Ulcer Diabetes Mellitus with Foot Ulcer Diabetes Mellitus with Foot Ulcer Diabetes Mellitus with Foot Ulcer Diabetes Mellitus with Foot Ulcer Diabetes Mellitus with Foot Ulcer Anemia Anemia Anemia Anemia Anemia Anemia Anemia Anemia Nicotine Dependence Nicotine Dependence Nicotine Dependence Nicotine Dependence Nicotine Dependence Nicotine Dependence Nicotine Dependence Nicotine Dependence Chronic Kidney Disease Stage 3 Chronic Kidney Disease Stage 3 Chronic Kidney Disease Stage 3 Chronic Kidney Disease Stage 3 Chronic Kidney Disease Stage 3 Chronic Kidney Disease Stage 3 Chronic Kidney Disease Stage 3 Chronic Kidney Disease Stage 3 Coronary Artery Disease Left Main Coronary Artery Disease Left Main Coronary Artery Disease Left Main Coronary Artery Disease Left Main Coronary Artery Disease Left Main Coronary Artery Disease Left Main Coronary Artery Disease Left Main Coronary Artery Disease Left Main Stroke - Ischemic Stroke - Ischemic Stroke - Ischemic Stroke - Ischemic Stroke - Ischemic Stroke - Ischemic Stroke - Ischemic Stroke - Ischemic Hypertension (Systemic) Hypertension (Systemic) Hypertension (systemic) Hypertension (systemic) Hypertension (systemic) Hypertension (systemic) Hypertension (systemic) Hypertension (systemic) Immunizations Vaccine Date Status Description Data Source(s) pneumococcal polysaccharide PPV23 04/10/2020 12:42:00 PM EDT com pleted PCV (Pneumovax 23) 3 04/10/2020 Left Deltoid Complete (Administere d) [facility] ([facility]) IIV3. This is one of two codes replacing CVX 15, which is being retired. 04/10/2020 12:42:00 PM EDT completed Influenza 6 04/10/2020 Right Delto id Complete (Administered) [facility] ([facility]) Medications Medication Brand Name Start Date Product Form Dose Route Admi nistrative Instructions Pharmacy Instructions Status Indications Reaction Description Data Source(s) Famotidine 40 MG Oral Tablet Famotidine 40 MG Oral Tablet 12:00:00 AM EST 1 active famotidine 40 MG Oral Tablet [facility] ([facility]) Ciprofloxacin 500 MG Oral Tablet [Cipro] Cipro 500 MG Oral Tablet Cipro 500 MG Oral Tablet 07/26/2020 12:00:00 AM EST 1 active ciprofloxacin 500 MG Oral Tablet [Cipro] [facility] ([facility]) Metronidazole 500 MG Oral Tablet [Flagyl] Flagyl 500 M G Oral Tablet Flagyl 500 MG Oral Tablet 07/26/2020 12:00:00 AM EST act del metronidazole 500 MG Oral Tablet [Flagyl] [facility] ([facility]) Aspirin 325 MG Oral Tablet Aspirin 325 MG Oral Tablet 2020 12:00:00 AM EST 1 active aspirin 325 MG Or al Tablet [facility] ([facility]) gabapentin 100 MG Oral Capsule Gabapentin 100 MG Oral Capsule Gabapentin 100 MG Oral Capsule 07/24/2020 12:00:00 AM EST activ e gabapentin 100 MG Oral Capsule [facility] ([facility]) Metoprolol Tartrate 25 MG Oral Tablet Metoprolol Tartrate 25 MG Oral Tablet 07/24/2020 12:00:00 AM EST 1 active metoprolol tartrate 25 MG Oral Tablet [facility] ([facility]) Gemfibrozil 600 MG Oral Tablet Gemfibrozil 600 MG Oral Table t 05/24/2020 12:00:00 AM EST active gemfibro zil 600 MG Oral Tablet [facility] ([facility]) pantoprazole 40 MG Delayed Release Oral Tablet Pantoprazole Sodium 40 MG Oral Tablet Delayed Release Pantoprazole Sodium 40 MG Oral Tablet Delayed Release 05/24/2020 12:00:00 AM EST 1 active pantoprazole 40 MG Delayed Release Oral Tablet [facility] ([facility]) clopidogrel 75 MG Oral Tablet [Plavix] Plavix 75 MG Or al Tablet Plavix 75 MG Oral Tablet 05/24/2020 12:00:00 AM EST 1 active clopidogrel 75 MG Oral Tablet [Plavix] [facility] ([facility]) PARoxetine HCl 10 MG Oral Tablet PARoxetine HCl 10 MG Oral T ablet 05/24/2020 12:00:00 AM EST active paroxeti ne hydrochloride 10 MG Oral Tablet [facility] ([facility]) montelukast 10 MG Oral Tablet Montelukast Sodium 10 MG Oral Tablet Montelukast Sodium 10 MG Oral Tablet 05/24/2020 12:00:00 AM EST 1 active montelukast 10 MG Oral Tablet [facility] ([facility]) atorvastatin 80 MG Oral Tablet Atorvastatin Calcium 80 MG Oral Tablet Atorvastatin Calcium 80 MG Oral Tablet 05/24/2020 12:00:00 AM EST 1 active atorvastatin 80 MG Oral Tablet [facility] Basaglar KwikPen 100 UNIT/ML Subcutaneous Solution Pen -injector Basaglar KwikPen 100 UNIT/ML Subcutaneous Solution Pen-injector 05/24/2020 12:00:00 AM EST 1 active Sensor 3 ML insulin glargine 100 UNT/ML Pen Injector [Basaglar] [facility] ([facility]) Vitamin B 12 1 MG Extended Release Oral Tablet Vitamin B12 1000 MCG Oral Tablet Extended Release Vitamin B12 1000 MCG Oral Tablet Extended Release 03/15 12:00:00 AM EDT 1 active vitamin B12 1 MG Extended Release Oral Tablet [facility] ([facility]) Docusate Sodium 100 MG Oral Capsule [Colace] Colace 10 0 MG Oral Capsule Colace 100 MG Oral Capsule 04/10/2020 12:00:00 AM EDT active docusate sodium 100 MG Oral Capsule [Colace] [facility] ([facility]) dexlansoprazole 30 MG Delayed Release Or al Capsule [Dexilant] Dexilant 30 MG Oral Capsule Delayed Release Dexilant 30 MG Oral Capsule Delayed Release 04/10/2020 12:00:00 AM EDT active dexlansoprazole 30 MG Delayed Release Oral Capsule [Dexilant] [facility] ([facility]) Cholecalciferol 12896 UNT Oral Capsule V itamin D3 1.25 MG (21634 UT) Oral Capsule Vitamin D3 1.25 MG (94166 UT) Oral Capsule 04/10/2020 12:00:00 A M EDT active cholecalciferol 1.25 MG Oral Capsule [facility] ([facility]) Calcitriol 0.59010 MG Oral Capsule Calcitriol 0.25 MCG Oral Capsule Calcitriol 0.25 MCG Oral Capsule 04/10/2020 12:00:00 AM EDT active calcitriol 0.43489 MG Oral Capsule [facility] ([facility]) gabapentin 100 MG Oral Capsule Gabapentin 100 MG Oral Capsule Gabapentin 100 MG Oral Capsule 04/01/2020 12:00:00 AM EDT abort ed gabapentin 100 MG Oral Capsule [facility] ([facility]) First - Metoprolol 10 MG/ML Oral Solution First - Meto prolol 10 MG/ML Oral Solution 03/12/2020 12:00:00 AM EDT active First - Metoprolol [facility] ([facility]) Metoclopramide 10 MG Oral Tablet Metoclopramide HCl 10 MG Oral Tablet Metoclopramide HCl 10 MG Oral Tablet 03/12/2020 12:00:00 AM EDT active metoclopramide 10 MG Oral Tablet [place] ([facility]) Metoclopramide 10 MG Oral Tablet [Reglan] Reglan 10 MG Oral Tablet Reglan 10 MG Oral Tablet 02/28/2020 12:00:00 AM EDT active metoclopramide 10 MG Oral Tablet [Reglan] [facility] ([facility]) Amlodipine 10 MG Oral Tablet amLODIPine Besylate 10 MG Oral Tablet amLODIPine Besylate 10 MG Oral Tablet 02/14/2020 12:00:00 AM EDT 1 active amlodipine 10 MG Oral Tablet [facility] ([facility]) Metoprolol Tartrate 25 MG Oral Tablet Metoprolol Tartr ate 25 MG OR TABS Metoprolol Tartrate 25 MG OR TABS 02/14/2020 12:00:00 AM EDT 1 aborted metoprolol tartrate 25 MG Oral Tablet [facility] Amlodipine 10 MG Oral Tablet amLODIPine Besylate 10 MG OR TABS amLODIPine Besylate 10 MG OR TABS 02/14/2020 12:00:00 AM EDT 1 aborted amlodipine 10 MG Oral Tablet [facility] ([facility]) Aspirin 325 MG Oral Tablet Aspirin 325 MG OR TABS Aspirin 32 5 MG OR TABS 02/14/2020 12:00:00 AM EDT 1 aborted aspirin 325 MG Oral Tablet [facility] ([facility]) dexlansoprazole 30 MG Delayed Release Or al Capsule [Dexilant] Dexilant 30 MG Oral Capsule Delayed Release Dexilant 30 MG Oral Capsule Delayed Release 02/14/2020 12:00:00 AM EDT aborted dexlansoprazole 30 MG Delayed Release Oral Capsule [Dexilant] [facility] ([facility]) Calcitriol 0.65734 MG Oral Capsule Calcitriol 0.25 MCG Oral Capsule Calcitriol 0.25 MCG Oral Capsule 02/14/2020 12:00:00 AM EDT aborted calcitriol 0.61889 MG Oral Capsule [facility] ([facility]) Metoprolol Tartrate 25 MG Oral Tablet Metoprolol Tartrate 25 MG Oral Tablet 02/14/2020 12:00:00 AM EDT 1 aborted metoprolol tartrate 25 MG Oral Tablet [facility] ([facility]) Aspirin 325 MG Oral Tablet Aspirin 325 MG Oral Tablet 2019 12:00:00 AM EDT 1 aborted aspirin 325 MG O ral Tablet [facility] ([facility]) Accu-Chek Softclix Lancets Miscellaneous Accu-Chek Sof tclix Lancets Miscellaneous 02/07/2020 12:00:00 AM EDT 1 acti ve Accu-Chek Softclix Lancets [facility] ([facility]) FreeStyle Lite Device FreeStyle Lite Device 02/07/2020 12:00:00 AM EDT aborted FreeStyle Lite [facility] ([facility]) Accu-Chek Softclix Lancet Dev Kit Accu-Chek Softclix Lancet Dev Kit 02/07/2020 12:00:00 AM EDT active Accu-Julee k Softclix Lancet Dev [facility] ([facility]) FreeStyle Lite Test In Vitro Strip FreeStyle Lite Test In Vi tro Strip 02/07/2020 12:00:00 AM EDT 1 active FreeSty le Lite Test [facility] ([facility]) Metoclopramide 10 MG Oral Tablet Metoclopramide HCl 10 MG Oral Tablet Metoclopramide HCl 10 MG Oral Tablet 02/07/2020 12:00:00 AM EDT aborted metoclopramide 10 MG Oral Tablet [place] ([facility]) Amlodipine 10 MG Oral Tablet amLODIPine Besylate 10 MG Oral Tablet amLODIPine Besylate 10 MG Oral Tablet 02/07/2020 12:00:00 AM EDT aborted amlodipine 10 MG Oral Tablet [place] ([facility]) Famotidine 40 MG Oral Tablet Famotidine 40 MG Oral Tablet 12:00:00 AM EDT 1 aborted famotidine 40 MG Oral Tablet [place] ([facility]) 200 ACTUAT Albuterol 0.09 MG/ACTUAT Mete red Dose Inhaler [Ventolin] Ventolin HFA 108 (90 Base) MCG/ACT Inhalation Aerosol Solution Ventolin HFA 108 (90 Base) MCG/ACT Inhalation Aerosol Solution 01/09/2020 12:00:00 AM EDT active [id number] 200 ACTUAT albuter ol 0.09 MG/ACTUAT Metered Dose Inhaler [Ventolin] [place] ([facility]) 30 ACTUAT fluticasone furoate 0.2 MG/ACT UAT / vilanterol 0.025 MG/ACTUAT Dry Powder Inhaler [Breo] Breo Ellipta 200-25 MCG/INH Inhalation Aerosol Powder Breath Activated Breo Ellipta 200-25 MCG/INH Inhalation A erosol Powder Breath Activated 01/09/2020 12:00:00 AM EDT active 30 ACTUAT fluticasone furoate 0.2 MG/ACTUAT / vilanterol 0.025 MG/ACTUAT Dry Powder Inhaler [Breo] [place] ([facility]) Metoprolol Tartrate 25 MG Oral Tablet Metoprolol Tartrate 25 MG Oral Tablet 12/11/2019 12:00:00 AM EDT aborted metoprolol tartrate 25 MG Oral Tablet [place] ([facility]) FreeStyle Lite Device FreeStyle Lite Device 12/05/2019 12:00:00 AM EDT completed FreeStyle Lite [facility] ([facility]) FreeStyle Lancets Miscellaneous FreeStyle Lancets Miscellane ous 12/05/2019 12:00:00 AM EDT completed FreeS tyle Lancets [place] ([facility]) FreeStyle Lite Test In Vitro Strip FreeStyle Lite Test In Vi tro Strip 12/05/2019 12:00:00 AM EDT completed Free Style Lite Test [place] ([facility]) atorvastatin 80 MG Oral Tablet Atorvastatin Calcium 80 MG Oral Tablet Atorvastatin Calcium 80 MG Oral Tablet 12/01/2019 12:00:00 AM EDT 1 aborted atorvastatin 80 MG [facility]t [facility] Amlodipine 5 MG Oral Tablet amLODIPine Besylate 5 MG O ral Tablet amLODIPine Besylate 5 MG Oral Tablet 12/01/2019 12:00:00 AM EDT 1 aborted amlodipine 5 MG Oral Tablet [place] ([facility]) Metoprolol Tartrate 25 MG Oral Tablet Metoprolol Tartrate 25 MG Oral Tablet 12/01/2019 12:00:00 AM EDT aborted metoprolol tartrate 25 MG Oral Tablet [place] ([facility]) Basaglar KwikPen 100 UNIT/ML Subcutaneous Solution Pen -injector Basaglar KwikPen 100 UNIT/ML Subcutaneous Solution Pen-injector 12/01/2019 12:00:00 AM EDT 1 aborted Sensor 3 ML in sulin glargine 100 UNT/ML Pen Injector [Basaglar] [place] ([facility]) Metoclopramide 10 MG Oral Tablet [Reglan] Reglan 10 MG Oral Tablet Reglan 10 MG Oral Tablet 12/01/2019 12:00:00 AM EDT aborte d metoclopramide 10 MG Oral Tablet [Reglan] [place] ([facility]) BD Pen Needle Rohini U/F 32G X 4 MM Miscellaneous BD Pen Needle Rohini U/F 32G X 4 MM Miscellaneous 12/01/2019 12:00:00 AM EDT a ctive BD Pen Needle Rohini U/F [place] ([facility]) 200 ACTUAT Albuterol 0.09 MG/ACTUAT Mete red Dose Inhaler [Ventolin] Ventolin HFA 108 (90 Base) MCG/ACT IN AERS Ventolin HFA 108 (90 Base) MCG/ACT IN AERS 12/01/2019 12:00:00 AM EDT aborted [id number] 200 ACTUAT albuterol 0.09 MG/ACTUAT Metered Dose Inhaler [Ventolin] [facility] [facility] ([facility]) 200 ACTUAT Albuterol 0.09 MG/ACTUAT Mete red Dose Inhaler [Ventolin] Ventolin HFA 108 (90 Base) MCG/ACT Inhalation Aerosol Solution Ventolin HFA 108 (90 Base) MCG/ACT Inhalation Aerosol Solution 12/01/2019 12:00:00 AM EDT aborted [id number] 200 ACTUAT albuterol 0.09 MG/ACTUAT Metered Dose Inhaler [Ventolin] [place] ([facility]) Lisinopril 20 MG Oral Tablet Lisinopril 20 MG Oral Tablet 12:00:00 AM EDT 1 aborted lisinopril 20 MG Oral Tablet [place] ([facility]) gabapentin 100 MG Oral Capsule Gabapentin 100 MG Oral Capsule Gabapentin 100 MG Oral Capsule 12/01/2019 12:00:00 AM EDT abort ed gabapentin 100 MG Oral Capsule [place] ([facility]) Aspirin 325 MG Oral Tablet Aspirin 325 MG Oral Tablet 2019 12:00:00 AM EDT 1 active aspirin 325 MG Or al Tablet [place] ([facility]) clopidogrel 75 MG Oral Tablet [Plavix] Plavix 75 MG Or al Tablet Plavix 75 MG Oral Tablet 12/01/2019 12:00:00 AM EDT 1 aborte d clopidogrel 75 MG Oral Tablet [Plavix] [place] ([facility]) Loratadine 10 MG Oral Tablet Loratadine 10 MG Oral Tablet 12:00:00 AM EDT aborted loratadine 10 MG Oral Tablet [place] ([facility]) PARoxetine HCl 10 MG Oral Tablet PARoxetine HCl 10 MG Oral T ablet 12/01/2019 12:00:00 AM EDT aborted paroxetine hydrochloride 10 MG Oral Tablet [place] ([facility]) montelukast 10 MG Oral Tablet Montelukast Sodium 10 MG Oral Tablet Montelukast Sodium 10 MG Oral Tablet 12/01/2019 12:00:00 AM EDT 1 aborted montelukast 10 MG Oral Tablet [place] ([facility]) pantoprazole 40 MG Delayed Release Oral Tablet Pantoprazole Sodium 40 MG Oral Tablet Delayed Release Pantoprazole Sodium 40 MG Oral Tablet Delayed Release 12/01/2019 12:00:00 AM EDT 1 aborted pantoprazole 40 MG Delayed Release Oral Tablet [facility] ([facility] Gemfibrozil 600 MG Oral Tablet Gemfibrozil 600 MG Oral Table t 12/01/2019 12:00:00 AM EDT aborted gemfibr ozil 600 MG Oral Tablet [facility] ([facility]) Basaglar KwikPen 100 UNIT/ML Subcutaneous Solution Pen -injector Basaglar KwikPen 100 UNIT/ML Subcutaneous Solution Pen-injector 11/16/2019 12:00:00 AM EDT 1 aborted Sensor 3 ML in sulin glargine 100 UNT/ML Pen Injector [Basaglar] [facility] ([facility] FreeStyle Milena 14 Day Mcbain JOAQUIN FreeStyle Milena 14 Day Re ader JOAQUIN 10/30/2019 12:00:00 AM EDT aborted FreeSt yle Milena 14 Day Mcbain [facility] ([facility] FreeStyle Precision [place] Test STRP FreeStyle Precision [place] Test STRP 10/30/2019 12:00:00 AM EDT aborted FreeStyle Precision [place] Test [facility] ([facility] FreeStyle Milena 14 Day Sensor MISC FreeStyle Milena 14 Day Se nsor MISC 10/30/2019 12:00:00 AM EDT aborted FreeSt yle Milena 14 Day Sensor [facility] ([facility] FreeStyle Milena 14 Day Mcbain Device FreeStyle Milena 14 Day Mcbain Device 10/30/2019 12:00:00 AM EDT aborted FreeStyle Milena 14 Day Mcbain [facility] ([facility] FreeStyle Precision [place] Test In Vitro Strip FreeStyle Precision [place] Test In Vitro Strip 10/30/2019 12:00:00 AM EDT comple ellis FreeStyle Precision [place] Test [facility] ([facility] FreeStyle Milena 14 Day Sensor Miscellaneous FreeStyle Milena 14 Day Sensor Miscellaneous 10/30/2019 12:00:00 AM EDT abor ellis FreeStyle Milena 14 Day Sensor [facility] ([facility] FreeStyle Milena 14 Day Mcb[place] Device FreeStyle Milena 14 Day Mcbain Device 10/27/2019 12:00:00 AM EDT aborted FreeStyle Milena 14 Day Mcbain [facility] ([facility] FreeStyle Precision [place] Test In Vitro Strip FreeStyle Precision [place] Test In Vitro Strip 10/27/2019 12:00:00 AM EDT aborte d FreeStyle Precision [place] Test [facility] ([facility]) FreeStyle Milena 14 Day Sensor Miscellaneous FreeStyle Milena 14 Day Sensor Miscellaneous 10/27/2019 12:00:00 AM EDT abor ellis FreeStyle Milena 14 Day Sensor [facility] ([facility]) 80 mg 10/19/2019 12:00:00 AM EDT tablet 90 TAKE ONE TABLET BY MOUTH EVERY DAY TAKE ONE TABLET BY MOUTH EVERY DAY SOLD: 10/24/2019 [facility] atorvastatin 80 MG Oral Tablet Atorvastatin Calcium 80 MG Oral Tablet Atorvastatin Calcium 80 MG Oral Tablet 10/18/2019 12:00:00 AM EDT 1 aborted atorvastatin 80 MG Oral Tablet [facility] [place] ([facility]) 325 mg 10/10/2019 12:00:00 AM EDT tablet 30 TAKE ONE TABLET BY MOUTH EVERY DAY TAKE ONE TABLET BY MOUTH EVERY DAY SOLD: 10/11/2019 [facility] 325 mg 10/10/2019 12:00:00 AM EDT tablet 30 TAKE ONE TABLET BY MOUTH EVERY DAY TAKE ONE TABLET BY MOUTH EVERY DAY SOLD: 11/11/2019 [facility] Aspirin 325 MG Oral Tablet Aspirin 325 MG Oral Tablet 2019 12:00:00 AM EDT 1 aborted aspirin 325 MG O ral Tablet [place] ([facility]) 5 mg 10/04/2019 12:00:00 AM EDT tablet 240 TAKE ONE TABLET BY MOUTH FOUR TIMES A DAY (BEFORE MEALS AND AT BEDTIME) TAKE ONE TABLET BY MOUTH FOUR TIMES A DAY (BEFORE MEALS AND AT BEDTIME) SOLD: 10/11/2019 [facility] Vitamin B 12 2.5 MG Sublingual Tablet [facility] anocobalamin 2500 MCG Sublingual Tablet Sublingual Cyanocobalamin 2500 MCG Sublingual Tablet Sublingual 0 09/29/2019 12:00:00 AM EDT aborted vitamin B12 2.5 MG Sublingual Tablet [facility] ([facility]) Docusate Sodium 100 MG Oral Capsule [Colace] Colace 10 0 MG Oral Capsule Colace 100 MG Oral Capsule 09/29/2019 12:00:00 AM EDT aborted docusate sodium 100 MG Oral Capsule [Colace] [facility] ([facility]) montelukast 10 MG Oral Tablet MONTELUKAST SODIUM 09/19/2019 12:0 0:00 AM EDT tablet 30 TAKE ONE TABLET BY MOUTH AT BEDT OLAF TAKE ONE TABLET BY MOUTH AT BEDTIME SOLD: 10/24/2019 [facility] Gemfibrozil 600 MG Oral Tablet Gemfibrozil 600 MG Oral Table t 09/19/2019 12:00:00 AM EDT aborted gemfibr ozil 600 MG Oral Tablet [facility] ([facility]) 600 mg 09/19/2019 12:00:00 AM EDT tablet 90 TAKE ONE TABLET BY MOUTH EVERY DAY TAKE ONE TABLET BY MOUTH EVERY DAY SOLD: 09/25/2019 [facility] montelukast 10 MG Oral Tablet MONTELUKAST SODIUM 09/19/2019 12:0 0:00 AM EDT tablet 30 TAKE ONE TABLET BY MOUTH AT BEDT OLAF TAKE ONE TABLET BY MOUTH AT BEDTIME SOLD: 09/25/2019 [facility] montelukast 10 MG Oral Tablet Montelukast Sodium 10 MG Oral Tablet Montelukast Sodium 10 MG Oral Tablet 09/19/2019 12:00:00 AM EDT 1 aborted montelukast 10 MG Oral Tablet [facility] ([facility]) 28 gauge 08/21/2019 12:00:00 AM EDT misc 100 USE TO TEST BLOOD GLUCOSE THREE TIMES A DAY USE TO TEST BLOOD GLUCOSE THREE TIMES A DAY SOLD: 08/22/2019 [facility] BLOOD SUGAR DIAGNOSTIC 08/19/2019 12:00:00 AM EST strip 300 USE TO TEST BLOOD GLUCOSE 3 TIMES PER DAY USE TO TEST BLOOD GLUCOSE 3 TIMES PER DAY SOLD: 08/22/2019 [facility] FreeStyle Lite JOAQUIN FreeStyle Lite JOAQUIN 08/18/2019 12:00:00 AM EST aborted FreeStyle Lite [facility] FreeStyle Lite Test In Vitro Strip FreeStyle Lite Test In Vi tro Strip 08/18/2019 12:00:00 AM EST aborted FreeSt yle Lite Test [facility] ([facility]) FreeStyle Lite Device FreeStyle Lite Device 08/18/2019 12:00:00 AM EST aborted FreeStyle Lite [facility] ([facility]) FreeStyle Lancets Miscellaneous FreeStyle Lancets Miscellane ous 08/18/2019 12:00:00 AM EST aborted Aric Toussaint [facility] ([facility]) 100 mg 08/16/2019 12:00:00 AM EST capsule 90 TAKE 1 CAPSULE BY MOUTH IN THE MORNING AND 2 CAPSULES IN THE EVENING TAKE 1 CAPSULE BY MOUTH IN THE MORNING A ND 2 CAPSULES IN THE EVENING SOLD: 09/25/2019 [facility] 100 mg 08/16/2019 12:00:00 AM EST capsule 90 TAKE 1 CAPSULE BY MOUTH IN THE MORNING AND 2 CAPSULES IN THE EVENING TAKE 1 CAPSULE BY MOUTH IN THE MORNING A ND 2 CAPSULES IN THE EVENING SOLD: 08/22/2019 [facility] gabapentin 100 MG Oral Capsule Gabapentin 100 MG Oral Capsule Gabapentin 100 MG Oral Capsule 08/16/2019 12:00:00 AM EST abort ed gabapentin 100 MG Oral Capsule [facility] ([facility]) 100 mg 08/16/2019 12:00:00 AM EST capsule 90 TAKE 1 CAPSULE BY MOUTH IN THE MORNING AND 2 CAPSULES IN THE EVENING TAKE 1 CAPSULE BY MOUTH IN THE MORNING A ND 2 CAPSULES IN THE EVENING SOLD: 10/24/2019 [facility] 20 mg 07/25/2019 12:00:00 AM EST tablet 90 TAKE ONE TABLET BY MOUTH EVERY DAY TAKE ONE TABLET BY MOUTH EVERY DAY SOLD: 10/24/2019 [facility] 75 mg 07/25/2019 12:00:00 AM EST tablet 90 TAKE ONE TABLET BY MOUTH EVERY DAY TAKE ONE TABLET BY MOUTH EVERY DAY SOLD: 11/11/2019 [facility] 20 mg 07/25/2019 12:00:00 AM EST tablet 90 TAKE ONE TABLET BY MOUTH EVERY DAY TAKE ONE TABLET BY MOUTH EVERY DAY SOLD: 08/08/2019 [facility] 75 mg 07/25/2019 12:00:00 AM EST tablet 90 TAKE ONE TABLET BY MOUTH EVERY DAY TAKE ONE TABLET BY MOUTH EVERY DAY SOLD: 08/08/2019 [facility] clopidogrel 75 MG Oral Tablet [Plavix] Plavix 75 MG Or al Tablet Plavix 75 MG Oral Tablet 07/24/2019 12:00:00 AM EST 1 aborte d clopidogrel 75 MG Oral Tablet [Plavix] [facility] ([facility]) Lisinopril 20 MG Oral Tablet Lisinopril 20 MG Oral Tablet 12:00:00 AM EST 1 aborted lisinopril 20 MG Oral Tablet [facility] ([facility]) 40 mg 07/22/2019 12:00:00 AM EST tablet,delayed release (DR/EC) 90 TAKE ONE TABLET BY MOUTH EVERY DAY TAKE ONE TABLET BY MOUTH EVERY DAY SOLD: 07/24/2019 [facility] 40 mg 07/22/2019 12:00:00 AM EST tablet,delayed release (DR/EC) 90 TAKE ONE TABLET BY MOUTH EVERY DAY TAKE ONE TABLET BY MOUTH EVERY DAY SOLD: 11/11/2019 [facility] PARoxetine HCl 10 MG Oral Tablet PARoxetine HCl 10 MG Oral T ablet 07/21/2019 12:00:00 AM EST aborted paroxetine hydrochloride 10 MG Oral Tablet [facility] ([facility]) 10 mg 07/21/2019 12:00:00 AM EST tablet 90 TAKE ONE TABLET BY MOUTH AT BEDTIME TAKE ONE TABLET BY MOUTH AT BEDTIME SOLD: 07/24/2019 [facility] 10 mg 07/21/2019 12:00:00 AM EST tablet 90 TAKE ONE TABLET BY MOUTH AT BEDTIME TAKE ONE TABLET BY MOUTH AT BEDTIME SOLD: 10/24/2019 [facility] Loratadine 10 MG Oral Tablet Loratadine 10 MG Oral Tablet 12:00:00 AM EST aborted loratadine 10 MG Oral Tablet [facility] ([facility]) pantoprazole 40 MG Delayed Release Oral Tablet Pantoprazole Sodium 40 MG Oral Tablet Delayed Release Pantoprazole Sodium 40 MG Oral Tablet Delayed Release 06/20/2019 12:00:00 AM EST 1 aborted pantoprazole 40 MG Delayed Release Oral Tablet [facility] ([facility]) Metoprolol Tartrate 25 MG Oral Tablet Metoprolol Tartrate 25 MG Oral Tablet 05/22/2019 12:00:00 AM EST aborted metoprolol tartrate 25 MG Oral Tablet [facility] ([facility]) 25 mg 05/22/2019 12:00:00 AM EST tablet 30 TAKE 1/2 TABLET BY MOUTH TWICE DAILY DIRECTED TAKE 1/2 TABLET BY MOUTH TWICE DAILY DIRECTED SOLD: 08/22/2019 [facility] 25 mg 05/22/2019 12:00:00 AM EST tablet 30 TAKE 1/2 TABLET BY MOUTH TWICE DAILY DIRECTED TAKE 1/2 TABLET BY MOUTH TWICE DAILY DIRECTED SOLD: 09/25/2019 [facility] 25 mg 05/22/2019 12:00:00 AM EST tablet 30 TAKE 1/2 TABLET BY MOUTH TWICE DAILY DIRECTED TAKE 1/2 TABLET BY MOUTH TWICE DAILY DIRECTED SOLD: 10/24/2019 [facility] 25 mg 05/22/2019 12:00:00 AM EST tablet 30 TAKE 1/2 TABLET BY MOUTH TWICE DAILY DIRECTED TAKE 1/2 TABLET BY MOUTH TWICE DAILY DIRECTED SOLD: 07/24/2019 [facility] 25 mg 05/22/2019 12:00:00 AM EST tablet 30 TAKE 1/2 TABLET BY MOUTH TWICE DAILY DIRECTED TAKE 1/2 TABLET BY MOUTH TWICE DAILY DIRECTED SOLD: 06/23/2019 [facility] 5 mg 05/20/2019 12:00:00 AM EST tablet 90 TAKE ONE TABLET BY MOUTH EVERY DAY TAKE ONE TABLET BY MOUTH EVERY DAY SOLD: 08/28/2019 [facility] Amlodipine 5 MG Oral Tablet amLODIPine Besylate 5 MG O ral Tablet amLODIPine Besylate 5 MG Oral Tablet 05/19/2019 12:00:00 AM EST 1 aborted amlodipine 5 MG Oral Tablet [facility] ([facility] Albuterol 0.83 MG/ML Inhalant Solution A lbuterol Sulfate (2.5 MG/3ML) 0.083% Inhalation Nebulization solution Albuterol Sulfate (2.5 MG/3ML) 0.083% Inhalation Nebulization solution 04/25/2019 12:00:00 AM EST aborted albuterol 0.83 MG/ML Inhalation Solution [facility] ([facility]) 80 mg 04/24/2019 12:00:00 AM EST tablet 90 TAKE ONE TABLET BY MOUTH EVERY DAY TAKE ONE TABLET BY MOUTH EVERY DAY SOLD: 07/24/2019 [facility] atorvastatin 80 MG Oral Tablet Atorvastatin Calcium 80 MG Oral Tablet Atorvastatin Calcium 80 MG Oral Tablet 04/03/2019 12:00:00 AM EDT 1 aborted atorvastatin 80 MG Oral Tablet [facility] ([facility] Ranitidine 150 MG Oral Tablet raNITIdine HCl 150 MG Or al Tablet raNITIdine HCl 150 MG Oral Tablet 04/03/2019 12:00:00 AM EDT 1 aborted ranitidine 150 MG Oral Tablet [facility] ([facility] 600 mg 03/26/2019 12:00:00 AM EDT tablet 90 TAKE ONE TABLET BY MOUTH EVERY DAY TAKE ONE TABLET BY MOUTH EVERY DAY SOLD: 06/23/2019 [facility] Gemfibrozil 600 MG Oral Tablet Gemfibrozil 600MG Oral Tablet Gemfibrozil 600MG Oral Tablet 03/06/2019 12:00:00 AM EDT aborte d gemfibrozil 600 MG Oral Tablet [facility] ([facility]) gabapentin 100 MG Oral Capsule Gabapentin 100MG Oral C apsule Gabapentin 100MG Oral Capsule 02/03/2019 12:00:00 AM EDT abort ed gabapentin 100 MG Oral Capsule [facility] ([facility]) montelukast 10 MG Oral Tablet MONTELUKAST SODIUM 02/03/2019 12:0 0:00 AM EDT tablet 30 TAKE ONE TABLET BY MOUTH AT BEDT OLAF TAKE ONE TABLET BY MOUTH AT BEDTIME SOLD: 06/16/2019 [facility] montelukast 10 MG Oral Tablet MONTELUKAST SODIUM 02/03/2019 12:0 0:00 AM EDT tablet 30 TAKE ONE TABLET BY MOUTH AT BEDT OLAF TAKE ONE TABLET BY MOUTH AT BEDTIME SOLD: 08/22/2019 [facility] montelukast 10 MG Oral Tablet MONTELUKAST SODIUM 02/03/2019 12:0 0:00 AM EDT tablet 30 TAKE ONE TABLET BY MOUTH AT BEDT OLAF TAKE ONE TABLET BY MOUTH AT BEDTIME SOLD: 07/19/2019 [facility] Lisinopril 20 MG Oral Tablet Lisinopril 20MG Oral Tabl et Lisinopril 20MG Oral Tablet 02/03/2019 12:00:00 AM EDT 1 aborted lisinopril 20 MG Oral Tablet [facility] ([facility]) 100 mg 02/03/2019 12:00:00 AM EDT capsule 90 TAKE 1 CAPSULE BY MOUTH IN THE MORNING AND 2 CAPSULES IN THE EVENING TAKE 1 CAPSULE BY MOUTH IN THE MORNING A ND 2 CAPSULES IN THE EVENING SOLD: 06/16/2019 [facility] 100 mg 02/03/2019 12:00:00 AM EDT capsule 90 TAKE 1 CAPSULE BY MOUTH IN THE MORNING AND 2 CAPSULES IN THE EVENING TAKE 1 CAPSULE BY MOUTH IN THE MORNING A ND 2 CAPSULES IN THE EVENING SOLD: 07/19/2019 [facility] montelukast 10 MG Oral Tablet Montelukast Sodium 10MG Oral Tablet Montelukast Sodium 10MG Oral Tablet 02/03/2019 12:00:00 AM EDT 1 aborted montelukast 10 MG Oral Tablet [facility] ([facility]) 5 mg 01/11/2019 12:00:00 AM EDT tablet 240 TAKE ONE TABLET BY MOUTH FOUR TIMES A DAY (BEFORE MEALS AND AT BEDTIME) TAKE ONE TABLET BY MOUTH FOUR TIMES A DAY (BEFORE MEALS AND AT BEDTIME) SOLD: 08/08/2019 [facility] 5 mg 01/11/2019 12:00:00 AM EDT tablet 240 TAKE ONE TABLET BY MOUTH FOUR TIMES A DAY (BEFORE MEALS AND AT BEDTIME) TAKE ONE TABLET BY MOUTH FOUR TIMES A DAY (BEFORE MEALS AND AT BEDTIME) SOLD: 05/30/2019 [facility] clopidogrel 75 MG Oral Tablet [Plavix] Plavix 75MG Ora l Tablet Plavix 75MG Oral Tablet 01/10/2019 12:00:00 AM EDT 1 aborted clopidogrel 75 MG Oral Tablet [Plavix] [facility] ([facility]) FreeStyle Milena 14 Day Mcbain Device FreeStyle Milena 14 Day Mcbain Device 01/10/2019 12:00:00 AM EDT aborted FreeStyle Milena 14 Day Mcbain [facility] FreeStyle Milena Sensor System Miscellaneous FreeStyle Milena Sensor System Miscellaneous 01/10/2019 12:00:00 AM EDT abor ellis FreeStyle Milena Sensor System [facility] Loratadine 10 MG Oral Tablet Loratadine 10MG Oral Tabl et Loratadine 10MG Oral Tablet 12/14/2018 12:00:00 AM EDT aborted loratadine 10 MG Oral Tablet [facility]) Ondansetron 4 MG Oral Tablet [Zofran] Zofran 4MG Oral Tablet Zofran 4MG Oral Tablet 11/24/2018 12:00:00 AM EDT 1 aborted ondansetron 4 MG Oral Tablet [Zofran] [facility] ([facility]) Metoclopramide 10 MG Oral Tablet [Reglan] Reglan 10MG Oral Tablet Reglan 10MG Oral Tablet 11/22/2018 12:00:00 AM EDT aborte d metoclopramide 10 MG Oral Tablet [Reglan] [facility] ([facility]) clopidogrel 75 MG Oral Tablet Clopidogrel Bisulfate 75 MG Oral Tablet Clopidogrel Bisulfate 75MG Oral Tablet 11/21/2018 12:00:00 AM EDT 1 aborted clopidogrel 75 MG Oral Tablet [facility] ([facility]) Docusate Sodium 100 MG Oral Capsule [Colace] Colace 10 0MG Oral Capsule Colace 100MG Oral Capsule 11/21/2018 12:00:00 AM EDT aborted docusate sodium 100 MG Oral Capsule [Colace] [place] ([facility]) Aspirin 325 MG Oral Tablet Aspirin 325MG Oral Tablet Aspirin 325MG Oral Tablet 11/18/2018 12:00:00 AM EDT 1 aborted aspirin 325 MG Oral Tablet [facility] ([facility]) Vitamin B 12 2.5 MG Sublingual Tablet Cy anocobalamin 2500MCG Sublingual Tablet Sublingual Cyanocobalamin 2500MCG Sublingual Tablet Sublingual 12:00:00 AM EDT aborted vitamin B12 2.5 MG Sublingual Tablet [facility] ([facility]) Basaglar KwikPen 100UNIT/ML Subcutaneous Solution Pen- injector Basaglar KwikPen 100UNIT/ML Subcutaneous Solution Pen-injector 10/24/2018 12:00:00 AM EDT 1 aborted Sensor 3 ML insulin glarg ine 100 UNT/ML Pen Injector [Basaglar] [facility] ([facility]) 100 unit/mL (3 mL) 10/24/2018 12:00:00 AM EDT insulin pen 27 INJECT 30 UNITS AT BEDTIME DAILY INJECT 30 UNITS AT BEDTIME DAILY SOLD: 08/22/2019 [facility] PARoxetine HCl 10MG Oral Tablet PARoxetine HCl 10MG Oral Tab let 10/07/2018 12:00:00 AM EDT aborted paroxetine hydrochloride 10 MG Oral Tablet [place] ([facility]) pantoprazole 40 MG Delayed Release Oral Tablet Pantoprazole Sodium 40MG Oral Tablet Delayed Release Pantoprazole Sodium 40MG Oral Tablet Delayed Release 09/27/2018 12:00:00 AM EDT 1 aborted pantoprazole 40 MG Delayed Release Oral Tablet [place] ([facility]) Cholecalciferol 42930 UNT Oral Capsule V itamin D3 89554SXLE Oral Capsule, conventional Vitamin D3 98444PJQQ Oral Capsule, conventional 2018 12:00:00 AM EST aborted cholecalciferol 1.25 MG Oral Capsule [facility] ([facility]) BD Pen Needle Rohini U/F 32G X 4 MM Miscellaneous BD Pen Needle Rohini U/F 32G X 4 MM Miscellaneous 05/12/2018 12:00:00 AM EST a borted BD Pen Needle Rohini U/F [place] ([facility]) FreeStyle Lite Test In Vitro Strip FreeStyle Lite Test In Vi tro Strip 05/10/2018 12:00:00 AM EST aborted FreeSt yle Lite Test [facility] ([facility]) FreeStyle Lancets Miscellaneous FreeStyle Lancets Miscellane ous 05/10/2018 12:00:00 AM EST aborted FreeSty le Lancets [facility] ([facility]) 60 ACTUAT Budesonide 0.16 MG/ACTUAT / fo rmoterol fumarate 0.0045 MG/ACTUAT Metered Dose Inhaler [Symbicort] Symbicort 160-4.5MCG/ACT Inhalation Aerosol Symbicort 160-4.5MCG/ACT Inhalation Aerosol 12/22/2017 12:00:00 AM EDT aborted 60 ACTUAT budeso nide 0.16 MG/ACTUAT / formoterol fumarate 0.0045 MG/ACTUAT Metered Dose Inhaler [Symbicort] [facility] ([facility]) 200 ACTUAT Albuterol 0.09 MG/ACTUAT Mete red Dose Inhaler [Ventolin] Ventolin HFA 108 (90 Base)MCG/ACT Inhalation Aerosol Solution Ventolin HFA 108 (90 Base)MCG/ACT Inhalation Aerosol Solution 11/17/2017 12:00:00 AM EDT aborted [id number] 200 ACTUAT albuterol 0.09 MG/ACTUAT Metered Dose Inhaler [Ventolin] [facility] ([facility]) Insurance Providers Payer name Policy type / Coverage type Policy ID Covered green party ID Covered green party's relationship to luong Policy Luong Plan Information EMEDNY [id number] SP [id number] MEDICARE [id number] SP [id number] [place] Other 10 Self 10 Medicare Part [place] of [place] Other 0 Self 0 [place] Other 10 Self 10 [place] Other 0 Self 0 [place] Other 10 Self 10 Medicare [place] of [place] Other 0 Self 0 Medicaid [facility] Other 10 Self 10 Medicare Part [place] of [place] Other 0 Self 0 MEDICARE [id number] [place] [id number] [id number] MEDICAID [id number] [place] [id number] MEDICARE C [id number] S [id number] MEDICAID M [id number] [place] of [place] Other 10 Self 10 Medicare [place] of [place] Other 0 Self 0 [place] Other 10 Self 10 Medicare [place] of [place] Other 0 Self 0 MEDICAID -O/P [id number] MEDICARE PART A -O/P [id number] 18 [id number] [place] Other 10 Self 10 Medicare [place] Other 0 Self 0 [place] Other 10 Self 10 [place] Other 0 Self 0 [place] Other 10 Self 10 [place] Other 0 Self 0 [place] Other 10 Self 10 Medicare [place] Other 0 Self 0 SELF PAY MEDICAID [facility] [id number] SP AF [id number] MEDICARE PART A [id number] SP [id number] MEDICAID [id number] SP [id number] MEDICARE [id number] SP [id number] M08 SELF PAY MEDICAID [facility] [id number] SP AF [id number] MEDICARE PART A [id number] SP [id number] [place] Other 10 Self 10 Medicare [place] of [place] Other 0 Self 0 [place] Other 10 Self 10 Medicare [place] Other 0 Self 0 SELF PAY MEDICAID [facility] [id number] SP AF [id number] MEDICARE PART A [id number] SP [id number] [place] Other 10 Self 10 Medicare [place] Other 0 Self 0 MEDICARE PART A [id number] SP [id number] SELF PAY MEDICAID [facility] [id number] SP AF [id number] MEDICARE PART A [id number] SP [id number] MEDICARE [id number] SP [id number] A [place] Other 10 Self 10 Medicare [place] Other 0 Self 0 [place] Other 10 Self 10 Medicare [place] Other 0 Self 0 SELF PAY MEDICARE PART A [id number] SP [id number] MEDICAID [facility] [id number] SP AF [id number] [place] of [place] Other 10 Self 10 Medicare [place] of [place] Other 0 Self 0 MEDICARE [id number] Eboni [id number] [place] Other 10 Self 10 Medicare [place] of [place] Other 0 Self 0 MEDICAID [facility] [id number] SP AF [id number] MEDICARE [id number] SP [id number] A MEDICAID [facility] [id number] SP AF [id number] [place] Other 10 Self 10 Medicare [place] Other 0 Self 0 [place] Other 10 Self 10 Medicare [place] Other 0 Self 0 Medicaid [facility] Healthcare S D [id number] SELF [id number] Medicare C [id number] SELF [id number] A [place] Other 10 Self 10 Medicare [place] Other 0 Self 0 [place] Other 10 Self 10 Medicare [place] Other 0 Self 0 MEDICAID [facility] [id number] SP AF [id number] MEDICAID [facility] [id number] SP AF [id number] [place] Other 10 Self 10 Medicare [place] Other 0 Self 0 [place] Other 0 Self 0 [place] Other 10 Self 10 [place] Other 0 Self 0 [place] Other 10 Self 10 [place] Other 0 Self 0 [place] Other 10 Self 10 [place] Other 0 Self 0 [place] Other 10 Self 10 [place] Other 0 Self 0 [place] Other 10 Self 10 [place] Other 0 Self 0 [place] Other 10 Self 10 [place] Other 0 Self 0 [place] Other 10 Self 10 [place] of [place] Other 10 Self 10 Medicare [place] Other 0 Self 0 Medicare [place] Other 0 Self 0 [place] Other 10 Self 10 [place] Other 0 Self 0 [place] Other 10 Self 10 [place] Other 0 Self 0 [place] Other 10 Self 10 [place] Other 0 Self 0 [place] of [place] Other 10 Self 10 Medicare [place] Other 0 Self 0 [place] Other 10 Self 10 MEDICAID [facility] [id number] SP AF [id number] MEDICAID PI PI MEDICARE PI PI Medicare [id number] Medicare [id number] A Medicaid - PANOSOL [id number] Medica id [id number] MEDICARE C [id number] S [id number] A [place] MEDICARE PART B C [id number] S [id number] MEDICARE A [id number] Self [id number] A [place] [id number] SP AF [id number] MEDICARE [id number] SP [id number] [place] Medigap Part B Self Medicare [facility] Medicare Primary Self MEDICAID [facility] [id number] SP AF [id number] [place] [id number] SP AF [id number] [place] Self Medicare [facility] Medicare [place] [id number] SP AF [id number] MEDICAID [id number] SP [id number] MEDICAID [facility] [id number] SP AF [id number] MEDICAID [facility] [id number] SP AF [id number] MEDICAID [facility] [id number] SP AF [id number] MEDICAID [id number] 0 0 Medicare Part B [facility] 0 0 0 MEDICAID [facility] [id number] SP AF [id number] MEDICAID [facility] [id number] SP AF [id number] MEDICARE [id number] SP [id number] A MEDICAID [facility] [id number] SP [id number] Problems, Conditions, and Diagnoses Code Display Name Description Problem Type Effective Dates Data Source(s) 571.8 Fatty Liver Fatty Liver Problem 02/14/2020 12:00:00 AM EDT [facility] ([facility]) 571.8 Fatty Liver Fatty Liver Problem 02/14/2020 12:00:00 AM EDT [facility] ([facility]) 571.8 Fatty Liver Fatty Liver Problem 02/14/2020 12:00:00 AM EDT [facility] ([facility]) 571.8 Fatty Liver Fatty Liver Problem 02/14/2020 12:00:00 AM EDT [facility] ([facility]) 571.8 Fatty Liver Fatty Liver Problem 02/14/2020 12:00:00 AM EDT [facility] ([facility]) 441.4 Abdominal aortic aneurysm, without ruptu re Abdominal aortic aneurysm, without rupture Problem 01/25/2020 12:00:00 AM EDT [facility] ([facility]) 441.4 Abdominal aortic aneurysm, without ruptu re Abdominal aortic aneurysm, without rupture Problem 01/25/2020 12:00:00 AM EDT [facility] ([facility]) 441.4 Abdominal aortic aneurysm, without ruptu re Abdominal aortic aneurysm, without rupture Problem 01/25/2020 12:00:00 AM EDT [facility] ([facility]) 441.4 Abdominal aortic aneurysm, without ruptu re Abdominal aortic aneurysm, without rupture Problem 01/25/2020 12:00:00 AM EDT [facility] ([facility]) 441.4 Abdominal aortic aneurysm, without ruptu re Abdominal aortic aneurysm, without rupture Problem 01/25/2020 12:00:00 AM EDT [facility] ([facility]) 441.4 Abdominal aortic aneurysm, without ruptu re Abdominal aortic aneurysm, without rupture Problem 01/25/2020 12:00:00 AM EDT [facility] ([facility]) 289.59 Cyst of spleen Cyst of spleen Problem 01/24/2020 12:00: 00 AM EDT [facility] ([facility]) 289.59 Cyst of spleen Cyst of spleen Problem 01/24/2020 12:00: 00 AM EDT [facility] ([facility]) 289.59 Cyst of spleen Cyst of spleen Problem 01/24/2020 12:00: 00 AM EDT [facility] ([facility]) 289.59 Cyst of spleen Cyst of spleen Problem 01/24/2020 12:00: 00 AM EDT [facility] ([facility]) 289.59 Cyst of spleen Cyst of spleen Problem 01/24/2020 12:00: 00 AM EDT [facility] ([facility]) 337.00 Other idiopathic peripheral autonomic ne uropathy Other idiopathic peripheral autonomic neuropathy Problem 11/15/2019 12:00:00 AM EDT G [facility] ([facility]) 337.00 Other idiopathic peripheral autonomic ne uropathy Other idiopathic peripheral autonomic neuropathy Problem 11/15/2019 12:00:00 AM EDT [facility] ([facility]) 337.00 Other idiopathic peripheral autonomic ne uropathy Other idiopathic peripheral autonomic neuropathy Problem 11/15/2019 12:00:00 AM EDT [facility] ([facility]) 337.00 Other idiopathic peripheral autonomic ne uropathy Other idiopathic peripheral autonomic neuropathy Problem 11/15/2019 12:00:00 AM EDT [facility] ([facility]) 337.00 Other idiopathic peripheral autonomic ne uropathy Other idiopathic peripheral autonomic neuropathy Problem 11/15/2019 12:00:00 AM EDT [facility] ([facility]) 337.00 Other idiopathic peripheral autonomic ne uropathy Other idiopathic peripheral autonomic neuropathy Problem 11/15/2019 12:00:00 AM EDT [facility] [place] ([facility]) 337.00 Other idiopathic peripheral autonomic ne uropathy Other idiopathic peripheral autonomic neuropathy Problem 11/15/2019 12:00:00 AM EDT Tabitha HUGHES ([facility] F17.210 Nicotine dependence, cigarettes, uncompl icated Nicotine dependence, cigarettes, uncompl Diagnosis 04/04/2020 02:18:55 PM EDT [facility] I77.9 Disorder of arteries and arterioles, uns pecified Disorder of arteries and arterioles, uns Diagnosis 04/04/2020 02:18:55 PM EDT [facility] I73.9 Peripheral vascular disease, unspecified Peripheral vascular disease, unspecified Diagnosis 04/04/2020 02:18:55 PM EDT [facility] E11.65 Type 2 diabetes mellitus with hyperglyce aissatou Type 2 diabetes mellitus with hyperglyce Diagnosis 04/04/2020 02:18:55 PM EDT [facility] E78.5 Hyperlipidemia, unspecified Hyperlipidemia, unspecifie d Diagnosis 04/04/2020 02:18:55 PM EDT [facility] I10 Essential (primary) hypertension Essential (primary) h ypertension Diagnosis 04/04/2020 02:18:55 PM EDT [facility] I63.9 Cerebral infarction, unspecified Cerebral infarc tion, unspecified Diagnosis 04/04/2020 02:18:55 PM EDT [facility] 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 Atherosclerotic heart disease of mechoopda Diagnosis 04/04/2020 02:18:55 PM EDT [facility] I129 Hypertensive chronic kidney disease with stage 1 through stage 4 chronic kidney disease, or unspecified chronic kidney disease Hypertensive chronic kidney disease with stage 1 through stage 4 chronic kidney disease, or unspecified chronic kidney disease Diagnosis 01/23/2020 02:13:00 PM ED T [facility] E23048 Nicotine dependence, cigarettes, uncompl icated Nicotine dependence, cigarettes, uncomplicated Diagnosis 01/23/2020 02:13:00 PM EDT [facility] E119 Type 2 diabetes mellitus without complic ations Type 2 diabetes mellitus without complications Diagnosis 01/23/2020 02:13:00 PM EDT [facility] N189 Chronic kidney disease, unspecified Chronic kidn ey disease, unspecified Diagnosis 01/23/2020 02:13:00 PM [facility] R109 Unspecified abdominal pain Unspecified abdominal pain Diagnosis 01/23/2020 02:13:00 PM [facility] Surgeries/Procedures Procedure Description Date Indications Data Source(s) Medicare Influenza vaccine, preservative free, 6 month s & up Medicare Influenza vaccine, preservative free, 6 months & up 04/10/2020 12:00:00 AM [facility] ([facility]) Medicare Pneumococcal polysaccharide vaccine, 23-sharon t, duong Medicare Pneumococcal polysaccharide vaccine, 23-valent, duong 04/10/2020 12:00:00 AM [facility] ([facility]) [facility] ([facility]) visit, established patient; a medically-necessary, zkwp-qj-nklj encounter (one-on-one) between an established patient and a [facility] practitioner during which time one or more [facility] services are rendered and includes a typical bundle of medicare-covered services that would be furnished sharepoint solutions developer to a patient receiving a fq visit FQHC Visit, established patient 04/10/2020 12:00:00 AM Neil GOULD ([facility]) Pneumococcal Polysaccharide Vaccine, 23-Valent, Adult or Imm Pneumococcal Polysaccharide Vaccine, 23-Valent, Adult or Imm 04/10/2020 12:00:00 AM [facility] ([facility]) Influenza virus vaccine, preservative free, 6 months a nd up Influenza virus vaccine, preservative free, 6 months and up 04/10/2020 12:00:00 AM Neil GOULD ([facility]) C/FQHC code for distant site telehealt h services (Synchronous telemedicine service rendered via real-time interactive audio and video telecommunication system) [facility]/FQHC code for distant site telehealt h services (Synchronous telemedicine service rendered via real-time interactive audio and video telecommunication system) 03/12/2020 12:00:00 AM ALONSO Kerr ([facility]) [facility] ([facility]) visit, established patient; a medically-necessary, obcu-bv-jpwn encounter (one-on-one) between an established patient and a [facility] practitioner during which time one or more fqhc services are rendered and includes a typical bundle of medicare-covered services that would be furnished sharepoint solutions developer to a patient receiving a fqhc visit FQHC Visit, established patient 02/07/2020 12:00:00 AM EDT [facility]IS [facility]ERNAND[facility] ([facility]) [facility]/FQHC code for distant site telehealt h services (Synchronous telemedicine service rendered via real-time interactive audio and video telecommunication system) [facility]/FQHC code for distant site telehealt h services (Synchronous telemedicine service rendered via real-time interactive audio and video telecommunication system) 01/09/2020 12:00:00 AM EDT JUSTO Kerr ([facility]) R[facility]/FQHC code for distant site telehealt h services (Synchronous telemedicine service rendered via real-time interactive audio and video telecommunication system) [facility]/FQHC code for distant site telehealt h services (Synchronous telemedicine service rendered via real-time interactive audio and video telecommunication system) 09/29/2019 12:00:00 AM EDNeil Kerr ([facility]) [facility] (fqhc) visit, established patient; a medically-necessary, fzbr-gb-unff encounter (one-on-one) between an established patient and a [facility]qhc practitioner during which time one or more fqhc services are rendered and includes a typical bundle of medicare-covered services that would be furnished sharepoint solutions developer to a patient receiving a fqhc visit [facility] Visit, established patient (Synchronous telemedicine service rendered via real-time interactive audio and video telecommunication system) 09/29/2019 12:00:00 AM ALONSO GOULD [facility]) Results ID Date Data Source [id number] 01/25/2020 12:30:00 [place] [address] PHONE: [phone] FAX: [phone] Name .................. : DESEAN STAFFORD Acct Number.................. : [id number] ROOM. ................. : TR-02 Number ................... : [id number] Stay type ............. : E/R Discharge Date......... ... : 01/23/20 Admit Date ......... : 01/23/20 Admit Phys .................... : YOU SCOOBY Date of ....... : 1955 Family Phys ................... : NON STAFF Phone .................. : [phone] Age ................................ : 64 Film# .................. .:[id number] Sex ................................. : M Unsigned transcriptions are preliminary reports and do not represent a medical or legal document CHEST PORTABLE [id number] COMPLETE:01/23/20 14:56 50279 Reason(s): ? PNU PORTABLE CHEST X-RAY: INDICATION: Question pneumonia. FINDINGS: Lung talbert are clear. No focal infiltrate or consolidation is identified. Cardiac silhouette is grossly unremarkable. Atherosclerotic disease is identified in the aorta. IMPRESSION: No acute pulmonary findings. Examination dictated by JUSTIN Hearn. Examination was reviewed with Tammy Benitez MD, radiologist at the time of this dictation. Electronically Reviewed and Signed By TAMMY BENITEZ MD , 01/25/20 12:30, [facility] Transcribe Initials: GONSALO , Transcribe Date: 01/24/20 00:22, Dictation Date: Copy for: JESSICA JASON via fax Copy for: YOU Sandoval via fax Copy for: EMERGENCY DEPT via modem Copy for: 710 MED REC DISCHARGED Page 1 of 1 Name Value Range Interpretation Code Description Data Cely rce(s) Supporting Document(s) ID Date Data Source [id number] 01/25/2020 11:39:00 AM EDT [facility] [address] [place] [address] PHONE: [phone] FAX: [phone] Name .................. : DESEAN STAFFORD Acct Number.................. : [id number] ROOM. ................. : TR-02 MR Number ................... : [id number] Stay type ............. : E/R Discharge Date......... ... : Admit Date ......... : 01/23/20 Admit Phys .................... : YOU SCOOBY Date of ....... : 1955 Family Phys ................... : NON STAFF Phone .................. : [phone] Age ................................ : 64 Film# .................. .:[id number] Sex ................................. : M Unsigned transcriptions are preliminary reports and do not represent a medical or legal document CT THORAX W/O CONTRAST [id number] COMPLETE:01/23/20 19:18 [facility] [id number] Reason(s): NO CONTRAST: Noted crackles b/l lower lobes CT OF THE THORAX WITHOUT CONTRAST: HISTORY: Noted crackles bilateral lower lobes. FINDINGS: The lung talbert are free of nodules, infiltrates and masses. The heart is enlarged. There is calcification to the LAD, circumflex and right coronary arteries. The remainder of the examination is unremarkable. IMPRESSION: Cardiomegaly and findings suggesting coronary artery disease. While performing the above CT examination, radiation dose reduction was accomplished utilizing automated exposure control, adjusting of the mA and kV based on the patient's body size and/or the use of imperative reconstructive techniques. CT dose: 620.3 mGycm Electronically Reviewed and Signed By Homar Bowling MD , 01/25/20 11:39, [facility] Transcribe Initials: GONSALO , Transcribe Date: 01/23/20 19:36, Dictation Date: Copy for: JESSICA JASON via fax Copy for: YOU Sandoval via fax Copy for: EMERGENCY DEPT via modem Copy for: 710 MED REC DISCHARGED Page 1 of 1 Name Value Range Interpretation Code Description Data Cely rce(s) Supporting Document(s) ID Date Data Source [id number] 01/25/2020 11:39:00 AM EDT [facility] [address] [place] [address] PHONE: [phone] FAX: [phone] Name .................. : DESEAN STAFFORD Acct Number.................. : [id number] ROOM. ................. : TR-02 Number ................... : [id number] Stay type ............. : E/R Discharge Date......... ... : Admit Date ......... : 01/23/20 Admit Phys .................... : YOU ALMODOVAR Date of ....... : 1955 Family Phys ................... : NON STAFF Phone .................. : [phone] Age ................................ : 64 Film# .................. .:[id number] Sex ................................. : M Unsigned transcriptions are preliminary reports and do not represent a medical or legal document CT ABD & PEL[place] W/[place] [id number] COMPLETE:01/23/20 19:18 [facility] [address] Reason(s): NO CONTRAST: Renal insufficiency; abd pain CT OF THE ABDOMEN AND PELVIS WITHOUT CONTRAST: HISTORY: Renal insufficiency, abdominal pain. FINDINGS: No organomegaly is seen. The kidneys demonstrate no evidence for parenchymal calculi or obstruction. There are numerous vascular calcifications present in the kidneys. There is a 3.3 cm infrarenal abdominal aortic aneurysm. No ascites is noted. No lymphadenopathy is seen. The appendix is normal. IMPRESSION: 3.3 cm infrarenal abdominal aortic aneurysm. While performing the above CT examination, radiation dose reduction was accomplished utilizing automated exposure control, adjusting of the mA and kV based on the patient's body size and/or the use of imperative reconstructive techniques. CT dose: 820.3 mGycm Electronically Reviewed and Signed By Homar Bowling MD , 01/25/20 11:39, [facility] Transcribe Initials: GONSALO , Transcribe Date: 01/23/20 19:29, Dictation Date: Copy for: JESSICA JASON via fax Copy for: YOU Sandoval via fax Copy for: EMERGENCY DEPT via modem Copy for: 710 MED REC Page 1 of 2 [facility] [address] [place] [address] PHONE: [phone] FAX: [phone] Name .................. : DESEAN STAFFORD Acct Number.................. : [id number] ROOM. ................. : TR-02 MR Number ................... : [id number] Stay type ............. : E/R Discharge Date......... ... : Admit Date ......... : 01/23/20 Admit Phys .................... : YOU SCOOBY Date of ....... : 1955 Family Phys ................... : NON STAFF Phone .................. : [phone] Age ................................ : 64 Film# .................. .:[id number] Sex ................................. : M Unsigned transcriptions are preliminary reports and do not represent a medical or legal document CT ABD & PELV W/O ORAL W/[place] [id number] COMPLETE:01/23/20 19:18 [facility] [id number] Reason(s): NO CONTRAST: Renal insufficiency; abd pain DISCHARGED Page 2 of 2 Name Value Range Interpretation Code Description Data Cely rce(s) Supporting Document(s) ID Date Data Source [id number] 01/23/2020 02:13:00 PM EDT [facility] 1 OrderSheet [facility] Emergency Department [address] [place] [address] Phone #: ext- [phone] 01/23/2020 14:10 Patient: NYDIA ANTON Sex: M : 1955 Age: 64yWEIGHT:81.6 kg (S) HEIGHT:67 inches (S) BMI:28.2ALLERGIES: IV Contrast 2/2 CKD, ZoysnCHIEF COMPLAINT: abdominal painDIAGNOSIS: Renal impairmentLAB ORDERSOrder Description Priority Entered Acknowledged InitialedCBC w Diff STAT 14:56 01/23/2020 14:57 Vimal Go.N. P.A.- C;CMP STAT 14:56 01/23/2020 14:57 Vimal Go.N. P.A.-C;Lipase STAT 14:56 01/23/2020 14:57 Vimal Go.N. P.A.-C;PT/PTT STAT 14:56 01/23/2020 14:57 Vimal Go R.N. P.A.-C;Troponin-T STAT 14:56 01/23/2020 14:57 Vimal Go.N. P.A.-C;Urinalysis (Clean STAT 14:56 01/23/2020 Ack'd: 14:57 19:10 [facility]) Brianne Noel ED, Jesse ER P.A.-C; R.N. [id number] Culture STAT 14:56 01/23/2020 Ack'd: 14:57 16:30 [place],q10m X2 (Sched Brianne NeolNMilad14:56 01/23/2020) P.A.-C; R.N.Blood Culture STAT 14:56 01/23/2020 16:30 [place],q10m X2 (Sched Vimal LeonardNMilad15:06 01/23/2020) P.A.-C;Culture, Urine STAT 14:56 01/23/2020 Ack'd: 14:57 18:26 Fay(Urine, Clean [facility] Ann-Marie.Rachel.-C; R.N.BNP STAT 14:56 01/23/2020 14:57 [place], 2 OrderSheet [facility] Emergency Department [address] [place] [address] Phone #: ext- [phone] 01/23/2020 14:10 Patient: NYDIA ANTON Sex: M : 1955 Age: 64y Vimal FernandezA.- C;Lactic Acid STAT 15:20 01/23/2020 Ack'd: 16:01 16:30 Vimal Go Laura Laura R.N. P.A.-C; R.N.Troponin-T STAT 17:53 01/23/2020 18:26 Fay Berrios RN P.A.-C; NOTES: 3hr REPEATDIAGNOSTIC STUDY ORDERSOrder Description Priority Entered Acknowledged InitialedChest Portable 1 STAT 14:56 01/23/2020 Ack'd: 14:57 18:26 FayView Brianne Noel RN(Oxygen?(No)) PCalvin; R.N. Reason for Study: ? PNUCT Chest W/O Cont STAT 16:19 01/23/2020 16:29 [place](Oxygen?(No)) Vimal FernandezA.-C; Reason for Study: NO CONTRAST: Noted crackles b/l lower lobesCT ABD PEL W/O STAT 16:19 01/23/2020 16:29 [place],Oral W/O IV Vimal Decker R.N.Contrast P.A.- C;(Oxygen?(No))(IV?(No)) Reason for Study: NO CONTRAST: REnal insufiency; abd painMEDICATION/IV/DRIP/FLUID ORDERSOrder Description Priority Entered Acknowledged InitialedIV NS : Bolus 500 14:56 01/23/2020 15:01 [place],mL, then 75 mL/hr Vimal Decker R.N. P.A.-C;GENERAL ORDERSOrder Description Priority Entered Acknowledged InitialedBlood Pressure 14:56 01/23/2020 14:56 [place],Monitor Vimal Decker R.N. P.A.-C;Field Marketing Manager 14:56 01/23/2020 14:56 [place](continuous) Vimal Decker R.N. P.A.-C; 3 OrderSheet [facility] Emergency Department [address] [place] [address] Phone #: ext- [phone] 01/23/2020 14:10 Patient: NYDIA ANTON Sex: M : 1955 Age: 64yEKG 14:56 01/23/2020 Ack'd: 14:57 15:05 [place] Brianne Noel ED, Jesse ER PMiladAMilad- C; Mike.Anish Tjed1ARP 14:56 01/23/2020 14:56 Vimal Go R.N. P.A.-C;Obtain Old EKG 14:56 01/23/2020 14:56 Vimal Go R.N. P.A.-C;Obtain Old Records 14:56 01/23/2020 14:56 Vimal Go R.N. P.A.-C;Pulse oximeter 14:56 01/12 14:56 [place](Continuous) Vimal Decker R.N., P.A.-C;Saline Lock 14:56 01/23/2020 14:56 Vimal Go R.N., P.A.-C;Vitals 14:56 01/23/2020 14:56 Vimal Go R.N., P.A.-C;Transfer: 19:30 01/23/2020 19:30 Vimal Katz P.A.-C, P.A.-C;[Electronically signed by Armando Malcolm R.N. (21:21 01/23/2020)][Electronically signed by Vimal Katz P.A.-C (21:39 0 01/23/2020)][Electronically locked by Armando Malcolm R.N. (21:21 01/23/2020)] Name Value Range Interpretation Code Description Data Cely rce(s) Supporting Document(s) ID Date Data Source [id number] 01/23/2020 02:13:00 PM EDT [facility] 1 Medication Reconciliation Report [facility] Emergency Department [address] [place] [address] Phone #: ext- [phone] 01/23/2020 14:10 [id number] Sex[facility] M : 1955 Age: 64yWeight: 81.6 kgHeight/Length: 67 in.BMI: 28.2ALLERGIES: IV Contrast 2/2 CKD, ZoysnThe patient's Home Medications are listed below:THE FOLLOWING MEDICATIONS NEED TO BE RECONCILED: amLODIPine Besylate Oral (5 mg) 1 tablet, daily Aspirin Oral (325 mg) 1 tablet, daily Atorvastatin Calcium Oral (80 mg) 1 tablet, daily Famotidine Oral 40 mg, daily Gabapentin Oral 100 mg, daily Gemfibrozil Oral (600 mg) 1 tablet, daily Insulin 30 U , at bedtime Lisinopril Oral 10 mg, daily Metoprolol Tartrate Oral (25 mg) 1 tablet, daily Montelukast Sodium Oral 10 mg, dailyThe source(s) of the original Home Medication information:Not obtained.The following Medications were given to the patient in the Emergency Department:IV NS IV Fluids bolus 500 mL wide open, administered: 01/23/2020 3:01:00 PMThe following Medications were prescribed to the patient:None. 2 Medication Reconciliation Report [facility] Emergency Department [address] [place] [address] Phone #: ext- [phone] 01/23/2020 14:10 Patient: NYDIA ANTON Sex: M : 1955 Age: 64y Name Value Range Interpretation Code Description Data Cely rce(s) Supporting Document(s) ID Date Data Source [id number] 01/23/2020 02:13:00 PM EDT [facility] 1 Medication Administration Record [facility] Emergency Department [address] [place] [address] Phone #: miu- [phone] 01/23/2020 14:10 Patient: NYDIA ANTON Sex: M : 1955 Age: 64yWeight: 81.6 kgHeight/Length: 67 inBMI: 28.2ALLERGIES: Zoysn, IV Contrast 2/2 CKD Date/Time Medication Administered Medication OrderedStart IV NS IV NS : Bolus 500 mL, then 7515:01 01/23/2020 Dose: IV Fluids mL/Brianne Escalona R.N. Bolus: 500 mL wide open---- Dispensed: 500 mL bagStop Site: #1 right AC21:20 01/23/2020Armando Malcolm R.N. Name Value Range Interpretation Code Description Data Cely rce(s) Supporting Document(s) ID Date Data Source [id number] 01/23/2020 02:13:00 PM EDT [facility] 1 General Instructions [facility] Emergency Department [address] [place] [address] Phone #: ext- [phone] 01/23/2020 14:10 Patient: NYDIA ANTON Sex: M : 1955 Age: 64ySevere chronic renal insufficiency.(Electronically signed by Vimal Katz P.A.-C 01/23/2020 21:39) Name Value Range Interpretation Code Description Data Cely e(s) Supporting Document(s) ID Date Data Source [id number] 01/23/2020 02:13:00 PM EDT [facility] 1 Clinical Report - Nurses [facility] Emergency Department [address] [place] [address] Phone #: ext [phone] 01/23/2020 14:10 Patient: NYDIA ANTON Sex: M : 1955 Age: 64yTRIAGEArrived by EMS. Historian: patient. Accompanied by family.Triage time: 14:11 01/23/2020. Acuity: LEVEL 3.Chief Complaint: ABDOMINAL PAIN.Alert. No acute distress.Onset. (3 days). ( Pt reports abdominal pain x3 days to LLQ and RUQ. Pt denies n/v/d. Pt called pcp whotold him to come in for r/u pneumonia. Per ems +tenderness to abdomen. Pt has hx of HTN and noted bud hypertensive per ems.). He has had abdominal pain.Treatment MEMBER OF PARLIAMENT:None.SEPSIS SCREEN: Sepsis Screen negative. No suspected or confirmed signs of infection present. --14: Brianne Go R.N.14:25 01/23/20. BP: 176/85. MAP: 115. HR: 66. RR: 18. O2 saturation: 95% on room air. Temp: 97.9 F.Pain level now: 03/23. --14:26 01/23/20 Brianne Go R.N.Weight: 81.6 kg stated. Height/Length: 67 inches Per Patient. BMI: 28.2. --14:10 01/23/20 Brianne Go R.N.MedicationsInsulin 30 U , at bedtime. --14:21 01/23/20 Brianne Go R.N. amLODIPine Besylate Oral (Tablet 5 mg) 1 tablet, daily. --14:21 01/23/20 Brianne Go R.N. Aspirin Oral (Tablet 325 mg) 1 tablet, daily. --14:22 01/23/20 Brianne Go R.N. Derrick rvastatin Calcium Oral (Tablet 80 mg) 1 tablet, daily. --14:22 01/23/20 Brianne Go R.N. Famotidine Oral 40 mg, daily. --14:22 01/23/20 Brianne Go R.N. Gabapentin Oral 100 mg, daily. --14:22 01/23/20 Brianne Go R.N. Gemfibrozil Oral (Tablet 600 mg) 1 tablet, daily. --14:23 01/23/20 Brianne Go R.N. Lisinopril Oral 10 mg, daily. --14:23 01/23/20 Brianne Go R.N. Metoprolol Tartrate Oral (Tablet 25 mg) 1 tablet, daily. --14:23 01/23/20 Brianne Go R.N. Montelukast Sodium Oral 10 mg, daily. --14:23 01/23/20 Brianne Go R.N.AllergiesZoysn. --14:23 01/23/20 Brianne Go R.N.IV Contrast 2/2 CKD. --16:26 01/23/20 Prashant AdlerPROBLEMS:Heart problems. 2 Clinical Report - Nurses [facility] Emergency Department [address] [place] [address] Phone #: ext- [phone] 01/23/2020 14:10 ------ Patient: NYDIA ANTON Sex: M : 1955 Age: 64y Diabetes Mellitus. Hypertension. --14:01/23/20 Brianne Go R.N. ADDITIONAL SURGERIES: Stents in left leg. --14:25 01/23/20 Brianne Go R.N. History PAST MEDICAL HX: Immunizations: up-to-date. SOCIAL HX: Heavy tobacco smoker (cigarette)- 1 pack per day. No alcohol use or drug use. He was offered HIV testing but declined. Patient education was provided. He was offered hepatitis C testing but declined. Patient education was provided. ( COVID screen negative). He has not traveled outside the [place] Infectious disease exposure: No infectious disease exposure. Patient is a known carrier of MRSA. Patient is not a known carrier of tuberculosis, hepatitis, HIV, VRE or CRE. SELF HARM ASSESSMENT: Self harm assessment was performed. The patient answered "no" to the question(s) "Have you recently felt down, depressed, or hopeless?", "Do you have thoughts of harming or killing yourself?" and "Do you have a plan for harming or killing yourself?". ABUSE ASSESSMENT: Abuse assessment. The patient had positive responses to the question(s) "Do you feel safe in your home?", "Are you afraid to go home?" and "Has anyone hurt you or threatened to hurt you?". Abuse denied. NUTRITIONAL RISK ASSESSMENT: The nutritional risk assessment revealed no deficiencies. FUNCTIONAL ASSESSMENT: Functional assessment: no impairments noted. LEARNING NEEDS ASSESSMENT: The learning needs assessment revealed no barriers. FALL RISK ASSESSMENT: Fall risk assessment completed. No risk factors identified. SKIN INTEGRITY ASSESSMENT: Skin integrity risk assessment completed. No skin integrity risk identified. --14:25 01/23/20 Brianne Go R.N. Interventions Identification band on patient. To treatment room. --14:01/23/20 Brianne Go R.N.PHYSICAL ASSESSMENTAmbulatory to room. Patient gowned.GENERAL / NEURO / PSYCH: Alert. Oriented X 4. Appears in no acute distress.HEENT: Mucous membranes are pink.RESPIRATORY: Respirations not labored. Breath sounds within normal limits.CVS: Normal sinus rhythm noted. Capillary refill less than 2 seconds.GI / : Abdomen soft. Abdominal tenderness. Bowel sounds within normal limits. No nausea noted. 3 Clinical Report - Nurses [facility] Emergency Department [address] [place] [address] Phone #: ext- [phone] 01/23/2020 14:10 Patient: NYDIA ANTON Sex: M : 1955 Age: 64y No mass present in the abdominal region. No emesis noted. ( Pt reports LLQ and LUQ abdominal pain. Pt reports "a little" more pain with palpation.). SKIN: Skin is warm and dry. --14:28 01/23/20 Brianne Go R.N.NURSING PROGRESS N OTESPatient gowned. Call light placed in reach. Side rails up x 2. Bed placed in lowest position. Brakes ofbed on. --14:26 01/23/20 Brianne Go R.N. ( Per EMS BGL 227). --14:29 01/23/20 Brianne Go R.N. 14:29 01/23/2020 Site #1 started prior to arrival by EMS via IV in the right antecubital space with an 20g angiocath. Saline lock flushed with 10 mL saline. --14:29 01/23/20 Brianne Go R.N. 15:01 01/23/2020 Started bag #1 500 mL IV Fluids IV NS; bolus of 500 mL wide open via site #1 via IV pump. Allergies verified and confirmed 5 rights. IV patency established. IV site checked: no pain, redness, or swelling. IV flushed thoroughly pre- and post-medication administration. Information reviewed with patient. Verbalizes understanding. --15:01 01/23/20 Brianne Go R.N. EKG time: (15:03 01/23/2020). EKG was performed by a tech and shown to the PA. --15:06 01/23/20 [place] parking assistant, Ameya, RADHA Tech1 The patient is calm and resting quietly. --15:25 01/23/20 Brianne Go R.N. 15:35 01/23/20. BP: 147/65. MAP: 92. HR: 66. RR: 18. O2 saturation: 97% on room air. Temp: 97.9 F. --15:36 01/23/20 Brianne Go R.N. late entry - 15:28 01/23/20. still worker helper, NIBP monitor and pulse oximeter placed on patient. --16:28 01/23/20 Brianne Go R.N. Patient transported to [place] by wheelchair with respiratory technician. --16:29 01/23/20 Brianne Go R.N. 16:28 01/23/20. BP: 148/72. MAP: 97. HR: 67. RR: 18. O2 saturation: 97% on room air. Temp: 98.3 F. Pain level now: 11/21. --16:29 01/23/20 Brianne Go R.N. Patient returned from [place] by wheelchair with respiratory technician. --16:51 01/23/20 Brianne Go R.N. The patient is calm and resting quietly. --18:57 01/23/20 Brianne Go R.N. 18:54 01/23/20. BP: 166/81. MAP: 109. HR: 70. RR: 14. O2 saturation: 98% on room air. Temp: 98.2 F. Pain level now: 08/21. --18:57 01/23/20 Brianne Go R.N. Care transferred and report given (EMILY Lilly). --19:16 01/23/20 Brianne Go R.N. 19:27 01/23/20. BP: 156/60. MAP: 92. HR: 71. RR: 16. O2 saturation: 98%. Temp: 98.2 F. Pain level now: 4 Clinical Report - Nurses [facility] Emergency Department [address] [place] [address] Phone #: ext- [phone] 01/23/2020 14:10 Patient: NYDIA ANTON Sex: M : 1955 Age: 64y 10. Additional comments: worsens with deep breath/cough. --19:39 01/23/20 Armando Malcolm R.N. Reassessment acuity: LEVEL 3. Rounding: Pain: assessed pain level. Position: states comfortable. Personal care / toileting: denies toileting needs and mouth care. Proximity of possessions / care items: call light within easy reach. Plug ins: assured IV pump plugged in. Set expectations: advised patient of rounding protocol timing and asked if they needed anything else at this time. The patient is calm and resting quietly and has had no adverse reaction. ( left lower chest wall pain (reproducable)). GI / : Abdomen soft and nontender. Bowel sounds within normal limits. SKIN: Skin is warm and dry. Skin color within normal limits. Two patient identifiers checked. Call light placed in reach. Side rails up x 2. Bed placed in lowest position. Brakes of bed on. Care transferred and report given. ( Report given to Jolanta DIAZ at [place], [place]). Patient waiting for transportation. --19:39 01/23/20 Armando Malcolm R.N. 21:20 01/23/2020 IV Fluids IV NS via IV site #1 Discontinued: infused. Total amount infused: 750 mL. IV patency established. IV site checked: no pain, redness, or swelling. IV flushed thoroughly. --21:20 01/23/20 Armando Malcolm R.N. Reassessment acuity: LEVEL 3. The patient reports no complaints, he is calm and resting quietly and he has had no adverse reaction. --21:20 01/23/20 Armando Malcolm R.N.DISPOSITION / DISCHARGE Cardiac rhythm: normal sinus rhythm. Condition at departure: improved. Transferred to [facility]. Transported via ambulance by EMS. Report was given to a nurse. Report included patient's care, condition, vital signs, labs, medications and IV's. All questions were answered. Report was acknowledged and care was transferred. (Jolanta DIAZ). --21:17 01/23/20 Armando Malcolm R.N. 21:15 01/23/20. BP: 182/88. MAP: 119. HR: 72. RR: 16. O2 saturation: 98%. Temp: 98 F. Pain level now: 0/10. --21:17 01/23/20 Armando Malcolm R.N. Departure time: 21:19 01/23/2020. --21:19 01/23/20 Armando Malcolm R.N.Locked/Released at 01/23/2020 21:21 by Armando Malcolm R.N. Name Value Range Interpretation Code Description Data Cely rce(s) Supporting Document(s) ID Date Data Source [id number] 01/23/2020 02:13:00 PM EDT [facility] 1 Clinical Report - Physicians/Mid Levels [facility] Emergency Department [address] [place] [address] Phone #: ext- [phone] 01/23/2020 14:10 Patient: NYDIA ANTON Sex: M : 1955 Age: 64y Time Seen: 14:27 01/23/2020; initial patient contact, initial documentation. Arrived- By ambulance. Historian- patient.HISTORY OF PRESENT ILLNESS Chief Complaint: ABDOMINAL PAIN. This started 3 days ago and is still present and worsening. It was abrupt in onset and has been waxing/waning. It is described as "pain", sharp, stabbing and well localized and it is described as located in the left abdomen and the left flank and radiating to the right upper quadrant of the abdomen. The patient has had nausea and loss of appetite. He has had vomiting (chronic- no increase in normal). He has had diarrhea (chronic- no increase in normal). (64 year old male here for abdominal pain that started 3 days ago. Patient says that the pain increases with movement. The pain comes and go and is sharp. Patient also admits to vomiting and diarrhea but states this is a chronic problem and no change from his baseline.). No recent travel. Similar symptoms previously. None. Recent medical care: Not recently seen/assessed.REVIEW OF SYSTEMSNo constipation, black stools, hematemesis, difficulty with urination or pain with urination. No urinaryfrequency, bloody stools, fever, headache or sore throat. No blurred vision, chest pain, difficulty breathing,cough or joint pain. No skin rash, chills or back pain. The patient has not had weight loss. All othersystems reviewed and are negative.PAST HISTORYSee nurses notes. Problems: CKD. Heart problems. Diabetes Mellitus. Hypertension. Additional Surgeries: Stents in left leg. Medications: Montelukast Sodium Oral 10 mg, daily. Metoprolol Tartrate Oral (Tablet 25 mg) 1 tablet, daily. Lisinopril Oral 10 mg, daily. Gemfibrozil Oral (Tablet 600 mg) 1 tablet, daily. 2 Clinical Report - Physicians/Mid Levels [facility] Emergency Department [address] [place], [place] [address] Phone #: ext- [phone] 01/23/2020 14:10 Patient: NYDIA ANTON Sex: M : 1955 Age: 64y Gabapentin Oral 100 mg, daily. Famotidine Oral 40 mg, daily. Atorvastatin Calcium Oral (Tablet 80 mg) 1 tablet, daily. Aspirin Oral (Tablet 325 mg) 1 tablet, daily. amLODIPine Besylate Oral (Tablet 5 mg) 1 tablet, daily. Insulin 30 U , at bedtime. Allergies: IV Contrast 2/2 CKD. Zoysn.SOCIAL HISTORYHeavy tobacco smoker- 1 pack per day. No alcohol use or drug use.ADDITIONAL NOTESThe nursing notes have been reviewed.PHYSICAL EXAMVital Signs: 01/23/2020 14:25 BP: 176/85. MAP: 115. HR: 66. RR: 18. O2 saturation: 95% on room air.Temp: 97.9 F. Pain level now: 03/23. Have been reviewed and appear to be correct. Hypertensive.Oxygen saturation normal.Appearance: Alert. Oriented X3. No acute distress.Rt Eye: Right eye exam normal.Eyes: Eyelids appear normal to inspection. Conjunctivae and sclerae appear normal to inspection.Corneas appear normal to inspection. Periorbital areas appear normal to inspection.Lt Eye: Left eye exam normal.ENT: Normal ENT inspection. Airway intact. Ears normal. Nose normal. Pharynx normal. Moistmucous membranes. Uvula midline. Voice normal.Neck: Neck supple and nontender. Full ROM.CVS: Normal heart rate and rhythm. No JVD present. Pulses normal. Capillary refill normal. Strongperipheral pulses. Heart sounds normal. Pulses: right radial 2+; left radial 2+; right dorsalis pedis 2+; leftdorsalis pedis 2+; right posterior tibial 2+; left posterior tibial 2+.Respiratory: Chest normal on inspection. No respiratory distress. Unlabored respirations. Bilateralrhonchi present in the bases. Good chest movement.Abdomen: Normal inspection. Soft. Moderate tenderness in the left lower quadrant. Bowel soundsnormal. No distention.Back: Normal inspection. No tenderness. Painless ROM.Extremities: Extremities atraumatic. Extremities nontender. Extremities exhibit normal ROM.Gait: Normal gait.Neuro: Awake. Alert. Oriented X 3. Mood/affect normal. Speech normal. No motor deficit. Nosensory deficit.Psych: Cognition normal. Thought process and content normal. Insight and judgement normal.LABS, X-RAYS, AND EKGEKG: Normal sinus rhythm. Rate: 67. NSR; T wave abnormality, consider lateral ischemia; abnormal 3 Clinical Report - Physicians/[facility] Emergency Department [address] [place] [address] Phone #: ext- [phone] 01/23/2020 14:10 Patient: NYDIA ANTON Sex: M : 1955 Age: 64yECGDiscussed and reviewed with/by attending.Chest CT: (Tawnya villalta Michael - 01/23/2020 5:12:07 PMNo acute disease). The study was interpreted by the radiologist.CT Abdomen - Pelvis: Tawnya villalta Michael - 01/23/2020 5:09:35 PM3.3 cm infrarenal AAA. The study was interpreted by the radiologist.Laboratory Tests:Troponin-T: (OPAL: 01/23/2020 18:20) ( TngRcvd 01/23/2020 19:14) Final results Test Result Flag Units (Reference) TROPONIN T 0.03 NG/ML (0.00 - 0.10) TROPONIN T0.1 ng/ml Recommended as the clinical threshold value forTroponin T.CT Chest W/O Cont: (OPAL: 01/23/2020 16:19) ( MsgRcvd 01/23/2020 19:18) In ProgressCT THORAX W/O CONTRASTReason(s): NO CONTRAST: Noted crackles b/l lower lobesTRANSPORTATION: WC IV? O2? Oxygen?(No) [facility]O Oral W/O IV Contrast: (OPAL: 01/23/2020 16:19) ( MsgRcvd 01/23/2020 19:18) InProgressCT ABDReason(s): NO CONTRAST: REnal insufiency; abd painTRANS PORTATION: WC IV? IV?(No) O2? Oxygen?(No) RooLactic Acid: (OPAL: 01/23/2020 14:25) ( MsgRcvd 01/23/2020 15:39) Final results Test Result Flag Units (Reference) LACTIC ACID 1.5 MMOL/L (0.2 - 2.2)CBC w Diff: (OPAL: 01/23/2020 14:25) ( MsgRcvd 01/23/2020 15:21) Final results Test Result Flag Units (Reference) CBC W/AUTOMATED DIFF COMPLETE BLOOD COUNT WBC 8.0 10/uL (4.2 - 11.0) RBC 4.13 L 10/uL (4.50 - 6.30) HEMOGLOBIN 12.1 L g/dL (14.0 - 16.0) HEMATOCRIT 37.4 L % (41.0 - 51.0) MCV 90.6 fL (80.0 - 94.0) MCH 29.3 pg (27.0 - 34.0) MCHC 32.4 g/dL (31.0 - 36.0) RDW 13.2 % (11.5 - 14.8) PLATELETS 214 10/uL (150 - 450) MPV 10.6 H fL (7.4 - 10.4) NEUT 72.5 % (37.0 - 80.0) LYMPH 15.7 L % (25.0 - 40.0) MONO 7.2 % (3.0 - 8.0) EOS 3.4 % (0.0 - 7.0) BASO 1.0 % (0.0 - 2.0) %IG 0.2 H % (0.0 - 0.0) 4 Clinical Report - Physicians/Mid Levels [facility] Emergency Department [address] [place] [address] Phone #: [phone]- [phone] 01/23/2020 14:10 Patient: NYDIA ANTON Sex: M : 1955 Age: 64y %NRBC 0.0 % (0.0 - 0.0) #NEUT 5.82 10/uL (2.00 - 6.90) #LYMPH 1.26 10/uL (0.60 - 3.40) #MONO 0.58 10/uL (0.00 - 0.90) #EOS 0.27 10/uL (0.00 - 0.70) #BASO 0.08 10/uL (0.00 - 0.20) #IG 0.02 10/uL (0.00 - 0.10) #NRBC 0.00 10/uL (0.00 - 0.00) MANUAL DIFF NOT INDICATED RBC MORPH NOT INDICATEDCMP: (OPAL: 01/23/2020 14:25) ( MsgRcvd 01/23/2020 16:09) Final results Test Result Flag Units (Reference) COMPREHENSIVE METABOLIC PANEL COMPREHENSIVE METABOLIC PANEL SODIUM 135 mEq/L (134 - 153) POTASSIUM 5.1 H mEq/L (3.6 - 5.0) CHLORIDE 101 mEq/L (98 - 107) CO2 21 L MEQ/L (22 - 30) GLUCOSE 192 H MG/DL (65 - 110) BUN 38 H MG/DL (7 - 21) CREATININE 3.6 H MG/DL (0.7 - 1.5) BUN/CREAT 11 (8 - 27) TOTAL PROTEIN 5.8 L G/DL (6.3 - 8.2) ALBUMIN 3.4 L G/DL (3.9 - 5.0) GLOBULIN 2.4 GM/DL (2.4 - 3.2) A/G RATIO 1.4 (0.8 - 2.0) CALCIUM 9.0 MG/DL (8.4 - 10.2) TOTAL BILI <0.7 MG/DL (0.2 - 1.3) ALKALINE PHOS 127 H U/L (38 - 126) SGOT/AST 11 U/L (5 - 40) SGPT/ALT 5 L U/L (7 - 56) ANION GAP 13.0 mmol/L (8.0 - 16.0) AGE 64 yrs NON-AA GFR 18 mL/min AFR AMER GFR 22 mL/min Male GFR Interprentation 20-49 yrs >60 mL/min Pigmju26-64 yrs >56 mL/min Normal 60-69 yrs >49 mL/min Normal 70-79yrs>42 mL/min Normal 80 and above >35 mL/min Normal Female GFRInterpretation 20-39 yrs >60 mL/min Normal 40-49 yrs >58 mL/minNormal 50-59 yrs >51 mL/min Normal 60-69 yrs >45 mL/min Suaflh81-02 yrs >39 mL/min Normal 80 and above >32 mL/min NormalLipase: (OPAL: 01/23/2020 14:25) ( MsgRcvd 01/23/2020 15:58) Final results Test Result Flag Units (Reference) LIPASE 38 U/L (13 - 60)PT/PTT: (OPAL: 01/23/2020 14:25) ( MsgRcvd 01/23/2020 15:26) Final results Test Result Flag Units (Reference) PROTIME 13.8 SECONDS (11.0 - 15.5) INR 1.05 (0.93 - 1.23) PTT 37.4 H SECONDS (24.8 - 36.7) \\BLDo\\INR INTERPRETATION\\BLDx\\ Therapeutic range for Coumadin andrelated oral anticoagulants. -International Normalized Ratio (INR): 2.0 - 3.0 for VenousThrombosis, Pulmonary Embolus, Tissue heart valves, Acute [place] Atrial Fibrillation, Valvular heart diseaseand recurrent Systemic Embolism. - International Normalized Ratio (INR): 2.5 - 3.5 forMechanical Prosthetic valve. 5 Clinical Report - Physicians/Mid Levels [facility] Emergency Department [address] [place] [address] Phone #: ext- [phone] 01/23/2020 14:10 Patient: NYDIA ANTON Sex: M : 1955 Age: 64y Troponin-T: (OPAL: 01/23/2020 14:25) ( MsgRcvd 01/23/2020 15:44) Final results Test Result Flag Units (Reference) TROPONIN T 0.03 NG/ML (0.00 - 0.10) TROPONIN T0.1 ng/ml Recommended as the clinical threshold value forTroponin T. EKG: (OPAL: 01/23/2020 14:56) ( MsgRcvd 01/23/2020 19:08) Final results Test Result Flag Units (Reference) [place] [address] PHONE: [phone] FAX: [phone] -- Name ..............: DESEAN STAFFORD Acct Number ...........................: [id number] ROOM. ............: TR-02 MR Number ............................: [id number] Stay type.........: E/R Discharge Date...............: Admit Date .....: 01/23/20 Admit Phys .............................: YOU SCOOBY Date of ..: 1955 Family Phys ................. ..........: NON STAFF Phone..............: [phone] Age.................................:64 Film# ...............:[id number] Sex.................................:M -- Unsigned transcriptions are preliminary reports and do not represent [place] [id number] COMPLETE:01/23/20 15:57 [facility] [id number] -- -- -- -- Please See Scanned Results. -- BNP: (OPAL: 01/23/2020 14:25) ( MsgRcvd 01/23/2020 16:09) Final results Test Result Flag Units (Reference) BNP 1818 H PG/ML (0 - 125).PROGRESS AND PROCEDURESCourse of Care: VSS, NAD, AOx3, interacting well and appropriately, no use of accessory muscle, able tospeak full sentences, stable, non-toxic looking. Enter room and pt lying peacefully in bed in NAD. Patient stable. Denies any n ew issues, concerns, or complaints. PE demos NV intact b/l UE and LE. Noted TTP of hte L abd. Will obtain labs and imaging. Pt is poor historian. Sister helps, but not fully sure. Reviewed results. Noted kidney fuction. Enter room and patient lying peacefully in bed in NAD. Patient stable. Denies any new issues, concerns, or complaints. Pt sts that kidney is known and remember he 6 Clinical Report - Physicians/Mid Levels [facility] Emergency Department [address] [place] [address] Phone #: ext- [phone] 01/23/2020 14:10 Patient: NYDIA ANTON Sex: M : 1955 Age: 64y does see a kidney doctor, but only once. Unsure of GFR, but remebers "20s". Thus has decreased. Pending imaigng results. Reviewed restuls. NOted AAA. Pt did not originally mention this. Pt sts that this is a known finding and unsure of size. Contacted [facility] and discussed with Salena. Sts they do accept on a puwd-de-qhyx basis. inform. connects me to hosptialist. Discuss; sts he would liek to consult with nehprology (Dr. Jacob); sts if he accepts, he will accept to medical bed. Pending call back. Meli form [facility] calls for bed assignment. Infomred pending repeat troponin. Inform I would like to hold off until results. She agrees. Pending resutls. Repeat troponin is stable. Will transfer. Meli at [facility] indicates she understands. Dr. Ruggiero is accepting provider. Disposition: Benefits, risks and alternatives to transfer explained to patient. Transferred to [facility]. UTI (catheter associated) was not present prior to transfer. Pressure ulcer was not present prior to transfer. Vascular infection (catheter associated) was not present prior to transfer.CLINICAL IMPRESSION Severe chronic renal insufficiency.(Electronically signed by Vimal Katz P.A.-C 01/23/2020 21:39) Name Value Range Interpretation Code Description Data Cely rce(s) Supporting Document(s) ID Date Data Source [id number] 01/23/2020 07:08:00 PM EDT [facility] [address] [place] [address] PHONE: [phone] FAX: [phone] Name ..............: DESEAN STAFFORD Acct Number ...........................: [id number] ROOM. ............: TR-02 Number ............................: [id number] Stay type.........: E/R Discharge Date...............: Admit Date .....: 01/23/20 Admit Phys .............................: YOU SCOOBY Date of ..: 1955 Family Phys ...........................: NON STAFF Phone..............: [phone] Age. ................................:64 Film# ...............:[id number] Sex.................................:M Unsigned transcriptions are preliminary reports and do [place] [id number] COMPLETE:01/23/20 15:57 [facility] [id number] Please See Scanned Results. Name Value Range Interpretation Code Description Data Cely rce(s) Supporting Document(s) ID Date Data Source [id number] 01/28/2020 02:58:00 PM EDT [facility] Name Value Range Interpretation Code Description Data [facility] rce(s) Supporting Document(s) CULTURE URINE [facility] _CULTURE URINE_$$[id number]$$460781$$520086$$214936$$388153$$824838$$528140$$563687$$922453$$ 647423$$588926$$265231$$545575$$812699$$468330$$233456$$057406$$130713$$055546$$ 090314$$136457$$590086$$393057$$930722$$701587$$279974$$916380 -- Continued on next page --Patient: DESEAN STAFFORD Order: [id number] Page 2Culture: CULTURE URINE Status: Final ==== -- Continued on next page --Patient: DESEAN STAFFORD Order: [id number] Page 2Culture: CULTURE URINE Status: Prelim =====$$[id number]$$[id number] DATE/TIME: 01/27/2020 17:05Culture: CULTURE URINE Status: FinalUrine Culture,Comprehensive: P1No growth in 36 - 48 hours. Previous result entered on 01/26/2020 07:12 ET No growth after 18-24 hours.P1 Test performed by: [facility] #: [id number] [address] [place] [address] [id number] [facility] [id number] Director : Sixto Omalley MD NPI #:Apartment Manager : 01/26/[email or web address] REF 01/28/[email or web address].XMT.SENT REF ID Date Data Source [id number] 01/23/2020 07:31:00 PM EDT [facility] Name Value Range Interpretation Code Description Data Cely rce(s) Supporting Document(s) URINALYSIS [facility] álvaro URINALYSIS SOURCE R [facility] COLOR Yellow NORMAL: Yellow [facility] CLARITY clear NORMAL: Clear [facility] Specific gravity of Urine by Test strip 1.010 1.001 - 1.030 [facility] pH 5 5 - 9 [facility] Glucose [Mass/volume] in Urine by Test strip Negative NORMAL: Negat del [facility] Bilirubin.total [Presence] in Urine by Test strip Negative NORMAL: Negative [facility] Ketones [Presence] in Urine by Test strip NEG NORMAL: Negative [facility] Protein [Mass/volume] in Urine by Test strip 100 NORMAL: Negat del A [facility] Nitrite [Presence] in Urine by Test strip NEG NORMAL: Negative [facility] BLOOD 10 NORMAL: Negative [facility] Leukocyte esterase [Presence] in Urine by Test strip NEG MAYURI L: Negative [facility] Urobilinogen [Mass/volume] in Urine by Test strip NOR less trang n 1.0 mg/dL [facility] MICROSCOPIC See Below [facility] ital WBC 1 - 3 NORMAL: NONE SEEN [facility] Erythrocytes [#/volume] in Urine by Test strip 1 - 3 NORMAL: NON E SEEN [facility] EPITHELIAL FEW NORMAL: NONE SEEN [facility] Bacteria [Presence] in Urine sediment by Light microscopy Tr js NORMAL: NONE SEEN [facility] Casts [#/area] in Urine sediment by Microscopy low power field See Be low [facility] 1-3 Coarse Granular Casts [#/area] in Urine sediment by Mi croscopy low power field 0-1 NORMAL: None Seen A [facility] Fine Granular Casts [#/area] in Urine sediment by Micr oscopy low power field 1-3 NORMAL: None Seen A [facility] 0-1 ID Date Data Source [id number] 01/23/2020 07:14:00 PM EDT [facility] Name Value Range Interpretation Code Description Data Cely rce(s) Supporting Document(s) TROPONIN T 0.03 NG/ML 0.00 - 0.10 [facility] TROPONIN T0.1 ng/ml Recommended as the c linical threshold value forTroponin T. ID Date Data Source [id number] 01/28/2020 06:15:00 PM EDT [facility] [address] Name Value Range Interpretation Code Description Data Cely rce(s) Supporting Document(s) Bacteria identified in Blood by Culture [facility] NO GROWTH AFTER 5 DAYS ID Date Data Source [id number] 01/29/2020 11:24:00 AM EDT [facility] Name Value Range Interpretation Code Description Data Cely rce(s) Supporting Document(s) CULTURE BLOOD [facility] _CULTURE BLOOD_ TEST PERFORM ED AT [address] [address] CLIA# [id number] SEE SCANNED REPORT{ PRELIM ID Date Data Source [id number] 01/29/2020 11:24:00 AM EDT [facility] Name Value Range Interpretation Code Description Data Cely rce(s) Supporting Document(s) CULTURE BLOOD [facility] _CULTURE BLOOD_ TEST PERFORM ED AT [address] [address] CLIA# [id number] SEE SCANNED REPORT{ PRELIM ID Date Data Source [id number] 01/23/2020 04:09:00 PM EDT [facility] Name Value Range Interpretation Code Description Data Cely rce(s) Supporting Document(s) BNP 1818 PG/ML 0 - 125 H [facility] álvaro ID Date Data Source [id number] 01/23/2020 04:09:00 PM EDT [facility] Value Range Interpretation Code Description Data Cely rce(s) Supporting Document(s) COMPREHENSIVE METABOLIC PANEL [facility] COMPREHENSIVE METABOLIC PANEL Sodium [Moles/volume] in Serum or Plasma 135 mEq/L 134 - 153 [facility] Potassium [Moles/volume] in Serum or Plasma 5.1 mEq/L 3.6 - 5.0 H [facility] Chloride [Moles/volume] in Serum or Plasma 101 mEq/L 98 - 107 [facility] Carbon dioxide, total [Moles/volume] in Serum or Plasma 21 MEQ/L 22 - 30 L [facility] Glucose [Mass/volume] in Serum or Plasma 192 MG/DL 65 - 110 H [facility] BUN 38 MG/DL 7 - 21 H [facility] Creatinine [Mass/volume] in Serum or Plasma 3.6 MG/DL 0.7 - 1.5 H [facility] BUN/CREAT 11 8 - 27 [facility] al Protein [Mass/volume] in Serum or Plasma 5.8 G/DL 6.3 - 8.2 L [facility] Albumin [Mass/volume] in Serum or Plasma 3.4 G/DL 3.9 - 5.0 L [facility] Globulin [Mass/volume] in Serum by calculation 2.4 GM/DL 2.4 - 3.2 [facility] A/G RATIO 1.4 0.8 - 2.0 [facility] Calcium [Mass/volume] in Serum or Plasma 9.0 MG/DL 8.4 - 10.2 [facility] Bilirubin.total [Mass/volume] in Serum or Plasma <0.7 MG/DL 0.2 - 1.3 [facility] Alkaline phosphatase [Enzymatic activity/volume] in Serum or Plasma 127 U/L 38 - 126 H [facility] Aspartate aminotransferase [Enzymatic activity/volume] in Serum or Plasma 11 U/L 5 - 40 [facility] Alanine aminotransferase [Enzymatic activity/volume] in Seru m or Plasma 5 U/L 7 - 56 L [facility] Anion gap 3 in Serum or Plasma 13.0 mmol/L 8.0 - 16.0 [facility] AGE 64 yrs [facility] NON-AA GFR 18 mL/min [facility] AFR AMER GFR 22 mL/min [facility] Male GFR In terprentation 20-49 yrs >60 mL/min Normal 50-59 yrs >56 mL/min Normal 60-69 yrs >49 mL/min Normal 70-79yrs >42 mL/min Normal 80 and above >35 mL/min Normal Female GFR Interpretation 20-39 yrs >60 mL/min Normal 40-49 yrs >58 mL/min Normal 50-59 yrs >51 mL/min Normal 60-69 yrs >45 mL/min Normal 70-79 yrs >39 mL/min Normal 80 and above >32 mL/min Normal ID Date Data Source [id number] 01/23/2020 03:58:00 PM EDT [facility] Name Value Range Interpretation Code Description Data Cely rce(s) Supporting Document(s) Lipase [Enzymatic activity/volume] in Serum or Plasma 38 U/L 13 - 60 [facility] ID Date Data Source [id number] 01/23/2020 03:44:00 PM EDT [facility] Name Value Range Interpretation Code Description Data Cely rce(s) Supporting Document(s) TROPONIN T 0.03 NG/ML 0.00 - 0.10 [facility] TROPONIN T0.1 ng/ml Recommended as the c linical threshold value forTroponin T. ID Date Data Source [id number] 01/23/2020 03:39:00 PM EDT [facility] Name Value Range Interpretation Code Description Data Cely rce(s) Supporting Document(s) Lactate [Moles/volume] in Serum or Plasma 1.5 MMOL/L 0.2 - 2.2 [facility] ID Date Data Source [id number] 01/23/2020 03:26:00 PM EDT [facility] Name Value Range Interpretation Code Description Data Cely rce(s) Supporting Document(s) Prothrombin time (PT) 13.8 SECONDS 11.0 - 15.5 [facility] INR in Platelet poor plasma by Coagulation assay 1.05 0.93 - 1. 23 [facility] aPTT in Blood by Coagulation assay 37.4 SECONDS 24.8 - 36.7 H [facility] \\BLDo\\INR INTERPRETATION\\BLDx\\ Therapeutic range for Coumadin and related oral anticoagulants. - International Normalized Ratio (INR): 2.0 - 3.0 for Venous Thrombosis, Pulmonary Embolus, Tissue heart valves, Acute [place] Atrial Fibrillation, Valvular heart disease and recurrent Systemic Embolism. - International Normalized Ratio (INR): 2.5 - 3.5 for Mechanical Prosthetic valve. ID Date Data Source [id number] 01/23/2020 03:21:00 PM EDT [facility] Name Value Range Interpretation Code Description Data [facility] rce(s) Supporting Document(s) CBC W/AUTOMATED DIFF [facility] COMPLETE BLOOD COUNT Leukocytes [#/volume] in Blood by Automated count 8.0 10^3/uL 4.2 - 1 1.0 [facility] Erythrocytes [#/volume] in Blood by Automated count 4.13 10^6/uL 4. 50 - 6.30 L [facility] Hemoglobin [Mass/volume] in Blood 12.1 g/dL 14.0 - 16.0 L [facility] Hematocrit [Volume Fraction] of Blood by Automated count 37.4 % 4 1.0 - 51.0 L [facility] Erythrocyte mean corpuscular volume [Entitic volume] by Auto mated count 90.6 fL 80.0 - 94.0 [facility] Erythrocyte mean corpuscular hemoglobin [Entitic mass] by Automated count 29.3 pg 27.0 - 34.0 [facility] Erythrocyte mean corpuscular hemoglobin concentration [Mass/volume] by Automated count 32.4 g/dL 31.0 - 36.0 [facility] Erythrocyte distribution width [Ratio] by Automated count 13.2 % 11.5 - 14.8 [facility] Platelets [#/volume] in Blood by Automated count 214 10^3/uL 150 - 45 0 [facility] Platelet mean volume [Entitic volume] in Blood by Automated count 10.6 fL 7.4 - 10.4 H [facility] Neutrophils/100 leukocytes in Blood by Automated count 72.5 % 37. 0 - 80.0 [facility] Lymphocytes/100 leukocytes in Blood by Manual count 15.7 % 25.0 - 40.0 L [facility] Monocytes/100 leukocytes in Blood by Automated count 7.2 % 3.0 - 8.0 [facility] Eosinophils/100 leukocytes in Blood by Automated count 3.4 % 0.0 - 7.0 [facility] Basophils/100 leukocytes in Blood by Automated count 1.0 % 0.0 - 2.0 [facility] %IG 0.2 % 0.0 - 0.0 [facility] %NRBC 0.0 % 0.0 - 0.0 [facility] al Neutrophils [#/volume] in Blood by Automated count 5.82 10^3/uL 2.00 - 6.90 [facility] Lymphocytes [#/volume] in Blood by Automated count 1.26 10^3/uL 0.60 - 3.40 [facility] Monocytes [#/volume] in Blood by Automated count 0.58 10^3/uL 0.00 - 0.90 [facility] Eosinophils [#/volume] in Blood by Automated count 0.27 10^3/uL 0.00 - 0.70 [facility] Basophils [#/volume] in Blood by Automated count 0.08 10^3/uL 0.00 - 0.20 [facility] #IG 0.02 10^3/uL 0.00 - 0.10 [facility] #NRBC 0.00 10^3/uL 0.00 - 0.00 [facility]ital MANUAL DIFF NOT INDICATED [facility] RBC MORPH NOT INDICATED [facility] Procedure Social History Code Duration Value Status Description Data Source(s ) Smoking 07/26/2020 12:00:00 AM EST Smokes tobacco daily (findi ng) completed Smokes tobacco daily (finding) [place] ([facility]) Assertion 01/09/2020 12:00:00 AM EDT Finding relat ing to drug misuse behavior (finding) completed Finding relating to drug misuse behavior (finding) [place] ([facility]) Assertion 01/09/2020 12:00:00 AM EDT Current drinker of al cohol (finding) completed Current drinker of alcohol (finding) [place] ([facility]) Smoking 01/09/2020 12:00:00 AM EDT Smokes tobacco daily (findi ng) completed Smokes tobacco daily (finding) [place] ([facility]) Vital Signs ID Date Data Source UNK Name Value Range Interpretation Code Description Data Source(s) Respiratory rate 16 /min 16 /min [place] ([facility]) Heart rate 74 /min 74 /min [place] ([facility]) Diastolic blood pressure 72 mm[Hg] 72 mm[Hg] [place] ([facility]) Systolic blood pressure 130 mm[Hg] 130 mm[Hg] [facility]) Inhaled oxygen concentration 21 % 21 % [place] ([facility]) Inhaled oxygen flow rate 0 L/min 0 L/min [place] ([facility]) Oxygen saturation in Arterial blood by Pulse oximetry 99 % 99 % [place] ([facility]) PhenX - pain, abdominal - type and intensity protocol 9 9 [place] ([facility]) Body weight 180 [lb_av] 180 [lb_av] [place] ([facility]) Body temperature 95 [degF] 95 [degF] [place] ([facility]) Respiratory rate 18 /min 18 /min [place] ([facility]) Heart rate rhythm 1 1 Y ([facility]) Heart rate 52 /min 52 /min [place] ([facility]) Diastolic blood pressure 78 mm[Hg] 78 mm[Hg] [place] ([facility]) Systolic blood pressure 142 mm[Hg] 142 mm[Hg] G [facility] ([facility]) Inhaled oxygen concentration 21 % 21 % [place] ([facility]) Inhaled oxygen flow rate 0 L/min 0 L/min [place] ([facility]) Oxygen saturation in Arterial blood by Pulse oximetry 93 % 93 % [place] ([facility]) PhenX - pain, abdominal - type and intensity protocol 0 0 [place] ([facility]) Body weight 189 [lb_av] 189 [lb_av] [place] [place] ([facility]) Body temperature 97.4 [degF] 97.4 [degF] [place] [facility] ([facility]) Respiratory rate 18 /min 18 /min [place] ([facility]) Heart rate rhythm 1 1 Y ([facility]) Heart rate 73 /min 73 /min [place] ([facility]) Diastolic blood pressure 88 mm[Hg] 88 mm[Hg] [place] ([facility]) Systolic blood pressure 132 mm[Hg] 132 mm[Hg] G [facility] ([facility]) Inhaled oxygen concentration 21 % 21 % [place] ([facility]) Inhaled oxygen flow rate 0 L/min 0 L/min [place] ([facility]) Oxygen saturation in Arterial blood by Pulse oximetry 99 % 99 % [place] ([facility]) PhenX - pain, abdominal - type and intensity protocol 0 0 [place] ([facility]) Body weight 191 [lb_av] 191 [lb_av] [facility] [place] ([facility] Body temperature 96.3 [degF] 96.3 [degF] [place] [facility] ([facility]) PhenX - pain, abdominal - type and intensity protocol 8 8 [place] [place] ([facility]) unable to obtain vitals Body surface area Derived from formula 1.95 m2 1.95 m2 [place] ([facility]) unable to obtain vitals Body mass index (BMI) [Ratio] 27.4 kg/m2 27.4 k g/m2 [place] [place] ([facility]) unable to obtain vitals Body weight 180 [lb_av] 180 [lb_av] [facility] unable to obtain [facility]als Body height 68 [in_i] 68 [in_i] [facility] ([facility]) unable to obtain vitals PhenX - pain, abdominal - type and intensity protocol 0 0 [place] ([facility]) Patient Treatment Plan of Care Planned Activity Planned Date Details Description Data Source (s) Famotidine 40 MG Oral Tablet 07/26[facility]2020 12[facility]00:[facility] Ciprofloxacin 500 MG Oral Tablet [Cipro] 07/26/2020 12:00:00 AM [facility] Metronidazole 500 MG Oral Tablet [Flagyl] 07/26/2020 12:00:00 AM [facility] ([facility]) Metoprolol Tartrate 25 MG Oral Tablet 07/24/2020 12:00:00 AM [facility] Aspirin 325 MG Oral Tablet 07/24/2020 12:00:00 AM [facility]) gabapentin 100 MG Oral Capsule 07/24/2020 12:00:00 AM [facility] ([facility]) pantoprazole 40 MG Delayed Release Oral Tablet 05/24/2020 12:00:00 AM [facility] ([facility]) clopidogrel 75 MG Oral Tablet [Plavix] 05/24/2020 12:00:00 AM [facility] ([facility]) PARoxetine HCl 10 MG Oral Tablet 05/24/2020 12:00:00 AM [facility] ([facility]) Basaglar KwikPen 100 UNIT/ML Subcutaneous Solution Pen -injector 05/24/2020 12:00:00 AM [facility] ([facility]) Gemfibrozil 600 MG Oral Tablet 05/24/2020 12:00:00 AM [facility] ([facility]) montelukast 10 MG Oral Tablet 05/24/2020 12:00:00 AM [facility] ([facility]) atorvastatin 80 MG Oral Tablet 05/24/2020 12:00:00 AM [facility] ([facility]) Cholecalciferol 63463 UNT Oral Capsule 04/10/2020 12:00:00 AM [facility] ([facility]) Vitamin B 12 1 MG Extended Release Oral Tablet 04/10/2020 12:00:00 AM [facility] ([facility]) gabapentin 100 MG Oral Capsule 04/01/2020 12:00:00 AM [facility] ([facility]) Metoclopramide 10 MG Oral Tablet [Reglan] 02/28/2020 12:00:00 AM ED [facility] ([facility]) Metoprolol Tartrate 25 MG Oral Tablet 02/14/2020 12:00:00 AM [facility] ([facility]) Amlodipine 10 MG Oral Tablet 02/14/2020 12:00:00 AM [facility] ([facility]) Aspirin 325 MG Oral Tablet 02/14/2020 12:00:00 AM [facility] ([facility]) Accu-Chek Softclix Lancet Dev Kit 02/07/2020 12:00:00 AM [facility] ([facility]) Accu-Chek Softclix Lancets Miscellaneous 02/07/2020 12:00:00 AM [facility] ([facility]) FreeStyle Lite Test In Vitro Strip 02/07/2020 12:00:00 AM [facility] ([facility]) FreeStyle Lite Device 02/07/2020 12:00:00 AM [facility] ([facility]) 30 ACTUAT fluticasone furoate 0.2 MG/ACT UAT / vilanterol 0.025 MG/ACTUAT Dry Powder Inhaler [Breo] 01/09/2020 12:00:00 AM [facility] ([facility]) 200 ACTUAT Albuterol 0.09 MG/ACTUAT Metered Dose Inhal er [Ventolin] 01/09/2020 12:00:00 AM [facility] ([facility]) Famotidine 40 MG Oral Tablet 01/09/2020 12:00:00 AM [facility] ([facility]) FreeStyle Lite Test In Vitro Strip 12/05/2019 12:00:00 AM [facility] ([facility]) FreeStyle Lancets Miscellaneous 12/05/2019 12:00:00 AM EDT [facility] ([facility]) FreeStyle Lite Device 12/05/2019 12:00:00 AM EDT [facility] ([facility]) BD Pen Needle Rohini U/F 32G X 4 MM Miscellaneous 12/01/2019 12:00:00 AM EDT [facility] ([facility]) Aspirin 325 MG Oral Tablet 12/01/2019 12:00:00 AM T [facility] ([facility]) Basaglar KwikPen 100 UNIT/ML Subcutaneous Solution Pen -injector 12/01/2019 12:00:00 AM [facility] ([facility]) atorvastatin 80 MG Oral Tablet 12/01/2019 12:00:00 AM [facility] ([facility]) gabapentin 100 MG Oral Capsule 12/01/2019 12:00:00 AM [facility] ([facility]) Lisinopril 20 MG Oral Tablet 12/01/2019 12:00:00 AM [facility] ([facility]) clopidogrel 75 MG Oral Tablet [Plavix] 12/01/2019 [facility] PARoxetine HCl 10 MG Oral Tablet 12/01/2019 12:00:00 AM [facility] ([facility]) Loratadine 10 MG Oral Tablet 12/01/2019 12:00:00 AM [facility] ([facility]) pantoprazole 40 MG Delayed Release Oral Tablet 12/01/2019 12:00:00 AM [facility] ([facility]) Amlodipine 5 MG Oral Tablet 12/01/2019 12:00:00 AM [facility] ([facility]) Metoprolol Tartrate 25 MG Oral Tablet 12/01/2019 12:00:00 AM EDT [facility] ([facility]) 200 ACTUAT Albuterol 0.09 MG/ACTUAT Metered Dose Inhal er [Ventolin] 12/01/2019 12:00:00 AM EDT [facility] ([facility]) Metoclopramide 10 MG Oral Tablet [Reglan] 12/01/2019 12:00:00 AM ED T [facility] ([facility]) Gemfibrozil 600 MG Oral Tablet 12/01/2019 12:00:00 AM EDT [facility] ([facility]) montelukast 10 MG Oral Tablet 12/01/2019 12:00:00 AM EDT [facility] ([facility]) Basaglmauri KwikPen 100 UNIT/ML Subcutaneous Solution Pen -injector 11/16/2019 12:00:00 AM EDT [facility] FreeStyle Milena 14 Day Mcbain Device 10/30/2019 12:00:00 AM EDT [facility] ([facility]) FreeStyle Milena 14 Day Sensor Miscellaneous 10/30/2019 12:00:00 AM EDT [facility] ([facility]) FreeStyle Precision [place] Test In Vitro Strip 10/30/2019 12:00:00 AM EDT [facility] ([facility]) FreeStyle Milena 14 Day Sensor Miscellaneous 10/27/2019 12:00:00 AM EDT [facility] ([facility]) FreeStyle Precision [place] Test In Vitro Strip 10/27/2019 12:00:00 AM EDT [facility] ([facility]) FreeStyle Milena 14 Day Mcbain Device 10/27/2019 12:00:00 AM EDT [facility] ([facility]) atorvastatin 80 MG Oral Tablet 10/18/2019 12:00:00 AM EDT [facility] ([facility]) Aspirin 325 MG Oral Tablet 10/09/2019 12:00:00 AM EDT [facility] ([facility]) montelukast 10 MG Oral Tablet 09/19/2019 12:00:00 AM EDT [facility] ([facility]) Gemfibrozil 600 MG Oral Tablet 09/19/2019 12:00:00 AM EDT [facility] ([facility]) FreeStyle Lite Test In Vitro Strip 08/18/2019 12:00:00 AM EST [facility] ([facility]) FreeStyle Lancets Miscellaneous 08/18/2019 12:00:00 AM EST [facility] ([facility]) FreeStyle Lite Device 08/18/2019 12:00:00 AM EST [facility] ([facility]) gabapentin 100 MG Oral Capsule 08/16/2019 12:00:00 AM EST [facility] ([facility]) clopidogrel 75 MG Oral Tablet [Plavix] 07/24/2019 12:00:00 AM EST [facility] ([facility]) Lisinopril 20 MG Oral Tablet 07/24/2019 12:00:00 AM [facility] ([facility]) PARoxetine HCl 10 MG Oral Tablet 07/21/2019 12:00:00 AM [facility] ([facility]) Loratadine 10 MG Oral Tablet 06/26/2019 12:00:00 AM [facility] ([facility]) pantoprazole 40 MG Delayed Release Oral Tablet 06/20/2019 12:00:00 AM [facility] ([facility]) Metoprolol Tartrate 25 MG Oral Tablet 05/22/2019 12:00:00 AM [facility] ([facility]) Amlodipine 5 MG Oral Tablet 05/19/2019 12:00:00 AM [facility]) Albuterol 0.83 MG/ML Inhalant Solution 04/25/2019 12:00:00 AM [facility] ([facility]) atorvastatin 80 MG Oral Tablet 04/03/2019 12:00:00 AM [facility]) Ranitidine 150 MG Oral Tablet 04/03/2019 12:00:00 AM [facility] ([facility]) Gemfibrozil 600 MG Oral Tablet 03/06/2019 12:00:00 AM [facility]) montelukast 10 MG Oral Tablet 02/03/2019 12:00:00 AM [facility] ([facility]) Lisinopril 20 MG Oral Tablet 02/03/2019 12:00:00 AM [facility]) gabapentin 100 MG Oral Capsule 02/03/2019 12:00:00 AM [facility]) FreeStyle Milena 14 Day Mcbain Device 01/10/2019 12:00:00 AM [facility]) clopidogrel 75 MG Oral Tablet [Plavix] 01/10/2019 12:00:00 AM [facility]) FreeStyle Milena Sensor System Miscellaneous 01/10/2019 12:00:00 AM [facility] ([facility]) Loratadine 10 MG Oral Tablet 12/14/2018 12:00:00 AM [facility]) Ondansetron 4 MG Oral Tablet [Zofran] 11/24/2018 12:00:00 AM EDT [facility] ([facility]) Metoclopramide 10 MG Oral Tablet [Reglan] 11/22/2018 12:00:00 AM ED T [facility] ([facility]) Aspirin 325 MG Oral Tablet 11/18/2018 12:00:00 AM EDT [facility] ([facility]) Basaglar KwikPen 100UNIT/ML Subcutaneous Solution Pen- injector 10/24/2018 12:00:00 AM EDT [facility] ([facility]) PARoxetine HCl 10MG Oral Tablet 10/07/2018 12:00:00 AM EDT [facility] ([facility]) pantoprazole 40 MG Delayed Release Oral Tablet 09/27/2018 12:00:00 AM EDT [facility] ([facility]) Cholecalciferol 38417 UNT Oral Capsule 08/02/2018 12:00:00 AM EST [facility] ([facility]) BD Pen Needle Rohini U/F 32G X 4 MM Miscellaneous 05/12/2018 12:00:00 AM EST [facility] ([facility]) FreeStyle Lancets Miscellaneous 05/10/2018 12:00:00 AM EST [facility] ([facility]) FreeStyle Lite Test In Vitro Strip 05/10/2018 12:00:00 AM EST [facility] ([facility]) 60 ACTUAT Budesonide 0.16 MG/ACTUAT / fo rmoterol fumarate 0.0045 MG/ACTUAT Metered Dose Inhaler [Symbicort] 12/22/2017 12:00:00 AM EDT [facility] ([facility]) 200 ACTUAT Albuterol 0.09 MG/ACTUAT Metered Dose Inhal er [Ventolin] 11/17/2017 12:00:00 AM EDT [facility] ([facility])
[2020-07-29] MEDS ORDERED: NS 1,000 ML IV SCH (12:36)
--- NOTE | 2020-07-29 13:45 | REP ---
INDICATION: LUQ pain COMPARISON: Comparison CT study January 23, 2016.. TECHNIQUE: Helical scanning is acquired in 4 mm axial images were reformatted. Coronal and sagittal MPR images were generated and reviewed. FINDINGS: Preliminary digital intensive care ambulance paramedic radiograph is unremarkable. The lung bases are clear. There is no evidence of pleural effusion or upper abdominal ascites. Prominent vascular calcification is seen throughout the abdomen. No focal hepatic or splenic lesion is seen. Normal adrenal glands are observed. Extensive vascular calcification is seen in the kidneys. No hydronephrosis or nephrolithiasis is appreciated. No renal mass lesion is observed. A normal appendix is seen in the right lower quadrant. Mild abdominal aortic ectasia is seen but no aneurysm is noted. No abnormality is noted in the pancreas. The gallbladder is unremarkable. Small and large bowel loops are normal in the upper abdomen. Pelvic CT images show no large or small bowel abnormality. There are some dystrophic calcifications in the prostate. Urinary bladder is minimally distended but smooth walled and intact. No abdominal wall defect is observed. No bony destructive lesion is seen. IMPRESSION: Extensive vascular calcification. No acute abdominal or pelvic abnormality seen. <Electronically signed by Guanakito Moreno > 07/29/20 [id number]
[2020-07-29] MEDS ORDERED: BREO1INH3 INH (13:59)
[2020-07-29] MEDS ORDERED: VENTAER INH (13:59)
[2020-07-29] MEDS ORDERED: B-12100021 PO (13:59)
[2020-07-29] MEDS ORDERED: CIPR500T39 PO (13:59)
[2020-07-29 14:28] LABS: RSV AMPLIFICATION NEGATIVE (NEGATIVE)
[2020-07-29] MEDS ORDERED: GLUCOSE 4GM CHEW TABLET PO PRN (14:45)
[2020-07-29] MEDS ORDERED: GLUCAGON INJ 1MG VIAL SC PRN (14:45)
[2020-07-29] MEDS ORDERED: ALBUTEROL 90 MCG/ACT 8GM HFA INHALER INH PRN (14:45)
[2020-07-29] MEDS ORDERED: DEXTROSE 50% 50 ML SYRINGE IV PRN (14:45)
[2020-07-29] MEDS ORDERED: ACETAMINOPHEN TAB 650MG DOSE (2X325MG) PO PRN (14:45)
--- OUTSIDE RECORDS SUMMARY | 2020-07-29 14:56 | CCD ---
Author Author [facility] Organization [facility] Address Unknown Phone Unavailable Support Name Relationship Address Phone RET Next Of Kin RETIRED Unknown Unavailable Dez Tmaez Next Of Kin [address] [address] DAWN ANTON Next Of Kin [address] [place] [address] Peg Omer Next Of Kin [address] [address] SONIDO ANTON Next Of Kin Unknown JORGE OMER Next Of Kin [address] [address] Melinda Wilcox Next Of Kin [address] [address] JEFF MELINDA Next Of Kin [address] [place] [address] MAHNAZ OMER Next Of Kin [address] [address] DEZ QUIJANO Next Of Kin [address] [place] [address] AJ QUIJANO Next Of Kin [address] [place] [address] NYDIA ANTON JR Next Of Kin [address] [place] [address] PIERRE WESTON Next Of Kin [address] [address] JEAN LIU Next Of Kin [address] [place] [address] DISABILITY Next Of Kin - -, - - UN Next Of Kin Unknown Unavailable DISABLED Next Of Kin Unknown Unavailable LSAHAWN SPEAR Next Of Kin [address] [place] [address] UE Next Of Kin Unknown Unavailable CASTOR, BUSHRA Next Of Kin [address] [place] [address] Chase Quijano ECON [address] [place] [address] Rachel Spear ECON [address] [place] [address] [phone] Care Team Providers Care Special Librarian Name Role Phone Evangelina, Ann-Marie Graf MD, [facility] Unavailable Unavailable Gabris, Ann-Marie Graf MD, [facility] Unavailable Unavailable Gabris, Ann-Marie Graf MD, [facility] Unavailable Unavailable Gabris, Ann-Marie Graf MD, [facility] Unavailable Unavailable Gabris, Ann-Marie Graf MD, [facility] Unavailable Unavailable Gabris, Ann-Marie Graf MD, [facility] Unavailable Unavailable Gabris, Ann-Marie Graf MD, [facility] Unavailable Unavailable Gabris, Ann-Marie Graf MD, [facility] Unavailable Unavailable Gabris, Ann-Marie Graf MD, [facility] Unavailable Unavailable Gabris, Ann-Marie Graf MD, [facility] Unavailable Unavailable Gabris, Ann-Marie Graf MD, [facility] Unavailable Unavailable Gabris, Ann-Marie Graf MD, [facility] Unavailable Unavailable Gabris, Ann-Marie Graf MD, [facility] Unavailable Unavailable Gabris, Ann-Marie Graf MD, [facility] Unavailable Unavailable Gabris, Ann-Marie Graf MD, [facility] Unavailable Unavailable Gabris, Ann-Marie Graf MD, [facility] Unavailable Unavailable Gabris, Ann-Marie Graf MD, [facility] Unavailable Unavailable Gabris, Ann-Marie Graf MD, [facility] Unavailable Unavailable Gabris, Ann-Marie Graf MD, [facility] Unavailable Unavailable Gabris, Ann-Marie Graf MD, [facility] Unavailable Unavailable Gabris, Ann-Marie Graf MD, [facility] Unavailable Unavailable Gabris, Ann-Marie Graf MD, [facility] Unavailable Unavailable Gabris, Ann-Marie Graf MD, [facility] Unavailable Unavailable Gabris, Ann-Marie Graf MD, [facility] Unavailable Unavailable Gabris, Ann-Marie Graf MD, [facility] Unavailable Unavailable Gabris, Ann-Marie Graf MD, [facility] Unavailable Unavailable Gabris, Ann-Marie Graf MD, [facility] Unavailable Unavailable Gabris, Ann-Marie Graf MD, [facility] Unavailable Unavailable Gabris, Ann-Marie Graf MD, [facility] Unavailable Unavailable Gabris, Ann-Marie Graf MD, [facility] Unavailable Unavailable Gabris, Ann-Marie Graf MD, [facility] Unavailable Unavailable Gabris, Ann-Marie Graf MD, [facility] Unavailable Unavailable Gabris, Ann-Marie Graf MD, [facility] Unavailable Unavailable Gabris, Ann-Marie Graf MD, [facility] Unavailable Unavailable Gabris, Ann-Marie Graf MD, [facility] Unavailable Unavailable Gabris, Ann-Marie Graf MD, [facility] Unavailable Unavailable Gabris, Ann-Marie Graf MD, FACC Unavailable Unavailable Gabris, Ann-Marie Graf MD, FAC Unavailable Unavailable Gabris, Ann-Marie Graf MD, FAC Unavailable Unavailable Gabris, Ann-Marie Graf MD, [facility] Unavailable Unavailable Gabris, Ann-Marie Graf MD, [facility] Unavailable Unavailable Gabris, Ann-Marie Graf MD, [facility] Unavailable Unavailable Gabris, Ann-Marie Graf MD, [facility] Unavailable Unavailable Gabris, Ann-Marie Graf MD, [facility] Unavailable Unavailable Gabris, Ann-Marie Graf MD, [facility] Unavailable Unavailable Gabris, Ann-Marie Graf MD, [facility] Unavailable Unavailable Gabris, Ann-Marie Graf MD, [facility] Unavailable Unavailable Gabris, Ann-Marie Graf MD, [facility] Unavailable Unavailable Gabris, Ann-Marie Garf MD, [facility] Unavailable Unavailable Gabris, Ann-Marie Graf MD, [facility] Unavailable Unavailable Gabris, Ann-Marie Graf MD, [facility] Unavailable Unavailable Gabris, Ann-Marie Graf MD, [facility] Unavailable Unavailable Gabris, Ann-Marie Graf MD, [facility] Unavailable Unavailable Gabris, Ann-Marie Graf MD, [facility] Unavailable Unavailable Gabris, Ann-Marie Graf MD, [facility] Unavailable Unavailable Gabris, Ann-Marie Graf MD, [facility] Unavailable Unavailable Gabris, Ann-Marie Graf MD, [facility] Unavailable Unavailable Gabris, Ann-Marie Graf MD, [facility] Unavailable Unavailable Gabris, Ann-Marie Graf MD, [facility] Unavailable Unavailable Gabris, Ann-Marie Graf MD, [facility] Unavailable Unavailable Gabris, Ann-Marie Graf MD, [facility] Unavailable Unavailable Gabris, Ann-Marie Graf MD, [facility] Unavailable Unavailable Gabris, Ann-Marie Graf MD, [facility] Unavailable Unavailable Gabris, Ann-Marie Graf MD, [facility] Unavailable Unavailable Gabris, Ann-Marie Graf MD, [facility] Unavailable Unavailable Gabris, Ann-Marie Graf MD, [facility] Unavailable Unavailable Gabris, Ann-Marie Graf MD, [facility] Unavailable Unavailable Gabris, Ann-Marie Graf MD, [facility] Unavailable Unavailable Onelia Cohen RN Unavailable Unavailable Onelia Cohen RN Unavailable Unavailable Onelia Cohen RN Unavailable Unavailable Onelia Cohen RN Unavailable Unavailable Onelia Cohen RN Unavailable Unavailable Onelia Coehn RN Unavailable Unavailable Onelia Cohen RN Unavailable [...] M LASHAWN PA Unavailable Unavailable Suyapa, Yady SALES ADMINISTRATION MANAGER Unavailable Unavailable Suyapa, Yady SALES ADMINISTRATION MANAGER Unavailable Unavailable Suyapa, Yady SALES ADMINISTRATION MANAGER Unavailable Unavailable Suyapa, Yady SALES ADMINISTRATION MANAGER Unavailable Unavailable Suyapa, Yady SALES ADMINISTRATION MANAGER Unavailable Unavailable Henry, Yady SALES ADMINISTRATION MANAGER Unavailable Unavailable Suyapa, Yady SALES ADMINISTRATION MANAGER Unavailable Unavailable Suyapa, Yady SALES ADMINISTRATION MANAGER Unavailable Unavailable Henry, Yady SALES ADMINISTRATION MANAGER Unavailable Unavailable Suyapa, Yady SALES ADMINISTRATION MANAGER Unavailable Unavailable EMILY Malcolm, Veronika Unavailable Re-disclosure [...] is protected by Article 27-F of the [facility] Public Health law. If you continue you may have access to information: Regarding HIV / AIDS; Provided by facilities licensed or operated by the [facility] Office of Mental Health; or Provided by the [facility] Office for People With Developmental Disabilities. If such information is present, then the following [facility] mandated warning applies: This information has been [...] law may result in a fine or long term sentence or both. A general authorization for the release of medical or other information is NOT sufficient authorization for further disc losure. Advance Directives Directive Description Account Review Specialist Opener Tender Status Observation Descr iption Data Source(s) packet given Pt Bill of Rights, Priv Prac, Ad Dir completed packet given Pt Bill of Rights, Priv Prac, Ad Dir [facility] Note: Pt declined AD packet Ebola Screening Performed completed Ebol a Screening Performed [facility] ([facility] Note: Within the last month, have you [...] Source(s ) Outpatient<td ID="encounterTypeDescripti onID0">Acute L3</td><td>Yady Dale SALES ADMINISTRATION MANAGER</td><td>[facility]</td><td>07/26/2020</td><td>6:24PM</td><td>8:01PM</td><td><content ID="encounterDiagnosisID0-0">Abdominal Pain</content>, <content ID="encounterDiagnosisID0-1">Nicotine Dependence</content></td> Attender: Yady Dale NP [facility] 07/26/2020 06:24:00 PM EST - 07/26/2020 08:01:30 PM EST Abdominal PainAbdominal PainNicotine DependenceNicotin e Dependence [facility] ([facility]) Abdominal Pain Abdominal Pain Nicotine Dependence Nicotine Dependence Unknown<td ID="encounterTypeDescriptionI D1">Chart Update</td><td>Veronika Malcolm RN</td><td></td><td>04/16/2020</td><td>04/10/2020 7:38AM</td><td>04/10/2020 11:59PM</td><td></td> Attender: Veronika Malcolm RN 04/16/2020 07:38:00 AM EST - 04/10/2020 11:59:00 PM EDT [facility] ([facility]) Outpatient<td ID="encounterTypeDescripti onID2">AHR</td><td>Lashawn ANDERSON</td><td>[facility]</td><td>04/10/2020</td><td>11:04AM</td><td>12:43PM</td><td><content ID="encounterDiagnosisID2-0">Chronic Kidney Disease Stage 3</content>, <content ID="encounterDiagnosisID2-1">Diabetes Mellitus Diabetic Peripheral Neuropathy</content>, <content ID="encounterDiagnosisID2-2">Diabetes Mellitus</content>, <content ID="encounterDiagnosisID2-3">Anemia</content>, <content ID="encounterDiagnosisID2-4">Diabetes Mellitus</content>, <content ID="encounterDiagnosisID2-5">Allergic Rhinitis</content>, <content ID="encounterDiagnosisID2-6">Nicotine Dependence</content>, <content ID="encounterDiagnosisID2-7">Hypertension (Systemic)</content>, <content ID="encounterDiagnosisID2-8">Lumbago</content>, <content ID="encounterDiagnosisID2-9">Diabetes Mellitus with Foot Ulcer</content>, <content ID="encounterDiagnosisID2-10">Stroke - Ischemic</content>, <content ID="encounterDiagnosisID2-11">Chronic Kidney Disease Stage 3</content>, <content ID="encounterDiagnosisID2-12">Coronary Artery Disease Left Main</content>, <content ID="encounterDiagnosisID2-13">Blood in the Stool</content></td> Attender: LASHAWN ANDERSON [facility] 04/10/2020 11:04:00 AM EDT - 04/10/2020 12:43:18 [...] NeuropathyHypertension (systemic)Diabetes Mellitus Diabetic Peripheral Neuropathy [facility] ([facility]) Blood in the Stool Lumbago Allergic [...] Attender: Onelia Cohen RNAttender: Homar Hutchinson MD, [facility] [email or web address] 04/04/2020 12:00:00 AM EDT - 04/04/2020 03:30:28 PM EDT [facility] Outpatient<td ID="encounterTypeDescripti onID3">Acute Follow-up Telephonic</td><td>Lashawn ANDERSON</td><td>[facility]</td><td>03/12/2020</td><td>02/07/2020 3:50PM</td><td>3:38PM</td><td> <content ID="encounterDiagnosisID3-0">Nausea</content>, <content ID="encounterDiagnosisID3-1">Anemia</content>, <content ID="encounterDiagnosisID3-2">Diabetes Mellitus</content>, <content ID="encounterDiagnosisID3-3">Diabetes Mellitus Diabetic Peripheral Neuropathy</content>, <content ID="encounterDiagnosisID3-4">Hypothyroidism</content>, <content ID="encounterDiagnosisID3-5">Allergic Rhinitis</content>, <content ID="encounterDiagnosisID3-6">Nicotine Dependence</content>, <content ID="encounterDiagnosisID3-7">Hypertension (Systemic)</content>, <content ID="encounterDiagnosisID3-8">Lumbago</content>, <content ID="encounterDiagnosisID3-9">Diabetes Mellitus with Foot Ulcer</content>, <content ID="encounterDiagnosisID3-10">Stroke - Ischemic</content>, <content ID="encounterDiagnosisID3-11">Chronic Kidney Disease Stage 3</content>, <content ID="encounterDiagnosisID3-12">Disturbance of Gait</content>, <content ID="encounterDiagnosisID3-13">Coronary Artery Disease Left Main</content>, <content ID="encounterDiagnosisID3-14">Blood in the Stool</content></td> Attender: LASHAWN ANDERSON [facility] 03/12/2020 03:50:00 PM EDT - 03/12/2020 03:38:07 [...] (systemic)Diabetes Mellitus Diabetic Peripheral Neuropathy [facility]) Blood in the Stool Disturbance of Gait [...] - 02/07/2020 11:59:00 PM EDT [facility] ([facility]) Outpatient<td ID="encounterTypeDescripti onID5">Hospital Follow-up</td><td>Lashawn ANDERSON</td><td>[facility]</td><td>02/07/2020</td><td>10:02AM</td><td>11:12AM</td><td><content ID="encounterDiagnosisID5-0">Chronic Kidney Disease Stage 3</content>, <content ID="encounterDiagnosisID5-1">Diabetes Mellitus Diabetic Peripheral Neuropathy</content>, <content ID="encounterDiagnosisID5- 2">Hypothyroidism</content>, <content ID="encounterDiagnosisID5- 3">Anemia</content>, <content ID="encounterDiagnosisID5-4">Diabetes Mellitus</content>, <content ID="encounterDiagnosisID5-5">Allergic Rhinitis</content>, <content ID="encounterDiagnosisID5-6">Nicotine Dependence</content>, <content ID="encounterDiagnosisID5-7">Hypertension (Systemic)</content>, <content ID="encounterDiagnosisID5-8">Lumbago</content>, <content ID="encounterDiagnosisID5-9">Diabetes Mellitus with Foot Ulcer</content>, <content ID="encounterDiagnosisID5-10">Stroke - Ischemic</content>, <content ID="encounterDiagnosisID5-11">Disturbance of Gait</content>, <content ID="encounterDiagnosisID5-12">Coronary Artery Disease Left Main</content>, <content ID="encounterDiagnosisID5-13">Blood in the Stool</content></td> Attender: LASHAWN ANDERSON [facility] 02/07/2020 10:02:00 AM EDT - 02/07/2020 11:12:18 [...] PM EDT - 01/09/2020 11:59:00 PM EDT [facility]) Outpatient 01/23/2020 03:20:[address] [facility] Emergency Attender: Jeromy ANDERSON-CConsultant: STAFF NO N 01/23/2020 02:13:00 PM EDT - 01/23/2020 09:21:00 PM EDT [facility] Patient discharged. Outpatient<td ID="encounterTypeDescripti onID7">Telephonic Encounter</td><td>Lashawn ANDERSON</td><td>[facility]</td><td>01/09/2020</td><td>04/25/2019 11:00AM</td><td>12:25PM</td><td><content ID="encounterDiagnosisID7-0">Stroke - Ischemic</content>, <content ID="encounterDiagnosisID7-1">Fatigue</content>, <content ID="encounterDiagnosisID7-2">Chronic Kidney Disease Stage 3</content>, <content ID="encounterDiagnosisID7-3">Disturbance of Gait</content>, <content ID="encounterDiagnosisID7-4">Coronary Artery Disease Left Main</content>, <content ID="encounterDiagnosisID7-5">Blood in the Stool</content>, <content ID="encounterDiagnosisID7-6">Anemia</content>, <content ID="encounterDiagnosisID7-7">Diabetes Mellitus</content>, <content ID="encounterDiagnosisID7-8">Allergic Rhinitis</content>, <content ID="encounterDiagnosisID7-9">Nicotine Dependence</content>, <content ID="encounterDiagnosisID7-10">Hypertension (Systemic)</content>, <content ID="encounterDiagnosisID7-11">Lumbago</content>, <content ID="encounterDiagnosisID7-12">Diabetes Mellitus with Foot Ulcer</content></td> Attender: LASHAWN ANDERSON [facility] 01/09/2020 11:00:00 AM EDT - 01/09/2020 12:25:32 [...] (systemic)Hypertension (systemic)Hypertension (systemic)Hypertension (systemic)Hypertension (systemic) [facility] ([facility]) Lumbago Allergic Rhinitis Diabetes Mellitus Blood in [...] - 09/29/2019 11:59:00 PM EDT [facility] ([facility]) Unknown<td ID="encounterTypeDescriptionI D9">Chart Update</td><td>Veronika Malcolm RN</td><td></td><td>11/15/2019</td><td>04/25/2019 1:57PM</td><td>09/29/2019 11:59PM</td><td></td> Attender: Veronika Malcolm RN 11/15/2019 01:57:00 PM EDT - 09/29/2019 11:59:00 PM EDT [facility] ([facility]) Outpatient<td ID="encounterTypeDescripti onID10">Medication Order</td><td>Lashawn ANDERSON</td><td></td><td>10/27/2019</td><td>04/25/2019 8:19AM</td><td>09/29/2019 11:59PM</td><td></td> Attender: LASHAWN ANDERSON 10/27/2019 08:19:00 AM EDT - 09/29/2019 11:59:00 PM EDT [facility] ([facility]) Outpatient<td ID="encounterTypeDescripti onID11">Telephonic Encounter</td><td>Lashawn ANDERSON</td><td>[facility]</td><td>09/29/2019</td><td>04/25/2019 9:20AM</td><td>9:33AM</td><td> <content ID="luiwyfbjoPtjtupnyfQR33-1">Anemia</content>, <content ID="byhdeqsbqTrhdlcqorKO65-4">Diabetes Mellitus</content>, <content ID="ucscqvgmmXsrrxuxpzSG71-7">Allergic Rhinitis</content>, <content ID="myypotyqxYhjrupspnJI03-6">Nicotine Dependence</content>, <content ID="vfcqonybhMklhlvyynAF04-9">Hypertension (Systemic)</content>, <content ID="kydhfrbxmRwnfkbhkcTD78-2">Lumbago</content>, <content ID="jnzgcwqliLzyaamqhaXC78-8">Diabetes Mellitus with Foot Ulcer</content>, <content ID="jyidzwejbTpudnhvywAX61-8">Stroke - Ischemic</content>, <content ID="rxnnvyqlkZvuofharaHB36-3">Fatigue</content>, <content ID="apuqdbsdzLjgwsbncbYN50-4">Chronic Kidney Disease Stage 3</content>, <content ID="ambqzvomsRerocnoqmXU66-08">Disturbance of Gait</content>, <content ID="niudeadndYaxvsacxiVP55-43">Coronary Artery Disease Left Main</content>, <content ID="lkkqpmdbqAwvijdinzCD51-16">Blood in the Stool</content></td> Attender: LASHAWN ANDERSON [facility] 09/29/2019 09:20:00 AM EDT - 09/29/2019 09:33:14 [...] 3 04/10/2020 Left Deltoid Complete (Administere d) [facility] ([facility]) IIV3. This is one of two codes replacing CVX 15, which is being retired. 04/10/2020 12:42:00 PM EDT completed Influenza 6 04/10/2020 Right Delto id Complete (Administered) [facility] ([facility]) Medications Medication Brand Name Start Date Product Form Dose Route Admi nistrative Instructions Pharmacy Instructions Status Indications Reaction Description Data Source(s) Famotidine 40 MG Oral Tablet Famotidine 40 MG Oral Tablet 12:00:00 AM EST 1 active famotidine 40 MG Oral Tablet [facility] ([facility]) Ciprofloxacin 500 MG Oral Tablet [Cipro] Cipro 500 MG Oral Tablet Cipro 500 MG Oral Tablet 07/26/2020 12:00:00 AM EST 1 active ciprofloxacin 500 MG Oral Tablet [Cipro] [facility] ([facility]) Metronidazole 500 MG Oral Tablet [Flagyl] Flagyl 500 M G Oral Tablet Flagyl 500 MG Oral Tablet 07/26/2020 12:00:00 AM EST act del metronidazole 500 MG Oral Tablet [Flagyl] [facility] ([facility]) Aspirin 325 MG Oral Tablet Aspirin 325 MG Oral Tablet 2020 12:00:00 AM EST 1 active aspirin 325 MG Or al Tablet [facility] ([facility]) gabapentin 100 MG Oral Capsule Gabapentin 100 MG Oral Capsule Gabapentin 100 MG Oral Capsule 07/24/2020 12:00:00 AM EST activ e gabapentin 100 MG Oral Capsule [facility] ([facility]) Metoprolol Tartrate 25 MG Oral Tablet Metoprolol Tartrate 25 MG Oral Tablet 07/24/2020 12:00:00 AM EST 1 active metoprolol tartrate 25 MG Oral Tablet [facility] ([facility]) Gemfibrozil 600 MG Oral Tablet Gemfibrozil 600 MG Oral Table t 05/24/2020 12:00:00 AM EST active gemfibro zil 600 MG Oral Tablet [facility] ([facility]) pantoprazole 40 MG Delayed Release Oral Tablet Pantoprazole Sodium 40 MG Oral Tablet Delayed Release Pantoprazole Sodium 40 MG Oral Tablet Delayed Release 05/24/2020 12:00:00 AM EST 1 active pantoprazole 40 MG Delayed Release Oral Tablet [facility] ([facility]) clopidogrel 75 MG Oral Tablet [Plavix] Plavix 75 MG Or al Tablet Plavix 75 MG Oral Tablet 05/24/2020 12:00:00 AM EST 1 active clopidogrel 75 MG Oral Tablet [Plavix] [facility] ([facility]) PARoxetine HCl 10 MG Oral Tablet PARoxetine HCl 10 MG Oral T ablet 05/24/2020 12:00:00 AM EST active paroxeti ne hydrochloride 10 MG Oral Tablet [facility] ([facility]) montelukast 10 MG Oral Tablet Montelukast Sodium 10 MG Oral Tablet Montelukast Sodium 10 MG Oral Tablet 05/24/2020 12:00:00 AM EST 1 active montelukast 10 MG Oral Tablet [facility] ([facility]) atorvastatin 80 MG Oral Tablet Atorvastatin Calcium 80 MG Oral Tablet Atorvastatin Calcium 80 MG Oral Tablet 05/24/2020 12:00:00 AM EST 1 active atorvastatin 80 MG Oral Tablet [facility] ([facility] Basaglar KwikPen 100 UNIT/ML Subcutaneous Solution Pen -injector Basaglar KwikPen 100 UNIT/ML Subcutaneous Solution Pen-injector 05/24/2020 12:00:00 AM EST 1 active Sensor 3 ML insulin glargine 100 UNT/ML Pen Injector [Basaglar] [facility] ([facility]) Vitamin B 12 1 MG Extended Release Oral Tablet Vitamin B12 1000 MCG Oral Tablet Extended Release Vitamin B12 1000 MCG Oral Tablet Extended Release 03/15 12:00:00 AM EDT 1 active vitamin B12 1 MG Extended Release Oral Tablet [facility] ([facility]) Docusate Sodium 100 MG Oral Capsule [Colace] Colace 10 0 MG Oral Capsule Colace 100 MG Oral Capsule 04/10/2020 12:00:00 AM EDT active docusate sodium 100 MG Oral Capsule [Colace] [facility] ([facility]) dexlansoprazole 30 MG Delayed Release Or al Capsule [Dexilant] Dexilant 30 MG Oral Capsule Delayed Release Dexilant 30 MG Oral Capsule Delayed Release 04/10/2020 12:00:00 AM EDT active dexlansoprazole 30 MG Delayed Release Oral Capsule [Dexilant] [facility] ([facility]) Cholecalciferol 90448 UNT Oral Capsule V itamin D3 1.25 MG (47752 UT) Oral Capsule Vitamin D3 1.25 MG (77347 UT) Oral Capsule 04/10/2020 12:00:00 A M EDT active cholecalciferol 1.25 MG Oral Capsule [facility] ([facility]) Calcitriol 0.26473 MG Oral Capsule Calcitriol 0.25 MCG Oral Capsule Calcitriol 0.25 MCG Oral Capsule 04/10/2020 12:00:00 AM EDT active calcitriol 0.26441 MG Oral Capsule [facility] ([facility]) gabapentin 100 MG Oral Capsule Gabapentin 100 MG Oral Capsule Gabapentin 100 MG Oral Capsule 04/01/2020 12:00:00 AM EDT abort ed gabapentin 100 MG Oral Capsule [facility] ([facility]) First - Metoprolol 10 MG/ML Oral Solution First - Meto prolol 10 MG/ML Oral Solution 03/12/2020 12:00:00 AM EDT active First - Metoprolol [facility] ([facility]) Metoclopramide 10 MG Oral Tablet Metoclopramide HCl 10 MG Oral Tablet Metoclopramide HCl 10 MG Oral Tablet 03/12/2020 12:00:00 AM EDT active metoclopramide 10 MG Oral Tablet [facility] ([facility]) Metoclopramide 10 MG Oral Tablet [Reglan] Reglan 10 MG Oral Tablet Reglan 10 MG Oral Tablet 02/28/2020 12:00:00 AM EDT active metoclopramide 10 MG Oral Tablet [Reglan] [facility] ([facility]) Amlodipine 10 MG Oral Tablet amLODIPine Besylate 10 MG Oral Tablet amLODIPine Besylate 10 MG Oral Tablet 02/14/2020 12:00:00 AM EDT 1 active amlodipine 10 MG Oral Tablet [facility] ([facility]) Metoprolol Tartrate 25 MG Oral Tablet Metoprolol Tartr ate 25 MG OR TABS Metoprolol Tartrate 25 MG OR TABS 02/14/2020 12:00:00 AM EDT 1 aborted metoprolol tartrate 25 MG Oral Tablet [facility] Amlodipine 10 MG Oral Tablet amLODIPine Besylate 10 MG OR TABS amLODIPine Besylate 10 MG OR TABS 02/14/2020 12:00:00 AM EDT 1 aborted amlodipine 10 MG Oral Tablet [facility] ([facility]) Aspirin 325 MG Oral Tablet Aspirin 325 MG OR TABS Aspirin 32 5 MG OR TABS 02/14/2020 12:00:00 AM EDT 1 aborted aspirin 325 MG Oral Tablet LUIS FERNANDO ([facility]) dexlansoprazole 30 MG Delayed Release Or al Capsule [Dexilant] Dexilant 30 MG Oral Capsule Delayed Release Dexilant 30 MG Oral Capsule Delayed Release 02/14/2020 12:00:00 AM EDT aborted dexlansoprazole 30 MG Delayed Release Oral Capsule [Dexilant] LUIS FERNANDO ([facility]) Calcitriol 0.97192 MG Oral Capsule Calcitriol 0.25 MCG Oral Capsule Calcitriol 0.25 MCG Oral Capsule 02/14/2020 12:00:00 AM EDT aborted calcitriol 0.28222 MG Oral Capsule LUIS FERNANDO ([facility]) Metoprolol Tartrate 25 MG Oral Tablet Metoprolol Tartrate 25 MG Oral Tablet 02/14/2020 12:00:00 AM EDT 1 aborted metoprolol tartrate 25 MG Oral Tablet LUIS FERNANDO ([facility]) Aspirin 325 MG Oral Tablet Aspirin 325 MG Oral Tablet 2019 12:00:00 AM EDT 1 aborted aspirin 325 MG O ral Tablet LUIS FERNANDO ([facility]) Accu-Chek Softclix Lancets Miscellaneous Accu-Chek Sof tclix Lancets Miscellaneous 02/07/2020 12:00:00 AM EDT 1 acti ve Accu-Chek Softclix Lancets LUIS FERNANDO ([facility]) FreeStyle Lite Device FreeStyle Lite Device 02/07/2020 12:00:00 AM EDT aborted FreeStyle Lite LUIS FERNANDO ([facility]) Accu-Chek Softclix Lancet Dev Kit Accu-Chek Softclix Lancet Dev Kit 02/07/2020 12:00:00 AM EDT active Accu-Julee k Softclix Lancet Dev LUIS FERNANDO ([facility]) FreeStyle Lite Test In Vitro Strip FreeStyle Lite Test In Vi tro Strip 02/07/2020 12:00:00 AM EDT 1 active FreeSty le Lite Test LUIS FERNANDO ([facility]) Metoclopramide 10 MG Oral Tablet Metoclopramide HCl 10 MG Oral Tablet Metoclopramide HCl 10 MG Oral Tablet 02/07/2020 12:00:00 AM EDT aborted metoclopramide 10 MG Oral Tablet [facility] ([facility]) Amlodipine 10 MG Oral Tablet amLODIPine Besylate 10 MG Oral Tablet amLODIPine Besylate 10 MG Oral Tablet 02/07/2020 12:00:00 AM EDT aborted amlodipine 10 MG Oral Tablet [facility] ([facility]) Famotidine 40 MG Oral Tablet Famotidine 40 MG Oral Tablet 12:00:00 AM EDT 1 aborted famotidine 40 MG Oral Tablet [facility] ([facility]) 200 ACTUAT Albuterol 0.09 MG/ACTUAT Mete red Dose Inhaler [Ventolin] Ventolin HFA 108 (90 Base) MCG/ACT Inhalation Aerosol Solution Ventolin HFA 108 (90 Base) MCG/ACT Inhalation Aerosol Solution 01/09/2020 12:00:00 AM EDT active [id number] 200 ACTUAT albuter ol 0.09 MG/ACTUAT Metered Dose Inhaler [Ventolin] [facility] ([facility]) 30 ACTUAT fluticasone furoate 0.2 MG/ACT UAT / vilanterol 0.025 MG/ACTUAT Dry Powder Inhaler [Breo] Breo Ellipta 200-25 MCG/INH Inhalation Aerosol Powder Breath Activated Breo Ellipta 200-25 MCG/INH Inhalation A erosol Powder Breath Activated 01/09/2020 12:00:00 AM EDT active 30 ACTUAT fluticasone furoate 0.2 MG/ACTUAT / vilanterol 0.025 MG/ACTUAT Dry Powder Inhaler [Breo] [facility] ([facility]) Metoprolol Tartrate 25 MG Oral Tablet Metoprolol Tartrate 25 MG Oral Tablet 12/11/2019 12:00:00 AM EDT aborted metoprolol tartrate 25 MG Oral Tablet [place] ([facility]) FreeStyle Lite Device FreeStyle Lite Device 12/05/2019 12:00:00 AM EDT completed FreeStyle Lite LUIS FERNANDO ([facility]) FreeStyle Lancets Miscellaneous FreeStyle Lancets Miscellane ous 12/05/2019 12:00:00 AM EDT completed FreeS tyle Lancets [place] ([facility]) FreeStyle Lite Test In Vitro Strip FreeStyle Lite Test In Vi tro Strip 12/05/2019 12:00:00 AM EDT completed Free Style Lite Test [facility] ([facility]) atorvastatin 80 MG Oral Tablet Atorvastatin Calcium 80 MG Oral Tablet Atorvastatin Calcium 80 MG Oral Tablet 12/01/2019 12:00:00 AM EDT 1 aborted [facility]vastatin 80 MG [facility] Amlodipine 5 MG Oral Tablet amLODIPine Besylate 5 MG O ral Tablet amLODIPine Besylate 5 MG Oral Tablet 12/01/2019 12:00:00 AM EDT 1 aborted amlodipine 5 MG Oral Tablet [facility] ([facility]) Metoprolol Tartrate 25 MG Oral Tablet Metoprolol Tartrate 25 MG Oral Tablet 12/01/2019 12:00:00 AM EDT aborted metoprolol tartrate 25 MG Oral Tablet [place] ([facility]) Basaglar KwikPen 100 UNIT/ML Subcutaneous Solution Pen -injector Basaglar KwikPen 100 UNIT/ML Subcutaneous Solution Pen-injector 12/01/2019 12:00:00 AM EDT 1 aborted Sensor 3 ML in sulin glargine 100 UNT/ML Pen Injector [Basaglar] [facility] ([facility]) Metoclopramide 10 MG Oral Tablet [Reglan] Reglan 10 MG Oral Tablet Reglan 10 MG Oral Tablet 12/01/2019 12:00:00 AM EDT aborte d metoclopramide 10 MG Oral Tablet [Reglan] [facility] ([facility]) BD Pen Needle Rohini U/F 32G X 4 MM Miscellaneous BD Pen Needle Rohini U/F 32G X 4 MM Miscellaneous 12/01/2019 12:00:00 AM EDT a ctive BD Pen Needle Rohini U/F [facility] ([facility]) 200 ACTUAT Albuterol 0.09 MG/ACTUAT Mete red Dose Inhaler [Ventolin] Ventolin HFA 108 (90 Base) MCG/ACT IN AERS Ventolin HFA 108 (90 Base) MCG/ACT IN AERS 12/01/2019 12:00:00 AM EDT aborted [id number] 200 ACTUAT albuterol 0.09 MG/ACTUAT Metered Dose Inhaler [Ventolin] LUIS FERNANDO ([facility]) 200 ACTUAT Albuterol 0.09 MG/ACTUAT Mete red Dose Inhaler [Ventolin] Ventolin HFA 108 (90 Base) MCG/ACT Inhalation Aerosol Solution Ventolin HFA 108 (90 Base) MCG/ACT Inhalation Aerosol Solution 12/01/2019 12:00:00 AM EDT aborted [id number] 200 ACTUAT albuterol 0.09 MG/ACTUAT Metered Dose Inhaler [Ventolin] [place] ([facility]) Lisinopril 20 MG Oral Tablet Lisinopril 20 MG Oral Tablet 12:00:00 AM EDT 1 aborted lisinopril 20 MG Oral Tablet [facility] ([facility]) gabapentin 100 MG Oral Capsule Gabapentin 100 MG Oral Capsule Gabapentin 100 MG Oral Capsule 12/01/2019 12:00:00 AM EDT abort ed gabapentin 100 MG Oral Capsule [facility] ([facility]) Aspirin 325 MG Oral Tablet Aspirin 325 MG Oral Tablet 2019 12:00:00 AM EDT 1 active aspirin 325 MG Or al Tablet [facility] ([facility]) clopidogrel 75 MG Oral Tablet [Plavix] Plavix 75 MG Or al Tablet Plavix 75 MG Oral Tablet 12/01/2019 12:00:00 AM EDT 1 aborte d clopidogrel 75 MG Oral Tablet [Plavix] [place] ([facility]) Loratadine 10 MG Oral Tablet Loratadine 10 MG Oral Tablet 12:00:00 AM EDT aborted loratadine 10 MG Oral Tablet [place] ([facility]) PARoxetine HCl 10 MG Oral Tablet PARoxetine HCl 10 MG Oral T ablet 12/01/2019 12:00:00 AM EDT aborted paroxetine hydrochloride 10 MG Oral Tablet [place] ([facility]) montelukast 10 MG Oral Tablet Montelukast Sodium 10 MG Oral Tablet Montelukast Sodium 10 MG Oral Tablet 12/01/2019 12:00:00 AM EDT 1 aborted montelukast 10 MG Oral Tablet [place] ([facility]) pantoprazole 40 MG Delayed Release Oral Tablet Pantoprazole Sodium 40 MG Oral Tablet Delayed Release Pantoprazole Sodium 40 MG Oral Tablet Delayed Release 12/01/2019 12:00:00 AM EDT 1 aborted pantoprazole 40 MG Delayed Release Oral Tablet [facility] FERNANDO ([facility]) Gemfibrozil 600 MG Oral Tablet Gemfibrozil 600 MG Oral Table t 12/01/2019 12:00:00 AM EDT aborted gemfibr ozil 600 MG Oral Tablet [facility]ER[facility] ([facility]) Basaglar KwikPen 100 UNIT/ML Subcutaneous Solution Pen -injector Basaglar KwikPen 100 UNIT/ML Subcutaneous Solution Pen-injector 11/16/2019 12:00:00 AM EDT 1 aborted Sensor 3 ML in sulin glargine 100 UNT/ML Pen Injector [Basaglar] LUIS FERNANDO ([facility]) FreeStyle Milena 14 Day Scroggins JOAQUIN FreeStyle Milena 14 Day Re ader JOAQUIN 10/30/2019 12:00:00 AM EDT aborted FreeSt yle Milena 14 Day Scroggins [facility] FERNANDO ([facility]) FreeStyle Precision [place] Test STRP FreeStyle Precision [place] Test STRP 10/30/2019 12:00:00 AM EDT aborted FreeStyle Precision [place] Test [facility] FERNAND[facility] ([facility]) FreeStyle Milena 14 Day Sensor MISC FreeStyle Milena 14 Day Se nsor MISC 10/30/2019 12:00:00 AM EDT aborted FreeSt yle Milena 14 Day Sensor [facility]ERNAND[facility] ([facility]) FreeStyle Milena 14 Day Scroggins Device FreeStyle Milena 14 Day Scroggins Device 10/30/2019 12:00:00 AM EDT aborted FreeStyle Milena 14 Day Scroggins [facility] FERNAND[facility] ([facility]) FreeStyle Precision [place] Test In Vitro Strip FreeStyle Precision [place] Test In Vitro Strip 10/30/2019 12:00:00 AM EDT comple ellis FreeStyle Precision [place] Test [facility] FERNAND[facility] ([facility]) FreeStyle Milena 14 Day Sensor Miscellaneous FreeStyle Milena 14 Day Sensor Miscellaneous 10/30/2019 12:00:00 AM EDT abor ellis FreeStyle Milena 14 Day Sensor [facility] FERNAND[facility] ([facility]) FreeStyle Milena 14 Day Scroggins Device FreeStyle Milena 14 Day Scroggins Device 10/27/2019 12:00:00 AM EDT aborted FreeStyle Milena 14 Day Scroggins [facility] FERNAND[facility] ([facility]) FreeStyle Precision [place] Test In Vitro Strip FreeStyle Precision [place] Test In Vitro Strip 10/27/2019 12:00:00 AM EDT aborte d FreeStyle Precision [place] Test LUIS FERNANDO ([facility]) FreeStyle Milena 14 Day Sensor Miscellaneous FreeStyle Milena 14 Day Sensor Miscellaneous 10/27/2019 12:00:00 AM EDT abor ellis FreeStyle Milena 14 Day Sensor LUIS FERNANDO ([facility]) 80 mg 10/19/2019 12:00:00 AM EDT tablet 90 TAKE ONE TABLET BY MOUTH EVERY DAY TAKE ONE TABLET BY MOUTH EVERY DAY SOLD: 10/24/2019 [facility] atorvastatin 80 MG Oral Tablet Atorvastatin Calcium 80 MG Oral Tablet Atorvastatin Calcium 80 MG Oral Tablet 10/18/2019 12:00:00 AM EDT 1 aborted atorvastatin 80 MG Oral Tablet G [facility] ([facility]) 325 mg 10/10/2019 12:00:00 AM EDT tablet [...] aborted aspirin 325 MG O ral Tablet [facility] ([facility]) 5 mg 10/04/2019 12:00:00 AM EDT tablet [...] B12 2.5 MG Sublingual Tablet LUIS FERNANDO ([facility]) Docusate Sodium 100 MG Oral Capsule [Colace] Colace 10 0 MG Oral Capsule Colace 100 MG Oral Capsule 09/29/2019 12:00:00 AM EDT aborted docusate sodium 100 MG Oral Capsule [Colace] LUIS FERNANDO ([facility]) montelukast 10 MG Oral Tablet MONTELUKAST SODIUM [...] AM EST aborted FreeStyle Lite [facility]ND[facility] FreeStyle Lite Test In Vitro Strip [...] amlodipine 5 MG Oral Tablet [facility] FERNAND[facility] ([facility]) Albuterol 0.83 MG/ML Inhalant Solution A lbuterol Sulfate (2.5 MG/3ML) 0.083% Inhalation Nebulization solution Albuterol Sulfate (2.5 MG/3ML) 0.083% Inhalation Nebulization solution 04/25/2019 12:00:00 AM EST aborted albuterol 0.83 MG/ML Inhalation Solution LUIS FERNANDO ([facility]) 80 mg 04/24/2019 12:00:00 AM EST tablet 90 TAKE ONE TABLET BY MOUTH EVERY DAY TAKE ONE TABLET BY MOUTH EVERY DAY SOLD: 07/24/2019 [facility] atorvastatin 80 MG Oral Tablet Atorvastatin Calcium 80 MG Oral Tablet Atorvastatin Calcium 80 MG Oral Tablet 04/03/2019 12:00:00 AM EDT 1 aborted atorvastatin 80 MG Oral Tablet G [facility] ([facility]) Ranitidine 150 MG Oral Tablet raNITIdine HCl 150 MG Or al Tablet raNITIdine HCl 150 MG Oral Tablet 04/03/2019 12:00:00 AM EDT 1 aborted ranitidine 150 MG Oral Tablet [facility] 600 mg 03/26/2019 12:00:00 AM EDT tablet [...] 75 MG Oral Tablet [Plavix] LUIS FERNANDO ([facility]) FreeStyle Milena 14 Day Scroggins Device FreeStyle Milena 14 Day Scroggins Device 01/10/2019 12:00:00 AM EDT aborted FreeStyle Milena 14 Day Scroggins [facility]ND[facility] FreeStyle Milena Sensor System Miscellaneous FreeStyle Milena Sensor System Miscellaneous 01/10/2019 12:00:00 AM EDT abor ellis FreeStyle Milena Sensor System [facility]ND[facility] Loratadine 10 MG Oral Tablet Loratadine 10MG Oral Tabl et Loratadine 10MG Oral Tablet 12/14/2018 12:00:00 AM EDT aborted loratadine 10 MG Oral Tablet [facility]ND[facility] Ondansetron 4 MG Oral Tablet [Zofran] Zofran 4MG Oral Tablet Zofran 4MG Oral Tablet 11/24/2018 12:00:00 AM EDT 1 aborted ondansetron 4 MG Oral Tablet [Zofran] [facility]ER[facility]ND[facility] Metoclopramide 10 MG Oral Tablet [Reglan] Reglan 10MG Oral Tablet Reglan 10MG Oral Tablet 11/22/2018 12:00:00 AM EDT aborte d metoclopramide 10 MG Oral Tablet [Reglan] LUIS FERNANDO ([facility]) clopidogrel 75 MG Oral Tablet Clopidogrel Bisulfate 75 MG Oral Tablet Clopidogrel Bisulfate 75MG Oral Tablet 11/21/2018 12:00:00 AM EDT 1 aborted clopidogrel 75 MG Oral Tablet [facility]ER[facility]ND[facility] Docusate Sodium 100 MG Oral Capsule [Colace] Colace 10 0MG Oral Capsule Colace 100MG Oral Capsule 11/21/2018 12:00:00 AM EDT aborted docusate sodium 100 MG Oral Capsule [Colace] [place] ([facility]) Aspirin 325 MG Oral Tablet Aspirin 325MG Oral Tablet Aspirin 325MG Oral Tablet 11/18/2018 12:00:00 AM EDT 1 aborted aspirin 325 MG Oral Tablet [place] ([facility]) Vitamin B 12 2.5 MG Sublingual Tablet Cy anocobalamin 2500MCG Sublingual Tablet Sublingual Cyanocobalamin 2500MCG Sublingual Tablet Sublingual 12:00:00 AM EDT aborted vitamin B12 2.5 MG Sublingual Tablet [facility] ([facility]) Basaglar KwikPen 100UNIT/ML Subcutaneous Solution Pen- injector Basaglar KwikPen 100UNIT/ML Subcutaneous Solution Pen-injector 10/24/2018 12:00:00 AM EDT 1 aborted Sensor 3 ML insulin glarg ine 100 UNT/ML Pen Injector [Basaglar] [place] ([facility]) 100 unit/mL (3 mL) 10/24/2018 12:00:00 AM EDT insulin pen 27 INJECT 30 UNITS AT BEDTIME DAILY INJECT 30 UNITS AT BEDTIME DAILY SOLD: 08/22/2019 [facility] PARoxetine HCl 10MG Oral Tablet PARoxetine HCl 10MG Oral Tab let 10/07/2018 12:00:00 AM EDT aborted paroxetine hydrochloride 10 MG Oral Tablet [place] ([facility]) pantoprazole 40 MG Delayed Release Oral Tablet Pantoprazole Sodium 40MG Oral Tablet Delayed Release Pantoprazole Sodium 40MG Oral Tablet Delayed Release 09/27/2018 12:00:00 AM EDT 1 aborted pantoprazole 40 MG Delayed Release Oral Tablet [facility] ([facility]) Cholecalciferol 08433 UNT Oral Capsule V itamin D3 [id number] Oral Capsule, conventional Vitamin D3 [id number] Oral Capsule, conventional 2018 12:00:00 AM EST aborted cholecalciferol 1.25 MG Oral Capsule [facility] ([facility]) BD Pen Needle Rohini U/F 32G X 4 MM Miscellaneous BD Pen Needle Rohini U/F 32G X 4 MM Miscellaneous 05/12/2018 12:00:00 AM EST a borted BD Pen Needle Rohini U/F [place] ([facility]) FreeStyle Lite Test In Vitro Strip FreeStyle Lite Test In Vi tro Strip 05/10/2018 12:00:00 AM EST aborted FreeSt yle Lite Test [place] ([facility]) FreeStyle Lancets Miscellaneous FreeStyle Lancets Miscellane ous 05/10/2018 12:00:00 AM EST aborted FreeSty le Lancets [place] ([facility]) 60 ACTUAT Budesonide 0.16 MG/ACTUAT / fo rmoterol fumarate 0.0045 MG/ACTUAT Metered Dose Inhaler [Symbicort] Symbicort 160-4.5MCG/ACT Inhalation Aerosol Symbicort 160-4.5MCG/ACT Inhalation Aerosol 12/22/2017 12:00:00 AM EDT aborted 60 ACTUAT budeso nide 0.16 MG/ACTUAT / formoterol fumarate 0.0045 MG/ACTUAT Metered Dose Inhaler [Symbicort] [place] ([facility]) 200 ACTUAT Albuterol 0.09 MG/ACTUAT Mete red Dose Inhaler [Ventolin] Ventolin HFA 108 (90 Base)MCG/ACT Inhalation Aerosol Solution Ventolin HFA 108 (90 Base)MCG/ACT Inhalation Aerosol Solution 11/17/2017 12:00:00 AM EDT aborted [id number] 200 ACTUAT albuterol 0.09 MG/ACTUAT Metered Dose Inhaler [Ventolin] [place] ([facility]) Insurance Providers Payer name Policy type / Coverage type Policy ID Covered libertarian ID Covered libertarian's relationship to luong Policy Luong Plan Information EMEDNY [id number] SP [id number] MEDICARE [id number] SP [id number] [place] of [place] Other 10 Self 10 [place] of [place] Other 0 Self 0 [place] Other 10 Self 10 [place] Other 0 Self 0 [place] Other 10 Self 10 [place] Other 0 Self 0 Medicaid [facility] Other 10 Self 10 Medicare [place] Other 0 Self 0 MEDICARE [id number] [place] [id number] MEDICAID [id number] [place] [id number] MEDICARE C [id number] S [id number] MEDICAID M [id number] S [id number] Medicaid of [place] Other 10 Self 10 [place] Other 0 Self 0 [place] Other 10 Self 10 [place] Other 0 Self 0 MEDICAID -O/P [id number] MEDICARE PART A -O/P [id number] [place] of [place] Other 10 Self 10 [place] Other 0 Self 0 [place] Other 10 Self 10 [place] Other 0 Self 0 [place] Other 10 Self 10 [place] Other 0 Self 0 [place] Other 10 Self 10 [place] Other 0 Self 0 SELF PAY MEDICAID [facility] [id number] SP AF [id number] MEDICARE PART A [id number] SP [id number] MEDICAID [id number] SP [id number] MEDICARE [id number] SP [id number] SELF PAY MEDICAID [facility] [id number] SP AF [id number] MEDICARE PART A [id number] SP [id number] Medicaid of [place] Other 10 Self 10 Medicare [place] Other 0 Self 0 [place] Other 10 Self 10 [place] Other 0 Self 0 SELF PAY MEDICAID [facility] [id number] SP AF [id number] MEDICARE PART A [id number] SP [id number] Medicaid of [place] Other 10 Self 10 Medicare [place] Other 0 Self 0 MEDICARE PART A [id number] SP [id number] SELF PAY MEDICAID [facility] [id number] SP AF [id number] MEDICARE PART A [id number] SP [id number] MEDICARE [id number] SP [id number] A Medicaid of [place] Other 10 Self 10 Medicare [place] Other 0 Self 0 [place] Other 10 Self 10 Medicare [place] Other 0 Self 0 SELF PAY MEDICARE PART A [id number] SP [id number] MEDICAID [facility] [id number] SP [id number] Medicaid of [place] Other 10 Self 10 Medicare [place] Other 0 Self 0 MEDICARE [id number] [place]boni [id number] A [place] of [place] Other 10 Self 10 Medicare [place] Other 0 Self 0 MEDICAID [facility] [id number] SP AF [id number] MEDICARE [id number] SP [id number] A MEDICAID [facility] [id number] SP [id number] Medicaid of [place] Other 10 Self 10 Medicare [place] Other 0 Self 0 [place] Other 10 Self 10 Medicare [place] Other 0 Self 0 Medicaid [facility] Healthcare S D [id number] [id number] [id number] Medicare C [id number] SELF [id number] A [place] of [place] Other 10 Self 10 Medicare [place] Other 0 Self 0 [place] Other 10 Self 10 Medicare [place] Other 0 Self 0 MEDICAID [facility] [id number] SP AF [id number] MEDICAID [facility] [id number] SP [id number] [place] Other 10 Self 10 Medicare [place] Other 0 Self 0 Medicare [place] Other 0 Self 0 [place] Other 10 Self 10 Medicare [place] Other 0 Self 0 [place] Other 10 Self 10 Medicare [place] Other 0 Self 0 [place] Other 10 Self 10 Medicare [place] Other 0 Self 0 [place] Other 10 Self 10 [place] Other 0 Self 0 [place] Other 10 Self 10 Medicare [place] Other 0 Self 0 [place] Other 10 Self 10 Medicare [place] Other 0 Self 0 [place] Other 10 Self 10 [place] of [place] Other 10 Self 10 Medicare [place] Other 0 Self 0 Medicare [place] Other 0 Self 0 [place] Other 10 Self 10 Medicare [place] Other 0 Self 0 [place] Other 10 Self 10 [place] Other 0 Self 0 [place] Other 10 Self 10 Medicare [place] Other 0 Self 0 [place] Other 10 Self 10 Medicare [place] Other 0 Self 0 [place] Other 10 Self 10 MEDICAID [facility] [id number] SP AF [id number] MEDICAID PI PI MEDICARE PI PI Medicare [id number] Medicare [id number] A Medicaid - [place] [id number] Medica id [id number] MEDICARE C [id number] S [id number] A [place] MEDICARE PART B C [id number] S [id number] MEDICARE A [id number] Self [id number] A [place] [id number] SP [id number] MEDICARE [id number] SP [id number] [place] Medigap Part B Self Medicare [facility] Medicare Primary Self MEDICAID [facility] [id number] SP AF [id number] [place] [id number] SP AF [id number] [place] Self Medicare [facility] Medicare [place] [id number] SP AF [id number] MEDICAID [id number] SP [id number] MEDICAID [facility] [id number] SP AF [id number] MEDICAID [facility] [id number] SP AF [id number] MEDICAID [facility] [id number] SP AF [id number] [place]ID [place] 0 0 0 Medicare Part B [facility] 0 0 0 MEDICAID [facility] [id number] SP AF [id number] MEDICAID [facility] [id number] SP AF [id number] MEDICARE [id number] SP [id number] A MEDICAID [facility] [id number] SP [id number] Problems, Conditions, and Diagnoses Code Display Name Description Problem Type Effective Dates Data Source(s) 571.8 Fatty Liver Fatty Liver Problem 02/14/2020 12:00:00 AM EDT LUIS FERNANDO ([facility]) 571.8 Fatty Liver Fatty Liver Problem 02/14/2020 12:00:00 AM EDT [facility] FERNANDO ([facility]) 571.8 Fatty Liver Fatty Liver Problem 02/14/2020 12:00:00 AM EDT LUIS FERNANDO ([facility]) 571.8 Fatty Liver Fatty Liver Problem 02/14/2020 12:00:00 AM EDT [facility]ER[facility] ([facility]) 571.8 Fatty Liver Fatty Liver Problem 02/14/2020 [...] Problem 11/15/2019 12:00:00 AM EDT Tabitha HUGHES ([facility]) F17.210 Nicotine dependence, cigarettes, uncompl icated Nicotine dependence, cigarettes, uncompl Diagnosis 04/04/2020 02:18:55 PM EDT [facility] I77.9 Disorder of arteries and arterioles, uns pecified Disorder of arteries and arterioles, uns Diagnosis 04/04/2020 02:18:55 PM EDT [facility] I73.9 Peripheral vascular disease, unspecified Peripheral vascular disease, unspecified Diagnosis 04/04/2020 02:18:55 PM EDT [facility] E11.65 Type 2 diabetes mellitus with hyperglyce aissatou Type 2 diabetes mellitus with hyperglyce Diagnosis 04/04/2020 02:18:55 PM EDT [facility] E78.5 Hyperlipidemia, unspecified Hyperlipidemia, unspecifie d Diagnosis 04/04/2020 02:18:55 PM EDT [facility] I10 Essential (primary) hypertension Essential (primary) h ypertension Diagnosis 04/04/2020 02:18:55 PM EDT [facility] I63.9 Cerebral infarction, unspecified Cerebral infarc tion, unspecified Diagnosis 04/04/2020 02:18:55 PM EDT [facility] I25.10 Atherosclerotic heart diseas e of [place] coronary artery without angina pectoris Atherosclerotic heart disease of [place] Diagnosis 04/04/2020 02:18:55 PM EDT [facility] I129 Hypertensive chronic kidney disease with stage 1 through stage 4 chronic kidney disease, or unspecified chronic kidney disease Hypertensive chronic kidney disease with stage 1 through stage 4 chronic kidney disease, or unspecified chronic kidney disease Diagnosis 01/23/2020 02:13:00 PM ED T [facility] [id number] Nicotine dependence, cigarettes, uncompl icated Nicotine dependence, cigarettes, uncomplicated Diagnosis 01/23/2020 02:13:00 PM EDT [facility] E119 Type 2 diabetes mellitus without complic ations Type 2 diabetes mellitus without complications Diagnosis 01/23/2020 02:13:00 PM EDT [facility] N189 Chronic kidney disease, unspecified Chronic kidn ey disease, unspecified Diagnosis 01/23/2020 02:13:00 PM [facility] R109 Unspecified abdominal pain Unspecified abdominal pain Diagnosis 01/23/2020 02:13:00 PM [facility] Surgeries/Procedures Procedure Description Date Indications Data Source(s) Medicare Influenza vaccine, preservative free, 6 month s & up Medicare Influenza vaccine, preservative free, 6 months & up 04/10/2020 12:00:00 AM [facility] ([facility]) Medicare Pneumococcal polysaccharide vaccine, 23-sharon t, duong Medicare Pneumococcal polysaccharide vaccine, 23-valent, duong 04/10/2020 12:00:00 AM [facility] ([facility]) [facility] ([facility]) visit, established patient; a medically-necessary, gqsi-ii-yjzg encounter (one-on-one) between an established patient and a [facility] practitioner during which time one or more [facility] services are rendered and includes a typical bundle of medicare-covered services that would be furnished civil engineering design draftsperson to a patient receiving a fq visit [facility] Visit, established patient 04/10/2020 12:00:00 AM Neil GOULD ([facility]) Pneumococcal Polysaccharide Vaccine, 23-Valent, Adult or Imm Pneumococcal Polysaccharide Vaccine, 23-Valent, Adult or Imm 04/10/2020 12:00:00 AM [facility] ([facility]) Influenza virus vaccine, preservative free, 6 months a nd up Influenza virus vaccine, preservative free, 6 months and up 04/10/2020 12:00:00 AM Neil GOULD ([facility]) C/FQHC code for distant site telehealt h services (Synchronous telemedicine service rendered via real-time interactive audio and video telecommunication system) [facility]/FQHC code for distant site telehealt h services (Synchronous telemedicine service rendered via real-time interactive audio and video telecommunication system) 03/12/2020 12:00:00 AM ALONSO Kerr ([facility]) [facility] ([facility]) visit, established patient; a medically-necessary, edqo-qb-fend encounter (one-on-one) between an established patient and a [facility] practitioner during which time one or more [facility] services are rendered and includes a typical bundle of medicare-covered services that would be furnished civil engineering design draftsperson to a patient receiving a fqhc visit [facility] Visit, established patient 02/07/2020 12:00:00 AM EDT LUIS FERNANDO ([facility]) RHC/FQHC code for distant site telehealt h services (Synchronous telemedicine service rendered via real-time interactive audio and video telecommunication system) RHC/FQHC code for distant site telehealt h services (Synchronous telemedicine service rendered via real-time interactive audio and video telecommunication system) 01/09/2020 12:00:00 AM EDT JUSTO Kerr ([facility]) RHC/FQHC code for distant site telehealt h services (Synchronous telemedicine service rendered via real-time interactive audio and video telecommunication system) RHC/FQHC code for distant site telehealt h services (Synchronous telemedicine service rendered via real-time interactive audio and video telecommunication system) 09/29/2019 12:00:00 AM EDNeil Kerr ([facility]) [facility] ([facility]) visit, established patient; a medically-necessary, cuck-fe-spug encounter (one-on-one) between an established patient and a [facility] practitioner during which time one or more [facility] services are rendered and includes a typical bundle of medicare-covered services that would be furnished civil engineering design draftsperson to a patient receiving a [facility] visit [facility] Visit, established patient (Synchronous telemedicine service rendered via real-time interactive audio and video telecommunication system) 09/29/2019 12:00:00 AM [facility] Results ID Date Data Source [id number] 01/25/2020 12:30:00 [place] [address] PHONE: [phone] FAX: [phone] Name .................. : DESEAN STAFFORD Acct Number.................. : [id number] ROOM. ................. : TR-02 Number ................... : [id number] Stay type ............. : E/R Discharge Date......... ... : 01/23/20 Admit Date ......... : 01/23/20 Admit Phys .................... : YOU SCOOBY Date of ....... : 1955 Family Phys ................... : NON STAFF Phone .................. : [phone] Age ................................ : 64 Film# .................. .:[id number] Sex ................................. : M Unsigned transcriptions are preliminary reports and do not represent a medical or legal document CHEST PORTABLE [id number] COMPLETE:01/23/20 14:56 40761 Reason(s): ? PNU PORTABLE CHEST X-RAY: INDICATION: [...] By TAMMY BENITEZ MD , 01/25/20 12:30, [facility] Transcribe Initials: GONSALO , Transcribe Date: 01/24/20 00:22, Dictation Date: Copy for: JESSICA JASON via fax Copy for: YOU Sandoval via fax Copy for: EMERGENCY DEPT via modem Copy for: 710 MED REC DISCHARGED Page 1 of 1 Name Value Range Interpretation Code Description Data Cely rce(s) Supporting Document(s) ID Date Data Source [id number] 01/25/2020 11:39:00 AM EDT [facility] [address] [place] [address] PHONE: [phone] FAX: [phone] Name .................. : DESEAN STAFFORD Acct Number.................. : [id number] ROOM. ................. : TR-02 MR Number ................... : [id number] Stay type ............. : E/R Discharge Date......... ... : Admit Date ......... : 01/23/20 Admit Phys .................... : YOU SCOOBY Date of ....... : 1955 Family Phys ................... : NON STAFF Phone .................. : [phone] Age ................................ : 64 Film# .................. .:[id number] Sex ................................. : M Unsigned transcriptions are preliminary reports and do not represent a medical or legal document CT THORAX W/O CONTRAST [id number] COMPLETE:01/23/20 19:18 [facility] [id number] Reason(s): NO CONTRAST: Noted crackles b/l lower [...] By Homar Bowling MD , 01/25/20 11:39, [facility] Transcribe Initials: GONSALO , Transcribe Date: 01/23/20 19:36, Dictation Date: Copy for: JESSICA JASON via fax Copy for: YOU Sandoval via fax Copy for: EMERGENCY DEPT via modem Copy for: 710 MED REC DISCHARGED Page 1 of 1 Name Value Range Interpretation Code Description Data Cely rce(s) Supporting Document(s) ID Date Data Source [id number] 01/25/2020 11:39:00 AM EDT [facility] [address] [place] [address] PHONE: [phone] FAX: [phone] Name .................. : DESEAN STAFFORD Acct Number.................. : [id number] ROOM. ................. : TR-02 Number ................... : [id number] Stay type ............. : E/R Discharge Date......... ... : Admit Date ......... : 01/23/20 Admit Phys .................... : YOU ALMODOVAR Date of ....... : 1955 Family Phys ................... : NON STAFF Phone .................. : [phone] Age ................................ : 64 Film# .................. .:[id number] Sex ................................. : M Unsigned transcriptions are preliminary reports and do not represent a medical or legal document CT ABD & PELV W/[place] [id number] COMPLETE:01/23/20 19:18 [facility] [address] Reason(s): NO CONTRAST: Renal insufficiency; abd pain [...] By Homar Bowling MD , 01/25/20 11:39, [facility] Transcribe Initials: GONSALO , Transcribe Date: 01/23/20 19:29, Dictation Date: Copy for: JESSICA JASON via fax Copy for: YOU Sandoval via fax Copy for: EMERGENCY DEPT via modem Copy for: 710 MED REC [address] [facility] [address] [place] [address] PHONE: [phone] FAX: [phone] Name .................. : DESEAN STAFFORD Acct Number.................. : [id number] ROOM. ................. : TR-02 MR Number ................... : [id number] Stay type ............. : E/R Discharge Date......... ... : Admit Date ......... : 01/23/20 Admit Phys .................... : YOU SCOOBY Date of ....... : 1955 Family Phys ................... : NON STAFF Phone .................. : [phone] Age ................................ : 64 Film# .................. .:[id number] Sex ................................. : M Unsigned transcriptions are preliminary reports and do not represent a medical or legal document CT ABD & PELV W/[place] ORAL W/[place] [id number] COMPLETE:01/23/20 19:18 [facility] [address] Reason(s): NO CONTRAST: Renal insufficiency; abd pain DISCHARGED Page 2 of 2 Name Value Range Interpretation Code Description Data Cely rce(s) Supporting Document(s) ID Date Data Source [id number] 01/23/2020 02:13:00 PM EDT [facility] 1 OrderSheet [facility] Emergency Department [address] [place] [address] Phone #: ext- [phone] 01/23/2020 14:10 Patient: NYDIA ANTON Sex: M [...] (Clean STAT 14:56 01/23/2020 Ack'd: 14:57 19:10 [facility]) Brianne Noel ED, Jesse ER P.A.-C; R.N. Tepo1Rjusr Culture STAT 14:56 01/23/2020 Ack'd: 14:57 16:30 [place],q10m X2 (Sched Brianne NoelNMilad14:56 01/23/2020) P.A.-C; R.N.Blood Culture STAT 14:56 01/23/2020 16:30 [place],q10m X2 (Sched Vimal LeonardNMilad15:06 01/23/2020) P.A.-C;Culture, Urine STAT 14:56 01/23/2020 Ack'd: 14:57 18:26 Fay(Urine, Clean [facility] Ann-Marie.Rachel.-C; R.N.BNP STAT 14:56 01/23/2020 14:57 [place], 2 OrderSheet [facility] Emergency Department [address] [place] [address] Phone #: ext- [phone] 01/23/2020 14:10 Patient: [...] 14:56 01/23/2020 14:56 [place],Monitor Vimal Decker R.N. P.A.-C;Shipyard Painter 14:56 01/23/2020 14:56 Donavan(continuous) Vimal Decker R.N. P.A.-C; 3 OrderSheet [facility] Emergency Department [address] [place] [address] Phone #: ext- [phone] 01/23/2020 14:10 Patient: NYDIA ANTON Sex: M : 1955 Age: 64yEKG 14:56 01/23/2020 Ack'd: 14:57 15:05 [place] Brianne Noel ED, Jesse ER PMiladAMilad- C; Mike.Anish Rblx4TZS 14:56 01/23/2020 14:56 Vimal Go R.N. P.A.-C;Obtain [...] rce(s) Supporting Document(s) ID Date Data Source [id number] 01/23/2020 02:13:00 PM EDT [facility] 1 Medication Reconciliation Report [facility] Emergency Department [address] [place] [address] Phone #: ext- [phone] 01/23/2020 14:10 [id number] Sex: M : 1955 Age: 64yWeight: 81.6 [...] to the patient:None. 2 Medication Reconciliation Report [facility] Emergency Department [address] [place] [address] Phone #: ext- [phone] 01/23/2020 14:10 Patient: NYDIA ANTON Sex: M : 1955 Age: 64y Name Value Range Interpretation Code Description Data Cely rce(s) Supporting Document(s) ID Date Data Source [id number] 01/23/2020 02:13:00 PM EDT [facility] 1 Medication Administration Record [facility] Emergency Department [address] [place] [address] Phone #: zbg- [phone] 01/23/2020 14:10 Patient: NYDIA ANTON Sex: M [...] rce(s) Supporting Document(s) ID Date Data Source [id number] 01/23/2020 02:13:00 PM EDT [facility] 1 General Instructions [facility] Emergency Department [address] [place] [address] Phone #: ext- [phone] 01/23/2020 14:10 Patient: NYDIA ANTON Sex: M : 1955 Age: 64ySevere chronic renal insufficiency.(Electronically signed by Vimal Katz P.A.-C 01/23/2020 21:39) Name Value Range Interpretation Code Description Data Cely e(s) Supporting Document(s) ID Date Data Source [id number] 01/23/2020 02:13:00 PM EDT [facility] 1 Clinical Report - Nurses [facility] Emergency Department [address] [place] [address] Phone #: ext [phone] 01/23/2020 14:10 [...] per ems.). He has had abdominal pain.Treatment RESEARCH ASSOCIATE QUALITY CONTROL QC:None.SEPSIS SCREEN: Sepsis Screen negative. No suspected or [...] AdlerPROBLEMS:Heart problems. 2 Clinical Report - Nurses [facility] Emergency Department [address] [place] [address] Phone #: ext- [phone] 01/23/2020 14:10 ------ [...] nausea noted. 3 Clinical Report - Nurses [facility] Emergency Department [address] [place] [address] Phone #: ext- [phone] 01/23/2020 14:10 Patient: [...] and shown to the PA. --15:06 01/23/20 [place] piano machine operator, Ameya, RADHA Tech1 The patient is calm and resting quietly. --15:25 01/23/20 Brianne Go R.N. 15:35 01/23/20. BP: 147/65. MAP: 92. HR: 66. RR: 18. O2 saturation: 97% on room air. Temp: 97.9 F. --15:36 01/23/20 Brianne Go R.N. late entry - 15:28 01/23/20. treer, NIBP monitor and pulse oximeter placed on patient. --16:28 01/23/20 Brianne Go R.N. Patient transported to [place] by wheelchair with mail technician. --16:29 01/23/20 Brianne Go R.N. 16:28 01/23/20. BP: 148/72. MAP: 97. HR: 67. RR: 18. O2 saturation: 97% on room air. Temp: 98.3 F. Pain level now: 11/21. --16:29 01/23/20 Brianne Go R.N. Patient returned from AL by wheelchair with mail technician. --16:51 01/23/20 Brianne Go R.N. The [...] level now: 4 Clinical Report - Nurses [facility] Emergency Department [address] [place] [address] Phone #: ext- [phone] 01/23/2020 14:10 Patient: [...] ( Report given to Jolanta DIAZ at [place], [place]). Patient waiting for transportation. --19:39 01/23/20 [...] rhythm. Condition at departure: improved. Transferred to [facility]. Transported via ambulance by EMS. Report [...] rce(s) Supporting Document(s) ID Date Data Source [id number] 01/23/2020 02:13:00 PM EDT [facility] 1 Clinical Report - Physicians/Mid Levels [facility] Emergency Department [address] [place] [address] Phone #: ext- [phone] 01/23/2020 14:10 Patient: NYDIA ANTON Sex: M [...] daily. 2 Clinical Report - Physicians/Mid Levels [facility] Emergency Department [address] [place], [place] [address] Phone #: ext- [phone] 01/23/2020 14:10 Patient: NYDIA ANTON Sex: M [...] ischemia; abnormal 3 Clinical Report - Physicians/Mid [facility] Emergency Department [address] [place] [address] Phone #: ext- [phone] 01/23/2020 14:10 Patient: NYDIA ANTON Sex: M : 1955 Age: 64yECGDiscussed and reviewed with/by attending.Chest CT: (Tawnya villalta Michael - 01/23/2020 5:12:07 PMNo acute disease). The study was interpreted by the radiologist.CT Abdomen - Pelvis: Tawnya villalta Michael - 01/23/2020 5:09:35 PM3.3 cm infrarenal AAA. The study was interpreted by the radiologist.Laboratory Tests:Troponin-T: (OPAL: 01/23/2020 18:20) ( NegRcvd 01/23/2020 19:14) Final results Test Result Flag Units (Reference) TROPONIN T 0.03 NG/ML (0.00 - 0.10) TROPONIN T0.1 ng/ml Recommended as the clinical threshold value forTroponin T.CT Chest W/O Cont: (OPAL: 01/23/2020 16:19) ( MsgRcvd 01/23/2020 19:18) In ProgressCT THORAX W/O CONTRASTReason(s): NO CONTRAST: Noted crackles b/l lower lobesTRANSPORTATION: WC IV? O2? Oxygen?(No) [facility] Oral W/O IV Contrast: [...] 0.0) 4 Clinical Report - Physicians/Mid Levels [facility] Emergency Department [address] [place] [address] Phone #: [phone] znf- [phone] 01/23/2020 14:10 Patient: NYDIA ANTON Sex: M [...] Male GFR Interprentation 20-49 yrs >60 mL/min Gdqdzq33-45 yrs >56 mL/min Normal 60-69 yrs >49 mL/min Normal 70-79yrs>42 mL/min Normal 80 and above >35 mL/min Normal Female GFRInterpretation 20-39 yrs >60 mL/min Normal 40-49 yrs >58 mL/minNormal 50-59 yrs >51 mL/min Normal 60-69 yrs >45 mL/min Ygtsws35-04 yrs >39 mL/min Normal 80 and above [...] VenousThrombosis, Pulmonary Embolus, Tissue heart valves, Acute AL Atrial Fibrillation, Valvular heart diseaseand recurrent Systemic Embolism. - International Normalized Ratio (INR): 2.5 - 3.5 forMechanical Prosthetic valve. 5 Clinical Report - Physicians/Mid Levels [facility] Emergency Department [address] [place] [address] Phone #: ext- [phone] 01/23/2020 14:10 Patient: NYDIA ANTON Sex: M : 1955 Age: 64y Troponin-T: (OPAL: 01/23/2020 14:25) ( MsgRcvd 01/23/2020 15:44) Final results Test Result Flag Units (Reference) TROPONIN T 0.03 NG/ML (0.00 - 0.10) TROPONIN T0.1 ng/ml Recommended as the clinical threshold value forTroponin T. EKG: (OPAL: 01/23/2020 14:56) ( MsgRcvd 01/23/2020 19:08) Final results Test Result Flag Units (Reference) [place] [address] PHONE: [phone] FAX: [phone] -- Name ..............: DESEAN STAFFORD Acct Number ...........................: [id number] ROOM. ............: TR-02 MR Number ............................: [id number] Stay type.........: E/R Discharge Date...............: Admit Date .....: 01/23/20 Admit Phys .............................: YOU SCOOBY Date of ..: 1955 Family Phys ................. ..........: NON STAFF Phone..............: [phone] Age.................................:64 Film# ...............:[id number] Sex.................................:M -- Unsigned transcriptions are preliminary reports and [place] [id number] COMPLETE:01/23/20 15:57 [facility] [address] -- -- -- -- Please See Scanned [...] he 6 Clinical Report - Physicians/Mid Levels [facility] Emergency Department [address] [place] [address] Phone #: ext- [phone] 01/23/2020 14:10 Patient: NYDIA ANTON Sex: M : 1955 Age: 64y does see a kidney doctor, but only once. Unsure of GFR, but remebers "20s". Thus has decreased. Pending imaigng results. Reviewed restuls. NOted AAA. Pt did not originally mention this. Pt sts that this is a known finding and unsure of size. Contacted [facility] and discussed with Salena. Sts they do accept on a jyse-iy-zlri basis. inform. connects me to hosptialist. Discuss; sts he would liek to consult with nehprology (Dr. Jacob); sts if he accepts, he will accept to medical bed. Pending call back. Meli form [facility] calls for bed assignment. Infomred pending repeat troponin. Inform I would like to hold off until results. She agrees. Pending resutls. Repeat troponin is stable. Will transfer. Meli at [facility] indicates she understands. Dr. Ruggiero is accepting provider. Disposition: Benefits, risks and alternatives to transfer explained to patient. Transferred to [facility]. UTI (catheter associated) was not present prior to transfer. Pressure ulcer was not present prior to transfer. Vascular infection (catheter associated) was not present prior to transfer.CLINICAL IMPRESSION Severe chronic renal insufficiency.(Electronically signed by Vimal Katz P.A.-C 01/23/2020 21:39) Name Value Range Interpretation Code Description Data Cely rce(s) Supporting Document(s) ID Date Data Source [id number] 01/23/2020 07:08:00 PM EDT [facility] [address] [place] [address] PHONE: [phone] FAX: [phone] Name ..............: DESEAN STAFFORD Acct Number ...........................: [id number] ROOM. ............: TR-02 Number ............................: [id number] Stay type.........: E/R Discharge Date...............: Admit Date .....: 01/23/20 Admit Phys .............................: YOU SCOOBY Date of ..: 1955 Family Phys ...........................: NON STAFF Phone..............: [phone] Age. ................................:64 Film# ...............:[id number] Sex.................................:M Unsigned transcriptions are preliminary reports and [place] [id number] COMPLETE:01/23/20 15:57 C[facility] 93330 Please See Scanned Results. Name Value Range Interpretation Code Description Data Cely rce(s) Supporting Document(s) ID Date Data Source [id number] 01/28/2020 02:58:00 PM EDT [facility] Name Value Range Interpretation Code Description Data [facility] rce(s) Supporting Document(s) CULTURE URINE [facility] spital _CULTURE URINE_$$[id number]$$[id number]$$013811$$859914$$246802$$621315$$142462$$235866$$037897$$ 965852$$241595$$995144$$550998$$791358$$577133$$516277$$462091$$986447$$067346$$ 935035$$583474$$300335$$558457$$673343$$518124$$533881$$245581 -- Continued on next page --Patient: DESEAN STAFFORD Order: [id number] Page 2Culture: CULTURE URINE Status: Final ==== -- Continued on next page --Patient: DESEAN STAFFORD Order: [id number] Page 2Culture: CULTURE URINE Status: Prelim =====$$[id number]$$[id number] DATE/TIME: 01/27/2020 17:05Culture: CULTURE URINE Status: FinalUrine Culture,Comprehensive: P1No growth in 36 - 48 hours. Previous result entered on 01/26/2020 07:12 ET No growth after 18-24 hours.P1 Test performed by: [facility] #: [id number] [address] [place] [id number] [facility] [id number] Director : Sixto Omalley MD NPI #:Ham Smoker : 01/26/20.1511.XMT.SENT REF 01/28/20.1458.XMT.SENT REF ID Date Data Source [id number] 01/23/2020 07:31:00 PM EDT [facility] Name Value Range Interpretation Code Description Data Cely rce(s) Supporting Document(s) URINALYSIS [facility] URINALYSIS SOURCE R [facility] COLOR Yellow NORMAL: Yellow [facility] CLARITY clear NORMAL: Clear [facility] Specific gravity of Urine by Test strip 1.010 1.001 - 1.030 [facility] pH 5 5 - 9 [facility] Glucose [Mass/volume] in Urine by Test strip Negative NORMAL: Negat del [facility] Bilirubin.total [Presence] in Urine by Test strip Negative NORMAL: Negative [facility] Ketones [Presence] in Urine by Test strip NEG NORMAL: Negative [facility] Protein [Mass/volume] in Urine by Test strip 100 NORMAL: Negat del A [facility] Nitrite [Presence] in Urine by Test strip NEG NORMAL: Negative [facility] BLOOD 10 NORMAL: Negative [facility] Leukocyte esterase [Presence] in Urine by Test strip NEG MAYURI L: Negative [facility] Urobilinogen [Mass/volume] in Urine by Test strip NOR less trang n 1.0 mg/dL [facility] MICROSCOPIC See Below [facility] ital WBC 1 - 3 NORMAL: NONE SEEN [facility] Erythrocytes [#/volume] in Urine by Test strip 1 - 3 NORMAL: NON E SEEN [facility] EPITHELIAL FEW NORMAL: NONE SEEN [facility] Bacteria [Presence] in Urine sediment by Light microscopy Tr js NORMAL: NONE SEEN [facility] Casts [#/area] in Urine sediment by Microscopy low power field See Be low [facility] 1-3 Coarse Granular Casts [#/area] in Urine sediment by Mi croscopy low power field 0-1 NORMAL: None Seen A [facility] Fine Granular Casts [#/area] in Urine sediment by Micr oscopy low power field 1-3 NORMAL: None Seen A [facility] 0-1 ID Date Data Source [id number] 01/23/2020 07:14:00 PM EDT [facility] Name Value Range Interpretation Code Description Data Cely rce(s) Supporting Document(s) TROPONIN T 0.03 NG/ML 0.00 - 0.10 [facility] TROPONIN T0.1 ng/ml Recommended as the c linical threshold value forTroponin T. ID Date Data Source [id number] 01/28/2020 06:15:[address] [facility] [address] Name Value Range Interpretation Code Description Data Cely rce(s) Supporting Document(s) Bacteria identified in Blood by Culture [facility] NO GROWTH AFTER 5 DAYS ID Date Data Source [id number] 01/29/2020 11:24:00 AM EDT [facility] [facility] Name Value Range Interpretation Code Description Data Cely rce(s) Supporting Document(s) CULTURE BLOOD [facility] spital _CULTURE BLOOD_ TEST PERFORM ED AT [address] [address] CLIA# [id number] SEE SCANNED REPORT{ PRELIM ID Date Data Source [id number] 01/29/2020 11:24:00 AM EDT [facility] Name Value Range Interpretation Code Description Data Cely rce(s) Supporting Document(s) CULTURE BLOOD [facility] spital _CULTURE BLOOD_ TEST PERFORM ED AT [address] [address] CLIA# [id number] SEE SCANNED REPORT{ PRELIM ID Date Data Source [id number] 01/23/2020 04:09:00 PM EDT [facility] Name Value Range Interpretation Code Description Data Cely rce(s) Supporting Document(s) BNP 1818 PG/ML 0 - 125 H [facility] álvaro ID Date Data Source [id number] 01/23/2020 04:09:00 PM EDT [facility] Value Range Interpretation Code Description Data Cely rce(s) Supporting Document(s) COMPREHENSIVE METABOLIC PANEL [facility] COMPREHENSIVE METABOLIC PANEL Sodium [Moles/volume] in Serum or Plasma 135 mEq/L 134 - 153 [facility] Potassium [Moles/volume] in Serum or Plasma 5.1 mEq/L 3.6 - 5.0 H [facility] Chloride [Moles/volume] in Serum or Plasma 101 mEq/L 98 - 107 [facility] Carbon dioxide, total [Moles/volume] in Serum or Plasma 21 MEQ/L 22 - 30 L [facility] Glucose [Mass/volume] in Serum or Plasma 192 MG/DL 65 - 110 H [facility] BUN 38 MG/DL 7 - 21 H [facility] Creatinine [Mass/volume] in Serum or Plasma 3.6 MG/DL 0.7 - 1.5 H [facility] BUN/CREAT 11 8 - 27 [facility] al Protein [Mass/volume] in Serum or Plasma 5.8 G/DL 6.3 - 8.2 L [facility] Albumin [Mass/volume] in Serum or Plasma 3.4 G/DL 3.9 - 5.0 L [facility] Globulin [Mass/volume] in Serum by calculation 2.4 GM/DL 2.4 - 3.2 [facility] A/G RATIO 1.4 0.8 - 2.0 [facility] Calcium [Mass/volume] in Serum or Plasma 9.0 MG/DL 8.4 - 10.2 [facility] Bilirubin.total [Mass/volume] in Serum or Plasma <0.7 MG/DL 0.2 - 1.3 [facility] Alkaline phosphatase [Enzymatic activity/volume] in Serum or Plasma 127 U/L 38 - 126 H [facility] Aspartate aminotransferase [Enzymatic activity/volume] in Serum or Plasma 11 U/L 5 - 40 [facility] Alanine aminotransferase [Enzymatic activity/volume] in Seru m or Plasma 5 U/L 7 - 56 L [facility] Anion gap 3 in Serum or Plasma 13.0 mmol/L 8.0 - 16.0 [facility] AGE 64 yrs [facility] al NON-AA GFR 18 mL/min [facility] AFR AMER GFR 22 mL/min [facility] Male GFR In terprentation 20-49 [...] >32 mL/min Normal ID Date Data Source [id number] 01/23/2020 03:58:00 PM EDT [facility] Name Value Range Interpretation Code Description Data Cely rce(s) Supporting Document(s) Lipase [Enzymatic activity/volume] in Serum or Plasma 38 U/L 13 - 60 [facility] ID Date Data Source [id number] 01/23/2020 03:44:00 PM EDT [facility] Name Value Range Interpretation Code Description Data Cely rce(s) Supporting Document(s) TROPONIN T 0.03 NG/ML 0.00 - 0.10 [facility] spital TROPONIN T0.1 ng/ml Recommended as the c linical threshold value forTroponin T. ID Date Data Source [id number] 01/23/2020 03:39:00 PM EDT [facility] Name Value Range Interpretation Code Description Data Cely rce(s) Supporting Document(s) Lactate [Moles/volume] in Serum or Plasma 1.5 MMOL/L 0.2 - 2.2 [facility] ID Date Data Source [id number] 01/23/2020 03:26:00 PM EDT [facility] Name Value Range Interpretation Code Description Data Cely rce(s) Supporting Document(s) Prothrombin time (PT) 13.8 SECONDS 11.0 - 15.5 [facility] INR in Platelet poor plasma by Coagulation assay 1.05 0.93 - 1. 23 [facility] aPTT in Blood by Coagulation assay 37.4 SECONDS 24.8 - 36.7 H [facility] \\BLDo\\INR INTERPRETATION\\BLDx\\ Therapeutic range for Coumadin and related oral anticoagulants. - International Normalized Ratio (INR): 2.0 - 3.0 for Venous Thrombosis, Pulmonary Embolus, Tissue heart valves, Acute AL Atrial Fibrillation, Valvular heart disease and recurrent Systemic Embolism. - International Normalized Ratio (INR): 2.5 - 3.5 for Mechanical Prosthetic valve. ID Date Data Source [id number] 01/23/2020 03:21:00 PM EDT [facility] Name Value Range Interpretation Code Description Data [facility] rce(s) Supporting Document(s) CBC W/AUTOMATED DIFF [facility] COMPLETE BLOOD COUNT Leukocytes [#/volume] in Blood by Automated count 8.0 10^3/uL 4.2 - 1 1.0 [facility] Erythrocytes [#/volume] in Blood by Automated count 4.13 10^6/uL 4. 50 - 6.30 L [facility] Hemoglobin [Mass/volume] in Blood 12.1 g/dL 14.0 - 16.0 L [facility] Hematocrit [Volume Fraction] of Blood by Automated count 37.4 % 4 1.0 - 51.0 L [facility] Erythrocyte mean corpuscular volume [Entitic volume] by Auto mated count 90.6 fL 80.0 - 94.0 [facility] Erythrocyte mean corpuscular hemoglobin [Entitic mass] by Automated count 29.3 pg 27.0 - 34.0 [facility] Erythrocyte mean corpuscular hemoglobin concentration [Mass/volume] by Automated count 32.4 g/dL 31.0 - 36.0 [facility] Erythrocyte distribution width [Ratio] by Automated count 13.2 % 11.5 - 14.8 [facility] Platelets [#/volume] in Blood by Automated count 214 10^3/uL 150 - 45 0 [facility] Platelet mean volume [Entitic volume] in Blood by Automated count 10.6 fL 7.4 - 10.4 H [facility] Neutrophils/100 leukocytes in Blood by Automated count 72.5 % 37. 0 - 80.0 [facility] Lymphocytes/100 leukocytes in Blood by Manual count 15.7 % 25.0 - 40.0 L [facility] Monocytes/100 leukocytes in Blood by Automated count 7.2 % 3.0 - 8.0 [facility] Eosinophils/100 leukocytes in Blood by Automated count 3.4 % 0.0 - 7.0 [facility] Basophils/100 leukocytes in Blood by Automated count 1.0 % 0.0 - 2.0 [facility] %IG 0.2 % 0.0 - [facility] 0.0 % 0.0 - 0.0 [facility] al Neutrophils [#/volume] in Blood by Automated count 5.82 10^3/uL 2.00 - 6.90 [facility] Lymphocytes [#/volume] in Blood by Automated count 1.26 10^3/uL 0.60 - 3.40 [facility] Monocytes [#/volume] in Blood by Automated count 0.58 10^3/uL 0.00 - 0.90 [facility] Eosinophils [#/volume] in Blood by Automated count 0.27 10^3/uL 0.00 - 0.70 [facility] Basophils [#/volume] in Blood by Automated count 0.08 10^3/uL 0.00 - 0.20 [facility] #IG 0.02 10^3/uL 0.00 - 0.10 [facility] ospital #NRBC 0.00 10^3/uL 0.00 - 0.00 [facility] ospital MANUAL DIFF NOT INDICATED [facility] RBC MORPH NOT INDICATED [facility] Procedure Social History Code Duration Value Status Description Data Source(s ) Smoking 07/26/2020 12:00:00 AM EST Smokes tobacco daily (findi ng) completed Smokes tobacco daily (finding) [place] ([facility]) Assertion 01/09/2020 12:00:00 AM EDT Finding relat ing to drug misuse behavior (finding) completed Finding relating to drug misuse behavior (finding) [place] ([facility]) Assertion 01/09/2020 12:00:00 AM EDT Current drinker of al cohol (finding) completed Current drinker of alcohol (finding) [place] ([facility]) Smoking 01/09/2020 12:00:00 AM EDT Smokes tobacco daily (findi ng) completed Smokes tobacco daily (finding) [place] ([facility]) Vital Signs ID Date Data Source UNK Name Value Range Interpretation Code Description Data Source(s) Respiratory rate 16 /min 16 /min [place] ([facility]) Heart rate 74 /min 74 /min [place] ([facility]) Diastolic blood pressure 72 mm[Hg] 72 mm[Hg] [place] ([facility]) Systolic blood pressure 130 mm[Hg] 130 mm[Hg] [facility] Inhaled oxygen concentration 21 % 21 % [place] ([facility]) Inhaled oxygen flow rate 0 L/min 0 L/min [place] ([facility]) Oxygen saturation in Arterial blood by Pulse oximetry 99 % 99 % [place] ([facility]) PhenX - pain, abdominal - type and intensity protocol 9 9 [place] ([facility]) Body weight 180 [lb_av] 180 [lb_av] [place] ([facility]) Body temperature 95 [degF] 95 [degF] [facility] ([facility]) Respiratory rate 18 /min 18 /min [facility] ([facility]) Heart rate rhythm 1 1 Y ([facility]) Heart rate 52 /min 52 /min [place] ([facility]) Diastolic blood pressure 78 mm[Hg] 78 mm[Hg] [place] ([facility]) Systolic blood pressure 142 mm[Hg] 142 mm[Hg] [facility] ([facility]) Inhaled oxygen concentration 21 % 21 % [facility] [place] ([facility]) Inhaled oxygen flow rate 0 L/min 0 L/min [place] ([facility]) Oxygen saturation in Arterial blood by Pulse oximetry 93 % 93 % [place] ([facility]) PhenX - pain, abdominal - type and intensity protocol 0 0 [place] ([facility]) Body weight 189 [lb_av] 189 [lb_av] [facility] [place] ([facility]) Body temperature 97.4 [degF] 97.4 [degF] [facility] Respiratory rate 18 /min 18 /min [place] ([facility]) Heart rate rhythm 1 1 Y ([facility]) Heart rate 73 /min 73 /min [facility] ([facility]) Diastolic blood pressure 88 mm[Hg] 88 mm[Hg] [facility] ([facility]) Systolic blood pressure 132 mm[Hg] 132 mm[Hg] [facility] ([facility]) Inhaled oxygen concentration 21 % 21 % [place] ([facility]) Inhaled oxygen flow rate 0 L/min 0 L/min [place] ([facility]) Oxygen saturation in Arterial blood by Pulse oximetry 99 % 99 % [place] ([facility]) PhenX - pain, abdominal - type and intensity protocol 0 0 [facility] ([facility]) Body weight 191 [lb_av] 191 [lb_av] [facility] ([facility]) Body temperature 96.3 [degF] 96.3 [degF] [facility] [facility] ([facility]) PhenX - pain, abdominal - type and intensity protocol 8 8 [facility] ([facility]) unable to obtain vitals Body surface area Derived from formula 1.95 m2 1.95 m2 [place] ([facility]) unable to obtain vitals Body mass index (BMI) [Ratio] 27.4 kg/m2 27.4 k g/m2 [facility] ([facility]) unable to obtain vitals Body weight 180 [lb_av] 180 [lb_av] [facility] Body height 68 [in_i] 68 [in_i] [facility] ([facility]) unable to obtain vitals PhenX - pain, abdominal - type and intensity protocol 0 0 [facility] ([facility]) Patient Treatment Plan of Care Planned Activity Planned Date Details Description Data Source (s) Famotidine 40 MG Oral Tablet 07/26/2020 [facility]00:[facility] Ciprofloxacin 500 MG Oral Tablet [Cipro] 07/26/2020 12:00:00 AM [facility]) Metronidazole 500 MG Oral Tablet [Flagyl] 07/26/2020 12:00:00 AM [facility] ([facility]) Metoprolol Tartrate 25 MG Oral Tablet 07/24/2020 12:00:00 AM [facility]) Aspirin 325 MG Oral Tablet 07/24/2020 12:00:00 AM [facility]) gabapentin 100 MG Oral Capsule 07/24/2020 12:00:00 AM [facility] ([facility]) pantoprazole 40 MG Delayed Release Oral Tablet 05/24/2020 12:00:00 AM [facility] ([facility]) clopidogrel 75 MG Oral Tablet [Plavix] 05/24/2020 12:00:00 AM [facility] ([facility]) PARoxetine HCl 10 MG Oral Tablet 05/24/2020 12:00:00 AM [facility] ([facility]) Basaglar KwikPen 100 UNIT/ML Subcutaneous Solution Pen -injector 05/24/2020 12:00:00 AM [facility]) Gemfibrozil 600 MG Oral Tablet 05/24/2020 12:00:00 AM [facility] ([facility]) montelukast 10 MG Oral Tablet 05/24/2020 12:00:00 AM [facility] ([facility]) atorvastatin 80 MG Oral Tablet 05/24/2020 12:00:00 AM [facility] ([facility]) Cholecalciferol 27541 UNT Oral Capsule 04/10/2020 12:00:00 AM [facility] ([facility]) Vitamin B 12 1 MG Extended Release Oral Tablet 04/10/2020 12:00:00 AM [facility] ([facility]) gabapentin 100 MG Oral Capsule 04/01/2020 12:00:00 AM [facility] ([facility]) Metoclopramide 10 MG Oral Tablet [Reglan] 02/28/2020 12:00:00 AM ED [facility] ([facility]) Metoprolol Tartrate 25 MG Oral Tablet 02/14/2020 12:00:00 AM [facility] ([facility]) Amlodipine 10 MG Oral Tablet 02/14/2020 12:00:00 AM [facility] ([facility]) Aspirin 325 MG Oral Tablet 02/14/2020 12:00:00 AM [facility] ([facility]) Accu-Chek Softclix Lancet Dev Kit 02/07/2020 12:00:00 AM [facility] ([facility]) Accu-Chek Softclix Lancets Miscellaneous 02/07/2020 12:00:00 AM [facility] ([facility]) FreeStyle Lite Test In Vitro Strip 02/07/2020 12:00:00 AM [facility] ([facility]) FreeStyle Lite Device 02/07/2020 12:00:00 AM [facility] ([facility]) 30 ACTUAT fluticasone furoate 0.2 MG/ACT UAT / vilanterol 0.025 MG/ACTUAT Dry Powder Inhaler [Breo] 01/09/2020 12:00:00 AM [facility] ([facility]) 200 ACTUAT Albuterol 0.09 MG/ACTUAT Metered Dose Inhal er [Ventolin] 01/09/2020 12:00:00 AM [facility]) Famotidine 40 MG Oral Tablet 01/09/2020 12:00:00 AM [facility] ([facility]) FreeStyle Lite Test In Vitro Strip 12/05/2019 12:00:00 AM [facility] ([facility]) FreeStyle Lancets Miscellaneous 12/05/2019 12:00:00 AM EDT [place] ([facility]) FreeStyle Lite Device 12/05/2019 12:00:00 AM EDT [place] ([facility]) BD Pen Needle Rohini U/F 32G X 4 MM Miscellaneous 12/01/2019 12:00:00 AM EDT [place] ([facility]) Aspirin 325 MG Oral Tablet 12/01/2019 12:00:00 AM T [place] ([facility]) Basaglar KwikPen 100 UNIT/ML Subcutaneous Solution Pen -injector 12/01/2019 12:00:00 AM [facility] ([facility]) atorvastatin 80 MG Oral Tablet 12/01/2019 12:00:00 AM [facility] ([facility]) gabapentin 100 MG Oral Capsule 12/01/2019 12:00:00 AM [facility] ([facility]) Lisinopril 20 MG Oral Tablet 12/01/2019 12:00:00 AM [facility] ([facility]) clopidogrel 75 MG Oral Tablet [Plavix] [facility] PARoxetine HCl 10 MG Oral Tablet 12/01/2019 12:00:00 AM [facility] ([facility]) Loratadine 10 MG Oral Tablet 12/01/2019 12:00:00 AM [facility] ([facility]) pantoprazole 40 MG Delayed Release Oral Tablet 12/01/2019 12:00:00 AM [facility] ([facility]) Amlodipine 5 MG Oral Tablet 12/01/2019 12:00:00 AM [facility] ([facility]) Metoprolol Tartrate 25 MG Oral Tablet 12/01/2019 12:00:00 AM EDT [place] ([facility]) 200 ACTUAT Albuterol 0.09 MG/ACTUAT Metered Dose Inhal er [Ventolin] 12/01/2019 12:00:00 AM EDT [place] ([facility]) Metoclopramide 10 MG Oral Tablet [Reglan] 12/01/2019 12:00:00 AM ED T [place] ([facility]) Gemfibrozil 600 MG Oral Tablet 12/01/2019 12:00:00 AM EDT [facility] ([facility]) montelukast 10 MG Oral Tablet 12/01/2019 12:00:00 AM EDT [facility] ([facility]) Basaglmauri KwikPen 100 UNIT/ML Subcutaneous Solution Pen -injector 11/16/2019 12:00:00 AM EDT [facility] FreeStyle Milena 14 Day Scroggins Device 10/30/2019 12:00:00 AM EDT [facility] ([facility]) FreeStyle Milena 14 Day Sensor Miscellaneous 10/30/2019 12:00:00 AM EDT [facility] ([facility]) FreeStyle Precision [place] Test In Vitro Strip 10/30/2019 12:00:00 AM EDT [facility] ([facility]) FreeStyle Milena 14 Day Sensor Miscellaneous 10/27/2019 12:00:00 AM EDT [facility] ([facility]) FreeStyle Precision [place] Test In Vitro Strip 10/27/2019 12:00:00 AM EDT [facility] ([facility]) FreeStyle Milena 14 Day Scroggins Device 10/27/2019 12:00:00 AM EDT [facility] ([facility]) atorvastatin 80 MG Oral Tablet 10/18/2019 12:00:00 AM EDT [facility] ([facility]) Aspirin 325 MG Oral Tablet 10/09/2019 12:00:00 AM EDT [facility] ([facility]) montelukast 10 MG Oral Tablet 09/19/2019 12:00:00 AM EDT [facility] ([facility]) Gemfibrozil 600 MG Oral Tablet 09/19/2019 12:00:00 AM EDT [facility] ([facility]) FreeStyle Lite Test In Vitro Strip 08/18/2019 12:00:00 AM EST [facility] ([facility]) FreeStyle Lancets Miscellaneous 08/18/2019 12:00:00 AM EST [facility] ([facility]) FreeStyle Lite Device 08/18/2019 12:00:00 AM EST [facility] ([facility]) gabapentin 100 MG Oral Capsule 08/16/2019 12:00:00 AM EST [facility] ([facility]) clopidogrel 75 MG Oral Tablet [Plavix] 07/24/2019 12:00:00 AM EST [facility] ([facility]) Lisinopril 20 MG Oral Tablet 07/24/2019 12:00:00 AM [facility] ([facility]) PARoxetine HCl 10 MG Oral Tablet 07/21/2019 12:00:00 AM [facility] ([facility]) Loratadine 10 MG Oral Tablet 06/26/2019 12:00:00 AM [facility] ([facility]) pantoprazole 40 MG Delayed Release Oral Tablet 06/20/2019 12:00:00 AM [facility] ([facility]) Metoprolol Tartrate 25 MG Oral Tablet 05/22/2019 12:00:00 AM [facility] ([facility]) Amlodipine 5 MG Oral Tablet 05/19/2019 12:00:00 AM [facility]) Albuterol 0.83 MG/ML Inhalant Solution 04/25/2019 12:00:00 AM [facility] ([facility]) atorvastatin 80 MG Oral Tablet 04/03/2019 12:00:00 AM [facility]) Ranitidine 150 MG Oral Tablet 04/03/2019 12:00:00 AM [facility] ([facility]) Gemfibrozil 600 MG Oral Tablet 03/06/2019 12:00:00 AM [facility]) montelukast 10 MG Oral Tablet 02/03/2019 12:00:00 AM [facility] ([facility]) Lisinopril 20 MG Oral Tablet 02/03/2019 12:00:00 AM [facility]) gabapentin 100 MG Oral Capsule 02/03/2019 12:00:00 AM [facility]) FreeStyle Milena 14 Day Scroggins Device 01/10/2019 12:00:00 AM [facility]) clopidogrel 75 MG Oral Tablet [Plavix] 01/10/2019 12:00:00 AM [facility]) FreeStyle Milena Sensor System Miscellaneous 01/10/2019 12:00:00 AM [facility] ([facility]) Loratadine 10 MG Oral Tablet 12/14/2018 12:00:00 AM [facility]) Ondansetron 4 MG Oral Tablet [Zofran] 11/24/2018 12:00:00 AM EDT [facility] ([facility]) Metoclopramide 10 MG Oral Tablet [Reglan] 11/22/2018 12:00:00 AM ED T [facility] ([facility]) Aspirin 325 MG Oral Tablet 11/18/2018 12:00:00 AM EDT [facility] ([facility]) Basaglar KwikPen 100UNIT/ML Subcutaneous Solution Pen- injector 10/24/2018 12:00:00 AM EDT [facility]) PARoxetine HCl 10MG Oral Tablet 10/07/2018 12:00:00 AM EDT [facility] ([facility]) pantoprazole 40 MG Delayed Release Oral Tablet 09/27/2018 12:00:00 AM EDT [facility] ([facility]) Cholecalciferol 88694 UNT Oral Capsule 08/02/2018 12:00:00 AM EST [facility] ([facility]) BD Pen Needle Rohini U/F 32G X 4 MM Miscellaneous 05/12/2018 12:00:00 AM EST [facility] ([facility]) FreeStyle Lancets Miscellaneous 05/10/2018 12:00:00 AM EST [facility] ([facility]) FreeStyle Lite Test In Vitro Strip 05/10/2018 12:00:00 AM EST [facility] ([facility]) 60 ACTUAT Budesonide 0.16 MG/ACTUAT / fo rmoterol fumarate 0.0045 MG/ACTUAT Metered Dose Inhaler [Symbicort] 12/22/2017 12:00:00 AM EDT [facility] ([facility]) 200 ACTUAT Albuterol 0.09 MG/ACTUAT Metered Dose Inhal er [Ventolin] 11/17/2017 12:00:00 AM EDT [facility]
[2020-07-29] MEDS ORDERED: hydrALAZINE 20MG/ML 1ML VIAL (J0360 PER 20MG) IV ONE (15:30)
--- NOTE | 2020-07-29 15:44 | HPEPDOC ---
General Date of Admission Jul 29, 2020 at 14:37 Date of Service: Jul 29, 2020 Chief Complaint The patient is a 65-year-old male admitted with a reason for visit of Hypertension Physical Deconditioning. Source: Patient Exam Limitations: No limitations, Clinical conditions Timing/Duration: Day(s) Severity: Moderate History of Present Illness Patient is 65 years old male with past history of coronary artery diseases, type 2 diabetes, [place] with stent placement, chronic kidney diseases 4, ischemic stroke presented to the hospital with deconditioning and abdominal pain. Patient stated for past 4 days he has been having middle quadrants abdominal pain. Patient denied fever, chills, nausea, vomiting. Also patient stated his been constipated for days. Also patient stated that for past 2 days he developed falls 4 times. In ER patient was found to have elevated systolic blood pressure up to 200, creatinine 3.9, CPK 692. CT abdomen showed Extensive vascular calcification. No acute abdominal or pelvic abnormality seen. Home Medications Scheduled Aspirin (Aspirin EC) 325 Mg Tab, 325 MG PO DAILY, (Reported) Atorvastatin Calcium (Atorvastatin Calcium) 80 Mg Tab, 80 MG PO QHS, (Reported) Calcitriol (Calcitriol) 0.25 Mcg Capsule, 0.75 MCG PO QWEEK, (Reported) 0.75MCG ON SUNDAYS Ciprofloxacin HCl (Ciprofloxacin HCl) 500 Mg Tablet, 500 MG PO DAILY, (Reported) Clopidogrel Bisulfate (Plavix) 75 Mg Tab, 75 MG PO DAILY, (Reported) Cyanocobalamin (Vitamin B-12) (B-12) 1,000 Mcg Tablet, 1,000 MCG PO DAILY, (Reported) Dexlansoprazole (Dexilant) 30 Mg Rashid.bp, 30 MG PO DAILY, (Reported) Doxazosin Mesylate (Doxazosin Mesylate) 2 Mg Tablet, 2 MG PO DAILY, (Reported) Famotidine (Famotidine) 40 Mg Tablet, 40 MG PO DAILY, (Reported) Fluticasone/Vilanterol (Breo Ellipta 200-25 Mcg INH) 1 Each Blst.w.dev, 1 PUFF INH DAILY, (Reported) Furosemide (Furosemide) 20 Mg Tablet, 20 MG PO DAILY, (Reported) Gabapentin (Gabapentin) 100 Mg Cap, 100 MG PO QAM, (Reported) Gabapentin (Gabapentin) 100 Mg Capsule, 200 MG PO QHS, (Reported) Gemfibrozil (Gemfibrozil) 600 Mg Tab, 600 MG PO DAILY, (Reported) Insulin Glargine,Hum.rec.anlog (Basaglar Kwikpen U-100) 100 Unit/1 Ml Insuln.pen, 30 UNITS SC QHS, (Reported) Metoclopramide HCl (Reglan) 10 Mg Tab, 10 MG PO TID, (Reported) Metoprolol Tartrate (Metoprolol Tartrate) 25 Mg Tablet, 25 MG PO BID, (Reported) Metronidazole (Metronidazole) 500 Mg Tablet, 500 MG PO TID, (Reported) Montelukast Sodium (Montelukast Sodium) 10 Mg Tablet, 10 MG PO QHS, (Reported) Pantoprazole Sodium (Pantoprazole Sodium) 40 Mg Tablet.dr, 40 MG PO QHS, (Reported) Paroxetine (Paroxetine HCl) 10 Mg Tablet, 10 MG PO QHS, (Reported) Scheduled PRN Albuterol Sulfate (Ventolin Hfa) 18 Gm Hfa.aer.ad, 2 PUFF INH Q4H PRN for WHEEZING, (Reported) Miscellaneous Medications [Patient Comment] , (Reported) DISCUSSED MEDICATIONS OVER PHONE WITH SISTER Penny HOFFMAN Allergies Coded Allergies: piperacillin (Verified Allergy, Intermediate, hives/swelling, 10/27/18) tazobactam (Verified Allergy, Intermediate, hives/swelling, 10/27/18) Past Medical History Medical History 1. 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 Hypertension. 3. History of coronary artery disease. 4. Myocardial infarction. 5. Ischemic stroke. 6. Depression. 7. Gastroesophageal reflux disease (GERD). 8. CKD 4 Surgical History Cardiac Stents Family History I personally reviewed family history and found not pertinent Social History * Smoker: current smoker Alcohol: Denies Drugs: denies A-FIB/CHADSVASC A-FIB History Current/History of A-Fib/PAF?: No Current PO Anticoag Therapy: No Review of Systems Constitutional: Reports: Weakness, Fatigue; Denies: Chills Eyes: Denies: Pain ENT: Denies: Head Aches Skin: Denies: Rash, Lesions Pulmonary: Denies: Dyspnea Cardiovascular: Denies: Chest Pain Gastrointestinal: Reports: Abdominal Pain Genitourinary: Denies: Dysuria, Frequency Hematologic: Denies: Bruising Endocrine: Denies: Polydipsia Musculoskeletal: Denies: Neck Pain Neurological: Denies: Weakness Psych: Reports: Mood Normal Physical Examination General Exam: Positive: Alert Eye Exam: Positive: PERRLA ENT Exam: Positive: Atraumatic Neck Exam: Positive: Supple; Negative: JVD Chest Exam: Positive: Clear to auscultation Heart Exam: Positive: Rate Normal Telemetry: Positive: No significant arrhythmia Abdomen Exam: Positive: Normal bowel sounds, Tenderness (mild abdominal tenderness in the middle quadrants) Extremity Exam: Negative: Clubbing, Cyanosis Skin Exam: Positive: Nl turgor and temperature Neuro Exam: Positive: Cranial Nerves 3-12 NL Psych Exam: Positive: Mental status NL, Oriented x 3 Vital Signs Vital Signs Date Time Temp Pulse Resp B/P (MAP) Pulse Ox O2 Delivery O2 Flow Rate FiO2 07/29/20 14:30 67 18 200/98 (132) 96 Room Air 07/29/20 10:59 97.9 Laboratory Data Labs 24H Laboratory Tests 2 07/29/20 11:27: Immature Granulocyte % (Auto) 0.3, Neutrophils (%) (Auto) 70.4H, Lymphocytes (%) (Auto) 17.3L, Monocytes (%) (Auto) 7.8H, Eosinophils (%) (Auto) 2.5, Basophils (%) (Auto) 1.7H, Neutrophils # (Auto) 4.5, Lymphocytes # (Auto) 1.1L, Monocytes # (Auto) 0.5, Eosinophils # (Auto) 0.2, Basophils # (Auto) 0.1, Nucleated Red Blood Cells % (auto) 0.0, Anion Gap 9, Glomerular Filtration Rate 16.7L, Calcium Level 9.0, Total Bilirubin 0.3, Direct Bilirubin 0.1, Aspartate Amino Transf (AST/SGOT) 49H, Alanine Aminotransferase (ALT/SGPT) 23, Alkaline Phosphatase 129H, Total Creatine Kinase 692H, Creatine Kinase MB 4.6H, Creatine Kinase MB Relative Index 0.66, Troponin I < 0.02, Total Protein 5.7L, Albumin 2.6L, Albumin/Globulin Ratio 0.8, Lipase 91 07/29/20 13:25: Coronavirus (COVID-19)(PCR) NEGATIVE, Influenza Type A (RT-PCR) NEGATIVE, Influenza Type B (RT-PCR) NEGATIVE, Respiratory Syncytial Virus (PCR) NEGATIVE CBC/BMP Laboratory Tests 07/29/20 11:27 Assessment/Plan Patient is 65 years old male with past history of coronary artery diseases, type 2 diabetes, [place] with stent placement, chronic kidney diseases 4, ischemic stroke presented to the hospital with deconditioning and abdominal pain. Patient stated for past 4 days he has been having middle quadrants abdominal pain. Patient denied fever, chills, nausea, vomiting. Also patient stated his been constipated for days. Also patient stated that for past 2 days he developed falls 4 times. In ER patient was found to have elevated systolic blood pressure up to 200, creatinine 3.9, CPK 692. CT abdomen showed Extensive vascular calcification. No acute abdominal or pelvic abnormality seen. Problems (1) Physical deconditioning Status: Chronic Problem Text: Most likely secondary to multiple comorbidities Imaging study negative for fractures PT/OT (2) Acute kidney injury superimposed on CKD Status: Acute Problem Text: Creatinine baseline 3.5 Dr. Cortez follows him Continue to monitor (3) CVA (cerebral infarction) Status: Chronic Problem Text: History of CVA Continue aspirin and Plavix (4) Tobacco abuse Status: Chronic Problem Text: Counselled. Nicotine patch (5) CAD S/P percutaneous coronary angioplasty Status: Chronic Problem Text: Continue home cardioprotective medication (6) Diabetic gastroparesis Status: Chronic Problem Text: Continue Reglan (7) Diabetes mellitus Onset Date: 01/06/2014 Status: Chronic Problem Text: Diabetes diet Detemir twice a day Insulin sliding scale (8) Hypertensive emergency Status: Acute Problem Text: Hydralazine IV Amlodipine 10 mg Hydralazine by mouth (9) Constipation Status: Chronic Problem Text: senna MiraLAX (10) Abdominal pain Status: Acute Problem Text: Differential diagnosis includes gastroparesis, mesenteric ischemia, constipation Will proceed with Doppler vascular study. CT abdomen showed Extensive vascular calcification Pain management Plan / VTE VTE Prophylaxis Ordered?: Yes AMINTA CHILEL DO Jul 29, 2020 15:44
[2020-07-29] MEDS ORDERED: MIRALAX *UNIT DOSE* 17GM PACKET PO PRN (15:45)
[2020-07-29] MEDS ORDERED: SENNA 8.6 MG TAB (SENOKOT) PO PRN (15:45)
[2020-07-29] MEDS ORDERED: NICOTINE 14 MG/24 HR TRANSDERMAL TD PRN (15:45)
[2020-07-29] MEDS ORDERED: **hydrALAZINE** 10 MG TAB PO PRN (16:00)
[2020-07-29] MEDS ORDERED: traMADol 50 MG TAB PO PRN (16:00)
[2020-07-29 16:13] LABS: APPEARANCE, URINE CLEAR (CLEAR); BACTERIA, URINE AUTO NEGATIVE (NEGATIVE); BILIRUBIN, URINE AUTO NEGATIVE (NEGATIVE); BLOOD, URINE BLOOD 2+ (NEGATIVE); COLOR, URINE YELLOW (YELLOW); GLUCOSE, URINE (UA) AUTO 1+ mg/dL (NEGATIVE); KETONE, URINE AUTO NEGATIVE (NEGATIVE); LEUKOCYTE ESTERASE, URINE AUTO NEGATIVE (NEGATIVE); NITRITE, URINE AUTO NEGATIVE (NEGATIVE); PROTEIN, URINE AUTO 3+ mg/dL (NEGATIVE); RBC, URINE AUTO 1 /HPF (0-3); SPECIFIC GRAVITY URINE AUTO 1.009 (1.002-1.035); SQUAMOUS EPITHELIAL CELL UR AU 0 /HPF (0-6); UROBILINOGEN, URINE AUTO 0.2 mg/dL (0.0-2.0); WBC, URINE AUTO 1 /HPF (0-3)
[2020-07-29 16:40] VITALS: BP 138/62
[2020-07-29] MEDS: CLOPIDOGREL 75 MG TAB PO SCH ×2 (17:19→17:24)
[2020-07-29] MEDS: METOCLOPRAMIDE 10 MG TAB PO SCH ×2 (17:19→17:24)
[2020-07-29] MEDS: HumaLOG INSULIN (NovoLOG) PER UNIT SC SCH ×2 (17:20→20:08)
[2020-07-29] MEDS: ONDANSETRON 4MG/2ML VIAL IV PRN (17:28)
[2020-07-29] MEDS: DOXAZOSIN MESYLATE 1 MG TAB PO SCH (18:34)
--- NOTE | 2020-07-29 18:59 | REP ---
INDICATION: abdomen to r/o mesenteric ischemia. COMPARISON: Noncontrast CT abdomen 07/29/2020, TECHNIQUE: Doppler and color scanning of the mesenteric arteries performed evaluate for possible mesenteric ischemia FINDINGS: The abdominal aorta velocity at the celiac axis in the preprandial state shows velocity of 50 cm/S. Celiac axis: Peak systolic velocity 64 cm/S, EDV 23 cm/S. SMA proximal: Peak systolic velocity 304 cm/S, EDV 27.3 cm/S. SMA mid: PSV 427 cm/S, EDV 16.4 cm/ SMA doppler waveform is triphasic. IMPRESSION: 1. Findings consistent with mesenteric ischemia as cause for his abdominal pain inasmuch as there is exceedingly high systolic velocity in the proximal and mid SMA in the fasting state. Because of this no fluid challenge was given. Of the Doppler waveforms appear triphasic, velocities are much too high and were measured at 2.5 and 5.5 cm distal to the origin of the SMA. The celiac axis velocities were normal. <Electronically signed by Jorgito Lozano > 07/29/20 [id number]
[2020-07-29] MEDS: ATORVASTATIN 20 MG TAB PO SCH (20:15)
[2020-07-29] MEDS: PANTOPRAZOLE 40MG TAB (PROTONIX) PO SCH (20:15)
[2020-07-29] MEDS: PARoxetine 10MG TABLET PO SCH (20:15)
[2020-07-29] MEDS: METOPROLOL TART 25 MG TABLET PO SCH (20:16)
[2020-07-29] MEDS: MONTELUKAST 10 MG TAB PO SCH (20:16)
[2020-07-29] MEDS: HEPARIN SOD (PORCINE) 5000UNITS/ML 1ML VIAL/SYRINGE SC SCH (20:17)
[2020-07-29] MEDS: LEVEMIR (INSULIN DETEMIR) 1 UNITS/0.01ML SC SCH (20:17)
[2020-07-29 22:00] VITALS: BP 155/79
[2020-07-29 23:59] VITALS: BP 154/78
[2020-07-30] MEDS ORDERED: traMADol 50 MG TAB PO ONE (00:15)
[2020-07-30] MEDS: ONDANSETRON 4MG/2ML VIAL IV PRN ×2 (00:21→10:30)
[2020-07-30 06:00] VITALS: BP 153/78
[2020-07-30 06:57] LABS: HEMATOCRIT 34.9 % (42.0-52.0); HEMOGLOBIN 11.3 g/dl (13.5-17.5); MEAN CORPUSCULAR HEMOGLOBIN 30.1 pg (27.0-33.0); MEAN CORPUSCULAR HGB CONC 32.4 g/dl (32.0-36.5); MEAN CORPUSCULAR VOLUME 93.1 fl (80.0-96.0); PLATELET COUNT, AUTOMATED 192 10^3/uL (150-450); RED BLOOD COUNT 3.75 10^6/uL (4.30-6.10); WHITE BLOOD COUNT 6.9 10^3/uL (4.0-10.0)
--- NOTE | 2020-07-30 07:25 | ECGEPIP ---
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
[2020-07-30 07:29] LABS: ALBUMIN 2.5 GM/DL (3.2-5.2); BILIRUBIN,TOTAL 0.2 MG/DL (0.2-1.0); CALCIUM LEVEL 8.5 MG/DL (8.8-10.2); CREATININE FOR GFR 4.11 MG/DL (0.70-1.30); GLOMERULAR FILTRATION RATE 15.7 (>49); POTASSIUM SERUM 3.8 MEQ/L (3.5-5.1)
[2020-07-30 08:20] VITALS: BP 164/77
[2020-07-30] MEDS ORDERED: ASPIRIN ENTERIC 325 MG TAB PO SCH (09:00)
[2020-07-30] MEDS: METOCLOPRAMIDE 10 MG TAB PO SCH ×3 (10:03→17:30)
[2020-07-30] MEDS: HumaLOG INSULIN (NovoLOG) PER UNIT SC SCH ×4 (10:03→21:00)
[2020-07-30] MEDS: HEPARIN SOD (PORCINE) 5000UNITS/ML 1ML VIAL/SYRINGE SC SCH ×2 (10:30→21:15)
[2020-07-30] MEDS: LEVEMIR (INSULIN DETEMIR) 1 UNITS/0.01ML SC SCH ×2 (10:31→21:16)
[2020-07-30] MEDS: NS 1,000 ML IV SCH ×2 (10:32→18:18)
[2020-07-30] MEDS: CLOPIDOGREL 75 MG TAB PO SCH (11:48)
[2020-07-30] MEDS: METOPROLOL TART 25 MG TABLET PO SCH ×2 (11:50→21:17)
[2020-07-30 12:00] VITALS: BP 168/81
[2020-07-30] MEDS: DOXAZOSIN MESYLATE 1 MG TAB PO SCH (13:12)
[2020-07-30] MEDS: ASPIRIN 81 MG ENTERIC TAB PO SCH (13:13)
[2020-07-30 14:00] VITALS: BP 146/71
--- NOTE | 2020-07-30 15:57 | IPNPDOC ---
Text Note Date of Service The patient was seen on 07/30/20. NOTE Subjective: Patient continues to complain of abdominal pain, he stated its 7 out of 10 Objective: GENERAL APPEARANCE: NAD HEENT: no scleral icterus, no JVD, EOMI CARDIOVASCULAR: S1S2 LUNGS: CTA ABDOMEN: soft & tender with palpation over middle quadrants MUSCULOSKELETAL: no cyanosis, no swelling INTEGUMENT: no generalized pallor NEUROLOGICAL: cranial nerve function from 2-12 intact intact, follows commands, speech not dysarthric Assessment/Plan Patient is 65 years old male with past history of coronary artery diseases, type 2 diabetes, [place] with stent placement, chronic kidney diseases 4, ischemic stroke presented to the hospital with deconditioning and abdominal pain. Patient stated for past 4 days he has been having middle quadrants abdominal pain. Patient denied fever, chills, nausea, vomiting. Also patient stated his been constipated for days. Also patient stated that for past 2 days he developed falls 4 times. In ER patient was found to have elevated systolic blood pressure up to 200, creatinine 3.9, CPK 692. CT abdomen showed Extensive vascular calcification. No acute abdominal or pelvic abnormality seen. Problems (1) Physical deconditioning Most likely secondary to multiple comorbidities Imaging study negative for fractures PT/OT (2) Acute kidney injury superimposed on CKD Worsening today Continue IV fluid Creatinine baseline 3.5 Dr. Cortez follows him Continue to monitor (3) CVA (cerebral infarction) History of CVA Continue Plavix (4) Tobacco abuse Counselled. Nicotine patch (5) CAD S/P percutaneous coronary angioplasty Continue home cardioprotective medication (6) Diabetic gastroparesis Continue Reglan (7) Diabetes mellitus Chronic Diabetes diet Detemir twice a day Insulin sliding scale (8) Hypertensive emergency Hydralazine IV Amlodipine 10 mg Hydralazine by mouth (9) Constipation senna MiraLAX (10) Abdominal pain Differential diagnosis includes gastroparesis, mesenteric ischemia Doppler vascular study showed Findings consistent with mesenteric ischemia as cause for his abdominal pain inasmuch as there is exceedingly high systolic velocity in the proximal and mid SMA in the fasting state. CT abdomen showed Extensive vascular calcification Will proceed with CTA tomorrow, gentle hydration today Pain management VS,Fishbone, I+O VS, Fishbone, I+O Laboratory Tests 07/30/20 06:31 Vital Signs Date Time Temp Pulse Resp B/P (MAP) Pulse Ox O2 Delivery O2 Flow Rate FiO2 07/30/20 14:00 97.3 66 16 146/71 (96) 96 Room Air I&O- Last 24 Hours up to 6 AM 07/30/20 06:00 Intake Total 220 ml Output Total 120 ml Balance 100 ml AMINTA CHILEL DO Jul 30, 2020 15:57
--- NOTE | 2020-07-30 17:48 | CR ---
CONSULTATION DATE: 07/30/2020 REQUESTING PHYSICIAN: Bradly Blair DO REASON FOR CONSULTATION: Acute renal failure superimposed on chronic kidney disease. HISTORY OF PRESENT ILLNESS: Mr. Higgins is a 65-year-old gentleman with multiple chronic medical problems who was admitted to [facility] due to generalized weakness, frequent falls and hypertension yesterday. He was noted to have acute renal failure and a nephrology consultation was requested. The patient has known history of type 2 diabetes, hypertension, stage 4 of chronic kidney disease, coronary artery disease and prior stroke. He reports that he had been vomiting frequently and also has abdominal pain for the last few days. He denies any fever or chills. PAST MEDICAL AND SURGICAL HISTORY: 1. Insulin dependent diabetes complicated with neuropathy and gastroparesis. 2. Hypertension. 3. Coronary artery disease with prior [place]. 4. Ischemic stroke. 5. Stage IV of chronic kidney disease. 6. Gastroesophageal reflux disease. 7. COPD with active smoking. 8. History of depression. PAST SURGICAL HISTORY: Coronary angioplasty and stents. ALLERGIES: THE PATIENT HAS ALLERGY TO PIPERACILLIN AND TAZOBACTAM. HOME MEDICATIONS: 1. Aspirin 325 mg daily. 2. Atorvastatin 80 mg daily. 3. Calcitriol 0.25 mcg three capsules once a week. 4. Ciprofloxacin 500 mg daily. 5. Plavix 75 mg daily. 6. Vitamin B12 1000 mcg daily. 7. Dexilant 30 mg daily. 8. Doxazosin 2 mg daily. 9. Famotidine 40 mg daily. 10. Breo Ellipta 200/25 one puff daily. 11. Furosemide 20 mg daily. 12. Gabapentin 100 mg in a.m. and 200 mg at bedtime. 13. Gemfibrozil 600 mg daily. 14. Basaglar insulin 30 units at bedtime. 15. Reglan 10 mg t.i.d. 16. Metoprolol 25 mg b.i.d. 17. Metronidazole 500 mg t.i.d. 18. Pantoprazole 40 mg daily. 19. Paroxetine 10 mg at bedtime. 20. He also uses albuterol inhaler as needed. PERSONAL AND SOCIAL HISTORY: The patient is an active smoker and denies any alcohol or drug use. FAMILY HISTORY: Significant for atrial fibrillation and diabetes. REVIEW OF SYSTEMS: The patient is not feeling well for the last several days. He denies any fever or chills. Ears, nose and throat are unremarkable. Cardiovascular system: Negative for chest pain or dyspnea. Respiratory system is negative for hemoptysis or pleuritic type of chest pain. GI system is significant for recurrent vomiting and abdominal pain. He has lost weight. system negative for dysuria or hematuria. Musculoskeletal system is negative for any leg edema. He denies any use of NSAID. Endocrine system is significant for diabetes and secondary hyperparathyroidism. Psychosocial system is significant for depression. Neurological system is significant for prior stroke but denies any seizures. Hematological system significant for anemia and denies any excessive bleeding or bruising. Skin is negative for rash or ulcers. PHYSICAL EXAMINATION: The patient is lying in the bed with blue bag in his hand and has been vomiting recently. Temperature 97.1 degrees Fahrenheit, heart is 74 per minute and respiratory rate 18 per minute. Blood pressure 168/80 mmHg and oxygen saturation 97% on room air. His head is atraumatic. There was no JVD or thyroid enlargement. Oral mucosa is moist and without thrush or ulcers. Heart sounds are regular and lung sounds clear to auscultation. Abdomen has tenderness in the left lower quadrant and in the middle of abdomen. Bowel sounds are present. Extremities without any cyanosis or clubbing. Neurologically he is awake, alert and at his baseline mentation. LABORATORY DATA: WBC count is 6.9, hemoglobin 11.3 and hematocrit 34.9. Platelets 192. Sodium 144, potassium 3.8, chloride 110, CO2 25, BUN 37 and creatinine 4.11. Glucose 144 and calcium 8.5. Total protein 6.0 and albumin 2.5. The patient had a CT scan of abdomen and pelvis done which showed extensive calcification in the vessels and no other significant abnormality. He had a Doppler ultrasound which does show mesenteric ischemia in the SMA area. The celiac axis velocities were noted to be normal. PROBLEMS: 1. Acute kidney injury superimposed on chronic kidney disease. Most likely this is a result of dehydration as the patient has been vomiting frequently. I would recommend IV fluid hydration with normal saline and recheck kidney function again tomorrow morning. There is no emergent indication for dialysis at present. However, it is quite likely that he might require dialysis during this hospitalization if his kidney function does not improve. His electrolytes are stable at present and he does not have metabolic acidosis. 2. Recurrent vomiting and abdominal pain. Concern about possible bowel ischemia is there. His abdominal Doppler ultrasound did show the possibility of ischemic bowel. I have discussed with vascular surgery about possible intervention. Dr. Muller has suggested to consider transferring him to a higher level of care if he needs intervention from a vascular surgery standpoint as he will not be available next week for monitoring and further followup of any complications. At this point, we have decided to hydrate him first and then consider a CT angiogram of his abdomen tomorrow morning for further evaluation of bowel ischemia. I have discussed with the patient and explained to him about potential need for intervention and potential risks for dialysis if his kidney function worsens. He understands and he is in agreement to proceed. 3. Anemia. His anemia is mild and likely to get worsened as we hydrate him. At this point, no urgent intervention is needed. 4. Hypertension. Probably his blood pressure has been high due to pain and distress. It is likely to improve as his abdominal pain and vomiting improves. Thank you for involving me in the care of Mr. Higgins. I will follow him along with you.
[2020-07-30] MEDS: ATORVASTATIN 20 MG TAB PO SCH (21:13)
[2020-07-30] MEDS: MONTELUKAST 10 MG TAB PO SCH (21:14)
[2020-07-30] MEDS: PANTOPRAZOLE 40MG TAB (PROTONIX) PO SCH (21:15)
[2020-07-30] MEDS: PARoxetine 10MG TABLET PO SCH (21:16)
[2020-07-30 22:00] VITALS: BP 145/70
[2020-07-30 22:20] LABS: CALCIUM LEVEL 7.9 MG/DL (8.8-10.2); CREATININE FOR GFR 3.83 MG/DL (0.70-1.30); GLOMERULAR FILTRATION RATE 17.1 (>49); MAGNESIUM LEVEL 1.8 MG/DL (1.8-2.4); PHOSPHORUS LEVEL 3.5 MG/DL (2.5-4.9); POTASSIUM SERUM 3.5 MEQ/L (3.5-5.1)
[2020-07-31] MEDS: NS 1,000 ML IV SCH (04:27)
[2020-07-31] MEDS ORDERED: DEXTROSE 50% 50 ML VIAL IV ONE (05:15)
[2020-07-31] MEDS ORDERED: DEXTROSE 50% 50 ML SYRINGE IV ONE (05:15)
[2020-07-31 06:00] VITALS: BP 120/62
[2020-07-31 06:50] LABS: BASO # 0.1 10^3/uL (0.0-0.2); BASO % 1.4 % (0.0-1.0); EOS # 0.1 10^3/uL (0.0-0.5); EOS % 1.2 % (0.0-3.0); HEMATOCRIT 39.5 % (42.0-52.0); HEMOGLOBIN 11.8 g/dl (13.5-17.5); LYMPH # 0.8 10^3/uL (1.5-5.0); LYMPH % 16.5 % (24.0-44.0); MEAN CORPUSCULAR HEMOGLOBIN 28.6 pg (27.0-33.0); MEAN CORPUSCULAR HGB CONC 29.9 g/dl (32.0-36.5); MEAN CORPUSCULAR VOLUME 95.9 fl (80.0-96.0); MONO # 0.2 10^3/uL (0.0-0.8); MONO % 4.8 % (2.0-8.0); NEUTROPHILS # 3.8 10^3/uL (1.5-8.5); NEUTROPHILS % 75.7 % (36.0-66.0); PLATELET COUNT, AUTOMATED 172 10^3/uL (150-450); RED BLOOD COUNT 4.12 10^6/uL (4.30-6.10)
[2020-07-31 07:10] LABS: ALBUMIN 2.6 GM/DL (3.2-5.2); BILIRUBIN,TOTAL 0.3 MG/DL (0.2-1.0); CALCIUM LEVEL 8.5 MG/DL (8.8-10.2); CREATININE FOR GFR 3.91 MG/DL (0.70-1.30); GLOMERULAR FILTRATION RATE 16.7 (>49); POTASSIUM SERUM 3.4 MEQ/L (3.5-5.1); TOTAL PROTEIN 5.9 GM/DL (6.4-8.2)
[2020-07-31] MEDS: KCL 20MEQ IN 0.45NS 1000ML 1,000 ML IV SCH ×2 (08:25→18:02)
[2020-07-31] MEDS: LEVEMIR (INSULIN DETEMIR) 1 UNITS/0.01ML SC SCH ×2 (09:21→21:52)
[2020-07-31] MEDS: HEPARIN SOD (PORCINE) 5000UNITS/ML 1ML VIAL/SYRINGE SC SCH ×2 (09:21→21:53)
[2020-07-31] MEDS: HumaLOG INSULIN (NovoLOG) PER UNIT SC SCH ×4 (09:22→21:00)
[2020-07-31] MEDS: ASPIRIN 81 MG ENTERIC TAB PO SCH (09:23)
[2020-07-31] MEDS: CLOPIDOGREL 75 MG TAB PO SCH (09:23)
[2020-07-31] MEDS: DOXAZOSIN MESYLATE 1 MG TAB PO SCH (09:23)
[2020-07-31] MEDS: METOCLOPRAMIDE 10 MG TAB PO SCH ×3 (09:24→18:00)
[2020-07-31] MEDS: METOPROLOL TART 25 MG TABLET PO SCH ×2 (09:24→21:53)
--- NOTE | 2020-07-31 12:23 | IPN ---
NEPHROLOGY PROGRESS NOTE DATE: 07/31/2020 SUBJECTIVE: Mr. Higgins is seen this morning on his bedside. He reports that his vomiting and abdominal pain has improved. Apparently he was hypothermic this morning and also hypoglycemic. He has no fever or chills now. PHYSICAL EXAMINATION: Temperature 97.3 degrees Fahrenheit now rectally and blood pressure is 131/63 mmHg. His heart rate is about 76 per minute. Head: Atraumatic. Neck: Supple and without JVD or thyroid enlargement. Heart: Sounds are regular. Lungs: Clear to auscultation. Abdomen: Soft and nontender today. Bowel sounds are present. Extremities: Without any cyanosis or clubbing. There is no peripheral edema. Neurologically: He is at his baseline mentation without any focal deficit. LABORATORY DATA: His gastrointestinal panel came back negative yesterday. Other labs from today showed: WBC count 5, hemoglobin 11.8, hematocrit 39.5 and platelets 172. Sodium 146, potassium 3.4, CO2 23, BUN 32, creatinine 3.9, glucose 186 and calcium 8.5. Total protein 5.9 and albumin 2.6. PROBLEMS/PLAN: 1. Acute kidney injury superimposed on chronic kidney disease: Only minimal improvement in the kidney function noticed with I.V. fluid since yesterday. We will continue to hydrate him and recheck his renal profile tomorrow. 2. Hypernatremia: He has mild hypernatremia related to recent vomiting and I.V. fluids. His normal saline is being stopped and he is being switched to half normal saline along with potassium chloride. 3. Hypokalemia: This is related to vomiting and poor oral intake. His potassium will be replaced in the I.V. fluid. 4. Anemia: His anemia is stable and does not need any urgent intervention. 5. Abdominal pain and possible bowel ischemia: His abdominal pain has improved. Patient is being hydrated in anticipation for possible CT angiogram today. It remains to be seen if radiology agrees to give him I.V. contrast. If CT angiogram confirms bowel ischemia then he is likely to require an aortogram with mesenteric angiogram. Patient understands the risk for diet induced acute renal failure and potential need for dialysis.
[2020-07-31] MEDS ORDERED: ISOVUE-370 76% 100ML VIAL As Ordered ONE (12:47)
[2020-07-31 14:00] VITALS: BP 152/67
--- NOTE | 2020-07-31 14:41 | REP ---
INDICATION: mesenteric ischemia. Contrast enhanced CT angiography was requested despite known renal insufficiency after consultation with the referring hospitalist Dr. Blair, as well as Dr. Cortez from nephrology. I am told vascular surgery was consulted as well and agreed with the referral for contrast enhanced CT angiography. I spoke personally to both the hospitalist and the executive receptionist. COMPARISON: Comparison CT abdomen pelvis without contrast 29 July 2020. Comparison sonography 29 July 2020.. TECHNIQUE: Helical scanning is acquired following the intravenous injection of 80 mL of Isovue 370. 3 mm axial images re-formatted. Coronal and sagittal MPR and coronal MIP images are generated and reviewed. FINDINGS: Preliminary digital crushed stone grader radiograph demonstrates an unremarkable bowel gas pattern. There is good opacification of the arterial lumen. The lower thoracic aorta shows atherosclerotic calcification but no significant plaquing. There is more extensive soft and calcific plaquing in the suprarenal and infrarenal segment of the abdominal aorta. There is a small focal left posterolateral bulge in the abdominal aorta at the level of the renal artery origins. This measures 0.7 x 1.6 cm. No high-grade aortic stenosis is seen. There is mild ectasia of the infrarenal abdominal aorta. The celiac axis origin shows some calcification but no significant stenosis is seen. There is a short segment occlusion of the common hepatic artery at its origin although the artery is patent, apparently V collateral flow. Left gastric and splenic arteries are patent with atherosclerotic calcification. There is a focal stenosis in the splenic artery. This is several cm from the splenic hilus. The superior mesenteric artery is patent. Its origin is heavily calcified. No high-grade stenosis is seen at the origin. There is approximately 50% narrowing just in the SMA just beyond its genu due to soft plaquing. There is almost circumferential calcific plaquing in the distal and of the main SMA. No branch occlusion is seen. The inferior mesenteric artery is stenotic at its origin but patent. There is calcification involving the proximal MARY with moderate stenosis. There is a left external iliac artery stent. This appears to be patent. Heavy iliac artery calcification and plaquing. IMPRESSION: There is no evidence of high-grade stenosis in either the celiac axis origin or the proximal SMA although both vessels are heavily calcified. There it does appear to be a short segment occlusion in the common hepatic artery and there is a high-grade stenosis in the mid splenic artery. The MARY is patent but stenotic and extensively calcified as well. There is extensive calcific plaquing and moderate to high-grade narrowing of the main renal artery origins bilaterally as well. <Electronically signed by Guanakito Moreno > 07/31/20 [id number]
--- NOTE | 2020-07-31 15:58 | IPNPDOC ---
Text Note Date of Service The patient was seen on 07/31/20. NOTE Subjective: No any acute events overnight. Patient had a few bowel movements. Objective: GENERAL APPEARANCE: NAD HEENT: no scleral icterus, no JVD, EOMI CARDIOVASCULAR: S1S2 LUNGS: CTA ABDOMEN: soft & non-tender with palpation over middle quadrants MUSCULOSKELETAL: no cyanosis, no swelling INTEGUMENT: no generalized pallor NEUROLOGICAL: cranial nerve function from 2-12 intact intact, follows commands, speech not dysarthric Assessment/Plan Patient is 65 years old male with past history of coronary artery diseases, type 2 diabetes, [place] with stent placement, chronic kidney diseases 4, ischemic stroke presented to the hospital with deconditioning and abdominal pain. Patient stated for past 4 days he has been having middle quadrants abdominal pain. Patient denied fever, chills, nausea, vomiting. Also patient stated his been constipated for days. Also patient stated that for past 2 days he developed falls 4 times. In ER patient was found to have elevated systolic blood pressure up to 200, creatinine 3.9, CPK 692. CT abdomen showed Extensive vascular calcification. No acute abdominal or pelvic abnormality seen. Problems Physical deconditioning Most likely secondary to multiple comorbidities Imaging study negative for fractures PT/OT Acute kidney injury superimposed on CKD Continue IV fluid Creatinine baseline 3.5 Dr. Cortez follows him Continue to monitor CVA (cerebral infarction) History of CVA Continue Plavix Tobacco abuse Counselled. Nicotine patch CAD S/P percutaneous coronary angioplasty Continue home cardioprotective medication Diabetic gastroparesis Continue Reglan Diabetes mellitus Chronic Diabetes diet Detemir twice a day Insulin sliding scale Hypertensive emergency Hydralazine IV Amlodipine 10 mg Hydralazine by mouth Constipation Resolved senna MiraLAX Abdominal pain Differential diagnosis includes gastroparesis, mesenteric ischemia Doppler vascular study showed Findings consistent with mesenteric ischemia as cause for his abdominal pain inasmuch as there is exceedingly high systolic velocity in the proximal and mid SMA in the fasting state. CT abdomen showed Extensive vascular calcification CTA was done and showed There is no evidence of high-grade stenosis in either the celiac axis origin or the proximal SMA although both vessels are heavily calcified. There it does appear to be a short segment occlusion in the common hepatic artery and there is a high-grade stenosis in the mid splenic artery. The MARY is patent but stenotic and extensively calcified as well. There is extensive calcific plaquing and mod erate to high-grade narrowing of the main renal artery origins bilaterally as well. Pain management Appreciate/agree with vascular surgeon consult Anemia Secondary to chronic kidney diseases Stable Hypokalemia Replaced Hypernatremia half of normal saline VS,Fishbone, I+O VS, Fishbone, I+O Laboratory Tests 07/30/20 21:36 07/31/20 05:58 Vital Signs Date Time Temp Pulse Resp B/P (MAP) Pulse Ox O2 Delivery O2 Flow Rate FiO2 07/31/20 14:00 98.1 65 16 152/67 (95) 97 Room Air I&O- Last 24 Hours up to 6 AM 07/31/20 06:00 Intake Total 4077 ml Output Total 1310 ml Balance 2767 ml AMINTA CHILEL DO Jul 31, 2020 15:58
[2020-07-31 16:30] LABS: CALCIUM LEVEL 8.2 MG/DL (8.8-10.2); CREATININE FOR GFR 3.55 MG/DL (0.70-1.30); GLOMERULAR FILTRATION RATE 18.6 (>49); POTASSIUM SERUM 3.9 MEQ/L (3.5-5.1)
[2020-07-31 18:00] VITALS: BP 151/64
[2020-07-31] MEDS: PANTOPRAZOLE 40MG TAB (PROTONIX) PO SCH (21:52)
[2020-07-31] MEDS: ATORVASTATIN 20 MG TAB PO SCH (21:52)
[2020-07-31] MEDS: MONTELUKAST 10 MG TAB PO SCH (21:52)
[2020-07-31] MEDS: PARoxetine 10MG TABLET PO SCH (21:52)
[2020-07-31 22:00] VITALS: BP 160/70
[2020-08-01 02:00] VITALS: BP 162/71
[2020-08-01] MEDS: KCL 20MEQ IN 0.45NS 1000ML 1,000 ML IV SCH (04:20)
[2020-08-01 05:59] LABS: BASO # 0.1 10^3/uL (0.0-0.2); BASO % 0.8 % (0.0-1.0); EOS # 0.1 10^3/uL (0.0-0.5); EOS % 1.8 % (0.0-3.0); HEMATOCRIT 30.6 % (42.0-52.0); LYMPH # 1.3 10^3/uL (1.5-5.0); LYMPH % 22.2 % (24.0-44.0); MEAN CORPUSCULAR HEMOGLOBIN 29.6 pg (27.0-33.0); MEAN CORPUSCULAR HGB CONC 31.7 g/dl (32.0-36.5); MEAN CORPUSCULAR VOLUME 93.3 fl (80.0-96.0); MONO # 0.6 10^3/uL (0.0-0.8); MONO % 9.4 % (2.0-8.0); NEUTROPHILS # 3.9 10^3/uL (1.5-8.5); NEUTROPHILS % 65.3 % (36.0-66.0); PLATELET COUNT, AUTOMATED 161 10^3/uL (150-450); RED BLOOD COUNT 3.28 10^6/uL (4.30-6.10)
[2020-08-01 06:00] VITALS: BP 160/72
[2020-08-01 06:03] LABS: HEMOGLOBIN 9.7 g/dl (13.5-17.5)
[2020-08-01 06:24] LABS: ALBUMIN 2.1 GM/DL (3.2-5.2); BILIRUBIN,TOTAL 0.3 MG/DL (0.2-1.0); CALCIUM LEVEL 7.9 MG/DL (8.8-10.2); CREATININE FOR GFR 3.23 MG/DL (0.70-1.30); GLOMERULAR FILTRATION RATE 20.8 (>49); MAGNESIUM LEVEL 1.7 MG/DL (1.8-2.4); POTASSIUM SERUM 4.2 MEQ/L (3.5-5.1); TOTAL PROTEIN 4.6 GM/DL (6.4-8.2)
--- NOTE | 2020-08-01 08:08 | CR.PDOC ---
General Date of Consultation: Aug 01, 2020 Consultation REASON FOR CONSULTATION/CHIEF COMPLAINT: Abdominal pain HISTORY OF PRESENT ILLNESS: This is a 65-year-old gentleman with long-standing history of tobacco abuse and vascular disease who was admitted for dehydration and abdominal pain. Initial noncontrast CT suggested heavy vascular calc ifications in the celiac SMA and inferior mesenteric arteries. Although the patient has long-standing history of gastroparesis and abdominal pain, there is concern he may have a component of mesenteric ischemia contributing to his complaints. Ultrasound of the mesenteric vessels was obtained. There was no significant stenosis or velocity elevations through the celiac trunk, patent SMA with elevated velocities in the midportion, I may not readily visualized. The patient had acute on chronic renal insufficiency, and was seen by Dr. Cortez. He was optimized from a renal standpoint with hydration, and then a CTA of the abdomen and pelvis was obtained. I reviewed this and discussed it with our spitalist team. The patient has significant chronic vascular disease. His aorta was heavily calcified and ectatic, but patent. No significant intra-abdominal aneurysmal dilation noted. The patient does have a left iliac artery aneurysm, 2 cm, and significant stenosis of the right common iliac artery was signs of heavily calcified vessels through the iliac arteries bilaterally. The renal arteries are both heavily calcified at the origin but patent. Due to the bulky nature of the calcium it is difficult to say if this is hemodynamically significant. The patient has heavy calcification at the origin of the celiac artery, but it is widely patent. There is a short segment occlusion in the hepatic artery, but good flow distal to the occlusion from collateralization. The splenic artery and left gastric are patent. The SMA is heavily calcified at the origin but widely patent. In the midportion there is more bulky plaque with stenosis, but no occlusion. There is no sign of an embolic event in the SMA or its branches. The MARY is diminutive in calcified but patent. During his stay, the patient has had a normal lactic acid, normal white count, improved abdominal exam after hydration, and tolerated a diet. This does not correlate with mesenteric ischemia. He does have chronic vascular disease of his entire mesenteric system, and at some point this may become significant, but at this time it appears that he has more than adequate flow to supply the bowel. However, I would recommend outpatient follow-up with vascular surgery in [place] for surveillance of the mesenteric vessels. I discussed this with the patient today. He says that typically he sees Dr. Presley in [place] for his vascular disease. He has had stents placed in the past in the lower extremities, he thinks in both legs but is not sure. He says he missed his last follow-up with Dr. Presley because of transportation issues, but now that his other sister is in town, he thinks he will have better luck getting down for appointments. I told him there is no emergency to being seen by Dr. Presley, but we would recommend sooner rather than later to reestablish surveillance care. He is agreeable to this plan. Agree with aspirin and Plavix and statin in this vasculopath. The patient and I had a long discussion about the importance of smoking cessation. With the degree of vascular disease he has diffusely, it is imperative that he stop smoking as soon as possible. Regarding his renal insufficiency, it has improved with hydration and management by Dr. Cortez, and his creatinine and GFR are still trending in the right direc tion despite CTA yesterday. There was concern he might need dialysis if his renal function did not improve, but it does not appear this is the case at this time. ALLERGIES: Please see below. HOME MEDICATIONS: Please see below. PAST MEDICAL HISTORY: Gastroparesis, diabetes, hypertension, hyperlipidemia, vascular disease, COPD, tobacco abuse, GERD, anxiety depression PAST SURGICAL HISTORY: Left knee surgery, endovascular stenting lower extremities FAMILY HISTORY: Heart disease. SOCIAL HISTORY: Long-standing history of tobacco abuse. REVIEW OF SYSTEMS: CONSTITUTIONAL: Positive malaise HEENT: Denies vision changes or loss of hearing CARDIOVASCULAR: Denies chest pain RESPIRATORY: Positive shortness of breath with exertion positive shortness of breath GENITOURINARY: Positive renal insufficiency MUSCULOSKELETAL: Denies claudication but says his left knee "gives out" sometimes when he walks GASTROINTESTINAL: Positive abdominal pain, positive for reflux, positive gastroparesis, positive diarrhea yesterday, denies nausea or vomiting SKIN: Denies ulcers or wounds NEUROLOGICAL: Denies headaches seizures or strokes PSYCHIATRIC: Positive anxiety ENDOCRINE: Positive diabetes HEMATOLOGIC/LYMPHATIC: Denies anemia ALLERGIC/IMMUNOLOGIC: Denies PHYSICAL EXAMINATION: VITAL SIGNS: Please see below. GENERAL APPEARANCE: No acute distress HEENT: Normocephalic TMI RESPIRATORY: Slightly coarse breath sounds bilaterally CARDIOVASCULAR: Regular rate and rhythm ABDOMEN: Soft, very mild left lower quadrant tenderness to deep palpation only, no rebound or guarding. No other abdominal tenderness today. EXTREMITIES: Warm less than 2 second capillary refill distal pulses difficult to palpate DPPT pulses, but Doppler signals are biphasic. No ischemic changes, wounds or gangrene noted. NEUROLOGICAL: Alert and oriented 3 PSYCHIATRIC: Pleasant and cooperative LABORATORY DATA: Please see below. ASSESSMENT/PLAN: This is a 65-year-old gentleman with long-standing history of tobacco abuse and diffuse vascular disease 1. Continue daily aspirin and Plavix and statin. 2. Recommend follow-up with vascular surgery Dr. Presley in [place] outpatient regarding chronic mesenteric arterial disease, asymptomatic at this point, but he will need surveillance and potential intervention in the future. Additionally, he needs to maintain surveillance follow-up for his peripheral vas cular disease in the lower extremities, and likely will need surveillance follow-up for renal artery stenosis and possible carotid stenosis as well. 3. Smoking cessation is imperative. The patient has been extensively counseled about smoking cessation. We appreciate the opportunity to participate in the care of this patient. Vital Signs/I&O Vital Signs Date Time Temp Pulse Resp B/P (MAP) Pulse Ox O2 Delivery O2 Flow Rate FiO2 08/01/20 06:00 98.0 70 18 160/72 (101) 97 Room Air I&O- Last 24 Hours up to 6 AM 08/01/20 06:00 Intake Total 1520 ml Output Total 700 ml Balance 820 ml Laboratory Data Labs 24H Laboratory Tests 2 07/31/20 09:31: Procalcitonin <0.05 07/31/20 11:37: Bedside Glucose (Misc Panel) 178H 07/31/20 15:44: Anion Gap 5L, Glomerular Filtration Rate 18.6L, Calcium Level 8.2L 07/31/20 16:55: Bedside Glucose (Misc Panel) 41L 07/31/20 17:11: Bedside Glucose Confirm (Misc) 49 07/31/20 17:27: Bedside Glucose (Misc Panel) 43L 07/31/20 18:56: Bedside Glucose (Misc Panel) 114 07/31/20 20:40: Bedside Glucose (Misc Panel) 183H 08/01/20 05:26: Immature Granulocyte % (Auto) 0.5, Neutrophils (%) (Auto) 65.3, Lymphocytes (%) (Auto) 22.2L, Monocytes (%) (Auto) 9.4H, Eosinophils (%) (Auto) 1.8, Basophils (%) (Auto) 0.8, Neutrophils # (Auto) 3.9, Lymphocytes # (Auto) 1.3L, Monocytes # (Auto) 0.6, Eosinophils # (Auto) 0.1, Basophils # (Auto) 0.1, Nucleated Red Blood Cells % (auto) 0.0, Anion Gap 6L, Glomerular Filtration Rate 20.8L, Calcium Level 7.9L, Magnesium Level 1.7L, Total Bilirubin 0.3, Aspartate Amino Transf (AST/SGOT) 60H, Alanine Aminotransferase (ALT/SGPT) 28, Alkaline Phosphatase 97, Total Protein 4.6#L, Albumin 2.1L, Albumin/Globulin Ratio 0.8 CBC/BMP Laboratory Tests 07/31/20 15:44 08/01/20 05:26 Microbiology Microbiology 07/31/20 Blood Culture, Received Pending 07/31/20 Blood Culture, Received Pending 07/31/20 Gastrointestinal Tract Panel (PCR) - Final, Complete Allergies Coded Allergies: piperacillin (Verified Allergy, Intermediate, hives/swelling, 10/27/18) tazobactam (Verified Allergy, Intermediate, hives/swelling, 10/27/18) Home Medications Scheduled Aspirin (Aspirin EC) 325 Mg Tab, 325 MG PO DAILY, (Reported) Atorvastatin Calcium (Atorvastatin Calcium) 80 Mg Tab, 80 MG PO QHS, (Reported) Calcitriol (Calcitriol) 0.25 Mcg Capsule, 0.75 MCG PO QWEEK, (Reported) 0.75MCG ON SUNDAYS Ciprofloxacin HCl (Ciprofloxacin HCl) 500 Mg Tablet, 500 MG PO DAILY for 7 Days, (Reported) Clopidogrel Bisulfate (Plavix) 75 Mg Tab, 75 MG PO DAILY, (Reported) Cyanocobalamin (Vitamin B-12) (B-12) 1,000 Mcg Tablet, 1,000 MCG PO DAILY, (Reported) Dexlansoprazole (Dexilant) 30 Mg , 30 MG PO DAILY, (Reported) Doxazosin Mesylate (Doxazosin Mesylate) 2 Mg Tablet, 2 MG PO DAILY for 30 Days, #30 (Reported) Famotidine (Famotidine) 40 Mg Tablet, 40 MG PO DAILY, (Reported) Fluticasone/Vilanterol (Breo Ellipta 200-25 Mcg INH) 1 Each Blst.w.dev, 1 PUFF INH DAILY, (Reported) Furosemide (Furosemide) 20 Mg Tablet, 20 MG PO DAILY for 30 Days, #30 (Reported) Gabapentin (Gabapentin) 100 Mg Cap, 100 MG PO QAM, (Reported) Gabapentin (Gabapentin) 100 Mg Capsule, 200 MG PO QHS, (Reported) Gemfibrozil (Gemfibrozil) 600 Mg Tab, 600 MG PO DAILY, (Reported) Insulin Glargine,Hum.rec.anlog (Basaglar Kwikpen U-100) 100 Unit/1 Ml Insuln.pen, 30 UNITS SC QHS, (Reported) Metoclopramide HCl (Reglan) 10 Mg Tab, 10 MG PO TID, (Reported) Metoprolol Tartrate (Metoprolol Tartrate) 25 Mg Tablet, 25 MG PO BID, (Reported) Metronidazole (Metronidazole) 500 Mg Tablet, 500 MG PO TID, (Reported) Montelukast Sodium (Montelukast Sodium) 10 Mg Tablet, 10 MG PO QHS, (Reported) Pantoprazole Sodium (Pantoprazole Sodium) 40 Mg Tablet.dr, 40 MG PO QHS, (Reported) Paroxetine (Paroxetine HCl) 10 Mg Tablet, 10 MG PO QHS, (Reported) Scheduled PRN Albuterol Sulfate (Ventolin Hfa) 18 Gm Hfa.aer.ad, 2 PUFF INH Q4H PRN for WHEEZING, (Reported) Miscellaneous Medications [Patient Comment] , (Reported) DISCUSSED MEDICATIONS OVER PHONE WITH SISTER - YASMIN FRANCESCO RODRIGUEZ MD Aug 01, 2020 08:08
[2020-08-01] MEDS: HumaLOG INSULIN (NovoLOG) PER UNIT SC SCH ×4 (08:41→22:03)
[2020-08-01] MEDS: LEVEMIR (INSULIN DETEMIR) 1 UNITS/0.01ML SC SCH ×2 (08:42→22:03)
[2020-08-01] MEDS: HEPARIN SOD (PORCINE) 5000UNITS/ML 1ML VIAL/SYRINGE SC SCH ×2 (08:42→22:01)
[2020-08-01] MEDS: METOCLOPRAMIDE 10 MG TAB PO SCH ×3 (08:43→17:54)
[2020-08-01] MEDS: CLOPIDOGREL 75 MG TAB PO SCH (08:43)
[2020-08-01] MEDS: METOPROLOL TART 25 MG TABLET PO SCH ×2 (08:43→22:02)
[2020-08-01] MEDS: ASPIRIN 81 MG ENTERIC TAB PO SCH (08:44)
[2020-08-01] MEDS: DOXAZOSIN MESYLATE 1 MG TAB PO SCH (08:44)
[2020-08-01 10:00] VITALS: BP 162/71
--- NOTE | 2020-08-01 11:29 | IPN ---
PROGRESS NOTE DATE: 08/01/2020 SUBJECTIVE: Mr. Higgins is seen this morning on his bedside. He underwent CT angiogram of his abdomen yesterday which did show diffuse generalized vascular disease and bilateral renal artery stenosis. He did not have any critical mesenteric stenosis and his abdominal pain and vomiting has already improved. Patient was hydrated before and after the contrast and he has done very well. He denies any dyspnea or chest pain. PHYSICAL EXAMINATION: VITAL SIGNS: Temperature is 99 degrees Fahrenheit, heart rate is 70 per minute and respiratory rate is 18 per minute, blood pressure is 162/70 mmHg and oxygen saturation 96% on room air. HEAD AND NECK: Head is atraumatic. Neck is supple and without any abnormal jugular vein distention. HEART: Heart sounds are regular. LUNGS: Clear to auscultation. ABDOMEN: Soft and nontender, bowel sounds are normal. There is no palpable organomegaly. EXTREMITIES: Without any cyanosis or clubbing. NEUROLOGIC: He is awake, alert and at his baseline mentation without any focal deficit. LABORATORY DATA: Today's labs shows a WBC count of 6.0, hemoglobin 9.7, hematocrit 30.6. Sodium 141, potassium 4.2, CO2 25, BUN 24 and creatinine 3.23. PROBLEMS: 1. Acute kidney injury superimposed on chronic kidney disease mostly related to dehydrated caused by recurrent vomiting and has improved with IV fluid hydration. He seems very well hydrated now and I am going to stop the IV fluid today. 2. Mesenteric ischemia and abdominal pain. Patient had a CT angiogram done which did not show any critical stenosis. At this point, no urgent intervention is needed. Patient will follow-up with his primary vascular surgeon as an outpatient. 3. Renal artery stenosis. Patient was noticed to have bilateral renal artery stenosis with heavy calcification. I will send the CT scan results to his vascular surgeon and ask their opinion as an outpatient. 4. Hypernatremia, hypernatremia was related to IV fluid and recurrent vomiting and has already improved. At this point, IV fluid is being stopped. 5. Mild anemia related to chronic kidney disease and aggressive IV fluid hydration. At this point no urgent intervention is needed. 6. Disposition: Will monitor the patient for another 24 hours due to significant kidney disease and IV contrast given yesterday. If kidney function remains stable, then he can probably be discharged to home tomorrow and follow-up with his primary vascular surgeon as an outpatient.
[2020-08-01 14:00] VITALS: BP 162/71
--- NOTE | 2020-08-01 15:08 | IPNPDOC ---
Text Note Date of Service The patient was seen on 08/01/20. NOTE Subjective: No any acute events overnight. Patient stated that his abdominal pain resolved Objective: GENERAL APPEARANCE: NAD HEENT: no scleral icterus, no JVD, EOMI CARDIOVASCULAR: S1S2 LUNGS: CTA ABDOMEN: soft & non-tender with palpation over middle quadrants MUSCULOSKELETAL: no cyanosis, no swelling INTEGUMENT: no generalized pallor NEUROLOGICAL: cranial nerve function from 2-12 intact intact, follows commands, speech not dysarthric Assessment/Plan Patient is 65 years old male with past history of coronary artery diseases, type 2 diabetes, [place] with stent placement, chronic kidney diseases 4, ischemic stroke presented to the hospital with deconditioning and abdominal pain. Patient stated for past 4 days he has been having middle quadrants abdominal pain. Patient denied fever, chills, nausea, vomiting. Also patient stated his been constipated for days. Also patient stated that for past 2 days he developed falls 4 times. In ER patient was found to have elevated systolic blood pressure up to 200, creatinine 3.9, CPK 692. CT abdomen showed Extensive vascular calcification. No acute abdominal or pelvic abnormality seen. Problems Physical deconditioning Most likely secondary to multiple comorbidities Imaging study negative for fractures PT/OT Acute kidney injury superimposed on CKD Improved after IV fluid Creatinine baseline 3.5 Dr. Cortez follows him Continue to monitor CVA (cerebral infarction) History of CVA Continue Plavix Tobacco abuse Counselled. Nicotine patch CAD S/P percutaneous coronary angioplasty Continue home cardioprotective medication Diabetic gastroparesis Continue Reglan Diabetes mellitus Chronic Diabetes diet Detemir twice a day Insulin sliding scale Hypertensive emergency/hypertension Hypertensive emergency resolved Amlodipine 10 mg Hydralazine by mouth Constipation Resolved senna MiraLAX Abdominal pain Differential diagnosis includes gastroparesis, mesenteric ischemia Doppler vascular study showed Findings consistent with mesenteric ischemia as cause for his abdominal pain inasmuch as there is exceedingly high systolic velocity in the proximal and mid SMA in the fasting state. CT abdomen showed Extensive vascular calcification CTA was done and showed There is no evidence of high-grade stenosis in either the celiac axis origin or the proximal SMA although both vessels are heavily calcified. There it does appear to be a short segment occlusion in the common hepatic artery and there is a high-grade stenosis in the mid splenic artery. The MARY is patent but stenotic and extensively calcified as well. There is extensive calcific plaquing and moderate to high-grade narrowing of the main renal artery origins bilaterally as well. Pain management Dr Rivera recommended to continue daily aspirin and Plavix and statin. Follow-up with vascular surgery Dr. Presley in [place] outpatient regarding chr onic mesenteric arterial disease Anemia Secondary to chronic kidney diseases Stable Hypokalemia Replaced Hypernatremia Resolved VS,Fishbone, I+O VS, Fishbone, I+O Laboratory Tests 07/31/20 15:44 08/01/20 05:26 Vital Signs Date Time Temp Pulse Resp B/P (MAP) Pulse Ox O2 Delivery O2 Flow Rate FiO2 08/01/20 14:00 98.0 71 19 162/71 (101) 97 Room Air I&O- Last 24 Hours up to 6 AM 08/01/20 06:00 Intake Total 1520 ml Output Total 700 ml Balance 820 ml AMINTA CHILEL Aug 01, 2020 15:08
[2020-08-01] MEDS ORDERED: **hydrALAZINE** 10 MG TAB PO ONE (15:30)
[2020-08-01 22:00] VITALS: BP 163/93
[2020-08-01] MEDS: MONTELUKAST 10 MG TAB PO SCH (22:01)
[2020-08-01] MEDS: PARoxetine 10MG TABLET PO SCH (22:01)
[2020-08-01] MEDS: PANTOPRAZOLE 40MG TAB (PROTONIX) PO SCH (22:02)
[2020-08-01] MEDS: ATORVASTATIN 20 MG TAB PO SCH (22:02)
[2020-08-01] MEDS: **hydrALAZINE** 10 MG TAB PO SCH (23:28)
[2020-08-02 02:00] VITALS: BP 116/69
[2020-08-02 06:00] VITALS: BP 169/74
[2020-08-02] MEDS: **hydrALAZINE** 10 MG TAB PO SCH (06:19)
[2020-08-02 06:33] LABS: BASO # 0.1 10^3/uL (0.0-0.2); BASO % 1.1 % (0.0-1.0); EOS # 0.2 10^3/uL (0.0-0.5); EOS % 3.6 % (0.0-3.0); HEMATOCRIT 31.4 % (42.0-52.0); HEMOGLOBIN 10.2 g/dl (13.5-17.5); LYMPH # 1.9 10^3/uL (1.5-5.0); LYMPH % 30.5 % (24.0-44.0); MEAN CORPUSCULAR HEMOGLOBIN 29.9 pg (27.0-33.0); MEAN CORPUSCULAR HGB CONC 32.5 g/dl (32.0-36.5); MEAN CORPUSCULAR VOLUME 92.1 fl (80.0-96.0); MONO # 0.5 10^3/uL (0.0-0.8); NEUTROPHILS # 3.4 10^3/uL (1.5-8.5); NEUTROPHILS % 56.3 % (36.0-66.0); PLATELET COUNT, AUTOMATED 178 10^3/uL (150-450); RED BLOOD COUNT 3.41 10^6/uL (4.30-6.10); WHITE BLOOD COUNT 6.1 10^3/uL (4.0-10.0)
[2020-08-02 07:00] LABS: ALBUMIN 2.2 GM/DL (3.2-5.2); BILIRUBIN,TOTAL 0.4 MG/DL (0.2-1.0); CALCIUM LEVEL 8.1 MG/DL (8.8-10.2); CREATININE FOR GFR 2.94 MG/DL (0.70-1.30); GLOMERULAR FILTRATION RATE 23.1 (>49); MAGNESIUM LEVEL 1.9 MG/DL (1.8-2.4); TOTAL PROTEIN 4.8 GM/DL (6.4-8.2)
[2020-08-02] MEDS: HumaLOG INSULIN (NovoLOG) PER UNIT SC SCH (07:30)
[2020-08-02] MEDS: METOCLOPRAMIDE 10 MG TAB PO SCH (08:27)
[2020-08-02] MEDS: METOPROLOL TART 25 MG TABLET PO SCH (08:30)
[2020-08-02] MEDS: CLOPIDOGREL 75 MG TAB PO SCH (08:30)
[2020-08-02] MEDS: ASPIRIN 81 MG ENTERIC TAB PO SCH (08:30)
[2020-08-02] MEDS: DOXAZOSIN MESYLATE 1 MG TAB PO SCH (08:30)
[2020-08-02] MEDS: HEPARIN SOD (PORCINE) 5000UNITS/ML 1ML VIAL/SYRINGE SC SCH (08:31)
[2020-08-02] MEDS ORDERED: **hydrALAZINE** 10 MG TAB PO SCH (09:00)
[2020-08-02] MEDS: LEVEMIR (INSULIN DETEMIR) 1 UNITS/0.01ML SC SCH (09:00)
[2020-08-02 09:31] VITALS: BP 181/84
[2020-08-02 10:00] VITALS: BP 182/82
[2020-08-02] MEDS ORDERED: AMLO1TAB25 PO (10:38)
[2020-08-02] MEDS ORDERED: HYDR10TAB PO (10:38)
[2020-08-02] MEDS ORDERED: SENN18TA PO (10:38)
--- NOTE | 2020-08-02 14:29 | DS.PDOC ---
Discharge Summary General Date of Admission Jul 29, 2020 at 14:37 Date of Discharge 08/02/20 Discharge Summary PROCEDURES PERFORMED DURING STAY: [None]. ADMITTING DIAGNOSES: Physical deconditioning Tobacco abuse CVA (cerebral infarction) Acute kidney injury superimposed on CKD CAD S/P percutaneous coronary angioplasty Diabetic gastroparesis Diabetes mellitus Hypertensive emergency/hypertension Constipation Abdominal pain Anemia Hypokalemia Hypernatremia DISCHARGE DIAGNOSES: Physical deconditioning Tobacco abuse CVA (cerebral infarction) Acute kidney injury superimposed on CKD CAD S/P percutaneous coronary angioplasty Diabetic gastroparesis Diabetes mellitus Hypertensive emergency/hypertension Constipation Abdominal pain Anemia Hypokalemia Hypernatremia COMPLICATIONS/CHIEF COMPLAINT: Hypertension Physical Deconditioning. HISTORY OF PRESENT ILLNESS: Patient is 65 years old male with past history of coronary artery diseases, type 2 diabetes, [place] with stent placement, chronic kidney diseases 4, ischemic stroke presented to the hospital with deconditioning and abdominal pain. Patient stated for past 4 days he has been having middle quadrants abdominal pain. Patient denied fever, chills, nausea, vomiting. Also patient stated his been constipated for days. Also patient stated that for past 2 days he developed falls 4 times. In ER patient was found to have elevated systolic blood pressure up to 200, creatinine 3.9, CPK 692. CT abdomen showed Extensive vascular calcification. No acute abdominal or pelvic abnormality seen. HOSPITAL COURSE: During hospital stay following issues addressed Physical deconditioning Most likely secondary to multiple comorbidities Imaging study negative for fractures PT/OT Acute kidney injury superimposed on CKD Improved after IV fluid Creatinine baseline 3.5 Dr. Cortez follows him Continue to monitor CVA (cerebral infarction) History of CVA Continue Plavix Tobacco abuse Counselled. Nicotine patch CAD S/P percutaneous coronary angioplasty Continue home cardioprotective medication Diabetic gastroparesis Continue Reglan Diabetes mellitus Chronic Diabetes diet Detemir twice a day Insulin sliding scale Hypertensive emergency/hypertension Hypertensive emergency resolved Amlodipine 10 mg Hydralazine by mouth Constipation Resolved senna MiraLAX Abdominal pain Differential diagnosis includes gastroparesis, mesenteric ischemia Doppler vascular study showed Findings consistent with mesenteric ischemia as cause for his abdominal pain inasmuch as there is exceedingly high systolic velocity in the proximal and mid SMA in the fasting state. CT abdomen showed Extensive vascular calcification CTA was done and showed There is no evidence of high-grade stenosis in either the celiac axis origin or the proximal SMA although both vessels are heavily calcified. There it does appear to be a short segment occlusion in the common hepatic artery and there is a high-grade stenosis in the mid splenic artery. The MARY is patent but stenotic and extensively calcified as well. There is extensive calcific plaquing and moderate to high-grade narrowing of the main renal artery origins bilaterally as well. Pain management Dr Rivera recommended to continue daily aspirin and Plavix and statin. Follow-up with vascular surgery Dr. Presley in [place] outpatient regarding chronic mesenteric arterial disease Anemia Secondary to chronic kidney diseases Stable Hypokalemia Replaced Hypernatremia Resolved DISCHARGE MEDICATIONS: Please see below. ALLERGIES: Please see below. PHYSICAL EXAMINATION ON DISCHARGE: VITAL SIGNS: Please see below. GENERAL APPEARANCE: NAD HEENT: no scleral icterus, no JVD, EOMI CARDIOVASCULAR: S1S2 LUNGS: CTA ABDOMEN: soft & non-tender with palpation over middle quadrants MUSCULOSKELETAL: no cyanosis, no swelling INTEGUMENT: no generalized pallor NEUROLOGICAL: cranial nerve function from 2-12 intact intact, follows commands, speech not dysarthric LABORATORY DATA: Please see below. IMAGING: [facility] NAME: NYDIA ANTON JR DATE OF : 1955 AGE: 65 SEX: M REPORT #: [id number] ROOM: [facility]UST TECHNOLOGIST: [place] [address] DOCTOR: AMINTA BLAIR DO Ordered for Date&Time: 07/31/20 09 cc: [~ rep ct ivnm] Service Date&Time: 07/31/20 1300 This report is in Signed status. If this report is in a DRAFT status it has not yet been reviewed by the radiologist for accuracy. Thank you for having your radiology procedures performed at [facility] RADIOLOGY REPORT Date&Time printed: [~ rep prt dt last] [~ rep prt tm last] Page [address] of [address] [address] RADIOLOGY REPORT This report is in Signed status. If this report is in a DRAFT status it has not yet been reviewed by the radiologist for accuracy. Thank you for having your radiology procedures performed at [facility] RADIOLOGY REPORT Date&Time printed: [~ rep prt dt last] [~ rep prt tm last] Page 1 of 2 NAME: DESEANNYDIA JR DATE OF : 1955 AGE: 65 SEX: M REPORT #: [id number] ROOM: [facility]UST TECHNOLOGIST: [facility] DOCTOR: AMINTA BLAIR DO Ordered for Date&Time: 07/31/20 0901 cc: [~ rep ct ivnm] Service Date&Time: 07/31/20 1300 EXAMINATION REQUESTED: CT ANGIO ABDOMINAL ARTERIES REASON FOR PATIENT VISIT: HYPERTENSION PHYSICAL DECONDITIONING REASON FOR EXAM/COMMENT: mesenteric ischemia INDICATION: mesenteric ischemia. Contrast enhanced CT angiography was requested despite known renal insufficiency after consultation with the referring hospitalist Dr. Blair, as well as Dr. Cortez from nephrology. I am told vascular surgery was consulted as well and agreed with the referral for contrast enhanced CT angiography. I spoke personally to both the hospitalist and the trim installer. COMPARISON: Comparison CT abdomen pelvis without contrast 29 July 2020. Comparison sonography 29 July 2020.. TECHNIQUE: Helical scanning is acquired following the intravenous injection of 80 mL of Isovue 370. 3 mm axial images re-formatted. Coronal and sagittal MPR and coronal MIP images are generated and reviewed. FINDINGS: Preliminary digital facility administrator radiograph demonstrates an unremarkable bowel gas pattern. There is good opacification of the arterial lumen. The lower thoracic aorta shows atherosclerotic calcification but no significant plaquing. There is more ex tensive soft and calcific plaquing in the suprarenal and infrarenal segment of the abdominal aorta. There is a small focal left posterolateral bulge in the abdominal aorta at the level of the renal artery origins. This measures 0.7 x 1.6 cm. No high-grade aortic stenosis is seen. There is mild ectasia of the infrarenal abdominal aorta. The celiac axis origin shows some calcification but no significant stenosis is seen. There is a short segment occlusion of the common hepatic artery at its origin although the artery is patent, apparently V collateral flow. Left gastric and splenic arteries are patent with atherosclerotic calcification. There is a focal stenosis in the splenic artery. This is several cm from the splenic hilus. The superior mesenteric artery is patent. Its origin is heavily calcified. No high-grade stenosis is seen at the origin. There is approximately 50% narrowing just in the SMA just beyond its genu due to soft plaquing. There is almost circumferential calcific plaquing in the distal and of the main SMA. No branch occlusion is seen. The inferior mesenteric artery is stenotic at its origin but patent. There is calcification involving the proximal MARY with moderate stenosis. There is a left external iliac artery stent. This appears to be patent. Heavy iliac artery calcification and plaquing. IMPRESSION: There is no evidence of high-grade stenosis in either the celiac axis origin or the proximal SMA although both vessels are heavily calcified. There it does appear to be a short segment occlusion in the common hepatic artery and there is a high-grade stenosis in the mid splenic artery. The MARY is patent but stenotic and extensively calcified as well. There is extensive calcific plaquing and moderate to high- grade narrowing of the main renal artery origins bilaterally as well. <Electronically signed by Guanakito Moreno > 07/31/201437 DD: Raul Moreno MD 07/31/201422 DT: KWAKU 07/31/201437 DS: GARDENIA 07/31/20142207/31/201422 [~ rep ct labl] PROGNOSIS: fair ACTIVITY: [As tolerated]. DIET: cardiac DISPOSITION: 01 Home, Self-Care. ITEMS TO FOLLOWUP ON ON OUTPATIENT: with Dr Presley, PCP and trim installer DISCHARGE CONDITION: [Stable]. TIME SPENT ON DISCHARGE: 40 minutes. Vital Signs/I&Os Vital Signs Date Time Temp Pulse Resp B/P (MAP) Pulse Ox O2 Delivery O2 Flow Rate FiO2 08/02/20 10:00 98.2 68 18 182/82 (115) 98 Room Air I&O- Last 24 Hours up to 6 AM 08/02/20 06:00 Intake Total 1370 ml Output Total 1750 ml Balance -380 ml Laboratory Data Labs 24H Laboratory Tests 2 08/01/20 17:03: Bedside Glucose (Misc Panel) 135H 08/01/20 20:13: Bedside Glucose (Misc Panel) 142H 08/02/20 05:55: Immature Granulocyte % (Auto) 0.5, Neutrophils (%) (Auto) 56.3, Lymphocytes (%) (Auto) 30.5, Monocytes (%) (Auto) 8.0, Eosinophils (%) (Auto) 3.6H, Basophils (%) (Auto) 1.1H, Neutrophils # (Auto) 3.4, Lymphocytes # (Auto) 1.9, Monocytes # (Auto) 0.5, Eosinophils # (Auto) 0.2, Basophils # (Auto) 0.1, Nucleated Red Blood Cells % (auto) 0.0, Anion Gap 8, Glomerular Filtration Rate 23.1L, Calcium Level 8.1L, Magnesium Level 1.9, Total Bilirubin 0.4, Aspartate Amino Transf (AST/SGOT) 77H, Alanine Aminotransferase (ALT/SGPT) 36, Alkaline Phosphatase 103, Total Protein 4.8L, Albumin 2.2L, Albumin/Globulin Ratio 0.8 08/02/20 09:23: Bedside Glucose (Misc Panel) 120H CBC/BMP Laboratory Tests 08/02/20 05:55 FSBS Laboratory Tests Test 08/01/20 17:03 08/01/20 20:13 08/02/20 09:23 Range/Units Bedside Glucose (Misc Panel) 135 142 120 80-115 MG/DL Microbiology Microbiology 07/31/20 Blood Culture - Preliminary, Resulted No Growth after 48 hours. All Specime... 07/31/20 Blood Culture - Preliminary, Resulted No Growth after 48 hours. All Specime... 07/31/20 Gastrointestinal Tract Panel (PCR) - Final, Complete Discharge Medications Scheduled Amlodipine Besylate (Amlodipine Besylate) 10 Mg Tablet, 10 MG PO DAILY Aspirin (Aspirin EC) 325 Mg Tab, 325 MG PO DAILY, (Reported) Atorvastatin Calcium (Atorvastatin Calcium) 80 Mg Tab, 80 MG PO QHS, (Reported) Calcitriol (Calcitriol) 0.25 Mcg Capsule, 0.75 MCG PO QWEEK, (Reported) 0.75MCG ON SUNDAYS Clopidogrel Bisulfate (Plavix) 75 Mg Tab, 75 MG PO DAILY, (Reported) Cyanocobalamin (Vitamin B-12) (B-12) 1,000 Mcg Tablet, 1,000 MCG PO DAILY, (Reported) Dexlansoprazole (Dexilant) 30 Mg Rashid.bp, 30 MG PO DAILY, (Reported) Doxazosin Mesylate (Doxazosin Mesylate) 2 Mg Tablet, 2 MG PO DAILY, (Reported) Fluticasone/Vilanterol (Breo Ellipta 200-25 Mcg INH) 1 Each Blst.w.dev, 1 PUFF INH DAILY, (Reported) Gabapentin (Gabapentin) 100 Mg Cap, 100 MG PO QAM, (Reported) Gabapentin (Gabapentin) 100 Mg Capsule, 200 MG PO QHS, (Reported) Hydralazine HCl (Hydralazine HCl) 10 Mg Tablet, 10 MG PO Q6H Insulin Glargine,Hum.rec.anlog (Basaglar Kwikpen U-100) 100 Unit/1 Ml Insuln.pen, 30 UNITS SC QHS, (Reported) Metoclopramide HCl (Reglan) 10 Mg Tab, 10 MG PO TID, (Reported) Metoprolol Tartrate (Metoprolol Tartrate) 25 Mg Tablet, 25 MG PO BID, (Reported) Montelukast Sodium (Montelukast Sodium) 10 Mg Tablet, 10 MG PO QHS, (Reported) Pantoprazole Sodium (Pantoprazole Sodium) 40 Mg Tablet.dr, 40 MG PO QHS, (Reported) Paroxetine (Paroxetine HCl) 10 Mg Tablet, 10 MG PO QHS, (Reported) Scheduled PRN Albuterol Sulfate (Ventolin Hfa) 18 Gm Hfa.aer.ad, 2 PUFF INH Q4H PRN for WHEEZING, (Reported) Senna (Senna Lax) 8.6 Mg Tablet, 2 TAB PO DAILYPRN PRN for CONSTIPATION Miscellaneous Medications [Patient Comment] , (Reported) DISCUSSED MEDICATIONS OVER PHONE WITH SISTER - YASMIN Allergies Coded Allergies: piperacillin (Verified Allergy, Intermediate, hives/swelling, 10/27/18) tazobactam (Verified Allergy, Intermediate, hives/swelling, 10/27/18) AMINTA BLAIR DO Aug 02, 2020 14:29
--- NOTE | 2020-08-02 15:26 | IPN ---
NEPHROLOGY PROGRESS NOTE DATE: 08/02/20 SUBJECTIVE: Mr. Higgins is seen this morning on his bedside. He is feeling well and denies any abdominal pain, nausea or vomiting. He has no dyspnea or chest pain. He had abdominal pain and vomiting on admission. There was a suspicion for bowel ischemia and initially a mesenteric Doppler ultrasound was done which did show some evidence for mesenteric artery stenosis. Patient then had a CT angiogram done on July 31 which did show widespread vascular disease; however, no critical stenosis or ischemic bowel was noticed. He had acute renal failure on admission due to dehydration which improved with I.V. fluid hydration. I.V. fluid was stopped yesterday and his kidney function has remained stable following CT angiogram. Patient is tolerating his diet now very well. PHYSICAL EXAMINATION: Temperature 98.2 degrees Fahrenheit, heart rate 68 per minute and respiratory rate 18 per minute. Blood pressure 182/82 mmHg and oxygen saturation 98% on room air. Head: Atraumatic. Neck: Supple and without JVD or thyroid enlargement. Heart: Sounds are regular. Lungs: Clear to auscultation. Abdomen: Soft and nontender and bowel sounds are normal. Extremities: Without any cyanosis or clubbing. Neurologically: He is at his baseline mentation without any focal deficit. LABORATORY DATA: Today's labs show sodium 145, potassium 4, CO2 23, BUN 23, creatinine 2.94, glucose 76 and calcium 8.1. Hemoglobin 10.2 and hematocrit 31.4. PROBLEMS/PLAN: 1. Acute kidney injury superimposed on chronic kidney disease: Most likely this was caused by dehydration due to vomiting and has improved. Kidney function is now back to almost his prior baseline. Patient is tolerating his diet well and I.V. fluid has already been stopped. 2. Abdominal pain and recent vomiting: His symptoms have improved. He did have some evidence of decreased blood flow; however, no critical stenosis to his bowels and no evidence for ischemic bowel noted. He is tolerating his diet well. 3. Hypertension: Blood pressure is slightly high today. His medications have been adjusted and I will recommend to continue and discharge him on his home medications. He will follow up in my office within the next few days and further adjustments will be made as needed. 4. Disposition: From a renal standpoint patient can be discharged to home today and follow up in my office next week.
[2020-08-04] MEDS ORDERED: CALCITRIOL 0.25 MCG CAP (S0169) PO SCH (09:00)
== END 2020-08-02 11:48 | disposition home health service (06) | DRG 394 ==
LOC: M ED 10:35 → EDBD 10:35 → M ED INP 14:37 → M MSPAV 16:46
PROVIDERS: ADMIT Internal Medicine; ATTEND Internal Medicine
DX: K55.1 Chronic vascular disorders of intestine (principal); I16.1 Hypertensive emergency; E87.0 Hyperosmolality and hypernatremia; N17.9 Acute kidney failure, unspecified; N18.4 Chronic kidney disease, stage 4 (severe); N25.81 Secondary hyperparathyroidism of renal origin; I25.10 Atherosclerotic heart disease of native coronary artery without angina pectoris; E87.6 Hypokalemia; E11.22 Type 2 diabetes mellitus with diabetic chronic kidney disease; R68.0 Hypothermia, not associated with low environmental temperature; I25.2 Old myocardial infarction; D63.1 Anemia in chronic kidney disease; E11.43 Type 2 diabetes mellitus with diabetic autonomic (poly)neuropathy; F17.200 Nicotine dependence, unspecified, uncomplicated; K21.9 Gastro-esophageal reflux disease without esophagitis; E11.649 Type 2 diabetes mellitus with hypoglycemia without coma; F32.9 Major depressive disorder, single episode, unspecified; K31.84 Gastroparesis; I70.1 Atherosclerosis of renal artery; K59.00 Constipation, unspecified; R29.6 Repeated falls; Z79.82 Long term (current) use of aspirin; Z79.02 Long term (current) use of antithrombotics/antiplatelets; Z79.4 Long term (current) use of insulin; Z88.1 Allergy status to other antibiotic agents; Z20.822 Contact with and (suspected) exposure to COVID-19; Z86.73 Personal history of transient ischemic attack (TIA), and cerebral infarction without residual deficits; Z95.5 Presence of coronary angioplasty implant and graft; Z79.899 Other long term (current) drug therapy

== ENCOUNTER → 2020-09-12 | Outpatient (REF) | payer MEDICARE, MEDICAID ==
[~2020-09-12] MED LIST changes: -ASPIRIN ENTERIC 325 MG TAB PO SCH; +B-12100021 PO; +BREO1INH3 INH; +CALC1CAP31 PO; +CIPR500S PO; +CIPR500T39 PO; +DEXI30CA2 PO; +DOXA1TAB41 PO; +FAMO40TA3 PO; -FAMOTIDINE 20 MG TAB PO SCH; +FURO20TA2 PO; -FUROSEMIDE 20 MG TAB PO SCH; +HYDR10TAB PO; +METR-265 PO; +SENN18TA PO; +VENTAER INH; -VITA250T50 PO; +VITA250T7 PO; -gemfibroziL 600 MG TAB PO SCH
[2020-09-12 13:53] LABS: BASO # 0.1 10^3/uL (0.0-0.2); BASO % 0.8 % (0.0-1.0); EOS # 0.3 10^3/uL (0.0-0.5); EOS % 3.5 % (0.0-3.0); HEMATOCRIT 35.9 % (42.0-52.0); HEMOGLOBIN 11.5 g/dl (13.5-17.5); LYMPH # 1.9 10^3/uL (1.5-5.0); LYMPH % 21.6 % (24.0-44.0); MEAN CORPUSCULAR HEMOGLOBIN 30.4 pg (27.0-33.0); MONO # 0.6 10^3/uL (0.0-0.8); MONO % 7.2 % (2.0-8.0); NEUTROPHILS % 66.5 % (36.0-66.0); PLATELET COUNT, AUTOMATED 224 10^3/uL (150-450); RED BLOOD COUNT 3.78 10^6/uL (4.30-6.10); WHITE BLOOD COUNT 8.9 10^3/uL (4.0-10.0)
[2020-09-12 14:06] LABS: INR 1.02; PROTHROMBIN TIME 13.6 SECONDS (12.5-14.3)
[2020-09-12 14:07] LABS: PARTIAL THROMBOPLASTIN TIME 31.6 SECONDS (24.2-38.5)
[2020-09-12 14:38] LABS: CALCIUM LEVEL 8.5 MG/DL (8.8-10.2); CREATININE FOR GFR 3.24 MG/DL (0.70-1.30); GLOMERULAR FILTRATION RATE 20.7 (>49); POTASSIUM SERUM 4.6 MEQ/L (3.5-5.1)
== END ==
LOC: M SHH 13:14
PROVIDERS: ATTEND Surgery Vascular Surgery
DX: I70.221 Atherosclerosis of native arteries of extremities with rest pain, right leg (principal); D69.8 Other specified hemorrhagic conditions; Z01.818 Encounter for other preprocedural examination

== ENCOUNTER → 2020-09-25 | Outpatient (CLI) | payer MEDICARE, MEDICAID ==
[2020-09-25 17:08] LABS: BASO # 0.1 10^3/uL (0.0-0.2); BASO % 1.3 % (0.0-1.0); EOS # 0.3 10^3/uL (0.0-0.5); EOS % 3.9 % (0.0-3.0); HEMATOCRIT 34.2 % (42.0-52.0); HEMOGLOBIN 10.8 g/dl (13.5-17.5); LYMPH # 1.3 10^3/uL (1.5-5.0); LYMPH % 17.4 % (24.0-44.0); MEAN CORPUSCULAR HEMOGLOBIN 30.1 pg (27.0-33.0); MEAN CORPUSCULAR HGB CONC 31.6 g/dl (32.0-36.5); MEAN CORPUSCULAR VOLUME 95.3 fl (80.0-96.0); MONO # 0.6 10^3/uL (0.0-0.8); NEUTROPHILS # 5.2 10^3/uL (1.5-8.5); PLATELET COUNT, AUTOMATED 209 10^3/uL (150-450); RED BLOOD COUNT 3.59 10^6/uL (4.30-6.10); WHITE BLOOD COUNT 7.5 10^3/uL (4.0-10.0)
[2020-09-25 18:54] LABS: CREATININE FOR GFR 3.39 MG/DL (0.70-1.30); GLOMERULAR FILTRATION RATE 19.6 (>49); POTASSIUM SERUM 4.8 MEQ/L (3.5-5.1)
== END ==
LOC: M WUC 12:06
DX: R10.9 Unspecified abdominal pain (principal)

== ENCOUNTER → 2020-12-25 | Outpatient (CLI) | payer MEDICARE, MEDICAID ==
[~2020-12-25] MED LIST changes: +META0.52 PO
== END ==
LOC: M LABSMTC 09:47
PROVIDERS: ATTEND Anesthesiology
DX: Z01.812 Encounter for preprocedural laboratory examination (principal)

== ENCOUNTER 2020-12-30 07:26 | Day surgery (SDC) | payer MEDICARE, MEDICAID ==
[~2020-12-30] VITALS: Ht 170.2 cm; Wt 85.5 kg
[~2020-12-30 07:26] MED LIST changes: +NS 1,000 ML IV ONE
[2020-12-30] MEDS ORDERED: fentaNYL 100 MCG/2 ML INJECTION (J3010) As Ordered ONE (08:25)
[2020-12-30] MEDS ORDERED: LIDOCAINE 2% 100MG/5ML SDV (FOR ANES.) As Ordered ONE (08:25)
[2020-12-30] MEDS ORDERED: propofoL 200 MG/20 ML VIAL As Ordered ONE (08:25)
--- NOTE | 2020-12-30 08:51 | ROOR ---
Patient Name: Agustin Higgins Procedure Date: 12/30/2020 8:40 AM Date of : 1955 Age: 65 Room: [facility] Gender: Male Note Status: Finalized Procedure: Upper GI endoscopy Indications: Epigastric abdominal pain, Nausea with vomiting Providers: Cj Stephens MD Referring MD: JUSTIN Salcido Requesting Provider: Medicines: Monitored Anesthesia Care Complications: No immediate complications. Procedure: Pre-Anesthesia Assessment: - The heart rate, respiratory rate, oxygen saturations, blood pressure, adequacy of pulmonary ventilation, and response to care were monitored throughout the procedure. The Endoscope was introduced through the mouth, and advanced to the second part of duodenum. The upper GI endoscopy was accomplished without difficulty. The patient tolerated the procedure well. Findings: The Z-line was irregular and was found 40 cm from the incisors. A medium amount of food (residue) was found on the greater curvature of the stomach. The exam of the duodenum was otherwise normal. Impression: - Z-line irregular, 40 cm from the incisors. - A medium amount of food (residue) in the stomach. - No specimens collected. - The examination was otherwise normal. Recommendation: - Patient has a contact number available for emergencies. The signs and symptoms of potential delayed complications were discussed with the patient. Return to normal activities tomorrow. Written discharge instructions were provided to the patient. - Resume previous diet. - Discharge patient to home. - Follow an antireflux regimen. - Continue present medications. - Return to referring physician. - The findings and recommendations were discussed with the patient's family. Procedure Code(s): --- Professional --- 27033, Esophagogastroduodenoscopy, flexible, transoral; diagnostic, including collection of specimen(s) by brushing or washing, when performed (separate procedure) Diagnosis Code(s): --- Professional --- K22.8, Other specified diseases of esophagus R10.13, Epigastric pain R11.2, Nausea with vomiting, unspecified CPT copyright 2019 [employer]. All rights reserved. The codes documented in this report are preliminary and upon low altitude air defense gunner review may be revised to meet current compliance requirements. Cj Stephens MD Cj Stephens MD 12/30/2020 8:50:43 AM Electronically signed by Cj Stephens MD Number of Addenda: 0 Note Initiated On: 12/30/2020 8:40 AM Estimated Blood Loss: Estimated blood loss: none.
[2020-12-30 09:24] VITALS: BP 184/82
== END 2020-12-30 09:26 | disposition home or self-care (01) ==
LOC: M OPP 07:26
PROVIDERS: ATTEND Internal Medicine Gastroenterology
DX: K22.8 Other specified diseases of esophagus (principal); R10.13 Epigastric pain; R11.2 Nausea with vomiting, unspecified; Z79.82 Long term (current) use of aspirin; Z79.899 Other long term (current) drug therapy; Z95.0 Presence of cardiac pacemaker; E11.43 Type 2 diabetes mellitus with diabetic autonomic (poly)neuropathy; K31.84 Gastroparesis; F17.210 Nicotine dependence, cigarettes, uncomplicated
CPT/HCPCS: 43235; J3010

== ENCOUNTER 2021-06-08 13:10 | Emergency (ER) | payer MEDICARE, MEDICAID ==
[~2021-06-08] VITALS: Ht 170.2 cm; Wt 89.5 kg
[~2021-06-08 13:10] MED LIST changes: +LOSA50TA28 PO; -LOSA50TA88 PO; -MONT10TA10 PO; +MONT10TA97 PO; -NS 1,000 ML IV ONE; +ONDA-84 SL; -ONDA8TAB10 SL
[2021-06-08 14:44] LABS: BASO # 0.1 10^3/uL (0.0-0.2); BASO % 0.8 % (0.0-1.0); EOS # 0.4 10^3/uL (0.0-0.5); EOS % 4.3 % (0.0-3.0); HEMATOCRIT 37.6 % (42.0-52.0); HEMOGLOBIN 12.4 g/dl (13.5-17.5); LYMPH # 1.6 10^3/uL (1.5-5.0); LYMPH % 18.4 % (24.0-44.0); MEAN CORPUSCULAR HEMOGLOBIN 29.5 pg (27.0-33.0); MEAN CORPUSCULAR VOLUME 89.5 fl (80.0-96.0); MONO # 0.8 10^3/uL (0.0-0.8); MONO % 8.9 % (2.0-8.0); NEUTROPHILS # 5.7 10^3/uL (1.5-8.5); NEUTROPHILS % 67.4 % (36.0-66.0); PLATELET COUNT, AUTOMATED 183 10^3/uL (150-450); WHITE BLOOD COUNT 8.5 10^3/uL (4.0-10.0)
[2021-06-08 14:55] LABS: INR 1.09; PARTIAL THROMBOPLASTIN TIME 32.4 SECONDS (25.9-37.0); PROTHROMBIN TIME 14.6 SECONDS (12.7-14.5)
[2021-06-08 15:02] LABS: CALCIUM LEVEL 8.8 MG/DL (8.8-10.2); CREATININE FOR GFR 4.35 MG/DL (0.70-1.30); GLOMERULAR FILTRATION RATE 14.7 (>49); POTASSIUM SERUM 4.4 MEQ/L (3.5-5.1)
[2021-06-08 15:17] LABS: RSV AMPLIFICATION NEGATIVE (NEGATIVE)
[2021-06-08] MEDS ORDERED: NORCO 5/325MG TABLET (BULK FOR ED) PO ONE (16:10)
[2021-06-08 17:16] VITALS: BP 146/84
== END 2021-06-08 17:20 | disposition home or self-care (01) ==
LOC: M ED 13:10
DX: T82.49XA Other complication of vascular dialysis catheter, initial encounter (principal); Y92.89 Other specified places as the place of occurrence of the external cause; E11.9 Type 2 diabetes mellitus without complications; I12.9 Hypertensive chronic kidney disease with stage 1 through stage 4 chronic kidney disease, or unspecified chronic kidney disease; N18.4 Chronic kidney disease, stage 4 (severe); E78.5 Hyperlipidemia, unspecified; I25.10 Atherosclerotic heart disease of native coronary artery without angina pectoris; F33.9 Major depressive disorder, recurrent, unspecified; K21.9 Gastro-esophageal reflux disease without esophagitis; Z86.73 Personal history of transient ischemic attack (TIA), and cerebral infarction without residual deficits; Z79.899 Other long term (current) drug therapy; Z79.82 Long term (current) use of aspirin; Z79.4 Long term (current) use of insulin; Z79.01 Long term (current) use of anticoagulants; Z88.0 Allergy status to penicillin; Z88.2 Allergy status to sulfonamides; Z88.8 Allergy status to other drugs, medicaments and biological substances

== ENCOUNTER 2021-10-12 17:53 | Emergency (ER) | payer MEDICARE, MEDICAID ==
[~2021-10-12] VITALS: Ht 170.2 cm; Wt 86.4 kg
[~2021-10-12 17:53] MED LIST changes: -ASPI-286 PO; +SM C81CH2 PO
[2021-10-12 17:55] VITALS: BP 150/68
[2021-10-12 21:17] LABS: BASO # 0.1 10^3/uL (0.0-0.2); BASO % 0.7 % (0.0-1.0); EOS # 0.2 10^3/uL (0.0-0.5); EOS % 2.4 % (0.0-3.0); HEMATOCRIT 38.3 % (42.0-52.0); HEMOGLOBIN 12.8 g/dl (13.5-17.5); LYMPH # 1.2 10^3/uL (1.5-5.0); LYMPH % 14.1 % (24.0-44.0); MEAN CORPUSCULAR HEMOGLOBIN 29.7 pg (27.0-33.0); MEAN CORPUSCULAR HGB CONC 33.4 g/dl (32.0-36.5); MEAN CORPUSCULAR VOLUME 88.9 fl (80.0-96.0); MONO # 0.5 10^3/uL (0.0-0.8); MONO % 5.4 % (2.0-8.0); NEUTROPHILS # 6.7 10^3/uL (1.5-8.5); NEUTROPHILS % 77.1 % (36.0-66.0); PLATELET COUNT, AUTOMATED 251 10^3/uL (150-450); RED BLOOD COUNT 4.31 10^6/uL (4.30-6.10); WHITE BLOOD COUNT 8.7 10^3/uL (4.0-10.0)
[2021-10-12 21:40] LABS: ALBUMIN 3.4 GM/DL (3.2-5.2); BILIRUBIN,DIRECT 0.2 MG/DL (0.0-0.2); BILIRUBIN,TOTAL 0.4 MG/DL (0.2-1.0); TOTAL PROTEIN 7.8 GM/DL (6.4-8.2)
== END 2021-10-12 23:50 | disposition left against medical advice (07) ==
LOC: M ED 17:53
DX: R22.2 Localized swelling, mass and lump, trunk (principal); E11.40 Type 2 diabetes mellitus with diabetic neuropathy, unspecified; I11.0 Hypertensive heart disease with heart failure; I50.9 Heart failure, unspecified; N18.4 Chronic kidney disease, stage 4 (severe); I25.2 Old myocardial infarction; F33.9 Major depressive disorder, recurrent, unspecified; E78.5 Hyperlipidemia, unspecified; K21.9 Gastro-esophageal reflux disease without esophagitis; H54.8 Legal blindness, as defined in USA; Z86.73 Personal history of transient ischemic attack (TIA), and cerebral infarction without residual deficits; Z87.19 Personal history of other diseases of the digestive system; Z79.899 Other long term (current) drug therapy; Z79.82 Long term (current) use of aspirin; Z79.4 Long term (current) use of insulin; Z79.01 Long term (current) use of anticoagulants; Z88.0 Allergy status to penicillin; Z88.1 Allergy status to other antibiotic agents; Z88.2 Allergy status to sulfonamides; Z88.8 Allergy status to other drugs, medicaments and biological substances; F17.210 Nicotine dependence, cigarettes, uncomplicated

== ENCOUNTER → 2021-12-03 | Outpatient (CLI) | payer MEDICAID, MEDICARE | LOC: M PLAIMG 08:31 | PROVIDERS: ATTEND Family Medicine | DX: S72.002A Fracture of unspecified part of neck of left femur, initial encounter for closed fracture (principal) ==

== ENCOUNTER 2022-02-11 09:54 | Inpatient (IN) | payer MEDICARE ==
[~2022-02-11] VITALS: Ht 170.2 cm; Wt 88.3 kg
[2022-02-11 12:13] LABS: BASO # 0.1 10^3/uL (0.0-0.2); BASO % 1.1 % (0.0-1.0); EOS # 0.3 10^3/uL (0.0-0.5); EOS % 3.5 % (0.0-3.0); HEMATOCRIT 34.4 % (42.0-52.0); HEMOGLOBIN 11.5 g/dl (13.5-17.5); LYMPH # 1.6 10^3/uL (1.5-5.0); LYMPH % 21.8 % (24.0-44.0); MEAN CORPUSCULAR HGB CONC 33.4 g/dl (32.0-36.5); MEAN CORPUSCULAR VOLUME 89.8 fl (80.0-96.0); MONO # 0.7 10^3/uL (0.0-0.8); NEUTROPHILS # 4.6 10^3/uL (1.5-8.5); NEUTROPHILS % 63.3 % (36.0-66.0); PLATELET COUNT, AUTOMATED 164 10^3/uL (150-450); RED BLOOD COUNT 3.83 10^6/uL (4.30-6.10); WHITE BLOOD COUNT 7.2 10^3/uL (4.0-10.0)
[2022-02-11 12:44] LABS: CALCIUM LEVEL 8.8 MG/DL (8.8-10.2); CREATININE FOR GFR 4.57 MG/DL (0.70-1.30); GLOMERULAR FILTRATION RATE 13.9 (>49); POTASSIUM SERUM 4.4 MEQ/L (3.5-5.1)
[2022-02-11 13:02] LABS: RSV AMPLIFICATION NEGATIVE (NEGATIVE)
[2022-02-11 13:27] LABS: CK-MB VALUE MASS 3.6 NG/ML (<3.6); MB/CK RELATIVE INDEX 1.74 (< OR =4)
[2022-02-11] MEDS ORDERED: OMEP40CA4 PO (13:54)
[2022-02-11] MEDS ORDERED: NORT10CA2 PO (13:54)
[2022-02-11] MEDS ORDERED: GABA-282 PO (13:54)
[2022-02-11] MEDS ORDERED: FURO40TA2 PO (13:54)
[2022-02-11] MEDS ORDERED: AMLO1TAB25 PO (13:54)
[2022-02-11] MEDS ORDERED: HOME MED LIST COMPLETE! XX SCH (14:00)
[2022-02-11] MEDS ORDERED: ALBUTEROL 90 MCG/ACT 8GM HFA INHALER INH PRN (14:40)
[2022-02-11] MEDS ORDERED: DEXTROSE 50% 50 ML SYRINGE IV PRN (15:00)
[2022-02-11] MEDS ORDERED: GLUCAGON INJ 1MG VIAL SC PRN (15:00)
[2022-02-11] MEDS ORDERED: GLUCOSE 4GM CHEW TABLET PO PRN (15:00)
[2022-02-11] MEDS: FUROSEMIDE 40MG/4ML VIAL (J1940) IV SCH ×2 (15:36→21:15)
[2022-02-11] MEDS: INSULIN LISPRO (NovoLOG) PER UNIT SC SCH ×2 (18:28→21:00)
[2022-02-11] MEDS: HEPARIN SOD (PORCINE) 5000UNITS/ML 1ML VIAL/SYRINGE SQ SCH ×2 (18:58→21:15)
[2022-02-11] MEDS: SYMBICORT 160/4.5MCG INHALER 6GM INH SCH (20:00)
[2022-02-11 20:40] VITALS: BP 164/90
[2022-02-11] MEDS: LEVEMIR (INSULIN DETEMIR) 1 UNITS/0.01ML SC SCH (21:15)
[2022-02-11] MEDS: GABAPENTIN 300 MG CAP PO SCH (21:16)
[2022-02-11] MEDS: OMEPRAZOLE 20MG CAP PO SCH (21:16)
[2022-02-11] MEDS: ATORVASTATIN 20 MG TAB PO SCH (21:16)
[2022-02-11] MEDS: METOPROLOL TART 25 MG TABLET PO SCH (21:16)
[2022-02-11] MEDS: MONTELUKAST 10 MG TAB PO SCH (21:16)
[2022-02-12] VITALS (7 sets, daily range): BP systolic 130–170; BP diastolic 67–90
[2022-02-12] MEDS: NORTRIPTYLINE 10 MG CAP PO SCH ×2 (01:19→20:52)
[2022-02-12] MEDS: DOXAZOSIN MESYLATE 1 MG TAB PO SCH ×2 (01:20→20:51)
[2022-02-12] MEDS: PARoxetine 10MG TABLET PO SCH ×2 (01:20→20:52)
[2022-02-12 05:43] LABS: HEMATOCRIT 36.4 % (42.0-52.0); MEAN CORPUSCULAR HEMOGLOBIN 29.9 pg (27.0-33.0); MEAN CORPUSCULAR VOLUME 90.8 fl (80.0-96.0); PLATELET COUNT, AUTOMATED 174 10^3/uL (150-450); RED BLOOD COUNT 4.01 10^6/uL (4.30-6.10)
[2022-02-12 06:42] LABS: CALCIUM LEVEL 9.1 MG/DL (8.8-10.2); CREATININE FOR GFR 4.5 MG/DL (0.70-1.30); GLOMERULAR FILTRATION RATE 14.1 (>49)
[2022-02-12] MEDS: INSULIN LISPRO (NovoLOG) PER UNIT SC SCH ×4 (07:30→20:52)
[2022-02-12] MEDS: SYMBICORT 160/4.5MCG INHALER 6GM INH SCH ×2 (08:00→19:38)
[2022-02-12] MEDS: HEPARIN SOD (PORCINE) 5000UNITS/ML 1ML VIAL/SYRINGE SQ SCH ×3 (08:50→20:49)
[2022-02-12] MEDS: FUROSEMIDE 40MG/4ML VIAL (J1940) IV SCH ×2 (08:50→20:50)
[2022-02-12] MEDS: ASPIRIN ENTERIC 325 MG TAB PO SCH (08:57)
[2022-02-12] MEDS: OMEPRAZOLE 20MG CAP PO SCH ×2 (08:57→20:49)
[2022-02-12] MEDS: CLOPIDOGREL 75 MG TAB PO SCH (08:58)
[2022-02-12] MEDS: METOPROLOL TART 25 MG TABLET PO SCH ×2 (08:58→20:51)
[2022-02-12] MEDS: GABAPENTIN 300 MG CAP PO SCH ×2 (08:58→20:50)
[2022-02-12] MEDS: NIFEdipine 30 MG XL TAB PO SCH (11:40)
[2022-02-12] MEDS: LEVEMIR (INSULIN DETEMIR) 1 UNITS/0.01ML SC SCH (20:49)
[2022-02-12] MEDS: ATORVASTATIN 20 MG TAB PO SCH (20:50)
[2022-02-12] MEDS: MONTELUKAST 10 MG TAB PO SCH (20:50)
[2022-02-13 00:27] VITALS: BP 166/72
[2022-02-13 04:49] VITALS: BP 151/61
[2022-02-13 06:52] LABS: CREATININE FOR GFR 4.73 MG/DL (0.70-1.30); GLOMERULAR FILTRATION RATE 13.3 (>49); POTASSIUM SERUM 4.1 MEQ/L (3.5-5.1)
[2022-02-13 07:38] VITALS: BP 151/70
[2022-02-13] MEDS: INSULIN LISPRO (NovoLOG) PER UNIT SC SCH ×2 (07:38→12:30)
[2022-02-13] MEDS: SYMBICORT 160/4.5MCG INHALER 6GM INH SCH (07:46)
[2022-02-13] MEDS: OMEPRAZOLE 20MG CAP PO SCH (08:30)
[2022-02-13] MEDS: ASPIRIN ENTERIC 325 MG TAB PO SCH (08:30)
[2022-02-13] MEDS: HEPARIN SOD (PORCINE) 5000UNITS/ML 1ML VIAL/SYRINGE SQ SCH (08:30)
[2022-02-13] MEDS: FUROSEMIDE 40MG/4ML VIAL (J1940) IV SCH (08:30)
[2022-02-13 08:31] VITALS: BP 151/70
[2022-02-13] MEDS: METOPROLOL TART 25 MG TABLET PO SCH (08:31)
[2022-02-13] MEDS: CLOPIDOGREL 75 MG TAB PO SCH (08:31)
[2022-02-13] MEDS: NIFEdipine 30 MG XL TAB PO SCH (08:31)
[2022-02-13] MEDS: GABAPENTIN 300 MG CAP PO SCH (08:31)
[2022-02-13] MEDS ORDERED: PILL CUTTER 1 EACH XX PRN (09:05)
[2022-02-13 12:00] VITALS: BP 138/65
[2022-02-13] MEDS ORDERED: LASI80TA3 PO (12:35)
[2022-02-13] MEDS ORDERED: NIFE1TAB52 PO (12:35)
[2022-02-13] MEDS ORDERED: LASI40TA9 PO (12:46)
[2022-02-13] MEDS ORDERED: DOXAZOSIN MESYLATE 4 MG TAB PO SCH (21:00)
== END 2022-02-13 13:12 | disposition home or self-care (01) | DRG 683 ==
LOC: M ED 09:54 → M ED INP 14:29 → ENRESERV 19:26 → M PCU 20:30
PROVIDERS: ADMIT Internal Medicine; ATTEND Internal Medicine
DX: N17.9 Acute kidney failure, unspecified (principal); K55.1 Chronic vascular disorders of intestine; I13.0 Hypertensive heart and chronic kidney disease with heart failure and stage 1 through stage 4 chronic kidney disease, or unspecified chronic kidney disease; N18.4 Chronic kidney disease, stage 4 (severe); I25.10 Atherosclerotic heart disease of native coronary artery without angina pectoris; E11.22 Type 2 diabetes mellitus with diabetic chronic kidney disease; E11.65 Type 2 diabetes mellitus with hyperglycemia; F17.200 Nicotine dependence, unspecified, uncomplicated; J44.9 Chronic obstructive pulmonary disease, unspecified; E11.51 Type 2 diabetes mellitus with diabetic peripheral angiopathy without gangrene; Z66 Do not resuscitate; N25.81 Secondary hyperparathyroidism of renal origin; D64.9 Anemia, unspecified; R60.0 Localized edema; I50.9 Heart failure, unspecified; Z86.73 Personal history of transient ischemic attack (TIA), and cerebral infarction without residual deficits; Z79.82 Long term (current) use of aspirin; Z88.2 Allergy status to sulfonamides; Z79.4 Long term (current) use of insulin; Z79.899 Other long term (current) drug therapy; Z88.8 Allergy status to other drugs, medicaments and biological substances; Z95.5 Presence of coronary angioplasty implant and graft

== ENCOUNTER 2022-04-23 21:54 | Emergency (ER) | payer MEDICARE ==
[~2022-04-23] VITALS: Ht 175.3 cm; Wt 71.6 kg
[~2022-04-23 21:54] MED LIST changes: +CLOP75TA99 PO; +LASI40TA9 PO; +LASI80TA3 PO; +NIFE1TAB52 PO; +NORT10CA2 PO; +OMEP40CA4 PO; -PLAV1TAB2 PO
[2022-04-23 22:03] VITALS: BP 132/73
[2022-04-23 23:41] LABS: BASO # 0.1 10^3/uL (0.0-0.2); BASO % 1.1 % (0.0-1.0); EOS # 0.2 10^3/uL (0.0-0.5); EOS % 2.6 % (0.0-3.0); HEMATOCRIT 39.1 % (42.0-52.0); HEMOGLOBIN 12.6 g/dl (13.5-17.5); LYMPH # 1.4 10^3/uL (1.5-5.0); LYMPH % 22.2 % (24.0-44.0); MEAN CORPUSCULAR HEMOGLOBIN 29.1 pg (27.0-33.0); MEAN CORPUSCULAR HGB CONC 32.2 g/dl (32.0-36.5); MEAN CORPUSCULAR VOLUME 90.3 fl (80.0-96.0); MONO # 0.6 10^3/uL (0.0-0.8); MONO % 9.6 % (2.0-8.0); NEUTROPHILS % 64.2 % (36.0-66.0); PLATELET COUNT, AUTOMATED 224 10^3/uL (150-450); RED BLOOD COUNT 4.33 10^6/uL (4.30-6.10); WHITE BLOOD COUNT 6.3 10^3/uL (4.0-10.0)
[2022-04-24 00:35] LABS: ALBUMIN 2.9 GM/DL (3.2-5.2); BILIRUBIN,DIRECT 0.1 MG/DL (0.0-0.2); BILIRUBIN,TOTAL 0.3 MG/DL (0.2-1.0); CALCIUM LEVEL 9.1 MG/DL (8.8-10.2); CREATININE FOR GFR 4.92 MG/DL (0.70-1.30); GLOMERULAR FILTRATION RATE 12.7 (>49); POTASSIUM SERUM 4.7 MEQ/L (3.5-5.1); TOTAL PROTEIN 6.7 GM/DL (6.4-8.2)
[2022-04-24] MEDS ORDERED: NS 1,000 ML IV ONE (01:25)
[2022-04-24 01:29] LABS: APPEARANCE, URINE MANUAL CLEAR (CLEAR); COLOR, URINE MANUAL YELLOW (YELLOW); PROTEIN, URINE MANUAL 3+ mg/dL (NEGATIVE)
[2022-04-24 01:30] LABS: BILIRUBIN, URINE MANUAL NEGATIVE (NEGATIVE); BLOOD URINE MANUAL POSITIVE (NEGATIVE); GLUCOSE, URINE (UA) MANUAL 2+(250 MG/DL) mg/dL (NEGATIVE); KETONE, URINE MANUAL NEGATIVE (NEGATIVE); LEUKOCYTE ESTERASE, URINE MAN NEGATIVE (NEGATIVE); NITRITE, URINE MANUAL NEGATIVE (NEGATIVE); UROBILINOGEN, URINE MANUAL NORMAL (NORMAL)
[2022-04-24] MEDS ORDERED: MORPHINE 4 MG/ML 1ML VIAL/SYRINGE IV ONE (01:30)
[2022-04-24] MEDS ORDERED: ONDANSETRON 4MG 2ML VIAL IV ONE (01:30)
[2022-04-24 01:38] LABS: BACTERIA, URINE NONE SEEN; HYALINE CAST, URINE NONE SEEN /lpf (0-1); SQUAMOUS EPITHELIAL CELL URINE SMALL AMOUNT /hpf (SMALL AMT); WBC, URINE NONE SEEN /hpf (0-3)
[2022-04-24] MEDS ORDERED: BENZONATATE 100MG CAPSULE PO ONE (01:50)
[2022-04-24] MEDS ORDERED: BENZ200C70 PO (03:06)
== END 2022-04-24 03:36 | disposition home or self-care (01) ==
LOC: M ED 21:54 → EDBD 21:54 → M ED 04-24 03:36
DX: U07.1 COVID-19 (principal); R10.9 Unspecified abdominal pain; R05.9 Cough, unspecified; I25.2 Old myocardial infarction; E11.40 Type 2 diabetes mellitus with diabetic neuropathy, unspecified; I10 Essential (primary) hypertension; E78.5 Hyperlipidemia, unspecified; Z86.73 Personal history of transient ischemic attack (TIA), and cerebral infarction without residual deficits; K21.9 Gastro-esophageal reflux disease without esophagitis; Z87.01 Personal history of pneumonia (recurrent); N18.4 Chronic kidney disease, stage 4 (severe); M54.9 Dorsalgia, unspecified; F32.9 Major depressive disorder, single episode, unspecified; Z95.5 Presence of coronary angioplasty implant and graft; F17.200 Nicotine dependence, unspecified, uncomplicated; Z87.19 Personal history of other diseases of the digestive system; Z79.82 Long term (current) use of aspirin; Z79.4 Long term (current) use of insulin; Z79.899 Other long term (current) drug therapy; Z88.2 Allergy status to sulfonamides; Z88.8 Allergy status to other drugs, medicaments and biological substances
CPT/HCPCS: 71046; 74176; 80048; 80076; 81000; 83690; 85025; 87486; 87581; 87633; 87798; 87880; 96361; 96374; 96375; 99284; J2270; J2405

== ENCOUNTER 2022-10-21 12:47 | Observation (INO) | payer MEDICARE ==
[~2022-10-21] VITALS: Ht 170.2 cm; Wt 80.6 kg
[~2022-10-21 12:47] MED LIST changes: +BENZ200C70 PO; -COZA50TA PO; +LOSA-528 PO; -PAXI20TA29 PO; +PAXI20TA30 PO
[2022-10-21 13:46] LABS: BASO # 0.1 10^3/uL (0.0-0.2); BASO % 0.7 % (0.0-1.0); EOS # 0.5 10^3/uL (0.0-0.5); HEMATOCRIT 35.1 % (42.0-52.0); HEMOGLOBIN 11.4 g/dl (13.5-17.5); LYMPH # 1.1 10^3/uL (1.5-5.0); LYMPH % 8.8 % (24.0-44.0); MEAN CORPUSCULAR HEMOGLOBIN 29.9 pg (27.0-33.0); MEAN CORPUSCULAR HGB CONC 32.5 g/dl (32.0-36.5); MEAN CORPUSCULAR VOLUME 92.1 fl (80.0-96.0); MONO % 7.6 % (2.0-8.0); NEUTROPHILS # 9.9 10^3/uL (1.5-8.5); NEUTROPHILS % 78.4 % (36.0-66.0); PLATELET COUNT, AUTOMATED 189 10^3/uL (150-450); RED BLOOD COUNT 3.81 10^6/uL (4.30-6.10); WHITE BLOOD COUNT 12.7 10^3/uL (4.0-10.0)
[2022-10-21 14:00] LABS: INR 0.95; PROTHROMBIN TIME 12.9 SECONDS (12.5-14.5)
[2022-10-21 14:01] LABS: PARTIAL THROMBOPLASTIN TIME 29.1 SECONDS (24.8-34.2)
[2022-10-21 14:34] LABS: ALBUMIN 3.1 G/DL (3.2-5.2); ALKALINE PHOSPHATASE 128 U/L (46-116); ALT/SGPT 18 U/L (7.0-40); AST/SGOT 22 U/L (<34); BILIRUBIN,DIRECT < 0.1 MG/DL (<0.4); BILIRUBIN,TOTAL 0.2 MG/DL (0.3-1.2); BLOOD UREA NITROGEN 52 MG/DL (9-23); CALCIUM LEVEL 8.4 MG/DL (8.3-10.6); CARBON DIOXIDE LEVEL 23 MMOL/L (20-31); CHLORIDE LEVEL 104 MMOL/L (98-107); CREATININE FOR GFR 4.47 MG/DL (0.70-1.30); ETHYL ALCOHOL (ETHANOL) 0.007 % (0.000-0.010); GLOMERULAR FILTRATION RATE 14.2 (>49); GLUCOSE, FASTING 167 MG/DL (74-106); POTASSIUM SERUM 5.3 MMOL/L (3.5-5.1); SODIUM LEVEL 136 MMOL/L (136-145); TOTAL PROTEIN 6.4 G/DL (5.7-8.2)
[2022-10-21 14:49] LABS: RSV AMPLIFICATION NEGATIVE (NEGATIVE)
[2022-10-21] MEDS ORDERED: ACETAMINOPHEN 500 MG TAB PO ONE (15:30)
[2022-10-21] MEDS ORDERED: MORPHINE 2 MG/ML 1ML VIAL IV ONE (17:50)
[2022-10-21] MEDS ORDERED: DEXTROSE 50% 50ML SYRINGE IV PRN (18:15)
[2022-10-21] MEDS ORDERED: GLUCOSE 4GM CHEW TABLET PO PRN (18:15)
[2022-10-21] MEDS ORDERED: GLUCAGON INJ 1MG VIAL SC PRN (18:15)
[2022-10-21] MEDS ORDERED: hydrALAZINE 20MG/ML 1ML VIAL IV PRN (18:15)
[2022-10-21] MEDS ORDERED: MORPHINE 2 MG/ML 1ML VIAL IV PRN (18:15)
[2022-10-21] MEDS ORDERED: GABA-1171 PO (18:41)
[2022-10-21] MEDS ORDERED: FURO40TA2 PO (18:41)
[2022-10-21] MEDS ORDERED: NIFE30TA50 PO (18:41)
[2022-10-21] MEDS ORDERED: METO5TAB2 PO (18:43)
[2022-10-21] MEDS ORDERED: HOME MED LIST COMPLETE! XX SCH (18:50)
[2022-10-21 20:14] LABS: AMPHETAMINES LEVEL URINE NEGATIVE (NEGATIVE); BENZODIAZEPINES URINE NEGATIVE (NEGATIVE); PHENCYCLIDINE URINE NEGATIVE (NEGATIVE)
[2022-10-21 20:15] LABS: BARBITURATES URINE NEGATIVE (NEGATIVE); CANNABINOIDS URINE NEGATIVE (NEGATIVE); COCAINE METABOLITE URINE NEGATIVE (NEGATIVE); METHADONE URINE NEGATIVE (NEGATIVE); OPIATES URINE NEGATIVE (NEGATIVE)
[2022-10-21] MEDS: INSULIN LISPRO (NovoLOG) PER UNIT SC SCH (21:00)
[2022-10-21] MEDS: oxyCODONE 5MG TAB PO PRN (21:09)
[2022-10-21 21:12] LABS: CREATININE FOR GFR 4.5 MG/DL (0.70-1.30); GLOMERULAR FILTRATION RATE 14.1 (>49)
[2022-10-21] MEDS ORDERED: ALBUTEROL 90 MCG/ACT 8GM HFA INHALER INH PRN (23:35)
[2022-10-21] MEDS ORDERED: METAMUCIL (PSYLLIUM) PACKET PO PRN (23:35)
[2022-10-22 06:19] LABS: HEMATOCRIT 35.8 % (42.0-52.0); HEMOGLOBIN 11.6 g/dl (13.5-17.5); MEAN CORPUSCULAR HEMOGLOBIN 30.1 pg (27.0-33.0); MEAN CORPUSCULAR HGB CONC 32.4 g/dl (32.0-36.5); PLATELET COUNT, AUTOMATED 169 10^3/uL (150-450); RED BLOOD COUNT 3.85 10^6/uL (4.30-6.10)
[2022-10-22 06:51] LABS: BILIRUBIN,TOTAL 0.3 MG/DL (0.3-1.2); CALCIUM LEVEL 8.8 MG/DL (8.3-10.6); CREATININE FOR GFR 4.51 MG/DL (0.70-1.30); POTASSIUM SERUM 4.5 MMOL/L (3.5-5.1); TOTAL PROTEIN 6.5 G/DL (5.7-8.2)
[2022-10-22] MEDS ORDERED: NIFEdipine 30MG XL TAB PO SCH (09:00)
[2022-10-22] MEDS: FUROSEMIDE 40 MG TAB PO SCH ×2 (09:24→17:53)
[2022-10-22] MEDS: oxyCODONE 5MG TAB PO PRN (09:24)
[2022-10-22] MEDS: CLOPIDOGREL 75 MG TAB PO SCH (09:24)
[2022-10-22] MEDS: METOPROLOL TART 25 MG TABLET PO SCH (09:24)
[2022-10-22] MEDS: ASPIRIN ENTERIC 325MG TAB PO SCH (09:24)
[2022-10-22] MEDS: OMEPRAZOLE 20MG CAP PO SCH ×2 (09:24→20:10)
[2022-10-22] MEDS: GABAPENTIN 100 MG CAP PO SCH (09:24)
[2022-10-22] MEDS: LEVEMIR (INSULIN DETEMIR) 1 UNITS/0.01ML SC SCH (09:25)
[2022-10-22] MEDS: METOCLOPRAMIDE 5 MG TAB PO SCH (09:25)
[2022-10-22] MEDS: INSULIN LISPRO (NovoLOG) PER UNIT SC SCH ×4 (09:26→20:17)
[2022-10-22 11:35] VITALS: BP 188/85
[2022-10-22] MEDS ORDERED: NIFEdipine 30MG XL TAB PO STA (11:57)
[2022-10-22] MEDS: ACETAMINOPHEN TAB 650MG DOSE (2X325MG) PO PRN (13:18)
[2022-10-22 16:00] VITALS: BP 159/72
[2022-10-22 19:56] VITALS: BP 125/60
[2022-10-22] MEDS: guaiFENesin SYRUP 200MG 10ML UDC PO SCH ×2 (19:56→23:56)
[2022-10-22] MEDS: ATORVASTATIN 20 MG TAB PO SCH (20:09)
[2022-10-22] MEDS: NORTRIPTYLINE 10 MG CAP PO SCH (20:09)
[2022-10-22] MEDS: DOXAZOSIN MESYLATE 1 MG TAB PO SCH (20:09)
[2022-10-22] MEDS: HEPARIN SOD (PORCINE) 5000UNITS/ML 1ML VIAL/SYRINGE SQ SCH (20:10)
[2022-10-22] MEDS: MONTELUKAST 10 MG TAB PO SCH (20:10)
[2022-10-22] MEDS ORDERED: LevoFLOXacin 500 MG TABLET PO ONE (20:10)
[2022-10-22] MEDS: PARoxetine 10MG TABLET PO SCH (20:17)
[2022-10-22] MEDS: IPRATROPIUM 0.5MG/ALBUTEROL 2.5MG INH SOL UD 3ML (DUONEB) NEB SCH (20:58)
[2022-10-22] MEDS ORDERED: LevoFLOXacin 750 MG TABLET PO ONE (21:00)
[2022-10-23] MEDS: IPRATROPIUM 0.5MG/ALBUTEROL 2.5MG INH SOL UD 3ML (DUONEB) NEB SCH ×4 (02:23→19:49)
[2022-10-23 04:24] VITALS: BP 138/72
[2022-10-23] MEDS: guaiFENesin SYRUP 200MG 10ML UDC PO SCH ×4 (06:21→20:41)
[2022-10-23] MEDS: INSULIN LISPRO (NovoLOG) PER UNIT SC SCH ×4 (07:30→20:33)
[2022-10-23 07:46] LABS: BASO % 0.4 % (0.0-1.0); EOS # 0.1 10^3/uL (0.0-0.5); EOS % 0.8 % (0.0-3.0); HEMATOCRIT 32.6 % (42.0-52.0); HEMOGLOBIN 10.6 g/dl (13.5-17.5); LYMPH # 0.9 10^3/uL (1.5-5.0); MEAN CORPUSCULAR HEMOGLOBIN 29.9 pg (27.0-33.0); MEAN CORPUSCULAR HGB CONC 32.5 g/dl (32.0-36.5); MEAN CORPUSCULAR VOLUME 92.1 fl (80.0-96.0); MONO # 0.7 10^3/uL (0.0-0.8); MONO % 6.7 % (2.0-8.0); NEUTROPHILS # 9.2 10^3/uL (1.5-8.5); NEUTROPHILS % 83.7 % (36.0-66.0); PLATELET COUNT, AUTOMATED 140 10^3/uL (150-450); RED BLOOD COUNT 3.54 10^6/uL (4.30-6.10); WHITE BLOOD COUNT 10.9 10^3/uL (4.0-10.0)
[2022-10-23 08:07] LABS: CALCIUM LEVEL 8.1 MG/DL (8.3-10.6); CREATININE FOR GFR 4.68 MG/DL (0.70-1.30); GLOMERULAR FILTRATION RATE 13.5 (>49); POTASSIUM SERUM 4.6 MMOL/L (3.5-5.1)
[2022-10-23] MEDS ORDERED: guaiFENesin 200 MG TAB PO SCH (09:00)
[2022-10-23] MEDS: OMEPRAZOLE 20MG CAP PO SCH ×2 (09:19→20:42)
[2022-10-23] MEDS: CLOPIDOGREL 75 MG TAB PO SCH (09:19)
[2022-10-23] MEDS: ASPIRIN ENTERIC 325MG TAB PO SCH (09:19)
[2022-10-23] MEDS: GABAPENTIN 100 MG CAP PO SCH (09:19)
[2022-10-23] MEDS: METOCLOPRAMIDE 5 MG TAB PO SCH (09:19)
[2022-10-23] MEDS: FUROSEMIDE 40 MG TAB PO SCH ×2 (09:19→17:55)
[2022-10-23] MEDS: oxyCODONE 5MG TAB PO PRN ×2 (09:20→20:42)
[2022-10-23] MEDS: HEPARIN SOD (PORCINE) 5000UNITS/ML 1ML VIAL/SYRINGE SQ SCH ×2 (09:20→20:41)
[2022-10-23] MEDS: NIFEdipine 30MG XL TAB PO SCH (09:21)
[2022-10-23] MEDS: LEVEMIR (INSULIN DETEMIR) 1 UNITS/0.01ML SC SCH (09:21)
[2022-10-23] MEDS: METOPROLOL TART 25 MG TABLET PO SCH (09:22)
[2022-10-23] MEDS: LIDOCAINE 5% (LIDODERM) PATCH TD SCH (12:48)
[2022-10-23 19:50] VITALS: BP 125/60
[2022-10-23] MEDS ORDERED: LevoFLOXacin 250 MG TABLET PO SCH (20:10)
[2022-10-23] MEDS: ATORVASTATIN 20 MG TAB PO SCH (20:41)
[2022-10-23] MEDS: NORTRIPTYLINE 10 MG CAP PO SCH (20:42)
[2022-10-23] MEDS: PARoxetine 10MG TABLET PO SCH (20:42)
[2022-10-23] MEDS: MONTELUKAST 10 MG TAB PO SCH (20:42)
[2022-10-23] MEDS: DOXAZOSIN MESYLATE 1 MG TAB PO SCH (20:46)
[2022-10-23 23:56] VITALS: BP 158/70
[2022-10-24] MEDS: guaiFENesin SYRUP 200MG 10ML UDC PO SCH ×6 (00:02→20:41)
[2022-10-24 04:15] VITALS: BP 130/76
[2022-10-24] MEDS: oxyCODONE 5MG TAB PO PRN ×4 (04:25→20:42)
[2022-10-24] MEDS: LevoFLOXacin 500 MG TABLET PO SCH (04:25)
[2022-10-24] MEDS: IPRATROPIUM 0.5MG/ALBUTEROL 2.5MG INH SOL UD 3ML (DUONEB) NEB SCH ×2 (07:26→19:47)
[2022-10-24] MEDS: INSULIN LISPRO (NovoLOG) PER UNIT SC SCH ×4 (07:30→21:00)
[2022-10-24 08:00] VITALS: BP 143/63
[2022-10-24] MEDS: HEPARIN SOD (PORCINE) 5000UNITS/ML 1ML VIAL/SYRINGE SQ SCH ×2 (08:58→20:42)
[2022-10-24] MEDS: FUROSEMIDE 40 MG TAB PO SCH ×2 (08:58→16:09)
[2022-10-24] MEDS: OMEPRAZOLE 20MG CAP PO SCH ×2 (08:58→20:41)
[2022-10-24] MEDS: LIDOCAINE 5% (LIDODERM) PATCH TD SCH (08:58)
[2022-10-24] MEDS: ASPIRIN ENTERIC 325MG TAB PO SCH (08:58)
[2022-10-24] MEDS: GABAPENTIN 100 MG CAP PO SCH (08:58)
[2022-10-24] MEDS: CLOPIDOGREL 75 MG TAB PO SCH (08:59)
[2022-10-24] MEDS: METOCLOPRAMIDE 5 MG TAB PO SCH (08:59)
[2022-10-24] MEDS: NIFEdipine 30MG XL TAB PO SCH (08:59)
[2022-10-24] MEDS: METOPROLOL TART 25 MG TABLET PO SCH (08:59)
[2022-10-24] MEDS: ACETAMINOPHEN TAB 650MG DOSE (2X325MG) PO PRN (08:59)
[2022-10-24] MEDS: LEVEMIR (INSULIN DETEMIR) 1 UNITS/0.01ML SC SCH (09:06)
[2022-10-24] MEDS ORDERED: SODIUM CHLORIDE NASAL 0.65% SPRAY BTL (OCEAN) PRN (10:00)
[2022-10-24 11:59] VITALS: BP 145/65
[2022-10-24 16:00] VITALS: BP 135/62
[2022-10-24 20:00] VITALS: BP 136/64
[2022-10-24] MEDS: MONTELUKAST 10 MG TAB PO SCH (20:41)
[2022-10-24] MEDS: ATORVASTATIN 20 MG TAB PO SCH (20:41)
[2022-10-24] MEDS: DOXAZOSIN MESYLATE 1 MG TAB PO SCH (20:41)
[2022-10-24] MEDS: PARoxetine 10MG TABLET PO SCH (20:41)
[2022-10-24] MEDS: NORTRIPTYLINE 10 MG CAP PO SCH (20:42)
[2022-10-25] VITALS: BP 141/65
[2022-10-25] MEDS: guaiFENesin SYRUP 200MG 10ML UDC PO SCH ×6 (00:34→20:06)
[2022-10-25] MEDS: oxyCODONE 5MG TAB PO PRN ×4 (03:57→20:03)
[2022-10-25 04:00] VITALS: BP 156/73
[2022-10-25] MEDS: INSULIN LISPRO (NovoLOG) PER UNIT SC SCH ×4 (07:22→19:45)
[2022-10-25] MEDS: IPRATROPIUM 0.5MG/ALBUTEROL 2.5MG INH SOL UD 3ML (DUONEB) NEB SCH ×2 (07:25→19:14)
[2022-10-25 08:00] VITALS: BP 138/63
[2022-10-25] MEDS: HEPARIN SOD (PORCINE) 5000UNITS/ML 1ML VIAL/SYRINGE SQ SCH ×2 (08:14→20:06)
[2022-10-25] MEDS: ASPIRIN ENTERIC 325MG TAB PO SCH (08:14)
[2022-10-25] MEDS: METOCLOPRAMIDE 5 MG TAB PO SCH (08:15)
[2022-10-25] MEDS: OMEPRAZOLE 20MG CAP PO SCH ×2 (08:15→20:02)
[2022-10-25] MEDS: GABAPENTIN 100 MG CAP PO SCH (08:15)
[2022-10-25] MEDS: CLOPIDOGREL 75 MG TAB PO SCH (08:15)
[2022-10-25] MEDS: METOPROLOL TART 25 MG TABLET PO SCH (08:16)
[2022-10-25] MEDS: FUROSEMIDE 40 MG TAB PO SCH ×2 (08:16→16:55)
[2022-10-25] MEDS: NIFEdipine 30MG XL TAB PO SCH (08:16)
[2022-10-25] MEDS: ACETAMINOPHEN TAB 650MG DOSE (2X325MG) PO PRN ×2 (08:17→13:31)
[2022-10-25] MEDS: LIDOCAINE 5% (LIDODERM) PATCH TD SCH (08:17)
[2022-10-25] MEDS ORDERED: CALCITRIOL 0.25 MCG CAP (S0169) PO SCH (09:00)
[2022-10-25] MEDS: LEVEMIR (INSULIN DETEMIR) 1 UNITS/0.01ML SC SCH (09:00)
[2022-10-25 16:00] VITALS: BP 124/63
[2022-10-25 19:43] VITALS: BP 117/56
[2022-10-25] MEDS: ATORVASTATIN 20 MG TAB PO SCH (20:02)
[2022-10-25] MEDS: DOXAZOSIN MESYLATE 1 MG TAB PO SCH (20:02)
[2022-10-25] MEDS: MONTELUKAST 10 MG TAB PO SCH (20:02)
[2022-10-25] MEDS: PARoxetine 10MG TABLET PO SCH (20:03)
[2022-10-25] MEDS: NORTRIPTYLINE 10 MG CAP PO SCH (20:03)
[2022-10-26] MEDS: guaiFENesin SYRUP 200MG 10ML UDC PO SCH ×6 (00:09→20:26)
[2022-10-26] MEDS: oxyCODONE 5MG TAB PO PRN ×2 (00:10→11:58)
[2022-10-26 03:54] VITALS: BP 132/60
[2022-10-26] MEDS: LevoFLOXacin 500 MG TABLET PO SCH (05:13)
[2022-10-26] MEDS: INSULIN LISPRO (NovoLOG) PER UNIT SC SCH ×4 (07:30→20:12)
[2022-10-26] MEDS: IPRATROPIUM 0.5MG/ALBUTEROL 2.5MG INH SOL UD 3ML (DUONEB) NEB SCH ×2 (07:31→19:35)
[2022-10-26] MEDS ORDERED: ONDANSETRON 4MG ORAL DISINTEGRATING TAB PO PRN (08:05)
[2022-10-26] MEDS: LEVEMIR (INSULIN DETEMIR) 1 UNITS/0.01ML SC SCH (08:31)
[2022-10-26] MEDS: OMEPRAZOLE 20MG CAP PO SCH ×2 (08:41→20:25)
[2022-10-26] MEDS: HEPARIN SOD (PORCINE) 5000UNITS/ML 1ML VIAL/SYRINGE SQ SCH ×2 (08:41→20:26)
[2022-10-26] MEDS: ASPIRIN ENTERIC 325MG TAB PO SCH (08:41)
[2022-10-26] MEDS: NIFEdipine 30MG XL TAB PO SCH (08:42)
[2022-10-26] MEDS: METOPROLOL TART 25 MG TABLET PO SCH (08:42)
[2022-10-26] MEDS: GABAPENTIN 100 MG CAP PO SCH (08:42)
[2022-10-26] MEDS: CLOPIDOGREL 75 MG TAB PO SCH (08:42)
[2022-10-26] MEDS: FUROSEMIDE 40 MG TAB PO SCH ×2 (08:43→17:33)
[2022-10-26] MEDS: METOCLOPRAMIDE 5 MG TAB PO SCH (08:43)
[2022-10-26] MEDS: LIDOCAINE 5% (LIDODERM) PATCH TD SCH (12:22)
[2022-10-26] MEDS: ACETAMINOPHEN TAB 650MG DOSE (2X325MG) PO PRN (17:33)
[2022-10-26] MEDS: SENOKOT S TAB PO SCH (18:51)
[2022-10-26 19:49] VITALS: BP 139/61
[2022-10-26] MEDS: MONTELUKAST 10 MG TAB PO SCH (20:25)
[2022-10-26] MEDS: DOXAZOSIN MESYLATE 1 MG TAB PO SCH (20:25)
[2022-10-26] MEDS: NORTRIPTYLINE 10 MG CAP PO SCH (20:25)
[2022-10-26] MEDS: ATORVASTATIN 20 MG TAB PO SCH (20:26)
[2022-10-26] MEDS: PARoxetine 10MG TABLET PO SCH (20:26)
[2022-10-26] MEDS: FLEET ENEMA PR SCH (21:00)
[2022-10-27] MEDS: guaiFENesin SYRUP 200MG 10ML UDC PO SCH ×6 (01:29→20:08)
[2022-10-27 03:50] VITALS: BP 143/67
[2022-10-27] MEDS: FLEET ENEMA PR SCH ×2 (05:26→18:00)
[2022-10-27] MEDS: INSULIN LISPRO (NovoLOG) PER UNIT SC SCH ×4 (07:30→21:00)
[2022-10-27] MEDS: IPRATROPIUM 0.5MG/ALBUTEROL 2.5MG INH SOL UD 3ML (DUONEB) NEB SCH ×2 (07:33→20:18)
[2022-10-27] MEDS: LIDOCAINE 5% (LIDODERM) PATCH TD SCH (09:00)
[2022-10-27] MEDS: LEVEMIR (INSULIN DETEMIR) 1 UNITS/0.01ML SC SCH (09:00)
[2022-10-27] MEDS: OMEPRAZOLE 20MG CAP PO SCH ×2 (10:57→20:08)
[2022-10-27] MEDS: GABAPENTIN 100 MG CAP PO SCH (10:58)
[2022-10-27] MEDS: CLOPIDOGREL 75 MG TAB PO SCH (10:58)
[2022-10-27] MEDS: FUROSEMIDE 40 MG TAB PO SCH ×2 (10:58→18:18)
[2022-10-27] MEDS: SENOKOT S TAB PO SCH ×2 (10:58→20:09)
[2022-10-27] MEDS: ASPIRIN ENTERIC 325MG TAB PO SCH (10:58)
[2022-10-27] MEDS: NIFEdipine 30MG XL TAB PO SCH (10:58)
[2022-10-27] MEDS: METOCLOPRAMIDE 5 MG TAB PO SCH (10:59)
[2022-10-27] MEDS: HEPARIN SOD (PORCINE) 5000UNITS/ML 1ML VIAL/SYRINGE SQ SCH ×2 (10:59→20:09)
[2022-10-27] MEDS: METOPROLOL TART 25 MG TABLET PO SCH (10:59)
[2022-10-27 15:10] LABS: BODY FLUID CULTURE Not indicated. (.); LEGIONELLA ANTIGEN URINE Negative (Negative); ORGANISM ID Not indicated. (.); SPECIMEN SOURCE Urine (.); URINE STREP PNEUMONIAE ANTIGEN Negative (Negative)
[2022-10-27] MEDS: PARoxetine 10MG TABLET PO SCH (20:08)
[2022-10-27] MEDS: MONTELUKAST 10 MG TAB PO SCH (20:08)
[2022-10-27] MEDS: ATORVASTATIN 20 MG TAB PO SCH (20:08)
[2022-10-27] MEDS: DOXAZOSIN MESYLATE 1 MG TAB PO SCH (20:09)
[2022-10-27] MEDS: NORTRIPTYLINE 10 MG CAP PO SCH (20:09)
[2022-10-27] MEDS: oxyCODONE 5MG TAB PO PRN (20:10)
[2022-10-28] MEDS: guaiFENesin SYRUP 200MG 10ML UDC PO SCH ×4 (01:13→13:39)
[2022-10-28] MEDS: FLEET ENEMA PR SCH (05:17)
[2022-10-28] MEDS: LevoFLOXacin 500 MG TABLET PO SCH (05:17)
[2022-10-28 05:33] VITALS: BP 144/69
[2022-10-28] MEDS: IPRATROPIUM 0.5MG/ALBUTEROL 2.5MG INH SOL UD 3ML (DUONEB) NEB SCH (07:19)
[2022-10-28] MEDS: INSULIN LISPRO (NovoLOG) PER UNIT SC SCH ×2 (07:30→12:00)
[2022-10-28] MEDS: SENOKOT S TAB PO SCH (08:49)
[2022-10-28] MEDS: ASPIRIN ENTERIC 325MG TAB PO SCH (08:49)
[2022-10-28] MEDS: HEPARIN SOD (PORCINE) 5000UNITS/ML 1ML VIAL/SYRINGE SQ SCH (08:49)
[2022-10-28] MEDS: CLOPIDOGREL 75 MG TAB PO SCH (08:49)
[2022-10-28] MEDS: FUROSEMIDE 40 MG TAB PO SCH (08:55)
[2022-10-28] MEDS: GABAPENTIN 100 MG CAP PO SCH (08:55)
[2022-10-28] MEDS: LIDOCAINE 5% (LIDODERM) PATCH TD SCH (08:59)
[2022-10-28] MEDS: OMEPRAZOLE 20MG CAP PO SCH (09:00)
[2022-10-28] MEDS: METOCLOPRAMIDE 5 MG TAB PO SCH (09:00)
[2022-10-28] MEDS: LEVEMIR (INSULIN DETEMIR) 1 UNITS/0.01ML SC SCH (09:00)
[2022-10-28] MEDS: NIFEdipine 30MG XL TAB PO SCH (09:01)
[2022-10-28 09:02] VITALS: BP 142/68
[2022-10-28] MEDS: METOPROLOL TART 25 MG TABLET PO SCH (09:02)
[2022-10-28] MEDS: oxyCODONE 5MG TAB PO PRN (13:44)
[2022-10-28] MEDS ORDERED: ACET1TAB55 PO (14:21)
[2022-10-28] MEDS ORDERED: TRAM50TA2 PO (14:21)
[2022-10-28] MEDS ORDERED: NIFE1TAB52 PO (14:21)
== END 2022-10-28 16:00 | disposition home or self-care (01) ==
LOC: EDBD 12:47 → M ED 12:47 → INTOOBSV 18:12 → M ED INP 18:12 → M MS4PR 10-22 11:35 → M MS5PR 10-27 18:01
PROVIDERS: ADMIT Family Medicine; ATTEND Family Medicine
DX: M25.551 Pain in right hip (principal); S01.111A Laceration without foreign body of right eyelid and periocular area, initial encounter; R26.2 Difficulty in walking, not elsewhere classified; W01.0XXA Fall on same level from slipping, tripping and stumbling without subsequent striking against object, initial encounter; Y92.090 Kitchen in other non-institutional residence as the place of occurrence of the external cause; R09.02 Hypoxemia; I16.9 Hypertensive crisis, unspecified; E87.5 Hyperkalemia; R09.81 Nasal congestion; M50.31 Other cervical disc degeneration, high cervical region; M85.80 Other specified disorders of bone density and structure, unspecified site; N18.9 Chronic kidney disease, unspecified; I25.10 Atherosclerotic heart disease of native coronary artery without angina pectoris; E11.22 Type 2 diabetes mellitus with diabetic chronic kidney disease; I73.9 Peripheral vascular disease, unspecified; G47.33 Obstructive sleep apnea (adult) (pediatric); Z86.73 Personal history of transient ischemic attack (TIA), and cerebral infarction without residual deficits; F17.210 Nicotine dependence, cigarettes, uncomplicated; Z88.0 Allergy status to penicillin; Z88.2 Allergy status to sulfonamides; Z88.1 Allergy status to other antibiotic agents; Z79.899 Other long term (current) drug therapy; Z79.82 Long term (current) use of aspirin; Z79.02 Long term (current) use of antithrombotics/antiplatelets; Z79.4 Long term (current) use of insulin
CPT/HCPCS: 36415; 70450; 71045; 72125; 73502; 73552; 73700; 80048; 80053; 80076; 80307; 82077; 83735; 84145; 85025; 85027; 85610; 85730; 86850; 86900; 86901; 87040; 87070; 87205; 87449; 87486; 87581; 87631; 87633; 87798; 87899; 93005; 93041; 94640; 94760; 96372; 96374; 96375; 97110; 97116; 97161; 97165; 97530; 97535; 99285; G0378; J0360; J1815